=== PATIENT | female | born 1930 | race Caucasian/White ===

== ENCOUNTER → 2017-07-28 | Outpatient (CLI) | payer MEDICARE ==
[2017-07-28 12:43] LABS: Potassium 3.8 mmol/L (3.5-5.1)
[2017-07-28 12:46] LABS: CHCM 30.3; HCT 47.2 % (34.0-46.0); HDW 2.15; HGB 14.4 gm/dL (11.4-16.0); Hypochromasia Slight; MCH 30.4 pg (25.0-35.0); MCHC 30.5 g/dL (31.0-37.0); MCV 99.6 fL (80.0-100.0); Mean Platelet Volume 7.9; RBC 4.75 m/uL (3.80-5.40); RDW 13.7 % (11.5-15.5); WBC 7.5 k/uL (3.8-10.6)
== END | disposition home or self-care (01) ==
LOC: LABPAT 11:58
PROVIDERS: ATTEND Internal Medicine Interventional Cardiology
DX: Z01.812 Encounter for preprocedural laboratory examination (principal); I25.118 Atherosclerotic heart disease of native coronary artery with other forms of angina pectoris
CPT/HCPCS: 36415; 80051; 82565; 84520; 85027

== ENCOUNTER 2017-08-03 07:02 | Day surgery (SDC) | payer MEDICARE ==
[2017-08-02 14:36] VITALS: BMI 28.3
[~2017-08-03 07:02] MED LIST: ALPRAZolam 0.25 MG TAB PO PRN; ALPRAZolam 0.5 MG TAB PO PRN; ASPIRIN 325 MG TAB PO STA; ATORVASTATIN 80 MG TAB PO STA; NITROGLYCERIN SL TABS 0.4 MG TAB SUBLINGUAL PRN; SODIUM CHLORIDE 0.9% 1,000 ML IV SCH; SODIUM CHLORIDE 0.9% 1,000 ML in EMPTY BAG 1 BAG IV ONE
[2017-08-03 07:34] VITALS: RESP 16; TEMP 98.2
[2017-08-03 08:07] LABS: Anion Gap 8 mmol/L; Blood Urea Nitrogen 22 mg/dL (7-17); Calcium 9.1 mg/dL (8.4-10.2); Carbon Dioxide 27 mmol/L (22-30); Chloride 105 mmol/L (98-107); Glucose 93 mg/dL (74-99); Non-African American GFR(MDRD) 54 (>60 ml/min/1.73 sqM); Potassium 4.1 mmol/L (3.5-5.1); Sodium 140 mmol/L (137-145)
[2017-08-03] MEDS ORDERED: diphenhydrAMINE 50 MG/ML 1 ML VIAL ONE (09:30)
[2017-08-03] MEDS ORDERED: fentaNYL (PF) 50 MCG/ML 2 ML AMP ONE (09:30)
[2017-08-03] MEDS ORDERED: LIDOCAINE 2% INJ 20 MG/ML (20 ML MDV) ONE (09:30)
[2017-08-03] MEDS ORDERED: HEPARIN SODIUM 1,000 UN/ML (10ML VL) ONE (09:30)
[2017-08-03] MEDS ORDERED: VERAPAMIL 2.5 MG/ML 2 ML AMP ONE (09:30)
[2017-08-03] MEDS ORDERED: fentaNYL (PF) 50 MCG/ML 2 ML AMP IV ONE (09:47)
[2017-08-03] MEDS ORDERED: diphenhydrAMINE 50 MG/ML 1 ML VIAL IVP ONE (09:47)
[2017-08-03] MEDS ORDERED: LIDOCAINE 2% INJ 20 MG/ML SQ ONE (09:52)
[2017-08-03] MEDS ORDERED: VERAPAMIL SYRINGE (5 MG/10 ML) INTRAARTER ONE (09:55)
[2017-08-03] MEDS ORDERED: HEPARIN SODIUM 1,000 UN/ML (10ML VL) IV ONE (10:05)
[2017-08-03] MEDS ORDERED: IODIXANOL 320 MG/ML 100 ML INTRAARTER ONE (10:08)
[2017-08-03] MEDS ORDERED: RX INFO: IV CONTRAST WAS GIVEN 1 EACH MISC MISCELLANE PRN (10:20)
[2017-08-03] MEDS ORDERED: ALPRAZolam 0.25 MG TAB PO PRN (10:21)
[2017-08-03] MEDS ORDERED: BUTALB/APAP/CAFF 50-325-40MG TAB PO PRN (10:21)
[2017-08-03] MEDS ORDERED: NITROGLYCERIN SL TABS 0.4 MG TAB SUBLINGUAL PRN (10:21)
[2017-08-03] MEDS ORDERED: SODIUM CHLORIDE 0.9% 1,000 ML IV SCH (10:30)
--- NOTE | 2017-08-03 11:10 | CC ---
CARDIAC CATHETERIZATION REPORT Mrs. Garcia is an 86-year-old female with known history of hypertension, hyperlipidemia, history of coronary artery disease, who presented with symptoms of chest discomfort, exertion in pattern reminding her of the symptoms she had prior to percutaneous revascularization. In view of that, recommendation was made regarding cardiac catheterization. The procedure as well as the risks and complications were discussed with the patient who is in full understanding and agreement. 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 Using Xylocaine anesthesia in the Seldinger technique, a 6-Nigerien sheath was introduced in the right radial artery. Selective right and left coronary angiography performed using 5-Nigerien 3-1/2 bend right and left Glynn catheter. Multiple view of the coronary arteries including hemiaxial views were obtained. Following that, a 5-Nigerien tight pigtail catheter was introduced into the left ventricle and pressures were calculated. Following that, catheter and sheaths were removed. Hemostasis was obtained with deployment of a TR band. There was no immediate complication. Patient is returned to her room in stable condition. Of note, the patient received 4000 units of intravenous heparin as well as intra- arterial verapamil. FINDINGS: 1. LEFT MAIN: This is a large-sized vessel, calcified, bifurcating in the left circumflex and left anterior descending artery. Left main coronary artery is without any significant obstructive coronary disease. 2. LEFT ANTERIOR DESCENDING ARTERY: This is a large-sized vessel reaching to the apex with a wrap around the apex segment giving rise to small diagonal branch. The left anterior descending artery stented segment in the mid and proximal are patent with no evidence of significant restenosis. The vessel has mild intimal disease of 20% to 30% without any evidence of high-grade stenosis. 3. LEFT CIRCUMFLEX: This is a nondominant vessel giving rise to a large obtuse marginal branch. The obtuse marginal branch has a 40% to 50% plaque in the mid segment with no significant progression of disease compared with the images obtained in 2013. 4. RIGHT CORONARY ARTERY: This is a large dominant vessel bifurcating distally to PDA and posterolateral segment and branches. The right coronary artery mid segment has a 40% plaque without any evidence of high-grade stenosis. LEFT VENTRICULOGRAM: Left ventriculogram is not performed. HEMODYNAMICS: There was no gradient across the aortic valve. The left ventricular end-diastolic pressure was 8 mmHg. CONCLUSION: 1. Calcified coronary arteries. 2. Mild to moderate triple-vessel coronary artery disease with no progression of disease compared with the images obtained in 2013. RECOMMENDATION: I recommend to continue medical therapy with aggressive coronary risk modifications that has been initiated. Those findings and recommendation were discussed with the patient and her family and they are in full understanding and agreement. Duration of procedure is 18 minutes. MMODL / IJN: [id number] /
[2017-08-03 13:08] VITALS: PULSE 60
[2017-08-03 14:52] VITALS: BP 134/57
--- NOTE | 2017-08-03 15:46 | LTR ---
August 03, 2017 Re: Kaci Garcia Dear Dr. Meyers: I had the opportunity to perform cardiac catheterization on Mrs. Garcia at [facility] on the 03 of August and a full copy of the procedure note will be forwarded to you. In brief, she was found to have mild to moderate triple-vessel coronary artery disease with no progression of disease compared with the images obtained in 2012. Based on those findings, I recommend to continue medical therapy with aggressive coronary risk modifications to be initiated. Thank you again for allowing me the opportunity to participate in her care. Please feel free to call for any questions. Sincerely yours, MD OSCAR Miles / MELYSSAN: [phone] /
[2017-08-03] MEDS ORDERED: FLUoxetine HCL 10 MG CAP PO SCH (16:00)
[2017-08-03] MEDS ORDERED: MONTELUKAST 10 MG TAB PO SCH (21:00)
[2017-08-03] MEDS ORDERED: NON-FORMULARY DRUG (Simvastatin [Zocor] 40 MG) PO SCH (21:00)
[2017-08-04] MEDS ORDERED: LISINOPRIL 5 MG TAB PO SCH (09:00)
[2017-08-04] MEDS ORDERED: EZETIMIBE 10 MG TAB PO SCH (09:00)
[2017-08-04] MEDS ORDERED: ASPIRIN 325 MG TAB PO SCH (09:00)
[2017-08-04] MEDS ORDERED: ATENOLOL 25 MG TAB PO SCH (09:00)
[2017-08-04] MEDS ORDERED: ISOSORBIDE MONONITRATE ER 60 MG TAB.ER.24H PO SCH (09:00)
== END 2017-08-03 15:34 | disposition home or self-care (01) ==
LOC: CATHCVL 07:02
PROVIDERS: ATTEND Internal Medicine Interventional Cardiology
DX: I25.110 Atherosclerotic heart disease of native coronary artery with unstable angina pectoris (principal); I25.84 Coronary atherosclerosis due to calcified coronary lesion; I10 Essential (primary) hypertension; E78.2 Mixed hyperlipidemia; Z95.5 Presence of coronary angioplasty implant and graft; Z86.711 Personal history of pulmonary embolism; Z82.49 Family history of ischemic heart disease and other diseases of the circulatory system; J45.909 Unspecified asthma, uncomplicated; Z79.82 Long term (current) use of aspirin; Z79.899 Other long term (current) drug therapy; Z88.1 Allergy status to other antibiotic agents; Z88.2 Allergy status to sulfonamides
CPT/HCPCS: 99152; 93458; 85347; 80048; C1894; C1769; J2001; J1200; Q9967; J3010; J1644

== ENCOUNTER 2018-03-12 15:04 | Inpatient (IN) | payer MEDICARE ==
[2018-03-12] MEDS ORDERED: SODIUM CHLORIDE 0.9% 1,000 ML IV STA (15:10)
[2018-03-12] MEDS ORDERED: SODIUM CHLORIDE 0.9% 500 ML IV STA (15:10)
--- NOTE | 2018-03-12 15:14 | ED ---
Weakness HPI - General Chief complaint: Weakness Stated complaint: Weakness Time Seen by Provider: 03/12/18 15:04 Source: patient, RN notes reviewed Mode of arrival: EMS Limitations: no limitations - History of Present Illness Initial comments: This is a 87-year-old female who is brought in by EMS after being called for generalized weakness and lethargy all day. Patient was noted be hypotensive on arrival but after 250 mL bolus did improve somewhat. Doesn't complain some left -sided chest pain that has resolved she recently was treated for bronchitis 2 weeks ago she states she's had chills and hot flashes this morning she has had a cough. No other modifying factors at this time MD Complaint: generalized weakness - Related Data Home Medications Medication Instructions Recorded Confirmed ALPRAZolam [Xanax] 0.25 mg PO Q8HR PRN 08/02/17 03/12/18 Aspirin 325 mg PO DAILY 08/02/17 03/12/18 Atenolol 25 mg PO DAILY 08/02/17 03/12/18 Butalb/APAP/Caff 50-325-40Mg 1 tab PO Q6H PRN 08/02/17 03/12/18 [Fioricet 50-325-40] Ezetimibe [Zetia] 10 mg PO DAILY 08/02/17 03/12/18 FLUoxetine HCL [PROzac] 10 mg PO TID 08/02/17 03/12/18 Furosemide [Lasix] 20 mg PO DAILY 08/02/17 03/12/18 Isosorbide Mononitrate ER [Imdur] 60 mg PO DAILY 08/02/17 03/12/18 Lisinopril [Zestril] 5 mg PO DAILY 08/02/17 03/12/18 Montelukast [Singulair] 10 mg PO HS 08/02/17 03/12/18 Nitroglycerin Sl Tabs [Nitrostat] 0.4 mg SUBLINGUAL Q5M PRN 08/02/17 03/12/18 Potassium Chloride ER [K-Dur 10] 10 meq PO DAILY 08/02/17 03/12/18 Simvastatin [Zocor] 40 mg PO HS 08/02/17 03/12/18 Allergies Allergy/AdvReac Type Severity Reaction Status Date / Time Sulfa (Sulfonamide Allergy Rash/Hives Verified 03/12/18 15:11 Antibiotics) erythromycin base AdvReac Nausea & Verified 03/12/18 15:11 Vomiting Review of Systems ROS Statement: Those systems with pertinent positive or pertinent negative responses have been documented in the HPI. ROS Other: All systems not noted in ROS Statement are negative. Past Medical History Past Medical History: Asthma, Coronary Artery Disease (CAD), Chest Pain / Angina , Heart Failure, Hyperlipidemia, Pulmonary Embolus (PE) Additional Past Medical History / Comment(s): brain tumor for years, mild memory impairment,PE yrs ago,IBS History of Any Multi-Drug Resistant Organisms: None Reported Past Surgical History: Appendectomy, Heart Catheterization With Stent, Tonsillectomy Additional Past Surgical History / Comment(s): heart stents x2,rt knee surg Past Anesthesia/Blood Transfusion Reactions: No Reported Reaction Additional Past Anesthesia/Blood Transfusion Reaction / Comment(s): no hx blood transfusion Date of Last Stent Placement:: unk Past Psychological History: No Psychological Hx Reported Smoking Status: Never smoker - Past Family History Mother Family Medical History: Cancer, Diabetes Mellitus, Myocardial Infarction (MS) Additional Family Medical History / Comment(s): at 56 with MS Father Family Medical History: Coronary Artery Disease (CAD), Myocardial Infarction (MS ), Pulmonary Embolus Additional Family Medical History / Comment(s): at age 60 MS General Exam - General Exam Comments Initial Comments: This is a well-developed well-nourished awake alert oriented 3 female Limitations: no limitations General appearance: alert, in no apparent distress Head exam: Present: atraumatic, normocephalic, normal inspection Eye exam: Present: normal appearance, PERRL, EOMI. Absent: scleral icterus, conjunctival injection, periorbital swelling ENT exam: Present: mucous membranes dry Neck exam: Present: normal inspection. Absent: tenderness, meningismus, lymphadenopathy Respiratory exam: Present: rhonchi (Some basilar rhonchi), decreased breath sounds. Absent: respiratory distress, wheezes, rales, stridor Cardiovascular Exam: Present: regular rate, normal rhythm, normal heart sounds. Absent: systolic murmur, diastolic murmur, rubs, gallop, clicks GI/Abdominal exam: Present: soft, normal bowel sounds. Absent: distended, tenderness, guarding, rebound, rigid Extremities exam: Present: normal inspection, full ROM, normal capillary refill. Absent: tenderness, pedal edema, joint swelling, calf tenderness Back exam: Present: normal inspection Neurological exam: Present: alert, oriented X3, CN II-XII intact Psychiatric exam: Present: normal affect, normal mood Skin exam: Present: warm, dry, intact, normal color. Absent: rash Course Vital Signs 03/12/18 03/12/18 15:05 16:13 Temperature 97.6 F Pulse Rate 73 78 Respiratory 20 16 Rate Blood Pressure 118/65 126/77 O2 Sat by Pulse 95 94 L Oximetry - Reevaluation(s) Reevaluation #1: 03/12/18 16:20 I did review the patient's old EKGs or available compared to today's no definite acute change seen Reevaluation #2: 03/12/18 16:21 Patient has no pain at this time I did discuss the findings with the patient and her daughter who was present. Does have elevated troponin she will be admitted EKG Findings - EKG Results: EKG: interpreted by KEVIN, sinus rhythm (Sinus rhythm with artifact rate was 82. Interval 128 QRS duration 70 QT since QTC of 46/[address]-T wave configuration prolonged QT) Medical Decision Making - Lab Data Result diagrams: 03/12/18 15:07 03/12/18 15:07 Lab Results 03/12/18 03/12/18 03/12/18 Range/Units 15:07 15:07 15:07 WBC (3.8-10.6) k/uL RBC (3.80-5.40) m/uL Hgb (11.4-16.0) gm/dL Hct (34.0-46.0) % MCV (80.0-100.0) fL MCH (25.0-35.0) pg MCHC (31.0-37.0) g/dL RDW (11.5-15.5) % Plt Count (150-450) k/uL Neutrophils % % Lymphocytes % % Monocytes % % Eosinophils % % Basophils % % Neutrophils # (1.3-7.7) k/uL Lymphocytes # (1.0-4.8) k/uL Monocytes # (0-1.0) k/uL Eosinophils # (0-0.7) k/uL Basophils # (0-0.2) k/uL Manual Slide Review Sodium 139 (137-145) mmol/L Potassium 4.5 (3.5-5.1) mmol/L Chloride 106 (98-107) mmol/L Carbon Dioxide 22 (22-30) mmol/L Anion Gap 11 mmol/L BUN 50 H (7-17) mg/dL Creatinine 1.30 H (0.52-1.04) mg/dL Est GFR (CKD-EPI)AfAm 43 (>60 ml/min/1.73 sqM) Est GFR (CKD-EPI)NonAf 38 (>60 ml/min/1.73 sqM) Glucose 134 H (74-99) mg/dL Plasma Lactic Acid Rocco (0.7-2.0) mmol/L Calcium 8.8 (8.4-10.2) mg/dL Magnesium 2.0 (1.6-2.3) mg/dL Total Bilirubin 0.6 (0.2-1.3) mg/dL AST 27 (14-36) U/L ALT 33 (9-52) U/L Alkaline Phosphatase 86 (38-126) U/L Total Creatine Kinase 37 (30-135) U/L CK-MB (CK-2) 1.6 (0.0-2.4) ng/mL CK-MB (CK-2) Rel Index 4.3 Troponin I 0.211 H* (0.000-0.034) ng/mL NT-Pro-B Natriuret Pep 2330 pg/mL Total Protein 5.8 L (6.3-8.2) g/dL Albumin 3.3 L (3.5-5.0) g/dL Amylase 76 (30-110) U/L Lipase 200 (23-300) U/L 03/12/18 03/12/18 Range/Units 15:07 15:07 WBC 9.4 (3.8-10.6) k/uL RBC 4.81 (3.80-5.40) m/uL Hgb 14.6 (11.4-16.0) gm/dL Hct 44.6 (34.0-46.0) % MCV 92.7 (80.0-100.0) fL MCH 30.4 (25.0-35.0) pg MCHC 32.8 (31.0-37.0) g/dL RDW 13.0 (11.5-15.5) % Plt Count 73 L (150-450) k/uL Neutrophils % 79 % Lymphocytes % 13 % Monocytes % 5 % Eosinophils % 2 % Basophils % 0 % Neutrophils # 7.5 (1.3-7.7) k/uL Lymphocytes # 1.3 (1.0-4.8) k/uL Monocytes # 0.4 (0-1.0) k/uL Eosinophils # 0.2 (0-0.7) k/uL Basophils # 0.0 (0-0.2) k/uL Manual Slide Review Performed Sodium (137-145) mmol/L Potassium (3.5-5.1) mmol/L Chloride (98-107) mmol/L Carbon Dioxide (22-30) mmol/L Anion Gap mmol/L BUN (7-17) mg/dL Creatinine (0.52-1.04) mg/dL Est GFR (CKD-EPI)AfAm (>60 ml/min/1.73 sqM) Est GFR (CKD-EPI)NonAf (>60 ml/min/1.73 sqM) Glucose (74-99) mg/dL Plasma Lactic Acid Rocco 1.5 (0.7-2.0) mmol/L Calcium (8.4-10.2) mg/dL Magnesium (1.6-2.3) mg/dL Total Bilirubin (0.2-1.3) mg/dL AST (14-36) U/L ALT (9-52) U/L Alkaline Phosphatase (38-126) U/L Total Creatine Kinase (30-135) U/L CK-MB (CK-2) (0.0-2.4) ng/mL CK-MB (CK-2) Rel Index Troponin I (0.000-0.034) ng/mL NT-Pro-B Natriuret Pep pg/mL Total Protein (6.3-8.2) g/dL Albumin (3.5-5.0) g/dL Amylase (30-110) U/L Lipase (23-300) U/L Critical Care Time Critical Care Time: Yes Critical Care Time: 31 minutes of critical care time which includes monitoring the EMS run and discussed with paramedics discussed with the patient history physical labs x- rays review of old charting that was available review the patient's medications and reevaluation patient several occasions. Discussion with the admitting physician discussed with cardiology. Disposition Clinical Impression: Non-STEMI (non-ST elevated myocardial infarction), Renal insufficiency, Elevated brain natriuretic peptide (BNP) level Disposition: ADMITTED IP TO THIS HOSP Condition: Stable Referrals: Carlos A Meyers MD [Primary Care Provider] - 1-2 days
[2018-03-12 15:37] LABS: Basophils % (A) 0 %; Eosinophils # (A) 0.2 k/uL (0-0.7); Eosinophils % (A) 2 %; HCT 44.6 % (34.0-46.0); HGB 14.6 gm/dL (11.4-16.0); Lymphocytes # (A) 1.3 k/uL (1.0-4.8); Lymphocytes % (A) 13 %; MCH 30.4 pg (25.0-35.0); MCHC 32.8 g/dL (31.0-37.0); MCV 92.7 fL (80.0-100.0); Mean Platelet Volume 8.9; Monocytes # (A) 0.4 k/uL (0-1.0); Monocytes % (A) 5 %; Neutrophils # (A) 7.5 k/uL (1.3-7.7); Neutrophils % (A) 79 %; RBC 4.81 m/uL (3.80-5.40); WBC 9.4 k/uL (3.8-10.6)
[2018-03-12 15:44] LABS: Albumin 3.3 g/dL (3.5-5.0); Calcium 8.8 mg/dL (8.4-10.2); Potassium 4.5 mmol/L (3.5-5.1); Total Bilirubin 0.6 mg/dL (0.2-1.3); Total Protein 5.8 g/dL (6.3-8.2)
[2018-03-12 15:51] LABS: Platelet Count 73 k/uL (150-450)
[2018-03-12 15:59] LABS: Creatine Kinase MB 1.6 ng/mL (0.0-2.4)
[2018-03-12 16:03] LABS: Troponin I 0.211 ng/mL (0.000-0.034)
--- NOTE | 2018-03-12 16:13 | XR ---
EXAMINATION TYPE: XR chest 2V DATE OF EXAM: 03/12/2018 COMPARISON: 11/21/2015 HISTORY: Shortness of breath and chest discomfort TECHNIQUE: Frontal and lateral views of the chest are obtained. FINDINGS: There is no focal air space opacity, pleural effusion, or pneumothorax seen. Pulmonary pe r inflation and biapical lucency represent underlying pulmonary emphysema. The cardiac silhouette siz e is within normal limits. The osseous structures are intact. Mild multilevel degenerative changes of thoracic spine and right acromioclavicular joint are present. Slight pectus excavatum deformity is redemonstrated. There is mild generalized osseous demineralization. IMPRESSION: No acute cardiopulmonary process. Redemonstration of radiographic sequela of COPD.
[2018-03-12] MEDS ORDERED: HEPARIN SODIUM,PORCINE 5,000 UNIT/ML 1 ML VIAL IV ONE (16:23)
[2018-03-12] MEDS ORDERED: NITROGLYCERIN SL TABS 0.4 MG TAB SUBLINGUAL PRN (16:23)
[2018-03-12] MEDS ORDERED: ALPRAZolam 0.25 MG TAB PO PRN (16:25)
[2018-03-12] MEDS ORDERED: HEPARIN SODIUM,PORCINE/D5W PMX 25,000 UNIT in DEXTROSE/WATER 1 500ML.BAG IV SCH (16:30)
[2018-03-12] MEDS: NITROGLYCERIN OINT 1 INCH/GM PACKET TOPICAL SCH ×2 (18:52→23:17)
[2018-03-12] MEDS: ATORVASTATIN 20 MG TAB PO SCH (19:36)
[2018-03-12] MEDS: MONTELUKAST 10 MG TAB PO SCH (19:36)
[2018-03-12] MEDS: FLUoxetine HCL 10 MG CAP PO SCH (19:36)
[2018-03-12] MEDS ORDERED: ONDANSETRON 4 MG/2 ML VIAL IVP PRN (20:43)
[2018-03-12 21:09] LABS: Creatine Kinase MB 2.1 ng/mL (0.0-2.4)
[2018-03-12 21:15] LABS: Troponin I 0.344 ng/mL (0.000-0.034)
[2018-03-13 04:05] LABS: Creatine Kinase MB 2.4 ng/mL (0.0-2.4)
[2018-03-13 04:07] LABS: Troponin I 0.337 ng/mL (0.000-0.034)
[2018-03-13] MEDS: NITROGLYCERIN OINT 1 INCH/GM PACKET TOPICAL SCH ×2 (05:26→12:51)
[2018-03-13 07:05] LABS: Cholesterol 89 mg/dL (<200); HDL Cholesterol 46 mg/dL (40-60); LDL Cholesterol,Calculated 21 mg/dL (0-99); Triglycerides 111 mg/dL (<150)
[2018-03-13] MEDS: FLUoxetine HCL 10 MG CAP PO SCH ×3 (08:28→20:21)
[2018-03-13] MEDS: FUROSEMIDE 20 MG TAB PO SCH (08:28)
[2018-03-13] MEDS: ASPIRIN 325 MG TAB PO SCH (08:28)
[2018-03-13] MEDS: POTASSIUM CHLORIDE ER 10 MEQ TAB.ER.PRT PO SCH (08:28)
[2018-03-13] MEDS: ATENOLOL 25 MG TAB PO SCH (08:29)
[2018-03-13] MEDS: EZETIMIBE 10 MG TAB PO SCH (08:29)
[2018-03-13] MEDS: LISINOPRIL 5 MG TAB PO SCH (08:29)
[2018-03-13] MEDS ORDERED: ISOSORBIDE MONONITRATE ER 60 MG TAB.ER.24H PO SCH (09:00)
[2018-03-13 10:01] LABS: Calcium 8.6 mg/dL (8.4-10.2); Potassium 4.7 mmol/L (3.5-5.1)
[2018-03-13] MEDS ORDERED: RX INFO: IV CONTRAST WAS GIVEN 1 EACH MISC MISCELLANE PRN ×2 (12:00→14:25)
[2018-03-13] MEDS ORDERED: IPRATROPIUM-ALBUTEROL 3 ML NEB INHALATION PRN (12:05)
[2018-03-13 12:19] LABS: Basophils % (A) 1 %; Eosinophils # (A) 0.2 k/uL (0-0.7); Eosinophils % (A) 3 %; HCT 42.4 % (34.0-46.0); Hypochromasia Slight; Lymphocytes % (A) 21 %; MCHC 30.7 g/dL (31.0-37.0); MCV 94.5 fL (80.0-100.0); Mean Platelet Volume 10.7; Monocytes # (A) 0.6 k/uL (0-1.0); Monocytes % (A) 6 %; Neutrophils # (A) 6.4 k/uL (1.3-7.7); Neutrophils % (A) 69 %; RBC 4.49 m/uL (3.80-5.40); RDW 13.1 % (11.5-15.5); WBC 9.3 k/uL (3.8-10.6)
[2018-03-13 12:25] LABS: Platelet Count 72 k/uL (150-450)
--- NOTE | 2018-03-13 12:35 | ECHOF ---
Referral Reason:LVF MEASUREMENTS -------- HEIGHT: 160.0 cm WEIGHT: 76.7 kg BP: RVIDd: 4.0 cm (< 3.3) IVSd: 0.7 cm (0.6 - 1.1) LVIDd: 3.0 cm (3.9 - 5.3) LVPWd: 1.0 cm (0.6 - 1.1) IVSs: 1.0 cm LVIDs: 2.6 cm LVPWs: 1.6 cm Ao Diam: 3.2 cm (2.0 - 3.7) AV Cusp: 1.8 cm (1.5 - 2.6) LA Diam: 2.8 cm (2.7 - 3.8) MV EXCURSION: 15.271 mm (> 18.000) MV EF SLOPE: 10 mm/s (70 - 150) EPSS: 0.3 cm MV E Osmani: 0.60 m/s MV DecT: 149 ms MV A Osmani: 0.77 m/s MV E/A Ratio: 0.78 AR PHT: 637 ms RAP: 5.00 mmHg RVSP: 67.90 mmHg FINDINGS -------- Undetermined rhythm. This was a technically difficult study with suboptimal views. The left ventricular size is normal. Left ventricular wall thickness is normal. Overall left vent ricular systolic function is mildly impaired with, an EF between 45 - 50 %. There is paradoxical/dy synergic septal motion consistent with right ventricular volume overload and/or elevated right ventri cular end-diastolic pressure. The right ventricle is moderately enlarged. The right ventricular systolic function is moderately i mpaired. The left atrium is normal in size. RA appears enlarged. Lumason used There is mild aortic valve sclerosis. There is mild aortic regurgitation. Moderate mitral annular calcification present. Mild mitral regurgitation is present. Severe tricuspid regurgitation present. There is moderate to severe pulmonary hypertension. The r ight ventricular systolic pressure, as measured by Doppler, is 67.90mmHg. 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 Moderate pulmonic regurgitation. The aortic root size is normal. There is no pericardial effusion. CONCLUSIONS -------- 1. Undetermined rhythm. 2. This was a technically difficult study with suboptimal views. 3. The left ventricular size is normal. 4. Left ventricular wall thickness is normal. 5. Overall left ventricular systolic function is mildly impaired with, an EF between 45 - 50 %. 6. There is paradoxical/dysynergic septal motion consistent with right ventricular volume overload an d/or elevated right ventricular end-diastolic pressure. 7. The right ventricle is moderately enlarged. 8. The right ventricular systolic function is moderately impaired. 9. The left atrium is normal in size. 10. RA appears enlarged. 11. Lumason used 12. There is mild aortic valve sclerosis. 13. There is mild aortic regurgitation. 14. Moderate mitral annular calcification present. 15. Mild mitral regurgitation is present. 16. Severe tricuspid regurgitation present. 17. There is moderate to severe pulmonary hypertension. 18. 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 19. Moderate pulmonic regurgitation. 20. The aortic root size is normal. 21. There is no pericardial effusion. CRITICAL CARE TECHNICIAN: Kylah Rehman RDCS
[2018-03-13] MEDS: AZITHROMYCIN 500 MG in SODIUM CHLORIDE 0.9% 250 ML IVPB SCH (13:31)
[2018-03-13] MEDS: IOPAMIDOL-300 CONTRAST 30 ML VIAL (ORAL USE) PO PRN ×2 (13:33→14:22)
--- NOTE | 2018-03-13 13:35 | P.CRDCN ---
History of Present Illness Consult date: 03/13/18 History of present illness: This is a 87-year-old female with history of coronary artery disease, hypertension and dyslipidemia and also probable underlying COPD who was admitted through the emergency room with complaints of increasing shortness of breath, fatigue and the heart to mental status and confusion. Over the last several days patient has been weak and fatigued. Apparently the day of admission, patient was confused and appeared to be disoriented lasting for several hours. It is not clear if she had any falls or syncope. Patient is also complaining of shortness of breath and vague pain in the axillary area. Patient had a Cardec enzymes studies which are borderline elevated. EKGs did not reveal any acute changes. Cardiac catheterization done last year by Dr. Ayala showed diffuse coronary artery disease without any focal abnormalities. Lab values showed a mildly elevated creatinine. At the time of my examination patient doesn't appear to be in acute distress. However she feels frail and weak. Echo showed an ejection fraction of 45-50% with moderate mitral regurgitation and also pulmonary hypertension. She claims she gets short of breath Without nasal oxygen. Review of Systems REVIEW OF SYSTEMS: CONSTITUTIONAL:. Patient is doing well. No complaints of fever or chills EYES: Denies diplopia, blurring of vision EARS, NOSE, MOUTH, THROAT: Denies headaches, denies sore throat. CARDIOVASCULAR: As per HPI RESPIRATORY: As per HPI GASTROINTESTINAL: Denies change in appetite, denies abdominal pain, denies diarrhea GENITOURINARY: Denies hematuria, denies infections. MUSKULOSKELETAL: Denies pain, denies swelling. Denies any cramps or claudication INTEGUMENTARY: Denies rash, denies eczema. NEUROLOGICAL: Denies focal weakness, or visual disturbance. Denies any dizziness or syncope PSYCHIATRIC: Denies anxiety, denies depression. HEMATOLOGIC/LYMPHATIC: Denies any bleeding, denies enlarged lymph nodes. Past Medical History Past Medical History: Asthma, Coronary Artery Disease (CAD), Chest Pain / Angina , Heart Failure, Hyperlipidemia, Pulmonary Embolus ([place]) Additional Past Medical History / Comment(s): brain tumor for years, mild memory impairment,PE yrs ago,IBS History of Any Multi-Drug Resistant Organisms: None Reported Past Surgical History: Appendectomy, Heart Catheterization With Stent, Tonsillectomy Additional Past Surgical History / Comment(s): heart stents x2,rt knee surg Past Anesthesia/Blood Transfusion Reactions: No Reported Reaction Additional Past Anesthesia/Blood Transfusion Reaction / Comment(s): no hx blood transfusion Date of Last Stent Placement:: unk Past Psychological History: No Psychological Hx Reported Smoking Status: Never smoker Past Alcohol Use History: None Reported Past Drug Use History: None Reported - Past Family History Mother Family Medical History: Cancer, Diabetes Mellitus, Myocardial Infarction ([place]) Additional Family Medical History / Comment(s): at 56 with [place] Father Family Medical History: Coronary Artery Disease (CAD), Myocardial Infarction ([place] ), Pulmonary Embolus Additional Family Medical History / Comment(s): at age 60 [place] Medications and Allergies Home Medications Medication Instructions Recorded Confirmed Type ALPRAZolam [Xanax] 0.25 mg PO TID PRN 08/02/17 03/12/18 History Aspirin 325 mg PO DAILY 08/02/17 03/12/18 History Atenolol 25 mg PO DAILY 08/02/17 03/12/18 History Ezetimibe [Zetia] 10 mg PO DAILY 08/02/17 03/12/18 History FLUoxetine HCL [PROzac] 10 mg PO QAM 08/02/17 03/12/18 History Furosemide [Lasix] 20 mg PO DAILY 08/02/17 03/12/18 History Isosorbide Mononitrate ER [Imdur] 60 mg PO DAILY 08/02/17 03/12/18 History Lisinopril [Zestril] 5 mg PO DAILY 08/02/17 03/12/18 History Montelukast [Singulair] 10 mg PO HS 08/02/17 03/12/18 History Nitroglycerin Sl Tabs [Nitrostat] 0.4 mg SUBLINGUAL Q5M PRN 08/02/17 03/12/18 History Potassium Chloride ER [K-Dur 10] 10 meq PO DAILY 08/02/17 03/12/18 History Simvastatin [Zocor] 40 mg PO HS 08/02/17 03/12/18 History Benzonatate [Tessalon Perles] 100 - 200 mg PO TID PRN 03/12/18 03/12/18 History Butalb/APAP/Caff 50-325-40Mg 1 - 2 tab PO Q6H PRN 03/12/18 03/12/18 History [Fioricet 50-325-40] FLUoxetine HCL [PROzac] 20 mg PO HS 03/12/18 03/12/18 History diphenhydrAMINE HCL [Benadryl] 25 mg PO Q6H PRN 03/12/18 03/12/18 History traMADol HCL [Ultram] 50 mg PO Q8H PRN 03/12/18 03/12/18 History Allergies Allergy/AdvReac Type Severity Reaction Status Date / Time Sulfa (Sulfonamide Allergy Rash/Hives Verified 03/12/18 17:06 Antibiotics) erythromycin base AdvReac Nausea & Verified 03/12/18 17:06 Vomiting Physical Exam Vitals: Vital Signs Temp Pulse Pulse Resp BP BP Pulse Ox 03/13/18 08:00 97.6 F 73 18 126/77 93 L 03/13/18 04:00 97.3 F L 75 17 150/87 93 L 03/13/18 00:00 98.8 F 71 17 121/78 91 L 03/12/18 20:00 97.1 F L 74 17 142/79 93 L 03/12/18 16:48 97.7 F 79 18 108/65 94 L 03/12/18 16:44 97.6 F 78 16 168/68 95 03/12/18 16:13 78 16 126/77 94 L 03/12/18 15:05 97.6 F 73 20 118/65 95 Intake and Output 03/12/18 03/13/18 03/13/18 22:59 06:59 14:59 Intake Total 130.454 240 Output Total 325 400 Balance -194.546 -160 Intake: Intake, IV Titration 130.454 Amount Heparin Sodium,Porcine/ 130.454 D5w Pmx 25,000 unit In Dextrose/Water 1 500ml. bag @ 12 UNITS/KG/HR 17. 09 mls/hr IV .Q24H [facility] Rx #:[id number] Oral 0 240 Output: Urine 325 400 Other: Voiding Method Bedpan Bedside Commode # Voids 2 # Bowel Movements 0 Weight 77 kg 77 kg GENERAL EXAM: Patient is alert and oriented and doesn't appear to be in any acute distress HEENT: Normocephalic. Normal reaction of pupils, equal size, normal range of extraocular motion. No erythema or exudates in the throat. NECK: No masses, no nuchal rigidity. CHEST: No chest wall deformity. LUNGS: Decreased air entry HEART: S1 and S2 normal with no audible mumurs or gallops. Regular rhythm, femorals equal on both sides.. ABDOMEN: No hepatosplenomegaly, normal bowel sounds, no guarding or rigidity. SKIN: No rashes CENTRAL NERVOUS SYSTEM: No focal deficits. EXTREMITIES: No cyanosis, clubbing or edema. Results 03/13/18 06:10 03/13/18 06:10 Cardiac Enzymes 03/12/18 03/12/18 03/12/18 Range/Units 15:07 15:07 20:22 AST 27 (14-36) U/L CK-MB (CK-2) 1.6 2.1 (0.0-2.4) ng/mL Troponin I 0.211 H* 0.344 H* (0.000-0.034) ng/mL 03/13/18 Range/Units 03:23 AST (14-36) U/L CK-MB (CK-2) 2.4 (0.0-2.4) ng/mL Troponin I 0.337 H* (0.000-0.034) ng/mL Coagulation 03/12/18 03/13/18 Range/Units 23:31 06:10 APTT 168.5 H* 69.1 H (22.0-30.0) sec Lipids 03/13/18 Range/Units 06:10 Triglycerides 111 (<150) mg/dL Cholesterol 89 (<200) mg/dL HDL Cholesterol 46 (40-60) mg/dL CBC 03/12/18 03/13/18 Range/Units 15:07 06:10 WBC 9.4 9.3 (3.8-10.6) k/uL RBC 4.81 4.49 (3.80-5.40) m/uL Hgb 14.6 13.0 (11.4-16.0) gm/dL Hct 44.6 42.4 (34.0-46.0) % Plt Count 73 L 72 L (150-450) k/uL Comprehensive Metabolic Panel 03/12/18 03/13/18 Range/Units 15:07 06:10 Sodium 139 140 (137-145) mmol/L Potassium 4.5 4.7 (3.5-5.1) mmol/L Chloride 106 108 H (98-107) mmol/L Carbon Dioxide 22 21 L (22-30) mmol/L BUN 50 H 41 H (7-17) mg/dL Creatinine 1.30 H 1.05 H (0.52-1.04) mg/dL Glucose 134 H 103 H (74-99) mg/dL Calcium 8.8 8.6 (8.4-10.2) mg/dL AST 27 (14-36) U/L ALT 33 (9-52) U/L Alkaline Phosphatase 86 (38-126) U/L Total Protein 5.8 L (6.3-8.2) g/dL Albumin 3.3 L (3.5-5.0) g/dL Current Medications Generic Name Dose Route Start Last Admin Trade Name Freq PRN Reason Stop Dose Admin Acetaminophen/Butalbital/Caffeine 1 each 03/12/18 16:25 Fioricet 50-325-40 PO Q6H PRN Headache Albuterol/Ipratropium 3 ml 03/13/18 12:05 Duoneb 0.5 Mg-3 Mg/3 Ml Soln INHALATION RT-QID PRN Shortness Of Breath Alprazolam 0.25 mg 03/12/18 16:25 Xanax PO Q8HR PRN Anxiety Aspirin 325 mg 03/13/18 09:00 03/13/18 08:28 Aspirin PO 325 mg DAILY JASON Administration Atenolol 25 mg 03/13/18 09:00 03/13/18 08:29 Tenormin PO 25 mg DAILY JASON Administration Atorvastatin Calcium 20 mg 03/12/18 21:00 03/12/18 19:36 Lipitor PO 20 mg HS JASON Administration Ezetimibe 10 mg 03/13/18 09:00 03/13/18 08:29 Zetia PO 10 mg DAILY JASON Administration Fluoxetine HCl 10 mg 03/12/18 22:00 03/13/18 08:28 Prozac PO 10 mg TID JASON Administration Furosemide 20 mg 03/13/18 09:00 03/13/18 08:28 Lasix PO 20 mg DAILY JASON Administration Azithromycin 500 mg/ Sodium 250 mls @ 125 mls/hr 03/13/18 12:15 Chloride IVPB DAILY JASON Sodium Chloride 1,000 mls @ 50 mls/hr 03/13/18 12:15 Saline 0.9% IV .Q20H [facility] Iopamidol 30 ml 03/13/18 12:00 Isovue-300 30 Ml (For Oral Use) PO 03/14/18 12:[address] Scan Isosorbide Mononitrate 60 mg 03/14/18 09:00 Imdur PO DAILY JASON Lisinopril 5 mg 03/13/18 09:00 03/13/18 08:29 Zestril PO 5 mg DAILY JASON Administration Miscellaneous Information 1 each 03/13/18 12:00 Rx Info: Iv Contrast Was Given MISCELLANE 03/15/18 12:01 DAILY PRN Per Protocol Montelukast Sodium 10 mg 03/12/18 21:00 03/12/18 19:36 Singulair PO 10 mg HS JASON Administration Nitroglycerin 0.4 mg 03/12/18 16:23 Nitrostat SUBLINGUAL Q5M PRN Chest Pain Ondansetron HCl 4 mg 03/12/18 20:43 03/12/18 20:59 Zofran IVP 4 mg Q6HR PRN Administration Nausea And Vomiting Potassium Chloride 10 meq 03/13/18 09:00 03/13/18 08:28 K-Dur 10 PO 10 meq DAILY JASON Administration Prednisone 40 mg 03/13/18 12:15 PO DAILY JASON Intake and Output 03/12/18 03/13/18 03/13/18 22:59 06:59 14:59 Intake Total 130.454 240 Output Total 325 400 Balance -194.546 -160 Intake: Intake, IV Titration 130.454 Amount Heparin Sodium,Porcine/ 130.454 D5w Pmx 25,000 unit In Dextrose/Water 1 500ml. bag @ 12 UNITS/KG/HR 17. 09 mls/hr IV .Q24H [facility] Rx #:[id number] Oral 0 240 Output: Urine 325 400 Other: Voiding Method Bedpan Bedside Commode # Voids 2 # Bowel Movements 0 Weight 77 kg 77 kg 03/13/18 06:10 03/13/18 06:10 EKG Interpretations (text) Sinus rhythm Assessment and Plan (1) Troponin level elevated Current Visit: Yes Status: Acute Code(s): R74.8 - ABNORMAL LEVELS OF OTHER SERUM ENZYMES SNOMED Code(s): 181011491 (2) Elevated brain natriuretic peptide (BNP) level Current Visit: Yes Status: Acute Code(s): R79.89 - OTHER SPECIFIED ABNORMAL FINDINGS OF BLOOD CHEMISTRY SNOMED Code(s): 501320618 (3) Renal insufficiency Current Visit: Yes Status: Acute Code(s): N28.9 - DISORDER OF KIDNEY AND URETER, UNSPECIFIED SNOMED Code(s): 490195815 (4) Dyspnea Current Visit: Yes Status: Acute Code(s): R06.00 - DYSPNEA, UNSPECIFIED SNOMED Code(s): 817932224 (5) Confusion Current Visit: Yes Status: Acute Code(s): R41.0 - DISORIENTATION, UNSPECIFIED SNOMED Code(s): 952985657 (6) Atypical chest pain Current Visit: Yes Status: Acute Code(s): R07.89 - OTHER CHEST PAIN SNOMED Code(s): 894468178 Plan: This patient is admitted mainly with shortness of breath, chest pain and confusion. Her chest pains atypical and nonanginal. Borderline troponin elevation is not consistent with acute [place]. I'm going to get a d-dimer value. If that is high, computed tomography scan of the chest to be constricted to rule out pulmonary emboli. Patient has history of previous pulmonary emboli. Further recommendations depend upon clinical course and findings and about test. She had a cardiac catheterization recently which was not size to of any critical disease though patient has diffuse coronary artery disease.
[2018-03-13] MEDS: SODIUM CHLORIDE 0.9% 1,000 ML IV SCH (13:37)
--- NOTE | 2018-03-13 14:39 | P.HPIM ---
History of Present Illness H&P Date: 03/13/18 Chief Complaint: Generalized weakness This is an 87-year-old female patient of Dr. Meyers with past medical history of mild persistent asthma, coronary artery disease, chronic heart failure, hyperlipidemia, PE many years ago, brain tumor with mild memory impairment, IBS. Patient had heart catheterization with Dr. Ayala in July 2017 that showed calcified coronary arteries. Mild to moderate triple-vessel coronary artery disease with no progression of disease compared with images of 2013. Recommendations at that time were for aggressive coronary risk factor modifications. Patient states that she recently saw Dr. davis about 2 weeks ago and was diagnosed with bronchitis and placed on steroids, inhalers, antibiotics and Tessalon Perles. She continues to have a cough with phlegm production. Daughter states she went over to check on her in the morning as they live next door to each other and went back to her own home. Later her nephew was banging on the door and the patient stated that she thought she passed out. She did have episodes of nausea and vomiting on Tuesday or that lasted for one day. She has been drinking plenty of fluids. She has history of diarrhea with IBS. Patient states she's had some shortness of breath and the O2 helps. She does not have home O2. She is complaining of chest pain under her left arm that comes and goes and radiates into her left arm. The left arm pain stays. She does have tenderness to the left lateral chest wall. Patient presented to [facility] emergency center by ambulance with the above complaints. Patient was hypotensive on arrival and was given a bolus of IV fluids. Patient was afebrile. EKG showed no acute changes, sinus rhythm. BUN was 50 and creatinine 1.3. Platelet count 73, blood sugar 134. ProBNP was 2330. Initial troponin 0.211. Lactic acid was 1.5.. Patient was diagnosed with a non-ST elevated myocardial infarction and admitted to the selective care unit and cardiology consult requested. Patient was started on heparin drip. Chest x-ray shows no acute cardiopulmonary process. COPD changes present. Repeat troponins were 0.344 and 0.337. Triglycerides 111, cholesterol 89, LDL 21 and HDL 46. Patient has been seen by cardiology and acute coronary syndrome has been ruled out. Heparin drip discontinued. They have ordered a d-dimer. Patient is also complaining of left upper quadrant pain to her abdomen along with tenderness to the area and his CAT scan of the abdomen and pelvis with contrast have been ordered. Her repeat BUN is 41 with creatinine of 1.05. 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 Review of Systems All systems: negative Constitutional: Reports fatigue, Reports weakness, Denies chills, Denies fever Eyes: denies blurred vision, denies pain Ears, nose, mouth and throat: Denies headache, Denies sore throat Cardiovascular: Reports syncope, Denies chest pain, Denies leg edema, Denies shortness of breath Respiratory: Reports cough, Reports cough with sputum, Reports dyspnea, Reports wheezing, Denies excessive sputum, Denies hemoptysis, Denies home oxygen Gastrointestinal: Reports abdominal pain, Reports nausea, Reports vomiting, Denies diarrhea Genitourinary: Denies dysuria, Denies hematuria Musculoskeletal: Denies myalgias Integumentary: Denies pruritus, Denies rash Neurological: Denies numbness, Denies weakness Psychiatric: Denies anxiety, Denies depression Endocrine: Denies fatigue, Denies weight change Past Medical History Past Medical History: Asthma, Coronary Artery Disease (CAD), Chest Pain / Angina , Heart Failure, Hyperlipidemia, Pulmonary Embolus (PE) Additional Past Medical History / Comment(s): brain tumor for years, mild memory impairment,PE yrs ago,IBS History of Any Multi-Drug Resistant Organisms: None Reported Past Surgical History: Appendectomy, Heart Catheterization With Stent, Tonsillectomy Additional Past Surgical History / Comment(s): heart stents x2,rt knee surg Past Anesthesia/Blood Transfusion Reactions: No Reported Reaction Additional Past Anesthesia/Blood Transfusion Reaction / Comment(s): no hx blood transfusion Date of Last Stent Placement:: unk Past Psychological History: No Psychological Hx Reported Smoking Status: Never smoker Past Alcohol Use History: None Reported Past Drug Use History: None Reported - Past Family History Mother Family Medical History: Cancer, Diabetes Mellitus, Myocardial Infarction ([place]) Additional Family Medical History / Comment(s): at 56 with [place] Father Family Medical History: Coronary Artery Disease (CAD), Myocardial Infarction ([place] ), Pulmonary Embolus Additional Family Medical History / Comment(s): at age 60 [place] Medications and Allergies Home Medications Medication Instructions Recorded Confirmed Type ALPRAZolam [Xanax] 0.25 mg PO TID PRN 08/02/17 03/12/18 History Aspirin 325 mg PO DAILY 08/02/17 03/12/18 History Atenolol 25 mg PO DAILY 08/02/17 03/12/18 History Ezetimibe [Zetia] 10 mg PO DAILY 08/02/17 03/12/18 History FLUoxetine HCL [PROzac] 10 mg PO QAM 08/02/17 03/12/18 History Furosemide [Lasix] 20 mg PO DAILY 08/02/17 03/12/18 History Isosorbide Mononitrate ER [Imdur] 60 mg PO DAILY 08/02/17 03/12/18 History Lisinopril [Zestril] 5 mg PO DAILY 08/02/17 03/12/18 History Montelukast [Singulair] 10 mg PO HS 08/02/17 03/12/18 History Nitroglycerin Sl Tabs [Nitrostat] 0.4 mg SUBLINGUAL Q5M PRN 08/02/17 03/12/18 History Potassium Chloride ER [K-Dur 10] 10 meq PO DAILY 08/02/17 03/12/18 History Simvastatin [Zocor] 40 mg PO HS 08/02/17 03/12/18 History Benzonatate [Tessalon Perles] 100 - 200 mg PO TID PRN 03/12/18 03/12/18 History Butalb/APAP/Caff 50-325-40Mg 1 - 2 tab PO Q6H PRN 03/12/18 03/12/18 History [Fioricet 50-325-40] FLUoxetine HCL [PROzac] 20 mg PO HS 03/12/18 03/12/18 History diphenhydrAMINE HCL [Benadryl] 25 mg PO Q6H PRN 03/12/18 03/12/18 History traMADol HCL [Ultram] 50 mg PO Q8H PRN 03/12/18 03/12/18 History Allergies Allergy/AdvReac Type Severity Reaction Status Date / Time Sulfa (Sulfonamide Allergy Rash/Hives Verified 03/12/18 17:06 Antibiotics) erythromycin base AdvReac Nausea & Verified 03/12/18 17:06 Vomiting Physical Exam Vitals: Vital Signs Temp Pulse Pulse Resp BP BP Pulse Ox 03/13/18 04:00 97.3 F L 75 17 150/87 93 L 03/13/18 00:00 98.8 F 71 17 121/78 91 L 03/12/18 20:00 97.1 F L 74 17 142/79 93 L 03/12/18 16:48 97.7 F 79 18 108/65 94 L 03/12/18 16:44 97.6 F 78 16 168/68 95 03/12/18 16:13 78 16 126/77 94 L 03/12/18 15:05 97.6 F 73 20 118/65 95 Intake and Output 03/12/18 03/13/18 03/13/18 22:59 06:59 14:59 Intake Total 130.454 120 Output Total 325 Balance -194.546 120 Intake: Intake, IV Titration 130.454 Amount Heparin Sodium,Porcine/ 130.454 D5w Pmx 25,000 unit In Dextrose/Water 1 500ml. bag @ 12 UNITS/KG/HR 17. 09 mls/hr IV .Q24H [facility] Rx #:[id number] Oral 0 120 Output: Urine 325 Other: Voiding Method Bedpan Bedside Commode # Voids 1 # Bowel Movements 0 Weight 77 kg 77 kg - Constitutional General appearance: average body habitus - EENT Eyes: anicteric sclerae, PERRLA, normal appearance ENT: hard of hearing, normal oropharynx - Neck Neck: no lymphadenopathy, normal ROM, no rigidity, no stridor, no thyromegaly Thyroid: bilateral: normal size - Respiratory Respiratory: bilateral: rhonchi, negative: CTA, rales, wheezing - Cardiovascular Heart sounds: normal: S1, S2 Abnormal Heart Sounds: no systolic murmur, no diastolic murmur - Gastrointestinal General gastrointestinal: no absent bowel sounds, no decreased bowel sounds, no distended, no hepatomegaly, no hyperactive bowel sounds, normal bowel sounds, no organomegaly, no rigid, soft, no splenomegaly, tenderness, no umbilical hernia, no ventral hernia Localized gastrointestinal: tender: LUQ - Integumentary Integumentary: no rash, no ulcer - Neurologic Neurologic: CNII-XII intact - Psychiatric Psychiatric: A&O x's 3, appropriate affect, intact judgment & insight Results CBC & Chem 7: 03/14/18 05:56 03/14/18 05:56 Labs: Abnormal Lab Results - Last 24 Hours (Table) 03/12/18 03/12/18 03/12/18 Range/Units 15:07 15:07 15:07 Plt Count 73 L (150-450) k/uL APTT (22.0-30.0) sec BUN 50 H (7-17) mg/dL Creatinine 1.30 H (0.52-1.04) mg/dL Glucose 134 H (74-99) mg/dL Troponin I 0.211 H* (0.000-0.034) ng/mL Total Protein 5.8 L (6.3-8.2) g/dL Albumin 3.3 L (3.5-5.0) g/dL 03/12/18 03/12/18 03/13/18 Range/Units 20:22 23:31 03:23 Plt Count (150-450) k/uL APTT 168.5 H* (22.0-30.0) sec BUN (7-17) mg/dL Creatinine (0.52-1.04) mg/dL Glucose (74-99) mg/dL Troponin I 0.344 H* 0.337 H* (0.000-0.034) ng/mL Total Protein (6.3-8.2) g/dL Albumin (3.5-5.0) g/dL 03/13/18 Range/Units 06:10 Plt Count (150-450) k/uL APTT 69.1 H (22.0-30.0) sec BUN (7-17) mg/dL Creatinine (0.52-1.04) mg/dL Glucose (74-99) mg/dL Troponin I (0.000-0.034) ng/mL Total Protein (6.3-8.2) g/dL Albumin (3.5-5.0) g/dL Thrombosis Risk Factor Assmnt - DVT/VTE Prophylaxis DVT/VTE Prophylaxis: Pharmacologic Prophylaxis ordered - Choose All That Apply Any of the Below Risk Factors Present?: Yes Each Factor Represents 1 point: Abnormal pulmonary function (COPD) Other Risk Factors: Yes Each Risk Factor Represents 3 Points: Age 75 years or older Thrombosis Risk Factor Assessment Total Risk Factor Score: 4 Thrombosis Risk Factor Assessment Level: Moderate Risk Assessment and Plan Plan: 1. Non-ST elevated myocardial infarction has been ruled out. Chest pain possibly due to pleuritis due to bronchitis and cough. Discontinue heparin drip. Patient will be started on prednisone 40 mg daily, DuoNeb treatments 4 times daily as needed, azithromycin 250 mg daily. 2. Elevated d-dimer with shortness of breath, cough. CTA of the chest ordered to rule out pulmonary embolism. 3. Left upper quadrant abdominal pain with recent episodes of nausea and vomiting. CT of the abdomen and pelvis with contrast ordered. 4. Thrombocytopenia. Heparin drip discontinued. Monitor platelet count. 5. Acute kidney injury. Continue gentle IV fluid resuscitation. Monitor kidney function especially after having CAT scan. 6. History of coronary artery disease with previous stent 2. Patient follows with Dr. Ayala. Most recent heart catheterization was in July 2017. Continue simvastatin, Imdur 60 mg daily and atenolol, aspirin 325 mg daily. Discontinue nitro paste. 7. Hypertension. Continue atenolol 25 mg daily, lisinopril 5 mg daily. 8. Hyperlipidemia. Continue Lipitor 20 mg at bedtime and Zetia 10 mg daily. 9. Chronic lower extremity edema. Continue Lasix 20 mg daily. 10. Mild persistent asthma. Continue Singulair 10 mg at bedtime. 11. Recurrent depression. Continue Prozac 10 mg in the morning and 20 mg at bedtime. 12. DVT prophylaxis. THALIA balderas and SCDs. 13. GI prophylaxis. Pepcid. Patient will be admitted to the hospital for a minimum of 2 night stay. Discharge plan: To be determined Impression and plan of care have been directed as dictated by the signing physician. Patience Jones nurse practitioner acting as scribe for signing physician.
--- NOTE | 2018-03-13 16:04 | CT ---
EXAMINATION TYPE: CT angio chest DATE OF EXAM: 03/13/2018 COMPARISON: NONE HISTORY: Elevated D-Dimer, chest and abdominal abdominal pain CT DLP: 443.17 mGycm. Automated Exposure Control for Dose Reduction was Utilized. CONTRAST: CTA scan of the thorax is performed with IV Contrast, patient injected with 80 mL of Isovue 370, pulm onary embolism protocol. MIP Images are created on CT scanner and reviewed. FINDINGS: LUNGS: Some respiratory motion artifact degradation is seen particularly in the bases. The lungs are grossly clear, there is no concerning parenchymal mass or nodule identified. There is no pleural ef fusion or pneumothorax seen. The tracheobronchial tree is patent. MEDIASTINUM: There is satisfactory enhancement of the pulmonary artery and its branches, there is pro minent pulmonary embolism beginning and upper lobe branch on the right near axial image 62. There is pulmonary embolism in the right middle lobe branch beginning on axial image 79 with segmental extensi on. There is segmental right lower lobe embolism beginning on axial image 83 with subsegmental extens ion .There is linear thrombus in the distal left pulmonary artery as branches into upper and lower lo be branches axial image 61. There is segmental left upper lobe thrombus axial image 52. There is carrie tional left upper lobe segmental thrombus axial image 64. There is lingular thrombus axial image 70. There is left lower lobe thrombus with segmental and subsegmental extension beginning axial image 85. Cardiomegaly is present. There is moderate to severe right atrial dilatation. There is abnormal RV/L V ratio greater than 1, calculated 1.6 axial image 105. There is reflux of contrast into IVC and hepa tic veins. There is severe coronary artery calcification which is noted marker for coronary artery di sease. There are no greater than 1 cm hilar or mediastinal lymph nodes. No significant pericardial effusi on is seen. OTHER: Underlying scoliosis is present. There is severe multilevel anterior and lateral spurring. Ple ase refer to same day CT abdomen and pelvis report for complete details on the upper abdomen. IMPRESSION: 1. There is significant bilateral pulmonary emboli with CT evidence suggesting RV strain and right he art failure. Critical results communicated to patient's nurse via telephone at time of dictation.
--- NOTE | 2018-03-13 16:10 | CT ---
EXAMINATION TYPE: CT abdomen pelvis w con DATE OF EXAM: 03/13/2018 HISTORY: Elevated D-Dimer, abdominal pain CT DLP: 1183.07mGycm Automated Exposure Control for Dose Reduction was Utilized. CONTRAST: CT scan of the abdomen and pelvis is performed with IV Contrast, patient injected with 80 mL of Isovu e 370. COMPARISON: CT abdomen and pelvis March 08, 2011. FINDINGS: LUNG BASES: Please refer to same day CTA chest report for complete details. LIVER/GB: Prominent gallbladder folds incidentally noted. PANCREAS: No significant abnormality is seen. 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 ADRENALS: Slight thickening to both adrenal glands favors benign hyperplasia. KIDNEYS: There are few tiny simple appearing cysts scattered throughout both kidneys. There are simpl e parapelvic cyst centrally in the left kidney. Suspect tiny lipoma anteriorly left kidney axial imag e 18 not significantly changed from prior. BOWEL: There are diverticula in the sigmoid colon. There is no CT evidence for acute diverticulitis. There is no suspicious small or large bowel dilatation UTERUS/ADNEXA: Uterus is surgically absent or markedly atrophic in appearance. LYMPH NODES: No greater than 1cm abdominal or pelvic lymph nodes are appreciated. OSSEOUS STRUCTURES: There is moderate to severe multilevel spurring in the spine. There is multilevel moderate disc space narrowing and vacuum disc phenomenon. There is moderate joint space loss in both hips. There is prominent facet arthropathy throughout the lumbar spine. OTHER: There is mild calcified plaque throughout the abdominal aorta extending into branch vessels. IMPRESSION: No significant acute finding is seen to account for patient's clinical symptoms.
[2018-03-13] MEDS: predniSONE 20 MG TAB PO SCH (16:22)
[2018-03-13] MEDS ORDERED: HEPARIN SODIUM,PORCINE 5,000 UNIT/ML 1 ML VIAL IV PRN (16:26)
[2018-03-13] MEDS ORDERED: HEPARIN SODIUM,PORCINE 10,000 UNIT/ML 1 ML VIAL IV ONE (16:26)
[2018-03-13 16:56] LABS: Basophils % (A) 0 %; Eosinophils # (A) 0.2 k/uL (0-0.7); Eosinophils % (A) 2 %; HCT 46.3 % (34.0-46.0); HGB 14.7 gm/dL (11.4-16.0); Lymphocytes # (A) 1.8 k/uL (1.0-4.8); Lymphocytes % (A) 16 %; MCHC 31.8 g/dL (31.0-37.0); MCV 94.5 fL (80.0-100.0); Mean Platelet Volume 9.6; Monocytes # (A) 0.6 k/uL (0-1.0); Monocytes % (A) 6 %; Neutrophils # (A) 8.5 k/uL (1.3-7.7); Neutrophils % (A) 75 %; Platelet Count 74 k/uL (150-450); WBC 11.2 k/uL (3.8-10.6)
[2018-03-13] MEDS: HEPARIN SODIUM,PORCINE/D5W PMX 25,000 UNIT in DEXTROSE/WATER 1 500ML.BAG IV SCH (16:57)
[2018-03-13] MEDS ORDERED: HEPARIN SOD,PORK IN 0.45% NACL 25,000 UNIT in 0.45% NACL 1 500ML.BAG IV SCH (17:00)
[2018-03-13 17:04] LABS: INR 1.1 (<1.2); Partial Thromboplastin Time 24.7 sec (22.0-30.0); Prothrombin Time 10.9 sec (9.0-12.0)
[2018-03-13 17:06] LABS: Appearance,Urine Clear (Clear); Bilirubin,Urine Negative (Negative); Blood,Urine Negative (Negative); Color,Urine Colorless; Glucose,Urine (UA) Negative (Negative); Ketones,Urine Negative (Negative); Leukocyte Esterase,Urine Negative (Negative); Nitrite,Urine Negative (Negative); Protein,Urine Negative (Negative); Specific Gravity,Urine 1.015 (1.001-1.035); Urobilinogen,Urine <2.0 mg/dL (<2.0)
[2018-03-13] MEDS: ATORVASTATIN 20 MG TAB PO SCH (20:21)
[2018-03-13] MEDS: MONTELUKAST 10 MG TAB PO SCH (20:21)
[2018-03-14 06:26] LABS: Basophils % (A) 0 %; Eosinophils # (A) 0.1 k/uL (0-0.7); Eosinophils % (A) 1 %; HCT 44.8 % (34.0-46.0); HGB 13.7 gm/dL (11.4-16.0); Lymphocytes # (A) 1.1 k/uL (1.0-4.8); Lymphocytes % (A) 10 %; MCH 28.7 pg (25.0-35.0); MCHC 30.5 g/dL (31.0-37.0); MCV 94.1 fL (80.0-100.0); Mean Platelet Volume 9.5; Monocytes # (A) 0.6 k/uL (0-1.0); Monocytes % (A) 5 %; Neutrophils # (A) 8.7 k/uL (1.3-7.7); Neutrophils % (A) 83 %; Platelet Count 71 k/uL (150-450); RBC 4.76 m/uL (3.80-5.40); WBC 10.5 k/uL (3.8-10.6)
[2018-03-14 07:10] LABS: Calcium 8.9 mg/dL (8.4-10.2); Potassium 4.9 mmol/L (3.5-5.1)
[2018-03-14] MEDS: FLUoxetine HCL 10 MG CAP PO SCH ×3 (09:51→20:22)
[2018-03-14] MEDS: LISINOPRIL 5 MG TAB PO SCH (09:51)
[2018-03-14] MEDS: POTASSIUM CHLORIDE ER 10 MEQ TAB.ER.PRT PO SCH (09:51)
[2018-03-14] MEDS: ASPIRIN 325 MG TAB PO SCH (09:51)
[2018-03-14] MEDS: EZETIMIBE 10 MG TAB PO SCH (09:52)
[2018-03-14] MEDS: predniSONE 20 MG TAB PO SCH (09:52)
[2018-03-14] MEDS: ISOSORBIDE MONONITRATE ER 60 MG TAB.ER.24H PO SCH (09:52)
[2018-03-14] MEDS: FAMOTIDINE 20 MG TAB PO SCH (09:52)
[2018-03-14] MEDS: ATENOLOL 25 MG TAB PO SCH (09:52)
[2018-03-14] MEDS: FUROSEMIDE 20 MG TAB PO SCH (09:52)
[2018-03-14] MEDS: AZITHROMYCIN 500 MG in SODIUM CHLORIDE 0.9% 250 ML IVPB SCH (09:59)
[2018-03-14] MEDS: SODIUM CHLORIDE 0.9% 1,000 ML IV SCH (10:02)
--- NOTE | 2018-03-14 13:10 | P.CNPUL ---
History of Present Illness Consult date: 03/14/18 Requesting physician: Christianne Fowler Reason for consult: dyspnea, abnormal CXR/CT Chief complaint: Shortness of breath, weakness History of present illness: This is a very pleasant 87-year-old female patient who follows with Dr. Meyers as her primary care physician. She has a history of coronary artery disease with previous stent placements, congestive heart failure, hyperlipidemia, brain tumors, memory impairment, asthma. She does have a remote history of pulmonary embolism approximately 30 years ago. She had been treated in the outpatient setting for acute bronchitis with antibiotics and steroids without much improvement. She has been quite weak and spending most of her time in bed or reclining chair at home the past several days. No recent travels. No recent trauma. No recent surgery. No history of cancer. Yesterday her family found her to be quite weak and barely able to stand and brought her to the emergency room for the same. She was found to have an elevated d-dimer and subsequent CT angiogram revealed bilateral pulmonary emboli. She is seen today in consultation on the selective care unit. She is currently awake and alert in no acute distress. She is maintaining good O2 saturations in the mid 90s on 2 L /m per nasal cannula. She has been hemodynamically stable. No tachycardia. No tachypnea. No hemoptysis. She has been initiated on a heparin drip. The CT angiogram did reveal significant bilateral pulmonary emboli and suggestion of RV strain and right-sided heart failure. Echocardiogram revealed mildly impaired left ventricular systolic function with ejection fraction 45-50%. There was proximal. Oxycodone septal motion consistent with right ventricular volume overload and/or elevated right ventricular end-diastolic pressure. There is moderately enlarged right ventricle. Moderately impaired right ventricle. There is severe tricuspid rgurgitation and moderate to severe pulmonary hypertension with an RVSP of 67.90 mmHg. On today's evaluation she is resting fairly comfortably in bed. She states she is feeling better today as compared to yesterday. No worsening shortness of breath, cough or congestion. Review of Systems 14 point review of system was conducted. All negative other than as mentioned in HPI. Past Medical History Past Medical History: Asthma, Coronary Artery Disease (CAD), Chest Pain / Angina , Heart Failure, Hyperlipidemia, Pulmonary Embolus (PE) Additional Past Medical History / Comment(s): brain tumor for years, mild memory impairment,PE yrs ago,IBS History of Any Multi-Drug Resistant Organisms: None Reported Past Surgical History: Appendectomy, Heart Catheterization With Stent, Tonsillectomy Additional Past Surgical History / Comment(s): heart stents x2,rt knee surg Past Anesthesia/Blood Transfusion Reactions: No Reported Reaction Additional Past Anesthesia/Blood Transfusion Reaction / Comment(s): no hx blood transfusion Date of Last Stent Placement:: unk Past Psychological History: No Psychological Hx Reported Smoking Status: Never smoker Past Alcohol Use History: None Reported Past Drug Use History: None Reported - Past Family History Mother Family Medical History: Cancer, Diabetes Mellitus, Myocardial Infarction (AK) Additional Family Medical History / Comment(s): at 56 with [place] Father Family Medical History: Coronary Artery Disease (CAD), Myocardial Infarction ([place] ), Pulmonary Embolus Additional Family Medical History / Comment(s): at age 60 [place] Medications and Allergies Home Medications Medication Instructions Recorded Confirmed Type ALPRAZolam [Xanax] 0.25 mg PO TID PRN 08/02/17 03/12/18 History Aspirin 325 mg PO DAILY 08/02/17 03/12/18 History Atenolol 25 mg PO DAILY 08/02/17 03/12/18 History Ezetimibe [Zetia] 10 mg PO DAILY 08/02/17 03/12/18 History FLUoxetine HCL [PROzac] 10 mg PO QAM 08/02/17 03/12/18 History Furosemide [Lasix] 20 mg PO DAILY 08/02/17 03/12/18 History Isosorbide Mononitrate ER [Imdur] 60 mg PO DAILY 08/02/17 03/12/18 History Lisinopril [Zestril] 5 mg PO DAILY 08/02/17 03/12/18 History Montelukast [Singulair] 10 mg PO HS 08/02/17 03/12/18 History Nitroglycerin Sl Tabs [Nitrostat] 0.4 mg SUBLINGUAL Q5M PRN 08/02/17 03/12/18 History Potassium Chloride ER [K-Dur 10] 10 meq PO DAILY 08/02/17 03/12/18 History Simvastatin [Zocor] 40 mg PO HS 08/02/17 03/12/18 History Benzonatate [Tessalon Perles] 100 - 200 mg PO TID PRN 03/12/18 03/12/18 History Butalb/APAP/Caff 50-325-40Mg 1 - 2 tab PO Q6H PRN 03/12/18 03/12/18 History [Fioricet 50-325-40] FLUoxetine HCL [PROzac] 20 mg PO HS 03/12/18 03/12/18 History diphenhydrAMINE HCL [Benadryl] 25 mg PO Q6H PRN 03/12/18 03/12/18 History traMADol HCL [Ultram] 50 mg PO Q8H PRN 03/12/18 03/12/18 History Allergies Allergy/AdvReac Type Severity Reaction Status Date / Time Sulfa (Sulfonamide Allergy Rash/Hives Verified 03/12/18 17:06 Antibiotics) erythromycin base AdvReac Nausea & Verified 03/12/18 17:06 Vomiting Physical Exam Vitals: Vital Signs Temp Pulse Resp BP Pulse Ox 03/14/18 08:10 97.1 F L 77 18 133/77 94 L 03/14/18 04:00 97.8 F 63 18 151/79 96 03/14/18 00:00 97.0 F L 69 16 172/83 95 03/13/18 20:00 97.2 F L 73 17 142/75 93 L 03/13/18 16:00 96.7 F L 71 18 117/68 90 L Intake and Output 03/13/18 03/14/18 03/14/18 22:59 06:59 14:59 Intake Total 403.086 534.295 60 Output Total 500 Balance -96.914 534.295 60 Intake: IV 393 Heparin Sodium,Porcine/ 253 D5w Pmx 25,000 unit In Dextrose/Water 1 500ml. bag @ 18 UNITS/KG/HR 27. 72 mls/hr IV .Q18H3M [facility] Rx#:[id number] Sodium Chloride 0.9% 1, 140 000 ml @ 50 mls/hr IV . Q20H [facility] Rx#:[id number] Intake, IV Titration 163.086 141.295 0 Amount Heparin Sodium,Porcine/ 163.086 141.295 0 D5w Pmx 25,000 unit In Dextrose/Water 1 500ml. bag @ 18 UNITS/KG/HR 27. 72 mls/hr IV .Q18H3M [facility] Rx#:[id number] Oral 240 60 Output: Urine 500 Other: Voiding Method Bedside Commode Bedside Commode # Voids 3 1 1 # Bowel Movements 0 Weight 71.8 kg GENERAL EXAM: Alert, active, comfortable in no apparent distress. HEAD: Normocephalic. EYES: Normal reaction of pupils, equal size. NOSE: Clear with pink turbinates. THROAT: Erythema was slightly edematous uvula NECK: No masses, no JVD. CHEST: No chest wall deformity. LUNGS: Equal air entry with no crackles, wheeze, rhonchi or dullness. CVS: S1 and S2 normal with no audible murmur, regular rhythm. ABDOMEN: No hepatosplenomegaly, normal bowel sounds, no guarding or rigidity. SPINE: No scoliosis or deformity SKIN: No rashes CENTRAL NERVOUS SYSTEM: No focal deficits, tone is normal in all 4 extremities. EXTREMITIES: There is no peripheral edema. No clubbing, no cyanosis. Peripheral pulses are intact. Results - Laboratory Findings CBC and BMP: 03/14/18 05:56 03/14/18 05:56 PT/INR, D-dimer PT 10.9 sec (9.0-12.0) 03/13/18 16:46 INR 1.1 (<1.2) 03/13/18 16:46 D-Dimer 13.88 mg/L FEU (<0.60) H 03/13/18 13:45 Abnormal lab findings: Abnormal Labs 03/12/18 03/12/18 03/12/18 15:07 15:07 15:07 WBC Hct MCHC Plt Count 73 L Neutrophils # APTT D-Dimer Chloride Carbon Dioxide BUN 50 H Creatinine 1.30 H Glucose 134 H Troponin I 0.211 H* Total Protein 5.8 L Albumin 3.3 L 03/12/18 03/12/18 03/13/18 20:22 23:31 03:23 WBC Hct MCHC Plt Count Neutrophils # APTT 168.5 H* D-Dimer Chloride Carbon Dioxide BUN Creatinine Glucose Troponin I 0.344 H* 0.337 H* Total Protein Albumin 03/13/18 03/13/18 03/13/18 06:10 06:10 06:10 WBC Hct MCHC 30.7 L Plt Count 72 L Neutrophils # APTT 69.1 H D-Dimer Chloride 108 H Carbon Dioxide 21 L BUN 41 H Creatinine 1.05 H Glucose 103 H Troponin I Total Protein Albumin 03/13/18 03/13/18 03/13/18 13:45 16:46 22:01 WBC 11.2 H Hct 46.3 H MCHC Plt Count 74 L Neutrophils # 8.5 H APTT >200.0 H* D-Dimer 13.88 H Chloride Carbon Dioxide BUN Creatinine Glucose Troponin I Total Protein Albumin 03/14/18 03/14/18 03/14/18 05:56 05:56 05:56 WBC Hct MCHC 30.5 L Plt Count 71 L Neutrophils # 8.7 H APTT 194.5 H* D-Dimer Chloride Carbon Dioxide 21 L BUN 31 H Creatinine Glucose 128 H Troponin I Total Protein Albumin - Diagnostic Findings Chest x-ray: image reviewed CT scan - chest: image reviewed Assessment and Plan Assessment: Impression: #1 Acute hypoxic respiratory failure secondary to multiple bilateral pulmonary emboli with right ventricular strain. There is noted paradoxical septal motion consistent with right ventricular volume overload and/or elevated right ventricular end-diastolic pressure. Right ventricle is moderately enlarged. Right ventricular systolic function moderately impaired. #2 Moderate to severe pulmonary hypertension. RVSP 67.90 mmHg. #3 Mildly impaired left ventricular systolic function with ejection fraction 45- 50%. #4 History of coronary artery disease with previous stent placement to the LAD. Most recent cardiac catheterization in July 2017 revealed calcified coronary arteries with [id number] triple-vessel coronary disease with no progression compared to previous images in 2012. #5 Remote history of PE approximately 30 years ago. #6 Hyperlipidemia. Plan: The patient was seen and evaluated by Dr. Bruner. Chest x-ray, CT angiogram, echocardiogram were all reviewed. The patient is currently stable and maintaining good O2 saturations in the 90s on just 2 L/m per nasal cannula. No chest pain. Remains hemodynamically stable. No hemoptysis. Currently on a heparin drip. Cardiology is on the case as well. We'll continue to follow and make further recommendations based on her clinical status. I, the cosigning physician, performed a history & physical examination of the patient. Lungs sounds are clear. Maintaining good O2 saturations in the 90s on 2 L/m per nasal cannula. I discussed the assessment and plan of care with my nurse practitioner, Sherin Bonner. I attest to the above note as dictated by her. Time with Patient: Greater than 30
--- NOTE | 2018-03-14 14:04 | P.PN ---
Subjective Progress Note Date: 03/14/18 This is an 87-year-old female patient of Dr. Meyers with past medical history of mild persistent asthma, coronary artery disease, chronic heart failure, hyperlipidemia, PE many years ago, brain tumor with mild memory impairment, IBS. Patient had heart catheterization with Dr. Ayala in July 2017 that showed calcified coronary arteries. Mild to moderate triple-vessel coronary artery disease with no progression of disease compared with images of 2013. Recommendations at that time were for aggressive coronary risk factor modifications. Patient states that she recently saw Dr. davis about 2 weeks ago and was diagnosed with bronchitis and placed on steroids, inhalers, antibiotics and Tessalon Perles. She continues to have a cough with phlegm production. Daughter states she went over to check on her in the morning as they live next door to each other and went back to her own home. Later her nephew was banging on the door and the patient stated that she thought she passed out. She did have episodes of nausea and vomiting on Tuesday or that lasted for one day. She has been drinking plenty of fluids. She has history of diarrhea with IBS. Patient states she's had some shortness of breath and the O2 helps. She does not have home O2. She is complaining of chest pain under her left arm that comes and goes and radiates into her left arm. The left arm pain stays. She does have tenderness to the left lateral chest wall. Patient presented to [facility] emergency [facility] by ambulance with the above complaints. Patient was hypotensive on arrival and was given a bolus of IV fluids. Patient was afebrile. EKG showed no acute changes, sinus rhythm. BUN was 50 and creatinine 1.3. Platelet count 73, blood sugar 134. ProBNP was 2330. Initial troponin 0.211. Lactic acid was 1.5.. Patient was diagnosed with a non-ST elevated myocardial infarction and admitted to the selective care unit and cardiology consult requested. Patient was started on heparin drip. Chest x-ray shows no acute cardiopulmonary process. COPD changes present. Repeat troponins were 0.344 and 0.337. Triglycerides 111, cholesterol 89, LDL 21 and HDL 46. Patient has been seen by cardiology and acute coronary syndrome has been ruled out. Heparin drip discontinued. They have ordered a d-dimer. Patient is also complaining of left upper quadrant pain to her abdomen along with tenderness to the area and his CAT scan of the abdomen and pelvis with contrast have been ordered. Her repeat BUN is 41 with creatinine of 1.05. 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 03/14: CT of the abdomen and pelvis showed no significant acute finding to account for patient's symptoms. CTA of the chest shows significant bilateral pulmonary emboli with evidence suggesting RV strain and right heart failure. Patient was ultimately restarted on heparin drip and consult added for Dr. Bruner. Cardiology is also added in consult with Dr. Barnard. IV fluids currently at 50 mL per hour. Repeat platelet count is 71, BUN 31 creatinine 0.93. Patient is resting comfortably in bed. Consult with PT and OT will be added. Patient may require subacute rehab. Daughter states they prefer [facility]. Nursing was concerned about uvula swelling which patient noted when she was taking her medications this morning. At the time of the nurses evaluation. Uvula was quite swollen but has decreased by the time we have seen the patient with only mild redness. No difficulty swallowing at this point. Patient is eating her lunch. No stridor noted. Objective - Vital Signs Vital signs: Vital Signs Temp 97.1 F L 03/14/18 08:10 Pulse 77 03/14/18 08:10 Resp 18 03/14/18 08:10 BP 133/77 03/14/18 08:10 Pulse Ox 94 L 03/14/18 08:10 Intake & Output 03/13/18 03/14/18 03/14/18 18:59 06:59 18:59 Intake Total 480 697.381 60 Output Total 900 Balance -420 697.381 60 Weight 71.8 kg Intake: IV 393 Heparin Sodium,Porcine/ 253 D5w Pmx 25,000 unit In Dextrose/Water 1 500ml. bag @ 18 UNITS/KG/HR 27. 72 mls/hr IV .Q18H3M [facility] Rx#:[id number] Sodium Chloride 0.9% 1, 140 000 ml @ 50 mls/hr IV . Q20H [facility] Rx#:[id number] Intake, IV Titration 304.381 0 Amount Heparin Sodium,Porcine/ 304.381 0 D5w Pmx 25,000 unit In Dextrose/Water 1 500ml. bag @ 18 UNITS/KG/HR 27. 72 mls/hr IV .Q18H3M [facility] Rx#:[id number] Oral 480 60 Output: Urine 900 Other: Voiding Method Bedside Commode # Voids 3 1 # Bowel Movements 0 - Exam General appearance: average body habitus - EENT Eyes: anicteric sclerae, PERRLA, normal appearance ENT: hard of hearing, normal oropharynx - Neck Neck: no lymphadenopathy, normal ROM, no rigidity, no stridor, no thyromegaly Thyroid: bilateral: normal size - Respiratory Respiratory: bilateral: rhonchi, negative: CTA, rales, wheezing - Cardiovascular Heart sounds: normal: S1, S2 Abnormal Heart Sounds: no systolic murmur, no diastolic murmur - Gastrointestinal General gastrointestinal: no absent bowel sounds, no decreased bowel sounds, no distended, no hepatomegaly, no hyperactive bowel sounds, normal bowel sounds, no organomegaly, no rigid, soft, no splenomegaly, tenderness, no umbilical hernia, no ventral hernia Localized gastrointestinal: tender: LUQ - Integumentary Integumentary: no rash, no ulcer - Neurologic Neurologic: CNII-XII intact - Psychiatric Psychiatric: A&O x's 3, appropriate affect, intact judgment & insight - Labs CBC & Chem 7: 03/14/18 05:56 03/14/18 05:56 Labs: Abnormal Lab Results - Last 24 Hours (Table) 03/13/18 03/13/18 03/13/18 Range/Units 06:10 13:45 16:46 WBC 11.2 H (3.8-10.6) k/uL Hct 46.3 H (34.0-46.0) % MCHC 30.7 L (31.0-37.0) g/dL Plt Count 72 L 74 L (150-450) k/uL Neutrophils # 8.5 H (1.3-7.7) k/uL APTT (22.0-30.0) sec D-Dimer 13.88 H (<0.60) mg/L FEU Carbon Dioxide (22-30) mmol/L BUN (7-17) mg/dL Glucose (74-99) mg/dL 03/13/18 03/14/18 03/14/18 Range/Units 22:01 05:56 05:56 WBC (3.8-10.6) k/uL Hct (34.0-46.0) % MCHC 30.5 L (31.0-37.0) g/dL Plt Count 71 L (150-450) k/uL Neutrophils # 8.7 H (1.3-7.7) k/uL APTT >200.0 H* (22.0-30.0) sec D-Dimer (<0.60) mg/L FEU Carbon Dioxide 21 L (22-30) mmol/L BUN 31 H (7-17) mg/dL Glucose 128 H (74-99) mg/dL 03/14/18 Range/Units 05:56 WBC (3.8-10.6) k/uL Hct (34.0-46.0) % MCHC (31.0-37.0) g/dL Plt Count (150-450) k/uL Neutrophils # (1.3-7.7) k/uL APTT 194.5 H* (22.0-30.0) sec D-Dimer (<0.60) mg/L FEU Carbon Dioxide (22-30) mmol/L BUN (7-17) mg/dL Glucose (74-99) mg/dL Microbiology - Last 24 Hours (Table) 03/12/18 15:07 Blood Culture - Preliminary Blood No Growth after 24 hours Assessment and Plan Plan: 1. Non-ST elevated myocardial infarction has been ruled out. Chest pain and shortness of breath due to bilateral pulmonary embolism. Heparin drip was resumed. Consult added for Dr. Bruner. Cardiology is added and Dr. Barnard. 2. Elevated d-dimer with shortness of breath, cough. CTA of the chest positive for pulmonary embolism. 3. Left upper quadrant abdominal pain with recent episodes of nausea and vomiting. CT of the abdomen and pelvis without acute findings. 4. Thrombocytopenia. Monitor platelet count. 5. Acute kidney injury. Continue gentle IV fluid resuscitation. Monitor kidney function. 6. History of coronary artery disease with previous stent 2. Patient follows with Dr. Ayala. Most recent heart catheterization was in July 2017. Continue simvastatin, Imdur 60 mg daily and atenolol, aspirin 325 mg daily. Discontinue nitro paste. 7. Hypertension. Continue atenolol 25 mg daily, lisinopril 5 mg daily. 8. Hyperlipidemia. Continue Lipitor 20 mg at bedtime and Zetia 10 mg daily. 9. Chronic lower extremity edema. Continue Lasix 20 mg daily. 10. Mild persistent asthma. Continue Singulair 10 mg at bedtime. 11. Recurrent depression. Continue Prozac 10 mg in the morning and 20 mg at bedtime. 12. Acute bronchitis. Patient will be started on prednisone 40 mg daily, DuoNeb treatments 4 times daily as needed, azithromycin 250 mg daily. 13. DVT prophylaxis. THALIA balderas and SCDs. Patient on heparin drip. 13. GI prophylaxis. Pepcid. Discharge plan: Subacute rehab at [facility]. PT and OT added. Impression and plan of care have been directed as dictated by the signing physician. Patience Jones nurse practitioner acting as scribe for signing physician.
[2018-03-14] MEDS: HEPARIN SODIUM,PORCINE/D5W PMX 25,000 UNIT in DEXTROSE/WATER 1 500ML.BAG IV SCH (14:30)
--- NOTE | 2018-03-14 15:34 | P.PN ---
Subjective Progress Note Date: 03/14/18 This 7-year-old female with history of coronary artery disease, hypertension, hyperlipidemia, underlying COPD who presented to the hospital with progressively worsening shortness of breath, fatigue, mental status and confusion. A CT of the chest was performed which came back positive bilateral multiple pulmonary embolism with evidence of right ventricular strain pattern.. Patient currently on IV heparin. An echocardiogram with Doppler study was performed which revealed an ejection fraction of 45-50%. Blood pressure today 128/70, heart rate in the 60s, 95% on 2 L of oxygen. The blood cell count normal, hemoglobin 13.7, platelet count 71. Sodium 140, potassium 4.9, BUN 31, creatinine 0.9. Auscultation and has been requested with the vascular surgery for possible ECOS procedure. CT of the abdomen and pelvis was performed which did not reveal any significant acute finding. Objective - Vital Signs Vital signs: Vital Signs Temp 97.6 F 03/14/18 12:20 Pulse 67 03/14/18 12:20 Resp 18 03/14/18 12:20 BP 128/70 03/14/18 12:20 Pulse Ox 95 03/14/18 12:20 Intake & Output 03/13/18 03/14/18 03/14/18 18:59 06:59 18:59 Intake Total 480 697.381 176.1 Output Total 900 Balance -420 697.381 176.1 Weight 71.8 kg Intake: IV 393 Heparin Sodium,Porcine/ 253 D5w Pmx 25,000 unit In Dextrose/Water 1 500ml. bag @ 18 UNITS/KG/HR 27. 72 mls/hr IV .Q18H3M [facility] Rx#:[id number] Sodium Chloride 0.9% 1, 140 000 ml @ 50 mls/hr IV . Q20H [facility] Rx#:[id number] Intake, IV Titration 304.381 116.1 Amount Heparin Sodium,Porcine/ 304.381 116.1 D5w Pmx 25,000 unit In Dextrose/Water 1 500ml. bag @ 18 UNITS/KG/HR 27. 72 mls/hr IV .Q18H3M [facility] Rx#:[id number] Oral 480 60 Output: Urine 900 Other: Voiding Method Bedside Commode # Voids 3 1 1 # Bowel Movements 0 1 - Exam PHYSICAL EXAMINATION: HEENT: Head is atraumatic, normocephalic. Pupils equal, round. Neck is supple. There is no elevated jugular venous pressure. HEART EXAMINATION: Heart S1, S2 normal. No murmur or gallop heard. CHEST EXAMINATION: Lungs reveal diminished air entry to bilateral bases. ABDOMEN: Soft, nontender. Bowel sounds are heard. No organomegaly noted. EXTREMITIES: 2+ peripheral pulses with no evidence of peripheral edema and no calf tenderness noted. NEUROLOGIC patient is awake, alert and oriented -3. . - Labs CBC & Chem 7: 03/14/18 05:56 03/14/18 05:56 Labs: Abnormal Lab Results - Last 24 Hours (Table) 03/13/18 03/13/18 03/14/18 Range/Units 16:46 22:01 05:56 WBC 11.2 H (3.8-10.6) k/uL Hct 46.3 H (34.0-46.0) % MCHC (31.0-37.0) g/dL Plt Count 74 L (150-450) k/uL Neutrophils # 8.5 H (1.3-7.7) k/uL APTT >200.0 H* (22.0-30.0) sec Carbon Dioxide 21 L (22-30) mmol/L BUN 31 H (7-17) mg/dL Glucose 128 H (74-99) mg/dL 03/14/18 03/14/18 03/14/18 Range/Units 05:56 05:56 13:49 WBC (3.8-10.6) k/uL Hct (34.0-46.0) % MCHC 30.5 L (31.0-37.0) g/dL Plt Count 71 L (150-450) k/uL Neutrophils # 8.7 H (1.3-7.7) k/uL APTT 194.5 H* 92.9 H (22.0-30.0) sec Carbon Dioxide (22-30) mmol/L BUN (7-17) mg/dL Glucose (74-99) mg/dL Microbiology - Last 24 Hours (Table) 03/12/18 15:07 Blood Culture - Preliminary Blood No Growth after 24 hours Assessment and Plan Plan: Assessment and plan #1 symptoms of shortness of breath with mental status changes and weakness, evidence of bilateral pulmonary embolism with right ventricular strain pattern. #2 thrombocytopenia #3 known history of coronary artery disease with prior PCI #4 hypertension #5 hyperlipidemia #6 asthma Plan We will continue IV heparin at this time. Consultation with vascular surgery is also been requested. We will also obtain a bilateral venous duplex study of the lower extremities. DNP note has been reviewed, I agree with a documented findings and plan of care. Patient was seen and examined.
[2018-03-14] MEDS ORDERED: LOPERAMIDE 2 MG CAP PO PRN (16:25)
[2018-03-14] MEDS ORDERED: ALPRAZolam 0.25 MG TAB PO PRN (17:11)
--- NOTE | 2018-03-14 19:06 | P.GSCN ---
History of Present Illness Consult date: 03/14/18 Reason for Consult: Bilateral pulmonary embolism with right heart strain Requesting physician: Christianne Fowler History of present illness: This 87-year-old female who presented originally to the emergency department with complaints of shortness of breath. Upon workup was noted that she had bilateral pulmonary embolism noted on CTA of the chest. The CT demonstrated right heart strain as well as labs which showed elevated troponin. Patient states her shortness of breath and chest pain actually initiated proximally 2-3 weeks ago but she never went to the hospital at that time. She also has a history of bilateral pulmonary embolism in the past approximately 30 years ago as well as history of congestive heart failure. Currently she states she feels better as long as she doesn't overexert herself. She has been treated with heparin drip since her diagnosis of PE. She does have a lower extremity ultrasound pending to rule out any DVT. Currently she denies any fevers, chills , or chest pain. She does still have shortness of breath with deep breathing and exertion. Review of Systems 14 point review of systems was obtained and is negative unless mentioned in the HPI past medical history. Past Medical History Past Medical History: Asthma, Coronary Artery Disease (CAD), Chest Pain / Angina , Heart Failure, Hyperlipidemia, Pulmonary Embolus (PE) Additional Past Medical History / Comment(s): brain tumor for years, mild memory impairment,PE yrs ago,IBS History of Any Multi-Drug Resistant Organisms: None Reported Past Surgical History: Appendectomy, Heart Catheterization With Stent, Tonsillectomy Additional Past Surgical History / Comment(s): heart stents x2,rt knee surg Past Anesthesia/Blood Transfusion Reactions: No Reported Reaction Additional Past Anesthesia/Blood Transfusion Reaction / Comm: no hx blood transfusion Date of Last Stent Placement:: unk Past Psychological History: No Psychological Hx Reported Smoking Status: Never smoker Past Alcohol Use History: None Reported Past Drug Use History: None Reported - Past Family History Mother Family Medical History: Cancer, Diabetes Mellitus, Myocardial Infarction (NE) Additional Family Medical History / Comment(s): at 56 with NE Father Family Medical History: Coronary Artery Disease (CAD), Myocardial Infarction (NE ), Pulmonary Embolus Additional Family Medical History / Comment(s): at age 60 [place] Medications and Allergies Home Medications Medication Instructions Recorded Confirmed Type ALPRAZolam [Xanax] 0.25 mg PO TID PRN 10/03/17 05/13/18 History Aspirin 325 mg PO DAILY 08/02/17 03/12/18 History Atenolol 25 mg PO DAILY 08/02/17 03/12/18 History Ezetimibe [Zetia] 10 mg PO DAILY 08/02/17 03/12/18 History FLUoxetine HCL [PROzac] 10 mg PO QAM 08/02/17 03/12/18 History Furosemide [Lasix] 20 mg PO DAILY 08/02/17 03/12/18 History Isosorbide Mononitrate ER [Imdur] 60 mg PO DAILY 08/02/17 03/12/18 History Lisinopril [Zestril] 5 mg PO DAILY 08/02/17 03/12/18 History Montelukast [Singulair] 10 mg PO HS 08/02/17 03/12/18 History Nitroglycerin Sl Tabs [Nitrostat] 0.4 mg SUBLINGUAL Q5M PRN 08/02/17 03/12/18 History Potassium Chloride ER [K-Dur 10] 10 meq PO DAILY 08/02/17 03/12/18 History Simvastatin [Zocor] 40 mg PO HS 08/02/17 03/12/18 History Benzonatate [Tessalon Perles] 100 - 200 mg PO TID PRN 03/12/18 03/12/18 History Butalb/APAP/Caff 50-325-40Mg 1 - 2 tab PO Q6H PRN 03/12/18 03/12/18 History [Fioricet 50-325-40] FLUoxetine HCL [PROzac] 20 mg PO HS 03/12/18 03/12/18 History diphenhydrAMINE HCL [Benadryl] 25 mg PO Q6H PRN 03/12/18 03/12/18 History traMADol HCL [Ultram] 50 mg PO Q8H PRN 03/12/18 03/12/18 History Allergies Allergy/AdvReac Type Severity Reaction Status Date / Time Sulfa (Sulfonamide Allergy Rash/Hives Verified 03/12/18 17:06 Antibiotics) erythromycin base AdvReac Nausea & Verified 03/12/18 17:06 Vomiting Surgical - Exam Vital Signs Temp Pulse Resp BP Pulse Ox 97.6 F 73 20 118/65 95 03/12/18 15:05 03/12/18 15:05 03/12/18 15:05 03/12/18 15:05 03/12/18 15:05 - General well developed, no distress - Eyes PERRL, normal ocular movement - ENT normal pinna - Neck no masses - Respiratory clear to auscultation, other (Difficulty with deep inspiration, coughing.) - Cardiovascular Rhythm: regular - Abdomen Abdomen: soft, non tender, no distended - Neurologic normal coordination, normal sensation - Psychiatric oriented to time, oriented to person, oriented to place, speech is normal Results - Labs 03/14/18 05:56 03/14/18 05:56 Abnormal Lab Results - Last 24 Hours (Table) 03/13/18 03/14/18 03/14/18 Range/Units 22:01 05:56 05:56 MCHC 30.5 L (31.0-37.0) g/dL Plt Count 71 L (150-450) k/uL Neutrophils # 8.7 H (1.3-7.7) k/uL APTT >200.0 H* (22.0-30.0) sec Carbon Dioxide 21 L (22-30) mmol/L BUN 31 H (7-17) mg/dL Glucose 128 H (74-99) mg/dL 03/14/18 03/14/18 Range/Units 05:56 13:49 MCHC (31.0-37.0) g/dL Plt Count (150-450) k/uL Neutrophils # (1.3-7.7) k/uL APTT 194.5 H* 92.9 H (22.0-30.0) sec Carbon Dioxide (22-30) mmol/L BUN (7-17) mg/dL Glucose (74-99) mg/dL Microbiology - Last 24 Hours (Table) 03/12/18 15:07 Blood Culture - Preliminary Blood No Growth after 48 hours Diabetes panel 03/14/18 Range/Units 05:56 Sodium 140 (137-145) mmol/L Potassium 4.9 (3.5-5.1) mmol/L Chloride 107 (98-107) mmol/L Carbon Dioxide 21 L (22-30) mmol/L BUN 31 H (7-17) mg/dL Creatinine 0.93 (0.52-1.04) mg/dL Glucose 128 H (74-99) mg/dL Calcium 8.9 (8.4-10.2) mg/dL Calcium panel 03/14/18 Range/Units 05:56 Calcium 8.9 (8.4-10.2) mg/dL Pituitary panel 03/14/18 Range/Units 05:56 Sodium 140 (137-145) mmol/L Potassium 4.9 (3.5-5.1) mmol/L Chloride 107 (98-107) mmol/L Carbon Dioxide 21 L (22-30) mmol/L BUN 31 H (7-17) mg/dL Creatinine 0.93 (0.52-1.04) mg/dL Glucose 128 H (74-99) mg/dL Calcium 8.9 (8.4-10.2) mg/dL Adrenal panel 03/14/18 Range/Units 05:56 Sodium 140 (137-145) mmol/L Potassium 4.9 (3.5-5.1) mmol/L Chloride 107 (98-107) mmol/L Carbon Dioxide 21 L (22-30) mmol/L BUN 31 H (7-17) mg/dL Creatinine 0.93 (0.52-1.04) mg/dL Glucose 128 H (74-99) mg/dL Calcium 8.9 (8.4-10.2) mg/dL Assessment and Plan (1) Pulmonary embolism Current Visit: Yes Status: Acute Priority: High Code(s): I26.99 - OTHER PULMONARY EMBOLISM WITHOUT ACUTE COR PULMONALE SNOMED Code(s): 04930103 (2) Non-STEMI (non-ST elevated myocardial infarction) Current Visit: Yes Status: Acute Priority: High Code(s): I21.4 - NON-ST ELEVATION (NSTEMI) MYOCARDIAL INFARCTION SNOMED Code(s): 952765373 (3) Atypical chest pain Current Visit: Yes Status: Acute Code(s): R07.89 - OTHER CHEST PAIN SNOMED Code(s): 643820910 Plan: Discussed case with internal medicine, pulmonology and her primary care physician which all agree with medical management at this time. I discussed with the patient and her daughter in full detail potential for intervention which I do not believe at this time would benefit her symptoms due to the fact that she has had a history of congestive heart failure and her comorbidities. I agree with converting her to oral anticoagulation. We will continue to monitor her breathing status and control her pain medically. If there are any questions or concerns please feel free to call at any time. Thank you for allowing me to participate in your patient's care. Time with Patient: Greater than 30
[2018-03-14] MEDS: MONTELUKAST 10 MG TAB PO SCH (20:22)
[2018-03-14] MEDS: ATORVASTATIN 20 MG TAB PO SCH (20:22)
[2018-03-15] MEDS: SODIUM CHLORIDE 0.9% 1,000 ML IV SCH ×2 (04:39→23:26)
[2018-03-15 06:35] LABS: Basophils % (A) 0 %; Eosinophils % (A) 0 %; HCT 44.9 % (34.0-46.0); HGB 14.2 gm/dL (11.4-16.0); Lymphocytes # (A) 1.8 k/uL (1.0-4.8); Lymphocytes % (A) 14 %; MCH 29.5 pg (25.0-35.0); MCHC 31.6 g/dL (31.0-37.0); MCV 93.5 fL (80.0-100.0); Mean Platelet Volume 8.9; Monocytes # (A) 0.6 k/uL (0-1.0); Monocytes % (A) 5 %; Neutrophils # (A) 9.7 k/uL (1.3-7.7); Neutrophils % (A) 79 %; Platelet Count 104 k/uL (150-450); RDW 13.1 % (11.5-15.5); WBC 12.3 k/uL (3.8-10.6)
[2018-03-15 06:53] LABS: Calcium 9.2 mg/dL (8.4-10.2); Potassium 4.7 mmol/L (3.5-5.1)
[2018-03-15] MEDS: ASPIRIN 325 MG TAB PO SCH (08:20)
[2018-03-15] MEDS: AZITHROMYCIN 500 MG TAB PO SCH (08:21)
[2018-03-15] MEDS: EZETIMIBE 10 MG TAB PO SCH (08:21)
[2018-03-15] MEDS: ATENOLOL 25 MG TAB PO SCH (08:21)
[2018-03-15] MEDS: LISINOPRIL 5 MG TAB PO SCH (08:22)
[2018-03-15] MEDS: FLUoxetine HCL 10 MG CAP PO SCH ×3 (08:22→21:09)
[2018-03-15] MEDS: FAMOTIDINE 20 MG TAB PO SCH (08:22)
[2018-03-15] MEDS: predniSONE 20 MG TAB PO SCH (08:23)
[2018-03-15] MEDS: FUROSEMIDE 20 MG TAB PO SCH (08:23)
[2018-03-15] MEDS: ISOSORBIDE MONONITRATE ER 60 MG TAB.ER.24H PO SCH (08:23)
[2018-03-15] MEDS: POTASSIUM CHLORIDE ER 10 MEQ TAB.ER.PRT PO SCH (08:23)
[2018-03-15] MEDS: HEPARIN SODIUM,PORCINE/D5W PMX 25,000 UNIT in DEXTROSE/WATER 1 500ML.BAG IV SCH ×2 (08:24→23:25)
--- NOTE | 2018-03-15 10:15 | P.PN ---
Subjective Progress Note Date: 03/15/18 Principal diagnosis: Multiple bilateral pulmonary emboli This is a very pleasant 87-year-old female patient who follows with Dr. Meyers as her primary care physician. She has a history of coronary artery disease with previous stent placements, congestive heart failure, hyperlipidemia, brain tumors, memory impairment, asthma. She does have a remote history of pulmonary embolism approximately 30 years ago. She had been treated in the outpatient setting for acute bronchitis with antibiotics and steroids without much improvement. She has been quite weak and spending most of her time in bed or reclining chair at home the past several days. No recent travels. No recent trauma. No recent surgery. No history of cancer. Yesterday her family found her to be quite weak and barely able to stand and brought her to the emergency room for the same. She was found to have an elevated d-dimer and subsequent CT angiogram revealed bilateral pulmonary emboli. She is seen today in consultation on the selective care unit. She is currently awake and alert in no acute distress. She is maintaining good O2 saturations in the mid 90s on 2 L /m per nasal cannula. She has been hemodynamically stable. No tachycardia. No tachypnea. No hemoptysis. She has been initiated on a heparin drip. The CT angiogram did reveal significant bilateral pulmonary emboli and suggestion of RV strain and right-sided heart failure. Echocardiogram revealed mildly impaired left ventricular systolic function with ejection fraction 45-50%. There was proximal. Oxycodone septal motion consistent with right ventricular volume overload and/or elevated right ventricular end-diastolic pressure. There is moderately enlarged right ventricle. Moderately impaired right ventricle. There is severe tricuspid rgurgitation and moderate to severe pulmonary hypertension with an RVSP of 67.90 mmHg. On today's evaluation she is resting fairly comfortably in bed. She states she is feeling better today as compared to yesterday. No worsening shortness of breath, cough or congestion. The patient is seen again today 03/15/2015 in follow-up on the selective care unit. She is currently resting quite comfortably in bed. She denies any worsening shortness of breath, cough or congestion. No chest pain, palpitations lightheadedness or dizziness. She does have dyspnea on minimal exertion. She is maintaining good O2 saturations in the mid 90s on 2 L/m per nasal cannula. She's been afebrile. Hemodynamically stable. She remains on a heparin drip. Vascular surgery is not planning any intervention in regards to the PE. Objective - Vital Signs Vital signs: Vital Signs Temp 97.6 F 03/15/18 08:00 Pulse 71 03/15/18 08:00 Resp 16 03/15/18 08:00 BP 134/60 03/15/18 08:00 Pulse Ox 96 03/15/18 08:00 Intake & Output 03/14/18 03/15/18 03/15/18 18:59 06:59 18:59 Intake Total 681.613 99.938 250.059 Balance 681.613 99.938 250.059 Weight 72.4 kg Intake: Intake, IV Titration 141.613 99.938 130.059 Amount Heparin Sodium,Porcine/ 141.613 99.938 130.059 D5w Pmx 25,000 unit In Dextrose/Water 1 500ml. bag @ 18 UNITS/KG/HR 27. 72 mls/hr IV .Q18H3M [facility] Rx#:[id number] Oral 540 120 Other: Voiding Method Bedside Commode Bedside Commode # Voids 1 1 # Bowel Movements 0 - Exam GENERAL EXAM: Alert, active, comfortable in no apparent distress. HEAD: Normocephalic. EYES: Normal reaction of pupils, equal size. NOSE: Clear with pink turbinates. THROAT: Erythema was slightly edematous uvula NECK: No masses, no JVD. CHEST: No chest wall deformity. LUNGS: Equal air entry with no crackles, wheeze, rhonchi or dullness. CVS: S1 and S2 normal with no audible murmur, regular rhythm. ABDOMEN: No hepatosplenomegaly, normal bowel sounds, no guarding or rigidity. SPINE: No scoliosis or deformity SKIN: No rashes CENTRAL NERVOUS SYSTEM: No focal deficits, tone is normal in all 4 extremities. EXTREMITIES: There is no peripheral edema. No clubbing, no cyanosis. Peripheral pulses are intact. - Labs CBC & Chem 7: 03/15/18 06:11 03/15/18 06:11 Labs: Abnormal Lab Results - Last 24 Hours (Table) 03/14/18 03/14/18 03/15/18 Range/Units 13:49 22:36 06:11 WBC 12.3 H (3.8-10.6) k/uL Plt Count 104 L (150-450) k/uL Neutrophils # 9.7 H (1.3-7.7) k/uL APTT 92.9 H 61.1 H (22.0-30.0) sec BUN (7-17) mg/dL Glucose (74-99) mg/dL 03/15/18 03/15/18 Range/Units 06:11 08:22 WBC (3.8-10.6) k/uL Plt Count (150-450) k/uL Neutrophils # (1.3-7.7) k/uL APTT 51.7 H (22.0-30.0) sec BUN 29 H (7-17) mg/dL Glucose 110 H (74-99) mg/dL Microbiology - Last 24 Hours (Table) 03/12/18 15:07 Blood Culture - Preliminary Blood No Growth after 48 hours Assessment and Plan Assessment: Impression: #1 Acute hypoxic respiratory failure secondary to multiple bilateral pulmonary emboli with right ventricular strain. There is noted paradoxical septal motion consistent with right ventricular volume overload and/or elevated right ventricular end-diastolic pressure. Right ventricle is moderately enlarged. Right ventricular systolic function moderately impaired. She remains on a heparin drip. She'll be transitioned to oral anticoagulants. No surgical interventions planned. #2 Moderate to severe pulmonary hypertension. RVSP 67.90 mmHg. #3 Mildly impaired left ventricular systolic function with ejection fraction 45- 50%. #4 History of coronary artery disease with previous stent placement to the LAD. Most recent cardiac catheterization in July 2017 revealed calcified coronary arteries with [id number] triple-vessel coronary disease with no progression compared to previous images in 2012. #5 Remote history of PE approximately 30 years ago. #6 Hyperlipidemia. Plan: The patient was seen and evaluated by Dr. Bruner. The patient is currently stable and maintaining good O2 saturations in the 90s on just 2 L/m per nasal cannula. No chest pain. Remains hemodynamically stable. No hemoptysis. Currently on a heparin drip. No plans for surgical intervention regarding the PEs. We'll continue to follow and make further recommendations based on her clinical status. I, the cosigning physician, performed a history & physical examination of the patient. Lungs sounds are clear. Maintaining good O2 saturations in the 90s on 2 L/m per nasal cannula. I discussed the assessment and plan of care with my nurse practitioner, Sherin Bonner. I attest to the above note as dictated by her.
[2018-03-15] MEDS ORDERED: RIVAROXABAN 15 MG TAB PO SCH (12:15)
[2018-03-15] MEDS: BUTALB/APAP/CAFF 50-325-40MG TAB PO PRN (12:43)
[2018-03-15] MEDS ORDERED: MORPHINE SULFATE 4 MG/ML SYRINGE IVP STA (13:02)
[2018-03-15] MEDS ORDERED: MORPHINE SULFATE 4 MG/ML SYRINGE IVP PRN (13:20)
--- NOTE | 2018-03-15 14:02 | P.PN ---
Progress Note - Text Progress Note Date: 03/15/18 I was called to see this patient around 1:30 PM, patient was complaining of substernal chest pain, with radiation to the back, and she was complaining of shortness of breath. Patient maintained her O2 saturation, her blood pressure was 170 systolic, hence I recommended morphine sulfate 2 mg IV push. When I came back to see the patient, she was pain-free, and she was having less and less shortness of breath. Discussed with the family and with the patient the option of thrombolytic therapy, made aware of the risks and benefits of thrombolytic treatment considering her overall clinical scenario, and once the family was made aware of the potential tiny risk of bleeding and intracranial hemorrhage, daughter felt that she would rather continue present treatment with heparin, and not to pursue the issue of thrombolytics. Hence we'll continue with heparin, continue with morphine as needed, and oxygen via nasal cannula. We will continue to follow closely. Not quite ready to switch the patient to Xarelto at this point yet.
--- NOTE | 2018-03-15 15:09 | P.PN ---
Subjective Progress Note Date: 03/15/18 This 87-year-old female with history of coronary artery disease, hypertension, hyperlipidemia, underlying COPD who presented to the hospital with progressively worsening shortness of breath, fatigue, mental status and confusion. A CT of the chest was performed which came back positive bilateral multiple pulmonary embolism with evidence of right ventricular strain pattern.. Patient currently on IV heparin. An echocardiogram with Doppler study was performed which revealed an ejection fraction of 45-50%. Blood pressure today 128/70, heart rate in the 60s, 95% on 2 L of oxygen. The blood cell count normal, hemoglobin 13.7, platelet count 71. Sodium 140, potassium 4.9, BUN 31, creatinine 0.9. Auscultation and has been requested with the vascular surgery for possible ECOS procedure. CT of the abdomen and pelvis was performed which did not reveal any significant acute finding. 03/15/2002 Patient was seen and examined this morning, she had received some morphine and was mildly confused which is not new for her. Breathing seems to have improved. Patient was seen in consultation by Dr. Barnard and the decision was made to continue with IV of blood thinners and ultimately xarelto. Blood pressure 134/60 with a heart rate in the 70s, 96% on 2 L of oxygen. Objective - Vital Signs Vital signs: Vital Signs Temp 97.6 F 03/15/18 08:00 Pulse 71 03/15/18 08:00 Resp 16 03/15/18 08:00 BP 134/60 03/15/18 08:00 Pulse Ox 96 03/15/18 08:00 Intake & Output 03/14/18 03/15/18 03/15/18 18:59 06:59 18:59 Intake Total 681.613 99.938 250.059 Output Total 200 Balance 681.613 99.938 50.059 Weight 72.4 kg Intake: Intake, IV Titration 141.613 99.938 130.059 Amount Heparin Sodium,Porcine/ 141.613 99.938 130.059 D5w Pmx 25,000 unit In Dextrose/Water 1 500ml. bag @ 18 UNITS/KG/HR 27. 72 mls/hr IV .Q18H3M [facility] Rx#:[id number] Oral 540 120 Output: Urine 200 Other: Voiding Method Bedside Commode Bedside Commode # Voids 1 1 1 # Bowel Movements 0 0 - Exam PHYSICAL EXAMINATION: HEENT: Head is atraumatic, normocephalic. Pupils equal, round. Neck is supple. There is no elevated jugular venous pressure. HEART EXAMINATION: Heart S1, S2 normal. No murmur or gallop heard. CHEST EXAMINATION: Lungs reveal diminished air entry to bilateral bases. ABDOMEN: Soft, nontender. Bowel sounds are heard. No organomegaly noted. EXTREMITIES: 2+ peripheral pulses with no evidence of peripheral edema and no calf tenderness noted. NEUROLOGIC patient is awake, alert and oriented -3. . - Labs CBC & Chem 7: 03/15/18 06:11 03/15/18 06:11 Labs: Abnormal Lab Results - Last 24 Hours (Table) 03/14/18 03/15/18 03/15/18 Range/Units 22:36 06:11 06:11 WBC 12.3 H (3.8-10.6) k/uL Plt Count 104 L (150-450) k/uL Neutrophils # 9.7 H (1.3-7.7) k/uL APTT 61.1 H (22.0-30.0) sec BUN 29 H (7-17) mg/dL Glucose 110 H (74-99) mg/dL 03/15/18 Range/Units 08:22 WBC (3.8-10.6) k/uL Plt Count (150-450) k/uL Neutrophils # (1.3-7.7) k/uL APTT 51.7 H (22.0-30.0) sec BUN (7-17) mg/dL Glucose (74-99) mg/dL Microbiology - Last 24 Hours (Table) 03/12/18 15:07 Blood Culture - Preliminary Blood No Growth after 48 hours Assessment and Plan Plan: Assessment and plan #1 symptoms of shortness of breath with mental status changes and weakness, evidence of bilateral pulmonary embolism with right ventricular strain pattern. #2 thrombocytopenia #3 known history of coronary artery disease with prior PCI #4 hypertension #5 hyperlipidemia #6 asthma Plan We'll continue with IV heparin, patient ultimately will be placed on xarelto. No intervention at this time. DNP note has been reviewed, I agree with a documented findings and plan of care. Patient was seen and examined.
[2018-03-15] MEDS: ATORVASTATIN 20 MG TAB PO SCH (21:09)
[2018-03-15] MEDS: MONTELUKAST 10 MG TAB PO SCH (21:09)
[2018-03-16] MEDS: RIVAROXABAN 15 MG TAB PO SCH ×2 (06:15→16:41)
[2018-03-16 06:26] LABS: Basophils % (A) 0 %; Eosinophils % (A) 0 %; HCT 38.7 % (34.0-46.0); HGB 12.2 gm/dL (11.4-16.0); Lymphocytes # (A) 1.2 k/uL (1.0-4.8); Lymphocytes % (A) 16 %; MCH 29.9 pg (25.0-35.0); MCHC 31.5 g/dL (31.0-37.0); MCV 94.8 fL (80.0-100.0); Mean Platelet Volume 8.3; Monocytes # (A) 0.5 k/uL (0-1.0); Monocytes % (A) 6 %; Neutrophils % (A) 76 %; Platelet Count 107 k/uL (150-450); RBC 4.08 m/uL (3.80-5.40); RDW 13.7 % (11.5-15.5); WBC 7.8 k/uL (3.8-10.6)
[2018-03-16] MEDS: ATENOLOL 25 MG TAB PO SCH (07:53)
[2018-03-16] MEDS: FAMOTIDINE 20 MG TAB PO SCH (07:53)
[2018-03-16] MEDS: FLUoxetine HCL 10 MG CAP PO SCH ×3 (07:53→21:51)
[2018-03-16] MEDS: ASPIRIN 81 MG PO SCH (07:53)
[2018-03-16] MEDS: FUROSEMIDE 20 MG TAB PO SCH (07:53)
[2018-03-16] MEDS: LISINOPRIL 5 MG TAB PO SCH (07:53)
[2018-03-16] MEDS: EZETIMIBE 10 MG TAB PO SCH (07:53)
[2018-03-16] MEDS: ISOSORBIDE MONONITRATE ER 60 MG TAB.ER.24H PO SCH (07:53)
[2018-03-16] MEDS: AZITHROMYCIN 500 MG TAB PO SCH (07:53)
[2018-03-16] MEDS: predniSONE 20 MG TAB PO SCH (07:54)
--- NOTE | 2018-03-16 08:11 | P.PN ---
Subjective Progress Note Date: 03/15/18 This is an 87-year-old female patient of Dr. Meyers with past medical history of mild persistent asthma, coronary artery disease, chronic heart failure, hyperlipidemia, PE many years ago, brain tumor with mild memory impairment, IBS. Patient had heart catheterization with Dr. Ayala in July 2017 that showed calcified coronary arteries. Mild to moderate triple-vessel coronary artery disease with no progression of disease compared with images of 2013. Recommendations at that time were for aggressive coronary risk factor modifications. Patient states that she recently saw Dr. davis about 2 weeks ago and was diagnosed with bronchitis and placed on steroids, inhalers, antibiotics and Tessalon Perles. She continues to have a cough with phlegm production. Daughter states she went over to check on her in the morning as they live next door to each other and went back to her own home. Later her nephew was banging on the door and the patient stated that she thought she passed out. She did have episodes of nausea and vomiting on Tuesday or that lasted for one day. She has been drinking plenty of fluids. She has history of diarrhea with IBS. Patient states she's had some shortness of breath and the O2 helps. She does not have home O2. She is complaining of chest pain under her left arm that comes and goes and radiates into her left arm. The left arm pain stays. She does have tenderness to the left lateral chest wall. Patient presented to [facility] emergency center by ambulance with the above complaints. Patient was hypotensive on arrival and was given a bolus of IV fluids. Patient was afebrile. EKG showed no acute changes, sinus rhythm. BUN was 50 and creatinine 1.3. Platelet count 73, blood sugar 134. ProBNP was 2330. Initial troponin 0.211. Lactic acid was 1.5.. Patient was diagnosed with a non-ST elevated myocardial infarction and admitted to the selective care unit and cardiology consult requested. Patient was started on heparin drip. Chest x-ray shows no acute cardiopulmonary process. COPD changes present. Repeat troponins were 0.344 and 0.337. Triglycerides 111, cholesterol 89, LDL 21 and HDL 46. Patient has been seen by cardiology and acute coronary syndrome has been ruled out. Heparin drip discontinued. They have ordered a d-dimer. Patient is also complaining of left upper quadrant pain to her abdomen along with tenderness to the area and his CAT scan of the abdomen and pelvis with contrast have been ordered. Her repeat BUN is 41 with creatinine of 1.05. 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 03/14: CT of the abdomen and pelvis showed no significant acute finding to account for patient's symptoms. CTA of the chest shows significant bilateral pulmonary emboli with evidence suggesting RV strain and right heart failure. Patient was ultimately restarted on heparin drip and consult added for Dr. Bruner. Cardiology is also added in consult with Dr. Barnard. IV fluids currently at 50 mL per hour. Repeat platelet count is 71, BUN 31 creatinine 0.93. Patient is resting comfortably in bed. Consult with PT and OT will be added. Patient may require subacute rehab. Daughter states they prefer [facility]. Nursing was concerned about uvula swelling which patient noted when she was taking her medications this morning. At the time of the nurses evaluation. Uvula was quite swollen but has decreased by the time we have seen the patient with only mild redness. No difficulty swallowing at this point. Patient is eating her lunch. No stridor noted. 03/15: Patient has been seen by Dr. Barnard with plan for medical management. Patient will be transitioned to Xarelto today and heparin drip discontinued. Plan for discharge to [facility] tomorrow. Daughter is quite upset because she feels she should've brought the patient into the hospital sooner versus being treated as an outpatient for bronchitis. Patient denies any new complaints. Pulse ox is 96% on room air. Objective - Vital Signs Vital signs: Vital Signs Temp 97.6 F 03/15/18 08:00 Pulse 71 03/15/18 08:00 Resp 16 03/15/18 08:00 BP 134/60 03/15/18 08:00 Pulse Ox 96 03/15/18 08:00 Intake & Output 03/14/18 03/15/18 03/15/18 18:59 06:59 18:59 Intake Total 681.613 99.938 250.059 Balance 681.613 99.938 250.059 Weight 72.4 kg Intake: Intake, IV Titration 141.613 99.938 130.059 Amount Heparin Sodium,Porcine/ 141.613 99.938 130.059 D5w Pmx 25,000 unit In Dextrose/Water 1 500ml. bag @ 18 UNITS/KG/HR 27. 72 mls/hr IV .Q18H3M [facility] Rx#:[id number] Oral 540 120 Other: Voiding Method Bedside Commode Bedside Commode # Voids 1 1 # Bowel Movements 0 - Exam General appearance: average body habitus - EENT Eyes: anicteric sclerae, PERRLA, normal appearance ENT: hard of hearing, normal oropharynx - Neck Neck: no lymphadenopathy, normal ROM, no rigidity, no stridor, no thyromegaly Thyroid: bilateral: normal size - Respiratory Respiratory: bilateral: rhonchi, negative: CTA, rales, wheezing - Cardiovascular Heart sounds: normal: S1, S2 Abnormal Heart Sounds: no systolic murmur, no diastolic murmur - Gastrointestinal General gastrointestinal: no absent bowel sounds, no decreased bowel sounds, no distended, no hepatomegaly, no hyperactive bowel sounds, normal bowel sounds, no organomegaly, no rigid, soft, no splenomegaly, tenderness, no umbilical hernia, no ventral hernia Localized gastrointestinal: tender: LUQ - Integumentary Integumentary: no rash, no ulcer - Neurologic Neurologic: CNII-XII intact - Psychiatric Psychiatric: A&O x's 3, appropriate affect, intact judgment & insight - Labs CBC & Chem 7: 03/16/18 05:36 03/15/18 06:11 Labs: Abnormal Lab Results - Last 24 Hours (Table) 03/14/18 03/14/18 03/15/18 Range/Units 13:49 22:36 06:11 WBC 12.3 H (3.8-10.6) k/uL Plt Count 104 L (150-450) k/uL Neutrophils # 9.7 H (1.3-7.7) k/uL APTT 92.9 H 61.1 H (22.0-30.0) sec BUN (7-17) mg/dL Glucose (74-99) mg/dL 03/15/18 03/15/18 Range/Units 06:11 08:22 WBC (3.8-10.6) k/uL Plt Count (150-450) k/uL Neutrophils # (1.3-7.7) k/uL APTT 51.7 H (22.0-30.0) sec BUN 29 H (7-17) mg/dL Glucose 110 H (74-99) mg/dL Microbiology - Last 24 Hours (Table) 03/12/18 15:07 Blood Culture - Preliminary Blood No Growth after 48 hours Assessment and Plan Plan: 1. Non-ST elevated myocardial infarction has been ruled out. Chest pain and shortness of breath due to bilateral pulmonary embolism with acute cor pulmonale. Heparin drip and transitioned to Xarelto. Consult added for Dr. Bruner. Cardiology is added and Dr. Barnard. 2. Elevated d-dimer with shortness of breath, cough. CTA of the chest positive for pulmonary embolism. 3. Left upper quadrant abdominal pain with recent episodes of nausea and vomiting. CT of the abdomen and pelvis without acute findings. 4. Thrombocytopenia. Monitor platelet count. 5. Acute kidney injury. Continue gentle IV fluid resuscitation. Monitor kidney function. 6. History of coronary artery disease with previous stent 2. Patient follows with Dr. Ayala. Most recent heart catheterization was in July 2017. Continue simvastatin, Imdur 60 mg daily and atenolol, aspirin 325 mg daily. Discontinue nitro paste. 7. Hypertension. Continue atenolol 25 mg daily, lisinopril 5 mg daily. 8. Hyperlipidemia. Continue Lipitor 20 mg at bedtime and Zetia 10 mg daily. 9. Chronic lower extremity edema. Continue Lasix 20 mg daily. 10. Mild persistent asthma. Continue Singulair 10 mg at bedtime. 11. Recurrent depression. Continue Prozac 10 mg in the morning and 20 mg at bedtime. 12. Acute bronchitis. Patient will be started on prednisone 40 mg daily, DuoNeb treatments 4 times daily as needed, azithromycin 250 mg daily. 13. DVT prophylaxis. THALIA beltrane and SCDs. Patient on heparin drip. 13. GI prophylaxis. Pepcid. Discharge plan: Subacute rehab at [facility]. PT and OT added. Impression and plan of care have been directed as dictated by the signing physician. Patience Jones nurse practitioner acting as scribe for signing physician.
--- NOTE | 2018-03-16 08:40 | P.DS ---
Providers Date of admission: 03/12/18 16:23 Expected date of discharge: 03/16/18 Attending physician: Christianne Fowler MD Consults: 03/12/18 16:23 Consult Physician Urgent Consulting Provider: Dewey Kevin Consult Reason/Comments: Non-STEMI, renal insufficiency, elevated BNP Do you want consulting provider notified?: Already Contacted 03/13/18 16:25 Consult Physician Routine Consulting Provider: Melida Skelton Consult Reason/Comments: PE Do you want consulting provider notified?: Yes 03/14/18 10:19 Consult Physician Urgent Consulting Provider: Aren Barnard Consult Reason/Comments: bilateral PE's with right ventricular strain Do you want consulting provider notified?: Yes Primary care physician: [facility] Course: This is an 87-year-old female patient of Dr. Meyers with past medical history of mild persistent asthma, coronary artery disease, chronic heart failure, hyperlipidemia, PE many years ago, brain tumor with mild memory impairment, IBS. Patient had heart catheterization with Dr. Ayala in July 2017 that showed calcified coronary arteries. Mild to moderate triple-vessel coronary artery disease with no progression of disease compared with images of 2013. Recommendations at that time were for aggressive coronary risk factor modifications. Patient states that she recently saw Dr. davis about 2 weeks ago and was diagnosed with bronchitis and placed on steroids, inhalers, antibiotics and Tessalon Perles. She continues to have a cough with phlegm production. Daughter states she went over to check on her in the morning as they live next door to each other and went back to her own home. Later her nephew was banging on the door and the patient stated that she thought she passed out. She did have episodes of nausea and vomiting on Tuesday or that lasted for one day. She has been drinking plenty of fluids. She has history of diarrhea with IBS. Patient states she's had some shortness of breath and the O2 helps. She does not have home O2. She is complaining of chest pain under her left arm that comes and goes and radiates into her left arm. The left arm pain stays. She does have tenderness to the left lateral chest wall. Patient presented to [facility] emergency center by ambulance with the above complaints. Patient was hypotensive on arrival and was given a bolus of IV fluids. Patient was afebrile. EKG showed no acute changes, sinus rhythm. BUN was 50 and creatinine 1.3. Platelet count 73, blood sugar 134. ProBNP was 2330. Initial troponin 0.211. Lactic acid was 1.5.. Patient was diagnosed with a non-ST elevated myocardial infarction and admitted to the selective care unit and cardiology consult requested. Patient was started on heparin drip. Chest x-ray shows no acute cardiopulmonary process. COPD changes present. Repeat troponins were 0.344 and 0.337. Triglycerides 111, cholesterol 89, LDL 21 and HDL 46. Patient has been seen by cardiology and acute coronary syndrome has been ruled out. Heparin drip discontinued. They have ordered a d-dimer. Patient is also complaining of left upper quadrant pain to her abdomen along with tenderness to the area and his CAT scan of the abdomen and pelvis with contrast have been ordered. Her repeat BUN is 41 with creatinine of 1.05. 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 03/14: CT of the abdomen and pelvis showed no significant acute finding to account for patient's symptoms. CTA of the chest shows significant bilateral pulmonary emboli with evidence suggesting RV strain and right heart failure. Patient was ultimately restarted on heparin drip and consult added for Dr. Bruner. Cardiology is also added in consult with Dr. Barnard. IV fluids currently at 50 mL per hour. Repeat platelet count is 71, BUN 31 creatinine 0.93. Patient is resting comfortably in bed. Consult with PT and OT will be added. Patient may require subacute rehab. Daughter states they [facility]. Nursing was concerned about uvula swelling which patient noted when she was taking her medications this morning. At the time of the nurses evaluation. Uvula was quite swollen but has decreased by the time we have seen the patient with only mild redness. No difficulty swallowing at this point. Patient is eating her lunch. No stridor noted. 03/15: Patient has been seen by Dr. Barnard with plan for medical management. Patient will be transitioned to Xarelto today and heparin drip discontinued. Plan for discharge to [facility] tomorrow. Daughter is quite upset because she feels she should've brought the patient into the hospital sooner versus being treated as an outpatient for bronchitis. Patient denies any new complaints. Pulse ox is 96% on room air. 03/16: Patient is running 96-99% on O2 at 2 L. She has been afebrile. Respirations are unlabored. Labs reviewed. Patient will be discharged to [facility] today in stable condition. Discharge diagnoses: 1. Non-ST elevated myocardial infarction has been ruled out. Chest pain and shortness of breath due to bilateral pulmonary embolism with acute cor pulmonale. 2. Elevated d-dimer with shortness of breath, cough due to pulmonary embolism. 3. Left upper quadrant abdominal pain with recent episodes of nausea and vomiting. CT of the abdomen and pelvis without acute findings. 4. Thrombocytopenia. 5. Acute kidney injury with chronic kidney disease stage III. 6. History of coronary artery disease with previous stent 2. 7. Hypertension. 8. Hyperlipidemia. 9. Chronic lower extremity edema. 10. Mild persistent asthma. 11. Recurrent depression. 12. Acute bronchitis. Discharge plan: [facility] under the care of Dr. Meyers. Impression and plan of care have been directed as dictated by the signing physician. Patience Jones nurse practitioner acting as scribe for signing physician. Patient Condition at Discharge: Good Plan - Discharge Summary Discharge Rx Participant: Yes New Discharge Prescriptions: New Rivaroxaban [Xarelto Starter Pack] 1 each PO DIRECTED #45 tab Famotidine [Pepcid] 20 mg PO DAILY tab Ipratropium-Albuterol Nebulize [Duoneb 0.5 mg-3 mg/3 ml Soln] 3 ml INHALATION RT-QID PRN ampul.neb PRN Reason: Shortness Of Breath Lidocaine 5% Patch [Lidoderm 5% Patch] 1 patch TOPICAL DAILY #30 patch Loperamide [Imodium] 2 mg PO QID PRN cap PRN Reason: Diarrhea Continue Potassium Chloride ER [K-Dur 10] 10 meq PO DAILY Nitroglycerin Sl Tabs [Nitrostat] 0.4 mg SUBLINGUAL Q5M PRN PRN Reason: Chest Pain Lisinopril [Zestril] 5 mg PO DAILY Furosemide [Lasix] 20 mg PO DAILY Ezetimibe [Zetia] 10 mg PO DAILY Atenolol 25 mg PO DAILY Aspirin 325 mg PO DAILY Simvastatin [Zocor] 40 mg PO HS Montelukast [Singulair] 10 mg PO HS Isosorbide Mononitrate ER [Imdur] 60 mg PO DAILY FLUoxetine HCL [PROzac] 10 mg PO QAM FLUoxetine HCL [PROzac] 20 mg PO HS Butalb/APAP/Caff 50-325-40Mg [Fioricet 50-325-40] 1 - 2 tab PO Q6H PRN PRN Reason: Migraine Headache Benzonatate [Tessalon Perles] 100 - 200 mg PO TID PRN PRN Reason: Cough ALPRAZolam [Xanax] 0.25 mg PO TID PRN #90 tablet PRN Reason: Anxiety traMADol HCL [Ultram] 50 mg PO Q8H PRN #90 tablet PRN Reason: Pain Discontinued diphenhydrAMINE HCL [Benadryl] 25 mg PO Q6H PRN PRN Reason: Allergy Symptoms Discharge Medication List Aspirin 325 mg PO DAILY 08/02/17 [History] Atenolol 25 mg PO DAILY 08/02/17 [History] Ezetimibe [Zetia] 10 mg PO DAILY 08/02/17 [History] FLUoxetine HCL [PROzac] 10 mg PO QAM 08/02/17 [History] Furosemide [Lasix] 20 mg PO DAILY 08/02/17 [History] Isosorbide Mononitrate ER [Imdur] 60 mg PO DAILY 08/02/17 [History] Lisinopril [Zestril] 5 mg PO DAILY 08/02/17 [History] Montelukast [Singulair] 10 mg PO HS 08/02/17 [History] Nitroglycerin Sl Tabs [Nitrostat] 0.4 mg SUBLINGUAL Q5M PRN 08/02/17 [History] Potassium Chloride ER [K-Dur 10] 10 meq PO DAILY 08/02/17 [History] Simvastatin [Zocor] 40 mg PO HS 08/02/17 [History] Benzonatate [Tessalon Perles] 100 - 200 mg PO TID PRN 03/12/18 [History] Butalb/APAP/Caff 50-325-40Mg [Fioricet 50-325-40] 1 - 2 tab PO Q6H PRN 03/12/18 [History] FLUoxetine HCL [PROzac] 20 mg PO HS 03/12/18 [History] Rivaroxaban [Xarelto Starter Pack] 1 each PO DIRECTED #45 tab 03/15/18 [Rx] ALPRAZolam [Xanax] 0.25 mg PO TID PRN #90 tablet 03/16/18 [Rx] Famotidine [Pepcid] 20 mg PO DAILY tab 03/16/18 [Rx] Ipratropium-Albuterol Nebulize [Duoneb 0.5 mg-3 mg/3 ml Soln] 3 ml INHALATION RT -QID PRN ampul.neb 03/16/18 [Rx] Lidocaine 5% Patch [Lidoderm 5% Patch] 1 patch TOPICAL DAILY #30 patch 03/16/18 [Rx] Loperamide [Imodium] 2 mg PO QID PRN cap 03/16/18 [Rx] traMADol HCL [Ultram] 50 mg PO Q8H PRN #90 tablet 03/16/18 [Rx] Follow up Appointment(s)/Referral(s): Carlos A Meyers MD [Primary Care Provider] - 1-2 days
[2018-03-16] MEDS: POTASSIUM CHLORIDE ER 10 MEQ TAB.ER.PRT PO SCH (10:13)
[2018-03-16] MEDS: LIDOCAINE 5% PATCH TOPICAL SCH (10:20)
--- NOTE | 2018-03-16 11:26 | P.PN ---
Subjective Progress Note Date: 03/16/18 Principal diagnosis: Acute pulmonary embolism This is a very pleasant 87-year-old female patient who follows with Dr. Meyers as her primary care physician. She has a history of coronary artery disease with previous stent placements, congestive heart failure, hyperlipidemia, brain tumors, memory impairment, asthma. She does have a remote history of pulmonary embolism approximately 30 years ago. She had been treated in the outpatient setting for acute bronchitis with antibiotics and steroids without much improvement. She has been quite weak and spending most of her time in bed or reclining chair at home the past several days. No recent travels. No recent trauma. No recent surgery. No history of cancer. Yesterday her family found her to be quite weak and barely able to stand and brought her to the emergency room for the same. She was found to have an elevated d-dimer and subsequent CT angiogram revealed bilateral pulmonary emboli. She is seen today in consultation on the selective care unit. She is currently awake and alert in no acute distress. She is maintaining good O2 saturations in the mid 90s on 2 L /m per nasal cannula. She has been hemodynamically stable. No tachycardia. No tachypnea. No hemoptysis. She has been initiated on a heparin drip. The CT angiogram did reveal significant bilateral pulmonary emboli and suggestion of RV strain and right-sided heart failure. Echocardiogram revealed mildly impaired left ventricular systolic function with ejection fraction 45-50%. There was proximal. Oxycodone septal motion consistent with right ventricular volume overload and/or elevated right ventricular end-diastolic pressure. There is moderately enlarged right ventricle. Moderately impaired right ventricle. There is severe tricuspid rgurgitation and moderate to severe pulmonary hypertension with an RVSP of 67.90 mmHg. On today's evaluation she is resting fairly comfortably in bed. She states she is feeling better today as compared to yesterday. No worsening shortness of breath, cough or congestion. The patient is seen again today 03/15/2018 in follow-up on the selective care unit. She is currently resting quite comfortably in bed. She denies any worsening shortness of breath, cough or congestion. No chest pain, palpitations lightheadedness or dizziness. She does have dyspnea on minimal exertion. She is maintaining good O2 saturations in the mid 90s on 2 L/m per nasal cannula. She's been afebrile. Hemodynamically stable. She remains on a heparin drip. Vascular surgery is not planning any intervention in regards to the PE. Reevaluated today on 03/16/2018, patient seems to be doing better breathing a lot easier today, and much more comfortable. Remains on 2 L nasal cannula, and her O2 saturation is in the high 90s. No chest pain no cough no wheezing no fever no chills no hemoptysis. PTT this morning is 54.9, therapeutic. Platelets are 107 hemoglobin is 12.2. Objective - Vital Signs Vital signs: Vital Signs Temp 96.1 F L 03/16/18 08:00 Pulse 53 L 03/16/18 08:00 Resp 16 03/16/18 08:00 BP 162/72 03/16/18 08:00 Pulse Ox 97 03/16/18 10:28 Intake & Output 03/15/18 03/16/18 03/16/18 18:59 06:59 18:59 Intake Total 250.059 432.144 Output Total 200 600 Balance 50.059 -167.856 Weight 72.7 kg Intake: IV 221.76 Heparin Sodium,Porcine/ 221.76 D5w Pmx 25,000 unit In Dextrose/Water 1 500ml. bag @ 18 UNITS/KG/HR 27. 72 mls/hr IV .Q18H3M [facility] Rx#:[id number] Intake, IV Titration 130.059 210.384 Amount Heparin Sodium,Porcine/ 130.059 210.384 D5w Pmx 25,000 unit In Dextrose/Water 1 500ml. bag @ 18 UNITS/KG/HR 27. 72 mls/hr IV .Q18H3M [facility] Rx#:[id number] Oral 120 Output: Urine 200 600 Other: Voiding Method Bedside Commode Bedside Commode Bedside Commode # Voids 1 2 # Bowel Movements 0 - Exam GENERAL EXAM: Alert, active, comfortable in no apparent distress. HEAD: Normocephalic. EYES: Normal reaction of pupils, equal size. NOSE: Clear with pink turbinates. THROAT: Erythema was slightly edematous uvula NECK: No masses, no JVD. CHEST: No chest wall deformity. LUNGS: Equal air entry with no crackles, wheeze, rhonchi or dullness. CVS: S1 and S2 normal with no audible murmur, regular rhythm. ABDOMEN: No hepatosplenomegaly, normal bowel sounds, no guarding or rigidity. SPINE: No scoliosis or deformity SKIN: No rashes CENTRAL NERVOUS SYSTEM: No focal deficits, tone is normal in all 4 extremities. EXTREMITIES: There is no peripheral edema. No clubbing, no cyanosis. Peripheral pulses are intact. - Labs CBC & Chem 7: 03/16/18 05:36 18 06:11 Labs: Abnormal Lab Results - Last 24 Hours (Table) 03/16/18 03/16/18 Range/Units 05:36 05:36 Plt Count 107 L (150-450) k/uL APTT 54.9 H (22.0-30.0) sec Microbiology - Last 24 Hours (Table) 03/12/18 15:07 Blood Culture - Preliminary Blood No Growth after 72 hours Assessment and Plan Assessment: #1 Acute hypoxic respiratory failure secondary to multiple bilateral pulmonary emboli with right ventricular strain. There is noted paradoxical septal motion consistent with right ventricular volume overload and/or elevated right ventricular end-diastolic pressure. Right ventricle is moderately enlarged. Right ventricular systolic function moderately impaired. She remains on a heparin drip. She'll be transitioned to oral anticoagulants. No surgical interventions planned. #2 Moderate to severe pulmonary hypertension. RVSP 67.90 mmHg. #3 Mildly impaired left ventricular systolic function with ejection fraction 45- 50%. #4 History of coronary artery disease with previous stent placement to the LAD. Most recent cardiac catheterization in July 2017 revealed calcified coronary arteries with [id number] triple-vessel coronary disease with no progression compared to previous images in 2012. #5 Remote history of PE approximately 30 years ago. #6 Hyperlipidemia. Recommendation: Agree with discharge planning, patient will be discharged to a halfway on Xarelto and I would recommend that she stays on it lifetime. Must have follow-up with me in the next couple of weeks in the office. Time with Patient: Less than 30
--- NOTE | 2018-03-16 15:04 | P.PN ---
Subjective Progress Note Date: 03/16/18 This 87-year-old female with history of coronary artery disease, hypertension, hyperlipidemia, underlying COPD who presented to the hospital with progressively worsening shortness of breath, fatigue, mental status and confusion. A CT of the chest was performed which came back positive bilateral multiple pulmonary embolism with evidence of right ventricular strain pattern.. Patient currently on IV heparin. An echocardiogram with Doppler study was performed which revealed an ejection fraction of 45-50%. Blood pressure today 128/70, heart rate in the 60s, 95% on 2 L of oxygen. The blood cell count normal, hemoglobin 13.7, platelet count 71. Sodium 140, potassium 4.9, BUN 31, creatinine 0.9. Auscultation and has been requested with the vascular surgery for possible ECOS procedure. CT of the abdomen and pelvis was performed which did not reveal any significant acute finding. 03/15/2018 Patient was seen and examined this morning, she had received some morphine and was mildly confused which is not new for her. Breathing seems to have improved. Patient was seen in consultation by Dr. Barnard and the decision was made to continue with IV of blood thinners and ultimately xarelto. Blood pressure 134/60 with a heart rate in the 70s, 96% on 2 L of oxygen. 03/16/2018 Patient seen and examined this morning, so quite short of breath with very minimal exertion. Having some difficulty in swallowing earlier. Family is at bedside. Blood pressure 100/50 heart rate in the 50s, 97% on 2 L Objective - Vital Signs Vital signs: Vital Signs Temp 97.3 F L 03/16/18 11:00 Pulse 57 L 03/16/18 11:00 Resp 16 03/16/18 11:00 BP 99/55 03/16/18 11:00 Pulse Ox 98 03/16/18 11:00 Intake & Output 03/15/18 03/16/18 03/16/18 18:59 06:59 18:59 Intake Total 250.059 432.144 660 Output Total 200 600 Balance 50.059 -167.856 660 Weight 72.7 kg Intake: IV 221.76 350 Heparin Sodium,Porcine/ 221.76 D5w Pmx 25,000 unit In Dextrose/Water 1 500ml. bag @ 18 UNITS/KG/HR 27. 72 mls/hr IV .[facility]18H3M [facility] Rx#:[id number] Sodium Chloride 0.9% 1, 350 000 ml @ 50 mls/hr IV . Q20H [facility] Rx#:[id number] Intake, IV Titration 130.059 210.384 Amount Heparin Sodium,Porcine/ 130.059 210.384 D5w Pmx 25,000 unit In Dextrose/Water 1 500ml. bag @ 18 UNITS/KG/HR 27. 72 mls/hr IV .Q18H3M [facility] Rx#:[id number] Oral 120 310 Output: Urine 200 600 Other: Voiding Method Bedside Commode Bedside Commode Bedside Commode # Voids 1 2 # Bowel Movements 0 - Exam PHYSICAL EXAMINATION: HEENT: Head is atraumatic, normocephalic. Pupils equal, round. Neck is supple. There is no elevated jugular venous pressure. HEART EXAMINATION: Heart S1, S2 normal. No murmur or gallop heard. CHEST EXAMINATION: Lungs reveal diminished air entry to bilateral bases. ABDOMEN: Soft, nontender. Bowel sounds are heard. No organomegaly noted. EXTREMITIES: 2+ peripheral pulses with no evidence of peripheral edema and no calf tenderness noted. NEUROLOGIC patient is awake, alert and oriented -3. . - Labs CBC & Chem 7: 03/16/18 05:36 18 06:11 Labs: Abnormal Lab Results - Last 24 Hours (Table) 03/16/1818 Range/Units 05:36 05:36 Plt Count 107 L (150-450) k/uL APTT 54.9 H (22.0-30.0) sec Microbiology - Last 24 Hours (Table) 03/12/18 15:07 Blood Culture - Preliminary Blood No Growth after 72 hours Assessment and Plan Plan: Assessment and plan #1 symptoms of shortness of breath with mental status changes and weakness, evidence of bilateral pulmonary embolism with right ventricular strain pattern. #2 thrombocytopenia #3 known history of coronary artery disease with prior PCI #4 hypertension #5 hyperlipidemia #6 asthma Plan From cardiology's perspective, anticoagulation ministration as per pulmonary. We will follow this patient with you now on an as-needed basis only, please don' t hesitate to call with any questions. DNP note has been reviewed, I agree with a documented findings and plan of care. Patient was seen and examined.
[2018-03-16] MEDS ORDERED: MORPHINE ORAL SOLN 10 MG/5 ML CUP PO PRN (15:18)
[2018-03-16] MEDS: SODIUM CHLORIDE 0.9% 1,000 ML IV SCH (21:46)
[2018-03-16] MEDS: ATORVASTATIN 20 MG TAB PO SCH (21:49)
[2018-03-16] MEDS: MONTELUKAST 10 MG TAB PO SCH (21:49)
[2018-03-17 06:57] LABS: Basophils % (A) 0 %; Eosinophils % (A) 0 %; HCT 40.9 % (34.0-46.0); HGB 12.5 gm/dL (11.4-16.0); Lymphocytes # (A) 1.4 k/uL (1.0-4.8); Lymphocytes % (A) 19 %; MCHC 30.6 g/dL (31.0-37.0); MCV 94.8 fL (80.0-100.0); Mean Platelet Volume 8.3; Monocytes # (A) 0.4 k/uL (0-1.0); Monocytes % (A) 5 %; Neutrophils # (A) 5.7 k/uL (1.3-7.7); Neutrophils % (A) 75 %; Platelet Count 116 k/uL (150-450); RBC 4.31 m/uL (3.80-5.40); RDW 13.5 % (11.5-15.5); WBC 7.6 k/uL (3.8-10.6)
[2018-03-17] MEDS: RIVAROXABAN 15 MG TAB PO SCH (07:00)
[2018-03-17 08:54] VITALS: BP 145/71; PULSE 54; RESP 16; TEMP 97.2
[2018-03-17] MEDS: POTASSIUM CHLORIDE ER 10 MEQ TAB.ER.PRT PO SCH (09:08)
[2018-03-17] MEDS: FUROSEMIDE 20 MG TAB PO SCH (09:08)
[2018-03-17] MEDS: ASPIRIN 81 MG PO SCH (09:08)
[2018-03-17] MEDS: BUTALB/APAP/CAFF 50-325-40MG TAB PO PRN (09:09)
[2018-03-17] MEDS: predniSONE 20 MG TAB PO SCH (09:09)
[2018-03-17] MEDS: ISOSORBIDE MONONITRATE ER 60 MG TAB.ER.24H PO SCH (09:09)
[2018-03-17] MEDS: EZETIMIBE 10 MG TAB PO SCH (09:10)
[2018-03-17] MEDS: FAMOTIDINE 20 MG TAB PO SCH (09:10)
[2018-03-17] MEDS: FLUoxetine HCL 10 MG CAP PO SCH (09:10)
[2018-03-17] MEDS: LISINOPRIL 5 MG TAB PO SCH (09:10)
[2018-03-17] MEDS: ATENOLOL 25 MG TAB PO SCH (09:10)
[2018-03-17] MEDS: AZITHROMYCIN 500 MG TAB PO SCH (09:11)
[2018-03-17] MEDS: LIDOCAINE 5% PATCH TOPICAL SCH (09:11)
--- NOTE | 2018-03-17 11:55 | P.PN ---
Subjective Progress Note Date: 03/17/18 Principal diagnosis: Multiple bilateral pulmonary emboli This is a very pleasant 87-year-old female patient who follows with Dr. Meyers as her primary care physician. She has a history of coronary artery disease with previous stent placements, congestive heart failure, hyperlipidemia, brain tumors, memory impairment, asthma. She does have a remote history of pulmonary embolism approximately 30 years ago. She had been treated in the outpatient setting for acute bronchitis with antibiotics and steroids without much improvement. She has been quite weak and spending most of her time in bed or reclining chair at home the past several days. No recent travels. No recent trauma. No recent surgery. No history of cancer. Yesterday her family found her to be quite weak and barely able to stand and brought her to the emergency room for the same. She was found to have an elevated d-dimer and subsequent CT angiogram revealed bilateral pulmonary emboli. She is seen today in consultation on the selective care unit. She is currently awake and alert in no acute distress. She is maintaining good O2 saturations in the mid 90s on 2 L /m per nasal cannula. She has been hemodynamically stable. No tachycardia. No tachypnea. No hemoptysis. She has been initiated on a heparin drip. The CT angiogram did reveal significant bilateral pulmonary emboli and suggestion of RV strain and right-sided heart failure. Echocardiogram revealed mildly impaired left ventricular systolic function with ejection fraction 45-50%. There was proximal. Oxycodone septal motion consistent with right ventricular volume overload and/or elevated right ventricular end-diastolic pressure. There is moderately enlarged right ventricle. Moderately impaired right ventricle. There is severe tricuspid rgurgitation and moderate to severe pulmonary hypertension with an RVSP of 67.90 mmHg. On today's evaluation she is resting fairly comfortably in bed. She states she is feeling better today as compared to yesterday. No worsening shortness of breath, cough or congestion. The patient is seen again today 03/15/2015 in follow-up on the selective care unit. She is currently resting quite comfortably in bed. She denies any worsening shortness of breath, cough or congestion. No chest pain, palpitations lightheadedness or dizziness. She does have dyspnea on minimal exertion. She is maintaining good O2 saturations in the mid 90s on 2 L/m per nasal cannula. She's been afebrile. Hemodynamically stable. She remains on a heparin drip. Vascular surgery is not planning any intervention in regards to the PE. Reevaluated today on 03/16/2018, patient seems to be doing better breathing a lot easier today, and much more comfortable. Remains on 2 L nasal cannula, and her O2 saturation is in the high 90s. No chest pain no cough no wheezing no fever no chills no hemoptysis. PTT this morning is 54.9, therapeutic. Platelets are 107 hemoglobin is 12.2. The patient is seen again today 03/17/2018 in follow-up on the selective care unit. She is currently resting quite comfortably in bed. She is awake and alert in no acute distress. She denies any worsening shortness of breath, cough or congestion. No hemoptysis. She is maintaining good O2 saturations in the high 90s on 2 L/m per nasal cannula. She's been afebrile. Hemodynamically stable. She's been initiated on Eliquis. White count 7.6. Hemoglobin 12.5. Objective - Vital Signs Vital signs: Vital Signs Temp 97.2 F L 03/17/18 08:00 Pulse 54 L 03/17/18 08:00 Resp 16 03/17/18 08:00 BP 145/71 03/17/18 08:00 Pulse Ox 99 03/17/18 08:00 Intake & Output 03/16/18 03/17/18 03/17/18 18:59 06:59 18:59 Intake Total 820 240 180 Balance 820 240 180 Weight 72.4 kg Intake: IV 350 Sodium Chloride 0.9% 1, 350 000 ml @ 50 mls/hr IV . Q20H [facility] Rx#:[id number] Oral 470 240 180 Other: Voiding Method Bedside Commode Bedside Commode Bedside Commode # Voids 3 - Exam GENERAL EXAM: Alert, active, comfortable in no apparent distress. HEAD: Normocephalic. EYES: Normal reaction of pupils, equal size. NOSE: Clear with pink turbinates. THROAT: Erythema was slightly edematous uvula NECK: No masses, no JVD. CHEST: No chest wall deformity. LUNGS: Equal air entry with no crackles, wheeze, rhonchi or dullness. CVS: S1 and S2 normal with no audible murmur, regular rhythm. ABDOMEN: No hepatosplenomegaly, normal bowel sounds, no guarding or rigidity. SPINE: No scoliosis or deformity SKIN: No rashes CENTRAL NERVOUS SYSTEM: No focal deficits, tone is normal in all 4 extremities. EXTREMITIES: There is no peripheral edema. No clubbing, no cyanosis. Peripheral pulses are intact. - Labs CBC & Chem 7: 03/17/18 06:38 03/15/18 06:11 Labs: Abnormal Lab Results - Last 24 Hours (Table) 03/17/18 Range/Units 06:38 MCHC 30.6 L (31.0-37.0) g/dL Plt Count 116 L (150-450) k/uL Microbiology - Last 24 Hours (Table) 03/12/18 15:07 Blood Culture - Preliminary Blood No Growth after 96 hours Assessment and Plan Assessment: Impression: #1 Acute hypoxic respiratory failure secondary to multiple bilateral pulmonary emboli with right ventricular strain. There is noted paradoxical septal motion consistent with right ventricular volume overload and/or elevated right ventricular end-diastolic pressure. Right ventricle is moderately enlarged. Right ventricular systolic function moderately impaired. She has been transitioned to [facility]. #2 Moderate to severe pulmonary hypertension. RVSP 67.90 mmHg. #3 Mildly impaired left ventricular systolic function with ejection fraction 45- 50%. #4 History of coronary artery disease with previous stent placement to the LAD. Most recent cardiac catheterization in July 2017 revealed calcified coronary arteries with [id number] triple-vessel coronary disease with no progression compared to previous images in 2012. #5 Remote history of PE approximately 30 years ago. #6 Hyperlipidemia. Plan: The patient was seen and evaluated by Dr. Bruner. The patient has no pulmonary complaints. She's been transitioned to [facility]. She is cleared for discharge from the pulmonary standpoint. The plan is for probable transfer to [facility] today. I, the cosigning physician, performed a history & physical examination of the patient. Lungs sounds are clear. Maintaining good O2 saturations in the 90s on 2 L/m per nasal cannula. I discussed the assessment and plan of care with my nurse practitioner, Sherin Bonner. I attest to the above note as dictated by her.
[2018-03-17] MEDS ORDERED: APIXABAN 5 MG TAB PO SCH (21:00)
== END 2018-03-17 11:34 | DRG 175 ==
LOC: EC 15:04 → 6SEL 16:23
PROVIDERS: ADMIT Internal Medicine; ATTEND Internal Medicine
DX: I26.09 Other pulmonary embolism with acute cor pulmonale (principal); J96.01 Acute respiratory failure with hypoxia; F33.9 Major depressive disorder, recurrent, unspecified; I13.0 Hypertensive heart and chronic kidney disease with heart failure and stage 1 through stage 4 chronic kidney disease, or unspecified chronic kidney disease; J44.0 Chronic obstructive pulmonary disease with (acute) lower respiratory infection; N17.9 Acute kidney failure, unspecified; D69.6 Thrombocytopenia, unspecified; E78.5 Hyperlipidemia, unspecified; I08.8 Other rheumatic multiple valve diseases; I25.10 Atherosclerotic heart disease of native coronary artery without angina pectoris; I27.20 Pulmonary hypertension, unspecified; I50.9 Heart failure, unspecified; J20.9 Acute bronchitis, unspecified; J45.30 Mild persistent asthma, uncomplicated; K58.9 Irritable bowel syndrome, unspecified; N18.3 Chronic kidney disease, stage 3 (moderate); R13.10 Dysphagia, unspecified; I95.9 Hypotension, unspecified; H91.90 Unspecified hearing loss, unspecified ear; D49.6 Neoplasm of unspecified behavior of brain; Z79.82 Long term (current) use of aspirin; Z79.899 Other long term (current) drug therapy; Z88.1 Allergy status to other antibiotic agents; Z88.2 Allergy status to sulfonamides; Z86.711 Personal history of pulmonary embolism; Z95.5 Presence of coronary angioplasty implant and graft; Z82.49 Family history of ischemic heart disease and other diseases of the circulatory system; Z83.3 Family history of diabetes mellitus; Z80.9 Family history of malignant neoplasm, unspecified
CPT/HCPCS: 36415; 71046; 71275; 74177; 80048; 80053; 80061; 81003; 82150; 82550; 82553; 83605; 83690; 83735; 83880; 84484; 85025; 85379; 85610; 85730; 87040; 93005; 93306; 96361; 96365; 96376; 99291

== ENCOUNTER 2019-01-08 20:15 | Observation (INO) | payer MEDICARE ==
--- NOTE | 2019-01-08 20:29 | ED ---
Chest Pain HPI - General Chief Complaint: Chest Pain Stated Complaint: Chest Pain Time Seen by Provider: 01/08/19 20:16 Source: patient, EMS, RN notes reviewed, old records reviewed Mode of arrival: EMS Limitations: no limitations - History of Present Illness Initial Comments: This is an 88-year-old female the ER for evaluation of chest pain chest pain left-sided in nature. The back and left arm. No travel history no known sick contacts. She has no history of positive p.m. blood thinners. No fevers no cough or congestion. Patient does have history of heart disease and CAD with positive stenting. MD Complaint: chest pain -: days(s) (2) Onset: during rest Pain Location: substernal, left chest Pain Radiation: LUE, back Severity: moderate Severity scale (1-10): 6 Quality: aching, sharp Consistency: constant Improves With: nothing Worsens With: nothing Context: recent illness Anginal Symptoms: dyspnea Treatments Prior to Arrival: none - Related Data Home Medications Medication Instructions Recorded Confirmed Atenolol 25 mg PO DAILY 08/02/17 01/08/19 Ezetimibe [Zetia] 10 mg PO HS 08/02/17 01/08/19 Furosemide [Lasix] 20 mg PO DAILY 08/02/17 01/08/19 Isosorbide Mononitrate ER [Imdur] 60 mg PO DAILY 08/02/17 01/08/19 Montelukast [Singulair] 10 mg PO DAILY 08/02/17 01/08/19 Potassium Chloride ER [K-Dur 10] 10 meq PO DAILY 08/02/17 01/08/19 Simvastatin [Zocor] 40 mg PO HS 08/02/17 01/08/19 Butalb/APAP/Caff 50-325-40Mg 1 - 2 tab PO Q6H PRN 03/12/18 01/08/19 [Fioricet 50-325-40] ALPRAZolam [Xanax] 0.25 mg PO HS 01/08/19 01/08/19 Apixaban [Eliquis] 5 mg PO BID 01/08/19 01/08/19 FLUoxetine HCL 30 mg PO DAILY 01/08/19 01/08/19 traMADol HCL [Ultram] 25 mg PO Q6H PRN 01/08/19 01/08/19 Previous Rx's Medication Instructions Recorded Famotidine [Pepcid] 20 mg PO DAILY tab 03/16/18 Allergies Allergy/AdvReac Type Severity Reaction Status Date / Time Sulfa (Sulfonamide Allergy Rash/Hives Verified 03/12/18 17:06 Antibiotics) erythromycin base AdvReac Nausea & Verified 03/12/18 17:06 Vomiting Review of Systems ROS Statement: Those systems with pertinent positive or pertinent negative responses have been documented in the HPI. ROS Other: All systems not noted in ROS Statement are negative. EKG Findings - EKG Comments: EKG Findings:: EKG shows sinus bradycardia rate of 59, OK 166, QRS 72, QTc 443 Past Medical History Past Medical History: Asthma, Coronary Artery Disease (CAD), Chest Pain / Angina, Heart Failure, Hyperlipidemia, Pulmonary Embolus (PE) Additional Past Medical History / Comment(s): brain tumor for years, mild memory impairment,PE yrs ago,IBS History of Any Multi-Drug Resistant Organisms: None Reported Past Surgical History: Appendectomy, Heart Catheterization With Stent, Tonsillectomy Additional Past Surgical History / Comment(s): heart stents x2,rt knee surg Past Anesthesia/Blood Transfusion Reactions: No Reported Reaction Additional Past Anesthesia/Blood Transfusion Reaction / Comment(s): no hx blood transfusion Date of Last Stent Placement:: unk Past Psychological History: No Psychological Hx Reported Smoking Status: Never smoker Past Alcohol Use History: None Reported Past Drug Use History: None Reported - Past Family History Mother Family Medical History: Cancer, Diabetes Mellitus, Myocardial Infarction (NE) Additional Family Medical History / Comment(s): at 56 with NE Father Family Medical History: Coronary Artery Disease (CAD), Myocardial Infarction (NE), Pulmonary Embolus Additional Family Medical History / Comment(s): at age 60 NE General Exam Limitations: no limitations General appearance: alert, in no apparent distress Head exam: Present: atraumatic, normocephalic, normal inspection Eye exam: Present: normal appearance, PERRL, EOMI. Absent: scleral icterus, conjunctival injection, periorbital swelling ENT exam: Present: normal exam, mucous membranes moist Neck exam: Present: normal inspection. Absent: tenderness, meningismus, lymphadenopathy Respiratory exam: Present: normal lung sounds bilaterally. Absent: respiratory distress, wheezes, rales, rhonchi, stridor Cardiovascular Exam: Present: regular rate, normal rhythm, normal heart sounds. Absent: systolic murmur, diastolic murmur, rubs, gallop, clicks GI/Abdominal exam: Present: soft, normal bowel sounds. Absent: distended, tenderness, guarding, rebound, rigid Extremities exam: Present: normal inspection, full ROM, normal capillary refill. Absent: tenderness, pedal edema, joint swelling, calf tenderness Back exam: Present: normal inspection Neurological exam: Present: alert, oriented X3, CN II-XII intact Psychiatric exam: Present: normal affect, normal mood Skin exam: Present: warm, dry, intact, normal color. Absent: rash Course Vital Signs 01/08/19 01/08/19 20:24 22:19 Temperature 98.0 F Pulse Rate 54 L 58 L Respiratory 16 16 Rate Blood Pressure 140/83 127/61 O2 Sat by Pulse 98 99 Oximetry Chest Pain MDM - MDM 88 female the ER with left-sided chest pain. Patient does have recent inpatient hospitalization, recent diagnosis of PE. She is on blood thinners which she has been taking. Left-sided chest pain rating to her back and down her arm. Critical Care Time Critical Care Time: Yes Total Critical Care Time: 31 Disposition Clinical Impression: Chest pain Disposition: ADMITTED IP TO THIS HOSP Condition: Serious Is patient prescribed a controlled substance at d/c from ED?: No Referrals: Carlos A Meyers MD [Primary Care Provider] - 1-2 days
[2019-01-08 20:49] LABS: Basophils % (A) 0 %; Eosinophils # (A) 0.2 k/uL (0-0.7); Eosinophils % (A) 4 %; HCT 41.5 % (34.0-46.0); HGB 13.2 gm/dL (11.4-16.0); Hypochromasia Slight; Lymphocytes # (A) 1.5 k/uL (1.0-4.8); Lymphocytes % (A) 30 %; MCH 30.3 pg (25.0-35.0); MCHC 31.8 g/dL (31.0-37.0); MCV 95.5 fL (80.0-100.0); Mean Platelet Volume 9.3; Monocytes # (A) 0.4 k/uL (0-1.0); Monocytes % (A) 9 %; Neutrophils # (A) 2.7 k/uL (1.3-7.7); Neutrophils % (A) 54 %; Platelet Count 154 k/uL (150-450); RBC 4.35 m/uL (3.80-5.40); RDW 13.1 % (11.5-15.5); WBC 4.9 k/uL (3.8-10.6)
[2019-01-08] MEDS ORDERED: MORPHINE SULFATE 4 MG/ML SYRINGE IVP STA (21:04)
[2019-01-08 21:07] LABS: Albumin 3.6 g/dL (3.5-5.0); Calcium 8.2 mg/dL (8.4-10.2); Magnesium 2.1 mg/dL (1.6-2.3); Total Bilirubin 1.2 mg/dL (0.2-1.3); Total Protein 6.5 g/dL (6.3-8.2)
[2019-01-08 21:11] LABS: Potassium 5.8 mmol/L (3.5-5.1)
[2019-01-08 21:18] LABS: Partial Thromboplastin Time 27.1 sec (22.0-30.0); Prothrombin Time 10.6 sec (9.0-12.0)
--- NOTE | 2019-01-08 21:58 | XR ---
EXAMINATION TYPE: XR chest 2V DATE OF EXAM: 01/08/2019 COMPARISON: CTA chest March 13, 2018. HISTORY: Chest pain for one day. TECHNIQUE: Frontal and lateral views of the chest are obtained. FINDINGS: There is chronic parenchymal change without suspicious focal air space opacity, pleural ef fusion, or pneumothorax seen. The cardiac silhouette size remains enlarged with atherosclerotic and ectatic aorta. The osseous structures remain demineralized. IMPRESSION: Chronic changes and cardiomegaly without acute pulmonary process.
--- NOTE | 2019-01-08 22:57 | CT ---
EXAM: CT Angiography Chest Without And With Intravenous Contrast CLINICAL HISTORY: ITS.REASON CT Reason: Pain TECHNIQUE: Axial computed tomographic angiography images of the chest without and with intravenous contrast using pulmonary embolism protocol. CTDI is 68 mGy and DLP is 1370 mGy-cm. This CT exam was performed using one or more of the following dose reduction techniques: automated exposure control, adjustment of the mA and/or kV according to patient size, and/or use of iterative reconstruction technique. 3D and MIP reconstructed images were created and reviewed. Coronal and sagittal reformatted images were created and reviewed. COMPARISON: CT chest 03/13/18 FINDINGS: Aorta: The aorta demonstrates ectasia of the ascending segment measuring up to 3.7 cm. Mild, diffuse atherosclerotic calcifications are present. No evidence for dissection or intramural hematoma. Lungs: No airspace consolidation. Bilateral multifocal atelectasis. Multiple nodular opacities in the right upper lobe posteriorly are again identified with relative stability, the largest measuring 5 mm. Pleural space: Unremarkable. No significant effusion. No pneumothorax. Heart: Mild cardiomegaly and multivessel coronary artery calcifications. No significant pericardial effusion. Mediastinum: Moderate hiatal hernia. Bones/joints: Multilevel intervertebral ossifications consistent with DISH. No visualized fracture. S-shaped scoliosis. No dislocation. Soft tissues: Unremarkable. Lymph nodes: Unremarkable. No enlarged lymph nodes. IMPRESSION: 1. No acute aortic findings. 2. Small nodules within the posterior right upper lobe have a similar appearance to the previous exam, likely benign. Follow-up in 12 months could be considered to confirm near two-year stability if there is indication. 3. Mild cardiomegaly and coronary artery calcifications. 4. Moderate hiatal hernia. EXAM: CT Angiography Abdomen and Pelvis Without And With Intravenous Contrast CLINICAL HISTORY: ITS.REASON CT Reason: Pain TECHNIQUE: Axial computed tomographic angiography images of the abdomen and pelvis without and with intravenous contrast. CTDI is 68 mGy and DLP is 1370 mGy-cm. This CT exam was performed using one or more of the following dose reduction techniques: automated exposure control, adjustment of the mA and/or kV according to patient size, and/or use of iterative reconstruction technique. 3D and MIP reconstructed images were created and reviewed. Coronal and sagittal reformatted images were created and reviewed. COMPARISON: CT abdomen 03/13/18 FINDINGS: VASCULATURE: Aorta: No evidence for aortic aneurysm or dissection within the abdomen. Diffuse atherosclerotic changes are present involving the aorta and its branches, without high-grade stenosis or occlusion currently. Celiac trunk and mesenteric arteries: Mild proximal atherosclerosis. No occlusion or significant stenosis. Renal arteries: Mild calcified plaque at the renal artery origins. No occlusion or high-grade stenosis. Iliac arteries: Mild calcified plaque. No occlusion or significant stenosis. ABDOMEN: Liver: No acute findings. Gallbladder and bile ducts: Unremarkable. No calcified stones. No ductal dilation. Pancreas: Unremarkable. No ductal dilation. No mass. Spleen: Unremarkable. No splenomegaly. Adrenals: Stable left adrenal thickening. Kidneys and ureters: Bilateral multifocal renal cortical thinning/scarring and mild perinephric stranding. Small cortical cysts measuring up to 11 mm on the left. Possible left parapelvic cyst. No definitive hydronephrosis. Stomach and bowel: Colonic diverticulosis. No current evidence for acute diverticulitis. The small bowel has a normal course and caliber, without evidence for focal obstruction. PELVIS: Appendix: No findings to suggest acute appendicitis. Bladder: Unremarkable. No stones. No mass. Reproductive: Hysterectomy. ABDOMEN and PELVIS: Intraperitoneal space: Unremarkable. No significant fluid collection. No free air. Bones/joints: Degenerative disc space height loss and osteophytosis at multiple levels. Likely chronic minimal anterolisthesis of L4 on L5. Multilevel facet arthropathy, severe within the lower lumbar levels. Mild levoscoliosis of the L4-5 level. Bilateral mild hip joint space loss with early osteophytosis. No visualized fracture. Soft tissues: No acute findings or significant interval change. Lymph nodes: Unremarkable. No enlarged lymph nodes. IMPRESSION: 1. No evidence for abdominal aortic aneurysm or dissection. Mild atherosclerotic changes diffusely. 2. Nonacute/incidental findings as noted above.
[2019-01-08] MEDS ORDERED: NITROGLYCERIN SL TABS 0.4 MG TAB SUBLINGUAL PRN (23:09)
[2019-01-08] MEDS ORDERED: MORPHINE SULFATE 4 MG/ML SYRINGE IV PRN (23:09)
[2019-01-08] MEDS: SODIUM CHLORIDE 0.9% 1,000 ML IV SCH (23:31)
[2019-01-09 03:56] LABS: Cholesterol 134 mg/dL (<200); HDL Cholesterol 50 mg/dL (40-60); LDL Cholesterol,Calculated 68 mg/dL (0-99); Triglycerides 82 mg/dL (<150)
[2019-01-09] MEDS: SODIUM CHLORIDE 0.9% 1,000 ML IV SCH ×2 (08:33→20:08)
[2019-01-09] MEDS ORDERED: ASPIRIN 325 MG TAB PO SCH (09:00)
--- NOTE | 2019-01-09 10:11 | P.CRDCN ---
History of Present Illness Consult date: 01/09/19 Requesting physician: Rose Mustafa Consult reason: chest pain Chief complaint: Chest pain and back pain History of present illness: This is an 88 stroke female with known history of coronary artery disease with prior stent placements, most recent cardiac catheterization was performed in JULY 2017 which revealed calcified coronary arteries, mild to moderate triple-vessel coronary artery disease with no progression of disease as compared with cath performed in 2012, medical therapy was advised at that time. hypertension, hyperlipidemia, underlying COPD, prior pulmonary embolism for which the patient continues to be on Eliquis. According to the daughter she was diagnosed with a pulmonary embolism last year in March. The patient follows with Dr. Ayala in the office, according to the records though she has not been there since 2016. She presents to the hospital on this occasion with symptoms of discomfort which started in her upper back region and radiated through to her chest, she also noted some discomfort in her left axilla area. She describes the symptoms as sharp in nature. Blood pressure this morning 106/70 with a heart rate in the 50s, 100% on room air. Chest x-ray showed chronic changes and cardiomegaly without any acute pulmonary process. A CT of the abdomen was performed which did not reveal evidence of abdominal aortic aneurysm or dissection. EKG showed a sinus bradycardia with no acute changes. Past Medical History Past Medical History: Asthma, Coronary Artery Disease (CAD), Chest Pain / Angina, Heart Failure, Hyperlipidemia, Pulmonary Embolus (PE) Additional Past Medical History / Comment(s): brain tumor for years, mild memory impairment,PE yrs ago,IBS History of Any Multi-Drug Resistant Organisms: None Reported Past Surgical History: Appendectomy, Heart Catheterization With Stent, Tonsillectomy Additional Past Surgical History / Comment(s): heart stents x2,rt knee surg Past Anesthesia/Blood Transfusion Reactions: No Reported Reaction Additional Past Anesthesia/Blood Transfusion Reaction / Comment(s): no hx blood transfusion Date of Last Stent Placement:: unk Smoking Status: Never smoker - Past Family History Mother Family Medical History: Cancer, Diabetes Mellitus, Myocardial Infarction ([place]) Additional Family Medical History / Comment(s): at 56 with [place] Father Family Medical History: Coronary Artery Disease (CAD), Myocardial Infarction ([place]), Pulmonary Embolus Additional Family Medical History / Comment(s): at age 60 [place] Medications and Allergies Home Medications Medication Instructions Recorded Confirmed Type Atenolol 25 mg PO DAILY 08/02/17 01/08/19 History Ezetimibe [Zetia] 10 mg PO HS 08/02/17 01/08/19 History Furosemide [Lasix] 20 mg PO DAILY 08/02/17 01/08/19 History Isosorbide Mononitrate ER [Imdur] 60 mg PO DAILY 08/02/17 01/08/19 History Montelukast [Singulair] 10 mg PO DAILY 08/02/17 01/08/19 History Potassium Chloride ER [K-Dur 10] 10 meq PO DAILY 08/02/17 01/08/19 History Simvastatin [Zocor] 40 mg PO HS 08/02/17 01/08/19 History Butalb/APAP/Caff 50-325-40Mg 1 - 2 tab PO Q6H PRN 03/12/18 01/08/19 History [Fioricet 50-325-40] Famotidine [Pepcid] 20 mg PO DAILY tab 03/16/18 01/08/19 Rx ALPRAZolam [Xanax] 0.25 mg PO HS 01/08/19 01/08/19 History Apixaban [Eliquis] 5 mg PO BID 01/08/19 01/08/19 History FLUoxetine HCL 30 mg PO DAILY 01/08/19 01/08/19 History traMADol HCL [Ultram] 25 mg PO Q6H PRN 01/08/19 01/08/19 History Allergies Allergy/AdvReac Type Severity Reaction Status Date / Time Sulfa (Sulfonamide Allergy Rash/Hives Verified 03/12/18 17:06 Antibiotics) erythromycin base AdvReac Nausea & Verified 03/12/18 17:06 Vomiting Physical Exam Vitals: Vital Signs Temp Pulse Pulse Resp BP BP Pulse Ox 01/09/19 04:00 55 L 18 106/71 100 01/09/19 00:16 98.1 F 59 L 18 147/95 97 01/09/19 00:00 59 L 18 01/08/19 23:45 98.0 F 55 L 16 98/69 98 01/08/19 22:19 58 L 16 127/61 99 01/08/19 20:24 98.0 F 54 L 16 140/83 98 Intake and Output 03/09/1801/09/19 01/09/19 22:59 06:59 14:59 Other: Voiding Method Toilet # Voids 1 1 Weight 68.039 kg 69.3 kg PHYSICAL EXAMINATION: HEENT: Head is atraumatic, normocephalic. Pupils equal, round. Neck is supple. There is no elevated jugular venous pressure. HEART EXAMINATION: Heart S1, S2 normal. No murmur or gallop heard. CHEST EXAMINATION: Lungs reveal diminished air entry to bilateral bases. ABDOMEN: Soft, nontender. Bowel sounds are heard. No organomegaly noted. EXTREMITIES: 2+ peripheral pulses with trace evidence of peripheral edema and no calf tenderness noted. NEUROLOGIC patient is awake, alert and oriented -3. Results 01/08/19 20:25 01/08/19 20:25 Cardiac Enzymes 01/08/19 01/08/19 01/09/19 Range/Units 20:25 20:25 03:20 AST 38 H (14-36) U/L Troponin I <0.012 <0.012 (0.000-0.034) ng/mL Coagulation 01/08/19 Range/Units 20:25 PT 10.6 (9.0-12.0) sec APTT 27.1 (22.0-30.0) sec Lipids 01/09/19 Range/Units 03:20 Triglycerides 82 (<150) mg/dL Cholesterol 134 (<200) mg/dL HDL Cholesterol 50 (40-60) mg/dL CBC 01/08/19 Range/Units 20:25 WBC 4.9 (3.8-10.6) k/uL RBC 4.35 (3.80-5.40) m/uL Hgb 13.2 (11.4-16.0) gm/dL Hct 41.5 (34.0-46.0) % Plt Count 154 (150-450) k/uL Comprehensive Metabolic Panel 01/08/19 Range/Units 20:25 Sodium 139 (137-145) mmol/L Potassium 5.8 H (3.5-5.1) mmol/L Chloride 103 (98-107) mmol/L Carbon Dioxide 30 (22-30) mmol/L BUN 34 H (7-17) mg/dL Creatinine 1.15 H (0.52-1.04) mg/dL Glucose 99 (74-99) mg/dL Calcium 8.2 L (8.4-10.2) mg/dL AST 38 H (14-36) U/L ALT 19 (9-52) U/L Alkaline Phosphatase 75 (38-126) U/L Total Protein 6.5 (6.3-8.2) g/dL Albumin 3.6 (3.5-5.0) g/dL Current Medications Generic Name Dose Route Start Last Admin Trade Name Crq PRN Reason Stop Dose Admin Aspirin 325 mg 01/09/19 09:00 01/09/19 08:35 Aspirin PO 325 mg DAILY JASON Administration Sodium Chloride 1,000 mls @ 100 mls/hr 01/08/19 23:15 01/09/19 08:33 Saline 0.9% IV 100 mls/hr .Q10H JASON Administration Morphine Sulfate 4 mg 01/08/19 23:09 Morphine Sulfate (Inj) IV Q4HR PRN Chest Pain Nitroglycerin 0.4 mg 01/08/19 23:09 Nitrostat SUBLINGUAL Q5M PRN Chest Pain Intake and Output 01/08/19 01/09/19 01/09/19 22:59 06:59 14:59 Other: Voiding Method Toilet # Voids 1 1 Weight 68.039 kg 69.3 kg 01/08/19 20:25 01/08/19 20:25 EKG Interpretations (text) EKG shows sinus bradycardia with no acute changes. Assessment and Plan Plan: Assessment and plan #1 symptoms of upper back discomfort with radiation to the chest and left axilla area, atypical for acute coronary syndrome. Troponins are negative 2. CTA of the abdomen negative for aortic aneurysm or dissection #2 known history of coronary artery disease with prior stent placement, most recent cath was performed in July 2017 which revealed mild triple-vessel coronary artery disease and medical therapy was advised at that time #3 hypertension #4 hyperlipidemia #5 history of pulmonary embolism, on Eliquis for anticoagulation Plan We will obtain an echocardiogram with Doppler study. 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 We will resume the patient's Eliquis, decrease her aspirin to 81 mg daily, resume atenolol, Zetia, Lasix, hold potassium, resume statin. In general we will maximize the patient's medication. Dr. Ibarra did speak with the patient this morning regarding proceeding with cardiac catheterization or stress testing. She wishes at this time to only have a medical therapy. DNP note has been reviewed, I agree with a documented findings and plan of care. Patient was seen and examined.
[2019-01-09] MEDS: APIXABAN 5 MG TAB PO SCH ×2 (10:47→20:07)
[2019-01-09] MEDS: ATENOLOL 25 MG TAB PO SCH (10:47)
[2019-01-09] MEDS ORDERED: traMADol 50 MG TAB PO PRN (10:48)
[2019-01-09] MEDS ORDERED: BUTALB/APAP/CAFF 50-325-40MG TAB PO PRN (10:48)
[2019-01-09] MEDS: ISOSORBIDE MONONITRATE ER 60 MG TAB.ER.24H PO SCH (11:58)
[2019-01-09] MEDS ORDERED: MORPHINE ORAL SOLN 10 MG/5 ML CUP PO PRN (12:50)
--- NOTE | 2019-01-09 12:50 | ECHOF ---
Referral Reason:chest pain MEASUREMENTS -------- HEIGHT: 160.0 cm WEIGHT: 68.9 kg BP: IVSd: 0.8 cm (0.6 - 1.1) LVIDd: 4.1 cm (3.9 - 5.3) LVPWd: 1.0 cm (0.6 - 1.1) IVSs: 1.2 cm LVIDs: 2.7 cm LVPWs: 1.5 cm Ao Diam: 2.4 cm (2.0 - 3.7) AV Cusp: 1.7 cm (1.5 - 2.6) LA Diam: 2.9 cm (2.7 - 3.8) MV EXCURSION: 12.842 mm (> 18.000) MV EF SLOPE: 19 mm/s (70 - 150) EPSS: 0.4 cm MV E Osmani: 0.72 m/s MV DecT: 322 ms MV A Osmani: 0.59 m/s MV E/A Ratio: 1.22 AR PHT: 665 ms RAP: 5.00 mmHg RVSP: 32.12 mmHg FINDINGS -------- Sinus rhythm. This was a technically adequate study. The left ventricular size is normal. Left ventricular wall thickness is normal. Overall left vent ricular systolic function is mildly impaired with, an EF between 45 - 50 %. The right ventricle is normal in size. The left atrial size is normal. The right atrial size is normal. There is mild aortic valve sclerosis. There is mild aortic regurgitation. The mitral valve leaflets are mildly thickened. Mild mitral regurgitation is present. Moderate tricuspid regurgitation present. Right ventricular systolic pressure is normal at < 35 mmH g. The right ventricular systolic pressure, as measured by Doppler, is 32.12mmHg. There is no pulmonic regurgitation present. The aortic root size is normal. IVC Not well visulized. There is no pericardial effusion. CONCLUSIONS -------- 1. Sinus rhythm. 2. This was a technically adequate study. 3. The left ventricular size is normal. 4. Left ventricular wall thickness is normal. 5. Overall left ventricular systolic function is mildly impaired with, an EF between 45 - 50 %. 6. The left atrial size is normal. 7. There is mild aortic valve sclerosis. 8. There is mild aortic regurgitation. 9. The mitral valve leaflets are mildly thickened. 10. Mild mitral regurgitation is present. 11. Moderate tricuspid regurgitation present. 12. Right ventricular systolic pressure is normal at < 35 mmHg. 13. There is no pulmonic regurgitation present. 14. The aortic root size is normal. 15. IVC Not well visulized. 16. There is no pericardial effusion. HIDE CURER: Kylah Rehman RDCS
--- NOTE | 2019-01-09 13:51 | P.HPIM ---
History of Present Illness H&P Date: 01/09/19 Chief Complaint: Chest pain This is an 88-year-old female patient of Dr. Meyers and Dr. 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 The patient states that she has had left-sided chest pain that goes to the back and into her left arm. Pain is not increased with deep breathing. Tuesday evening at suppertime the pain became worse. She took 2 nitroglycerin and then had a third with EMS. She also received morphine in the emergency center. She states her chest pain is mostly gone but there is some"light" pain still present but not severe. She denies any recent falls. No tenderness to chest wall and no rash noted. She does have some scratch lemon on the left upper scapula. She states she has shortness of breath when going up stairs. She denies any shortness of breath at rest. She does state she chokes on water. She does not recall having a stress test done. Her last heart catheterization was in July 2017 that revealed calcified coronary arteries, mild to moderate triple-vessel coronary artery disease with no progression of disease and medical management was advised. Patient came into [facility] emergency center for evaluation. EKG was a sinus bradycardia. Patient was afebrile, heart rate in the 50s, blood pressure 140/83, pulse ox 98%. CBC was normal, potassium 5.8, BUN 34 and creatinine 1.15. Troponins negative on 3 draws. Triglycerides 82, cholesterol 134, LDL 68, HDL 50. Lipase 190. ProBNP 1570. CT angios of the chest revealed no acute aortic findings. Small nodules within the posterior right upper lobe similar to previous appearance with recommendations for 12 month follow-up. Myocardial megaly and coronary artery fills patient. Moderate hiatal hernia. CT angios of the abdomen and pelvis revealed no abdominal aortic aneurysm or dissection. Mild atherosclerotic changes. Chest x-ray shows chronic changes and cardiomegaly without acute pulmonary process. Echocardiogram reveals EF of 45-50% with mild aortic regurgitation, mild mitral regurgitation, moderate tricuspid regurgitation.. Patient has been seen by cardiology with plan for heart catheterization. Review of Systems All systems: negative Constitutional: Denies chills, Denies fatigue, Denies fever, Denies poor appetite, Denies weight loss Eyes: denies blurred vision, denies pain Ears, nose, mouth and throat: Denies dysphagia, Denies headache, Denies mouth pain, Denies sore throat, Denies vertigo Cardiovascular: Reports decreased exercise tolerance, Reports dyspnea on exertion, Denies chest pain, Denies leg edema, Denies shortness of breath Respiratory: Reports dyspnea, Denies cough, Denies cough with sputum, Denies ex cessive sputum, Denies hemoptysis, Denies home oxygen, Denies wheezing Gastrointestinal: Denies abdominal pain, Denies diarrhea, Denies loss of appetite, Denies nausea, Denies vomiting Genitourinary: Denies dysuria, Denies hematuria, Denies urgency, Denies urinary frequency Musculoskeletal: Denies frequent falls, Denies gait dysfunction, Denies myalgias Integumentary: Denies pruritus, Denies rash, Denies wounds Neurological: Denies aphasia, Denies change in mentation, Denies change in speech, Denies gait dysfunction, Denies headaches, Denies numbness, Denies seizures, Denies weakness Psychiatric: Denies anxiety, Denies depression Endocrine: Denies fatigue, Denies weight change Past Medical History Past Medical History: Asthma, Coronary Artery Disease (CAD), Chest Pain / Susan na, Heart Failure, Hyperlipidemia, Pulmonary Embolus (PE) Additional Past Medical History / Comment(s): brain tumor for years, mild memory impairment,PE yrs ago,IBS History of Any Multi-Drug Resistant Organisms: None Reported Past Surgical History: Appendectomy, Heart Catheterization With Stent, Tonsillectomy Additional Past Surgical History / Comment(s): heart stents x2,rt knee surg Past Anesthesia/Blood Transfusion Reactions: No Reported Reaction Additional Past Anesthesia/Blood Transfusion Reaction / Comment(s): no hx blood transfusion Date of Last Stent Placement:: unk Smoking Status: Never smoker Additional Past Alcohol Use History / Comment(s): Patient does not smoke, no illicit drug use, no alcohol use. - Past Family History Mother Family Medical History: Cancer, Diabetes Mellitus, Myocardial Infarction ([place]) Additional Family Medical History / Comment(s): at 56 with [place] Father Family Medical History: Coronary Artery Disease (CAD), Myocardial Infarction ([place]), Pulmonary Embolus Additional Family Medical History / Comment(s): at age 60 [place] Sister(s) Additional Family Medical History / Comment(s): Patient has one sister that following CVAs and then myocardial infarction. Son(s) Additional Family Medical History / Comment(s): Patient has 2 sons and 1 daughter with no major medical problems. Medications and Allergies Home Medications Medication Instructions Recorded Confirmed Type Atenolol 25 mg PO DAILY 08/02/17 01/08/19 History Ezetimibe [Zetia] 10 mg PO HS 08/02/17 01/08/19 History Furosemide [Lasix] 20 mg PO DAILY 08/02/17 01/08/19 History Isosorbide Mononitrate ER [Imdur] 60 mg PO DAILY 08/02/17 01/08/19 History Montelukast [Singulair] 10 mg PO DAILY 08/02/17 01/08/19 History Potassium Chloride ER [K-Dur 10] 10 meq PO DAILY 08/02/17 01/08/19 History Simvastatin [Zocor] 40 mg PO HS 08/02/17 01/08/19 History Butalb/APAP/Caff 50-325-40Mg 1 - 2 tab PO Q6H PRN 03/12/18 01/08/19 History [Fioricet 50-325-40] Famotidine [Pepcid] 20 mg PO DAILY tab 03/16/18 01/08/19 Rx ALPRAZolam [Xanax] 0.25 mg PO HS 01/08/19 01/08/19 History Apixaban [Eliquis] 5 mg PO BID 01/08/19 01/08/19 History FLUoxetine HCL 30 mg PO DAILY 01/08/19 01/08/19 History traMADol HCL [Ultram] 25 mg PO Q6H PRN 01/08/19 01/08/19 History Allergies Allergy/AdvReac Type Severity Reaction Status Date / Time Sulfa (Sulfonamide Allergy Rash/Hives Verified 03/12/18 17:06 Antibiotics) erythromycin base AdvReac Nausea & Verified 03/12/18 17:06 Vomiting Physical Exam Vitals: Vital Signs Temp Pulse Pulse Resp BP BP Pulse Ox 01/09/19 12:00 97.2 F L 61 18 113/61 100 01/09/19 07:30 97.2 F L 53 L 18 127/77 100 01/09/19 04:00 55 L 18 106/71 100 01/09/19 00:16 98.1 F 59 L 18 147/95 97 01/09/19 00:00 59 L 18 01/08/19 23:45 98.0 F 55 L 16 98/69 98 01/08/19 22:19 58 L 16 127/61 99 01/08/19 20:24 98.0 F 54 L 16 140/83 98 Intake and Output 01/08/19 01/09/19 01/09/19 22:59 06:59 14:59 Intake Total 120 Balance 120 Intake: Oral 120 Other: Voiding Method Toilet # Voids 1 1 Weight 68.039 kg 69.3 kg Gen: This is an 88-year-old female. She is resting in bed appears to be comfortable and in no acute distress. HEENT: Head is atraumatic, normocephalic. Pupils equal, round. Sclerae is anicteric. NECK: Supple. No JVD. No lymphadenopathy. No thyromegaly. LUNGS: Clear to auscultation. No wheezes or rhonchi. No intercostal r etractions. HEART: Regular rate and rhythm. No murmur. No chest wall tenderness. ABDOMEN: Soft. Bowel sounds are present. No masses. No tenderness. EXTREMITIES: No pedal edema. No calf tenderness. Dorsalis pedis +2 bilaterally. NEUROLOGICAL: Patient is awake, alert and oriented x3. Cranial nerves 2 through 12 are grossly intact. Results CBC & Chem 7: 01/08/19 20:25 01/08/19 20:25 Labs: Abnormal Lab Results - Last 24 Hours (Table) 01/08/19 Range/Units 20:25 Potassium 5.8 H (3.5-5.1) mmol/L BUN 34 H (7-17) mg/dL Creatinine 1.15 H (0.52-1.04) mg/dL Calcium 8.2 L (8.4-10.2) mg/dL AST 38 H (14-36) U/L Thrombosis Risk Factor Assmnt - DVT/VTE Prophylaxis DVT/VTE Prophylaxis: Pharmacologic Prophylaxis ordered - Choose All That Apply Each Risk Factor Represents 3 Points: Age 75 years or older Thrombosis Risk Factor Assessment Total Risk Factor Score: 3 Thrombosis Risk Factor Assessment Level: Moderate Risk Assessment and Plan Plan: 1. Chest back and left arm pain with negative troponins. Cardiology consult appreciated. Echocardiogram. Plan to maximize medications. 2. History of coronary artery disease with previous stent placement. Continue atenolol 25 mg daily, Lipitor 20 mg at bedtime, Zetia 10 mg at bedtime, Lasix 20 mg daily, Imdur 60 mg daily. 3. Hypertension. Continue atenolol, Imdur and Lasix. 4. Hyperlipidemia. Continue atorvastatin 20 mg at bedtime. 5. History of pulmonary embolism. Continue eliquis 5 mg twice daily. 6. Irritable bowel syndrome. Stable. 7. DVT prophylaxis. Eliquis. 8. DVT prophylaxis. Pepcid. Patient will be admitted to the hospital for a minimum of 2 night stay. Discharge plan: Return home Impression and plan of care have been directed as dictated by the signing physician. Patience Jones nurse practitioner acting as scribe for signing physician.
[2019-01-09] MEDS ORDERED: EZETIMIBE 10 MG TAB PO SCH (21:00)
[2019-01-09] MEDS ORDERED: ATORVASTATIN 20 MG TAB PO SCH (21:00)
[2019-01-09] MEDS ORDERED: ALPRAZolam 0.25 MG TAB PO SCH (21:00)
[2019-01-10] MEDS: SODIUM CHLORIDE 0.9% 1,000 ML IV SCH (05:50)
[2019-01-10] MEDS: APIXABAN 5 MG TAB PO SCH (08:10)
[2019-01-10] MEDS: ISOSORBIDE MONONITRATE ER 60 MG TAB.ER.24H PO SCH (08:10)
[2019-01-10] MEDS: ATENOLOL 25 MG TAB PO SCH (08:10)
[2019-01-10 08:29] VITALS: RESP 20
[2019-01-10] MEDS ORDERED: FAMOTIDINE 20 MG TAB PO SCH (09:00)
[2019-01-10] MEDS ORDERED: MONTELUKAST 10 MG TAB PO SCH (09:00)
[2019-01-10] MEDS ORDERED: FLUoxetine HCL 10 MG CAP PO SCH (09:00)
[2019-01-10] MEDS ORDERED: FUROSEMIDE 20 MG TAB PO SCH (09:00)
[2019-01-10 12:33] VITALS: BP 142/74; PULSE 66; TEMP 97.7
--- NOTE | 2019-01-10 14:06 | P.PN ---
Subjective Progress Note Date: 01/10/19 This is an 88 stroke female with known history of coronary artery disease with prior stent placements, most recent cardiac catheterization was performed in JULY 2017 which revealed calcified coronary arteries, mild to moderate triple-vessel coronary artery disease with no progression of disease as compared with cath performed in 2012, medical therapy was advised at that time. hypertension, hyperlipidemia, underlying COPD, prior pulmonary embolism for which the patient continues to be on Eliquis. According to the daughter she was diagnosed with a pulmonary embolism last year in March. The patient follows with Dr. Ayala in the office, according to the records though she has not been there since 2016. She presents to the hospital on this occasion with symptoms of discomfort which started in her upper back region and radiated through to her chest, she also noted some discomfort in her left axilla area. She describes the symptoms as sharp in nature. Blood pressure this morning 106/70 with a heart rate in the 50s, 100% on room air. Chest x-ray showed chronic changes and cardiomegaly without any acute pulmonary process. A CT of the abdomen was performed which did not reveal evidence of abdominal aortic aneurysm or dissection. EKG showed a sinus bradycardia with no acute changes. 01/10/2019 Echocardiogram with Doppler study was performed which revealed an ejection fr action of 45-50%, similar to prior EKG. Patient was complaining of some upper back discomfort relieved with pain medication and heat. Symptoms not cardiac related. Blood pressure 142/70 with a heart rate in the 60s 96% on room air. Objective - Vital Signs Vital signs: Vital Signs Temp 97.7 F 01/10/19 12:00 Pulse 66 01/10/19 12:00 Resp 20 01/10/19 12:00 BP 142/74 01/10/19 12:00 Pulse Ox 96 01/10/19 12:00 Intake & Output 01/09/19 01/10/19 01/10/19 18:59 06:59 18:59 Intake Total 1040 210 Balance 1040 210 Weight 72.8 kg Intake: Intake, IV Titration 800 Amount Sodium Chloride 0.9% 1, 800 000 ml @ 100 mls/hr IV . Q10H JASNO Rx#:[id number] Oral 240 210 Other: Voiding Method Toilet Toilet # Voids 1 1 2 - Exam PHYSICAL EXAMINATION: HEENT: Head is atraumatic, normocephalic. Pupils equal, round. Neck is supple. There is no elevated jugular venous pressure. HEART EXAMINATION: Heart S1, S2 normal. No murmur or gallop heard. CHEST EXAMINATION: Lungs reveal diminished air entry to bilateral bases. ABDOMEN: Soft, nontender. Bowel sounds are heard. No organomegaly noted. EXTREMITIES: 2+ peripheral pulses with trace evidence of peripheral edema and no calf tenderness noted. NEUROLOGIC patient is awake, alert and oriented -3. - Labs CBC & Chem 7: 01/08/19 20:25 01/08/19 20:25 Assessment and Plan Plan: Assessment and plan #1 symptoms of upper back discomfort with radiation to the chest and left axilla area, atypical for acute coronary syndrome. Troponins are negative 2. CTA of the abdomen negative for aortic aneurysm or dissection #2 known history of coronary artery disease with prior stent placement, most recent cath was performed in July 2017 which revealed mild triple-vessel c oronary artery disease and medical therapy was advised at that time #3 hypertension #4 hyperlipidemia #5 history of pulmonary embolism, on Eliquis for anticoagulation Plan Cardiogram with Doppler study revealed an ejection fraction of 45-50%, similar to prior echo. From our perspective patient may be able to be discharged once cleared by primary. Her pain does not seem to be a cardiac related. We will make her a follow-up appointment in the office post discharge. DNP note has been reviewed, I agree with a documented findings and plan of care. Patient was seen and examined.
--- NOTE | 2019-01-10 15:31 | P.DS ---
Providers Date of admission: 01/08/19 23:09 Expected date of discharge: 01/10/19 Attending physician: Rose Mustafa Consults: 01/08/19 23:09 Consult Physician Urgent Consulting Provider: Gina Ayala Consult Reason/Comments: cp Do you want consulting provider notified?: Yes [facility] Course: This is an 88-year-old female patient of Dr. Meyers and Dr. 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 The patient states that she has had left-sided chest pain that goes to the back and into her left arm. Pain is not increased with deep breathing. Tuesday evening at suppertime the pain became worse. She took 2 nitroglycerin and then had a third with EMS. She also received morphine in the emergency center. She states her chest pain is mostly gone but there is some"light" pain still present but not severe. She denies any recent falls. No tenderness to chest wall and no rash noted. She does have some scratch lemon on the left upper scapula. She states she has shortness of breath when going up stairs. She denies any shortness of breath at rest. She does state she chokes on water. She does not recall having a stress test done. Her last heart catheterization was in July 2017 that revealed calcified coronary arteries, mild to moderate triple-vessel coronary artery disease with no progression of disease and medical management was advised. Patient came into [facility] emergency center for evaluation. EKG was a sinus bradycardia. Patient was afebrile, heart rate in the 50s, blood pressure 140/83, pulse ox 98%. CBC was normal, potassium 5.8, BUN 34 and creatinine 1.15. Troponins negative on 3 draws. Triglycerides 82, cholesterol 134, LDL 68, HDL 50. Lipase 190. ProBNP 1570. CT angios of the chest revealed no acute aortic findings. Small nodules within the posterior right upper lobe similar to previous appearance with recommendations for 12 month follow-up. Myocardial megaly and coronary artery fills patient. Moderate hiatal hernia. CT angios of the abdomen and pelvis revealed no abdominal aortic aneurysm or dissection. Mild atherosclerotic changes. Chest x-ray shows chronic changes and cardiomegaly without acute pulmonary process. Echocardiogram reveals EF of 45-50% with mild aortic regurgitation, mild mitral regurgitation, moderate tricuspid regurgitation. Patient has been seen by cardiology with plan for heart catheterization. 01/10: Patient has been afebrile, heart rate running in the 60s and 70s, blood pressure 142/74, pulse ox 96% on room air. Patient has been evaluated today by cardiology and cleared for discharge. We will start the patient on prednisone and Voltaren gel for radiculitis, as underlying cause for her pain. Patient will be discharged home today in stable condition. Discharge diagnoses: 1. Chest back and left arm pain with negative troponins. Acute coronary syndrome ruled out. Pain most likely related to radiculitis from approximately T5. 2. History of coronary artery disease with previous stent placement. 3. Hypertension. 4. Hyperlipidemia. 5. History of pulmonary embolism. 6. Irritable bowel syndrome. Stable. Discharge plan: Return home Impression and plan of care have been directed as dictated by the signing physician. Patience Jones nurse practitioner acting as scribe for signing physician. Patient Condition at Discharge: Good Plan - Discharge Summary Discharge Rx Participant: Yes New Discharge Prescriptions: New predniSONE 0 mg PO DIRECTED #30 tab Diclofenac Sodium Gel [Voltaren Gel] 2 gm TOPICAL QID #1 tube Continue Potassium Chloride ER [K-Dur 10] 10 meq PO DAILY Furosemide [Lasix] 20 mg PO DAILY Ezetimibe [Zetia] 10 mg PO HS Atenolol 25 mg PO DAILY Simvastatin [Zocor] 40 mg PO HS Montelukast [Singulair] 10 mg PO DAILY Isosorbide Mononitrate ER [Imdur] 60 mg PO DAILY Butalb/APAP/Caff 50-325-40Mg [Fioricet 50-325-40] 1 - 2 tab PO Q6H PRN PRN Reason: Migraine Headache Famotidine [Pepcid] 20 mg PO DAILY tab Apixaban [Eliquis] 5 mg PO BID FLUoxetine HCL 30 mg PO DAILY ALPRAZolam [Xanax] 0.25 mg PO HS traMADol HCL [Ultram] 25 mg PO Q6H PRN PRN Reason: Pain Discharge Medication List Atenolol 25 mg PO DAILY 08/02/17 [History] Ezetimibe [Zetia] 10 mg PO HS 08/02/17 [History] Furosemide [Lasix] 20 mg PO DAILY 10/03/17 [History] Isosorbide Mononitrate ER [Imdur] 60 mg PO DAILY 08/02/17 [History] Montelukast [Singulair] 10 mg PO DAILY 08/02/17 [History] Potassium Chloride ER [K-Dur 10] 10 meq PO DAILY 08/02/17 [History] Simvastatin [Zocor] 40 mg PO HS 08/02/17 [History] Butalb/APAP/Caff 50-325-40Mg [Fioricet 50-325-40] 1 - 2 tab PO Q6H PRN 03/12/18 [History] Famotidine [Pepcid] 20 mg PO DAILY tab 03/16/18 [Rx] ALPRAZolam [Xanax] 0.25 mg PO HS 01/08/19 [History] Apixaban [Eliquis] 5 mg PO BID 01/08/19 [History] FLUoxetine HCL 30 mg PO DAILY 01/08/19 [History] traMADol HCL [Ultram] 25 mg PO Q6H PRN 01/08/19 [History] Diclofenac Sodium Gel [Voltaren Gel] 2 gm TOPICAL QID #1 tube 01/10/19 [Rx] predniSONE 0 mg PO DIRECTED #30 tab 01/10/19 [Rx] Follow up Appointment(s)/Referral(s): Gina Ayala MD [STAFF PHYSICIAN] - 01/22/19 9:30 am (Tuesday) Carlos A Meyers MD [Primary Care Provider] - 01/15/19 10:30 am (With Shannen SANDHU) Patient Instructions/Handouts: Chest Pain (DC), Chronic Kidney Disease (DC) Discharge Disposition: HOME SELF-CARE
== END 2019-01-10 15:52 | disposition home or self-care (01) ==
LOC: EC 20:15 → 3SCARD 23:09
PROVIDERS: ADMIT Family Medicine; ATTEND Family Medicine
DX: R07.89 Other chest pain (principal); M79.602 Pain in left arm; I08.3 Combined rheumatic disorders of mitral, aortic and tricuspid valves; I25.10 Atherosclerotic heart disease of native coronary artery without angina pectoris; E78.5 Hyperlipidemia, unspecified; M54.6 Pain in thoracic spine; I11.0 Hypertensive heart disease with heart failure; D49.6 Neoplasm of unspecified behavior of brain; I50.9 Heart failure, unspecified; J44.9 Chronic obstructive pulmonary disease, unspecified; K44.9 Diaphragmatic hernia without obstruction or gangrene; K58.9 Irritable bowel syndrome, unspecified; Z79.01 Long term (current) use of anticoagulants; Z79.899 Other long term (current) drug therapy; Z86.711 Personal history of pulmonary embolism; Z86.73 Personal history of transient ischemic attack (TIA), and cerebral infarction without residual deficits; Z95.5 Presence of coronary angioplasty implant and graft; Z82.49 Family history of ischemic heart disease and other diseases of the circulatory system; Z82.3 Family history of stroke; Z83.3 Family history of diabetes mellitus; Z88.1 Allergy status to other antibiotic agents; Z88.2 Allergy status to sulfonamides
CPT/HCPCS: 96361 ×2; 96374; 99291; 36415; 93005; 93306; 83880; 80061; 80053; 83690; 83735; 84484 ×2; 85025; 85610; 85730; 71046; 71275; 74174; G0378 ×3; J2270; Q9967

== ENCOUNTER 2020-04-28 23:40 | Emergency (ER) | payer MEDICARE ==
[2020-04-29 00:07] VITALS: BP 124/78; PULSE 63; RESP 16; TEMP 98.5
--- NOTE | 2020-04-29 00:55 | ED ---
Recheck HPI - General Chief Complaint: Extremity Injury, Upper Stated Complaint: R wrist injury,Swelling Time Seen by Provider: 04/29/20 00:10 Source: patient, family, RN notes reviewed, old records reviewed Mode of arrival: wheelchair Limitations: no limitations - History of Present Illness Initial Comments: This is a 9-year-old female DF for evaluation of increasing finger pain. Patient cast placed secondary to collies fracture place and orthopedics, patient states the symptoms of been getting progressively worse pain in her hand and wrist. Fingers. No other new injuries or trauma MD Complaint: other (Patient here for cast recheck) -: hour(s) Returns Today for: persistent/worsening pain related to initial visit Symptoms Since Prior Visit: worsening pain Context: planned re-check Associated Symptoms: none - Related Data Home Medications Medication Instructions Recorded Confirmed Atenolol 25 mg PO DAILY 08/02/17 01/08/19 Ezetimibe [Zetia] 10 mg PO HS 08/02/17 01/08/19 Furosemide [Lasix] 20 mg PO DAILY 08/02/17 01/08/19 Isosorbide Mononitrate ER [Imdur] 60 mg PO DAILY 08/02/17 01/08/19 Montelukast [Singulair] 10 mg PO DAILY 08/02/17 01/08/19 Potassium Chloride ER [K-Dur 10] 10 meq PO DAILY 08/02/17 01/08/19 Simvastatin [Zocor] 40 mg PO HS 08/02/17 01/08/19 Butalb/APAP/Caff 50-325-40Mg 1 - 2 tab PO Q6H PRN 03/12/18 01/08/19 [Fioricet 50-325-40] ALPRAZolam [Xanax] 0.25 mg PO HS 01/08/19 01/08/19 Apixaban [Eliquis] 5 mg PO BID 01/08/19 01/08/19 FLUoxetine HCL 30 mg PO DAILY 01/08/19 01/08/19 traMADol HCL [Ultram] 25 mg PO Q6H PRN 01/08/19 01/08/19 Previous Rx's Medication Instructions Recorded Famotidine [Pepcid] 20 mg PO DAILY tab 03/16/18 Diclofenac Sodium Gel [Voltaren 2 gm TOPICAL QID #1 tube 01/10/19 Gel] predniSONE 0 mg PO DIRECTED #30 tab 01/10/19 Allergies Allergy/AdvReac Type Severity Reaction Status Date / Time codeine Allergy Nausea & Verified 04/29/20 00:07 Vomiting Sulfa (Sulfonamide Allergy Rash/Hives Verified 03/12/18 17:06 Antibiotics) erythromycin base AdvReac Nausea & Verified 03/12/18 17:06 Vomiting Review of Systems ROS Statement: Those systems with pertinent positive or pertinent negative responses have been documented in the HPI. ROS Other: All systems not noted in ROS Statement are negative. Past Medical History Past Medical History: Asthma, Coronary Artery Disease (CAD), Chest Pain / Angina, Heart Failure, Hyperlipidemia, Pulmonary Embolus (PE) Additional Past Medical History / Comment(s): brain tumor for years, mild memory impairment,PE yrs ago,IBS History of Any Multi-Drug Resistant Organisms: None Reported Past Surgical History: Appendectomy, Heart Catheterization With Stent, Ton sillectomy Additional Past Surgical History / Comment(s): heart stents x2,rt knee surg Past Anesthesia/Blood Transfusion Reactions: No Reported Reaction Additional Past Anesthesia/Blood Transfusion Reaction / Comment(s): no hx blood transfusion Date of Last Stent Placement:: unk Past Psychological History: No Psychological Hx Reported Smoking Status: Never smoker Past Alcohol Use History: None Reported Past Drug Use History: None Reported - Past Family History Mother Family Medical History: Cancer, Diabetes Mellitus, Myocardial Infarction ([place]) Additional Family Medical History / Comment(s): at 56 with IA Father Family Medical History: Coronary Artery Disease (CAD), Myocardial Infarction ([place]), Pulmonary Embolus Additional Family Medical History / Comment(s): at age 60 [place] Sister(s) Additional Family Medical History / Comment(s): Patient has one sister that following CVAs and then myocardial infarction. Son(s) Additional Family Medical History / Comment(s): Patient has 2 sons and 1 daughter with no major medical problems. General Exam - General Exam Comments Initial Comments: Patient does have cast to her wrist Limitations: no limitations General appearance: alert, in no apparent distress Head exam: Present: atraumatic, normocephalic, normal inspection Eye exam: Present: normal appearance, PERRL, EOMI. Absent: scleral icterus, conjunctival injection, periorbital swelling ENT exam: Present: normal exam, mucous membranes moist Neck exam: Present: normal inspection. Absent: tenderness, meningismus, lymphadenopathy Respiratory exam: Present: normal lung sounds bilaterally. Absent: respiratory distress, wheezes, rales, rhonchi, stridor Cardiovascular Exam: Present: regular rate, normal rhythm, normal heart sounds. Absent: systolic murmur, diastolic murmur, rubs, gallop, clicks GI/Abdominal exam: Present: soft, normal bowel sounds. Absent: distended, tenderness, guarding, rebound, rigid Extremities exam: Present: normal inspection, full ROM, normal capillary refill. Absent: tenderness, pedal edema, joint swelling, calf tenderness Back exam: Present: normal inspection Neurological exam: Present: alert, oriented X3, CN II-XII intact Psychiatric exam: Present: normal affect, normal mood Skin exam: Present: warm, dry, intact, normal color. Absent: rash Course Vital Signs 04/29/20 00:00 Temperature 98.5 F Pulse Rate 63 Respiratory 16 Rate Blood Pressure 124/78 O2 Sat by Pulse 94 L Oximetry - Reevaluation(s) Reevaluation #1: Medical records reviewed Symptoms resolved after 5 bivalve cast Medical Decision Making - Medical Decision Making 89 female status post fall does have collies fracture wrist. Patient can be discharged home patient did have cath placed with increasing pain. Patient Can't with bivalve and patient will follow up with orthopedics Disposition Clinical Impression: Fracture, Colles, right, closed, Cast discomfort Disposition: HOME SELF-CARE Condition: Good Instructions (If sedation given, give patient instructions): Cast Care (ED) Is patient prescribed a controlled substance at d/c from ED?: No Referrals: Carlos A Meyers MD [Primary Care Provider] - 1-2 days
== END 2020-04-29 01:31 | disposition home or self-care (01) ==
LOC: EC 23:40
DX: S52.531D Colles' fracture of right radius, subsequent encounter for closed fracture with routine healing (principal); J45.909 Unspecified asthma, uncomplicated; E78.5 Hyperlipidemia, unspecified; I50.9 Heart failure, unspecified; I25.119 Atherosclerotic heart disease of native coronary artery with unspecified angina pectoris; Z86.711 Personal history of pulmonary embolism; Z79.899 Other long term (current) drug therapy; Z95.5 Presence of coronary angioplasty implant and graft; Z88.1 Allergy status to other antibiotic agents; Z88.2 Allergy status to sulfonamides; Z88.5 Allergy status to narcotic agent
CPT/HCPCS: 99283

== ENCOUNTER 2021-08-25 19:17 | Observation (INO) | payer MEDICARE ==
[2021-08-25 20:02] LABS: Basophils # (A) 0.1 k/uL (0-0.2); Basophils % (A) 1 %; Eosinophils # (A) 0.2 k/uL (0-0.7); Eosinophils % (A) 3 %; HCT 48.9 % (34.0-46.0); HGB 15.3 gm/dL (11.4-16.0); Lymphocytes # (A) 1.5 k/uL (1.0-4.8); Lymphocytes % (A) 28 %; MCH 31.3 pg (25.0-35.0); MCHC 31.4 g/dL (31.0-37.0); MCV 99.6 fL (80.0-100.0); Mean Platelet Volume 8.9; Monocytes # (A) 0.3 k/uL (0-1.0); Monocytes % (A) 6 %; Neutrophils # (A) 3.1 k/uL (1.3-7.7); Neutrophils % (A) 59 %; Platelet Count 138 k/uL (150-450); RBC 4.91 m/uL (3.80-5.40); RDW 12.8 % (11.5-15.5); WBC 5.3 k/uL (3.8-10.6)
[2021-08-25 20:11] LABS: Prothrombin Time 10.5 sec (9.0-12.0)
[2021-08-25 20:12] LABS: Albumin 3.7 g/dL (3.5-5.0); Calcium 8.7 mg/dL (8.4-10.2); Magnesium 2.1 mg/dL (1.6-2.3); Potassium 4.4 mmol/L (3.5-5.1); Total Bilirubin 0.4 mg/dL (0.2-1.3); Total Protein 6.3 g/dL (6.3-8.2)
--- NOTE | 2021-08-25 20:42 | ED ---
Chest Pain HPI - General Chief Complaint: Chest Pain Stated Complaint: chest pain Time Seen by Provider: 08/25/21 19:35 Source: patient Mode of arrival: wheelchair Limitations: no limitations - History of Present Illness Initial Comments: Patient complains of chest pain. Pain is in the middle of the chest. It doesn't radiate to anywhere else. The pain is worse with exertion. She tried taking nitro for this. She has some nausea and diaphoresis as well. She has no vomiting. She has no belly or back pain. She has no focal weakness. She has no paresthesias. She had no loss of consciousness. She has no headache. She has no neck pain or stiffness. She wasn't doing anything when the pain began. She has had no recent long plane or cards. She has no palpitations. She has no swelling in the arms or legs. - Related Data Home Medications Medication Instructions Recorded Confirmed Ezetimibe [Zetia] 10 mg PO HS 08/02/17 01/08/19 Furosemide [Lasix] 20 mg PO DAILY 08/02/17 01/08/19 Isosorbide Mononitrate ER [Imdur] 60 mg PO DAILY 08/02/17 01/08/19 Montelukast [Singulair] 10 mg PO DAILY 08/02/17 01/08/19 Potassium Chloride ER [K-Dur 10] 10 meq PO DAILY 08/02/17 01/08/19 Simvastatin [Zocor] 40 mg PO HS 08/02/17 01/08/19 atenoloL 25 mg PO DAILY 08/02/17 01/08/19 Butalb/APAP/Caff 50-325-40Mg 1 - 2 tab PO Q6H PRN 03/12/18 01/08/19 [Fioricet 50-325-40] ALPRAZolam [Xanax] 0.25 mg PO HS 01/08/19 01/08/19 Apixaban [Eliquis] 5 mg PO BID 01/08/19 01/08/19 FLUoxetine HCL [Sarafem] 30 mg PO DAILY 01/08/19 01/08/19 traMADol HCL [Ultram] 25 mg PO Q6H PRN 01/08/19 01/08/19 Previous Rx's Medication Instructions Recorded Famotidine [Pepcid] 20 mg PO DAILY tab 03/16/18 Diclofenac Sodium Gel [Voltaren 2 gm TOPICAL QID #1 tube 01/10/19 Gel] predniSONE 0 mg PO DIRECTED #30 tab 01/10/19 Allergies Allergy/AdvReac Type Severity Reaction Status Date / Time codeine Allergy Nausea & Verified 04/29/20 00:07 Vomiting Sulfa (Sulfonamide Allergy Rash/Hives Verified 03/12/18 17:06 Antibiotics) erythromycin base AdvReac Nausea & Verified 03/12/18 17:06 Vomiting Review of Systems ROS Statement: Those systems with pertinent positive or pertinent negative responses have been documented in the HPI. ROS Other: All systems not noted in ROS Statement are negative. EKG Findings - EKG Comments: EKG Findings:: Twelve-lead EKG shows ventricular rate 64 bpm, normal LA interval and QRS complexes, no ST elevation or depression, interpreted by me as normal sinus rhythm. Past Medical History Past Medical History: Asthma, Coronary Artery Disease (CAD), Chest Pain / Angina, Heart Failure, Hyperlipidemia, Pulmonary Embolus (PE) Additional Past Medical History / Comment(s): brain tumor for years, mild memory impairment,PE yrs ago,IBS History of Any Multi-Drug Resistant Organisms: None Reported Past Surgical History: Appendectomy, Heart Catheterization With Stent, Tonsillectomy Additional Past Surgical History / Comment(s): heart stents x2,rt knee surg Past Anesthesia/Blood Transfusion Reactions: No Reported Reaction Additional Past Anesthesia/Blood Transfusion Reaction / Comment(s): no hx blood transfusion Date of Last Stent Placement:: unk Past Psychological History: No Psychological Hx Reported Past Alcohol Use History: None Reported Past Drug Use History: None Reported - Past Family History Mother Family Medical History: Cancer, Diabetes Mellitus, Myocardial Infarction ([place]) Additional Family Medical History / Comment(s): at 56 with [place] Father Family Medical History: Coronary Artery Disease (CAD), Myocardial Infarction ([place]), Pulmonary Embolus Additional Family Medical History / Comment(s): at age 60 [place] Sister(s) Additional Family Medical History / Comment(s): Patient has one sister that following CVAs and then myocardial infarction. Son(s) Additional Family Medical History / Comment(s): Patient has 2 sons and 1 daughter with no major medical problems. General Exam Limitations: no limitations General appearance: alert, in no apparent distress Head exam: Present: atraumatic, normocephalic, normal inspection Eye exam: Present: normal appearance, PERRL, EOMI. Absent: scleral icterus, conjunctival injection, periorbital swelling ENT exam: Present: normal exam, mucous membranes moist Neck exam: Present: normal inspection. Absent: tenderness, meningismus, lymphadenopathy Respiratory exam: Present: normal lung sounds bilaterally. Absent: respiratory distress, wheezes, rales, rhonchi, stridor Cardiovascular Exam: Present: regular rate, normal rhythm, normal heart sounds. Absent: systolic murmur, diastolic murmur, rubs, gallop, clicks GI/Abdominal exam: Present: soft, normal bowel sounds. Absent: distended, tenderness, guarding, rebound, rigid Extremities exam: Present: normal inspection, full ROM, normal capillary refill. Absent: tenderness, pedal edema, joint swelling, calf tenderness Back exam: Present: normal inspection Neurological exam: Present: alert, oriented X3, CN II-XII intact Psychiatric exam: Present: normal affect, normal mood Skin exam: Present: warm, dry, intact, normal color. Absent: rash Course Vital Signs 08/25/21 08/25/21 08/25/21 19:19 19:42 19:44 Temperature 97.0 F L Pulse Rate 68 Pulse Rate [ 68 [employer] ] Respiratory 16 Rate Blood Pressure 176/92 182/88 O2 Sat by Pulse 97 Oximetry Chest Pain MDM - Core Measures AMI Core Measures Followed: Yes - MDM Patient presents with exertional chest pain. Initial troponin is negative. I consult to cardiology. Patient will be admitted to the hospital. Disposition Clinical Impression: Chest pain Disposition: ADMITTED IP TO THIS HOSP Condition: Fair Instructions (If sedation given, give patient instructions): Chest Pain (ED) Referrals: Carlos A Meyers MD [Primary Care Provider] - 1-2 days
[2021-08-25] MEDS ORDERED: HEPARIN SODIUM 1,000 UN/ML (10ML VL) IV ONE (20:44)
--- NOTE | 2021-08-25 20:44 | XR ---
EXAMINATION TYPE: XR chest 1V portable DATE OF EXAM: 08/25/2021 COMPARISON: 01/08/2019 HISTORY: Chest pain TECHNIQUE: Single view FINDINGS: Heart is enlarged. There is no heart failure. There are no hilar masses. Lungs are clear of consolidation. Thoracic aorta is atheromatous. There are chest leads. There is sma ll linear density in the lingula left upper lobe. IMPRESSION: There is some lingula scarring without change. Mild cardiomegaly. No acute lung disease.
[2021-08-25] MEDS ORDERED: HEPARIN SOD,PORK IN 0.45% NACL 25,000 UNIT in 0.45% NACL 1 250ML.BAG IV SCH (20:45)
[2021-08-25] MEDS ORDERED: TEMAZEPAM 15 MG CAP PO PRN (20:48)
[2021-08-25] MEDS ORDERED: NALOXONE 0.4 MG/ML 1 ML VIAL IV PRN (20:48)
[2021-08-25] MEDS ORDERED: oxyCODONE-APAP 5-325MG 1 EACH TAB PO PRN (20:48)
[2021-08-25] MEDS ORDERED: ALPRAZolam 0.25 MG TAB PO PRN (20:48)
[2021-08-25] MEDS ORDERED: DOCUSATE 100 MG CAP PO PRN (20:48)
[2021-08-25] MEDS ORDERED: ONDANSETRON 4 MG/2 ML VIAL IVP PRN (20:48)
[2021-08-25] MEDS ORDERED: traMADol 50 MG TAB PO PRN (20:50)
[2021-08-25] MEDS: MORPHINE SULFATE 4 MG/ML SYRINGE IV PRN (21:09)
[2021-08-25] MEDS: ATORVASTATIN 20 MG TAB PO SCH (21:18)
[2021-08-25] MEDS: EZETIMIBE 10 MG TAB PO SCH ×2 (21:18→21:19)
--- NOTE | 2021-08-25 22:31 | CT ---
EXAMINATION TYPE: CT angio thor/abd pel aorta DATE OF EXAM: 08/25/2021 COMPARISON: 01/08/2019 HISTORY: chest pain CT DLP: 1085.3 mGycm Automated exposure control for dose reduction was used. CONTRAST: Performed with IV Contrast, patient injected with 100cc mL of Isovue 370. There are 3-D post processed images. Images obtained from the thoracic inlet to the floor the pelvis. Heart is enlarged. There is large hiatal hernia. There is some coarsening of interstitial markings. T here is no pulmonary consolidation. There is some mild atelectasis left lung base. There is no pleura l effusion. Liver spleen pancreas appear intact. Bile ducts are not dilated. Gallbladder appears intact. There is no adrenal mass. Kidneys have normal size. There is no hydronephrosis. There are sigmoid div erticula. There is no diverticulitis. Bladder distends smoothly. There is no ascites or free air. The re is no bowel obstruction. Facet aorta measures 3.8 cm in diameter. There is no dissection. I see no filling defects in the pulm onary arteries. There is arterial flow in the celiac artery and superior mesenteric artery. There is arterial flow in the renal and iliac and femoral arteries. I see no evidence of arterial aneurysm or dissection. Ther e is no evidence of hemodynamic stenosis. There is no retroperitoneal adenopathy. Thoracic and lumbar vertebra appear intact. There is no signi ficant compression deformity. Sternum is intact. IMPRESSION: Cardiomegaly. No evidence of pulmonary embolism. Mild subsegmental atelectasis and scarring at the xavier ng bases. No evidence of arterial aneurysm or dissection. No evidence of hemodynamic stenosis. No adverse lofton e compared to old exam.
[2021-08-26] MEDS ORDERED: REGADENOSON 0.4 MG/5 ML SYRINGE IV PRN (07:59)
[2021-08-26] MEDS ORDERED: CAFFEINE CITRATE 60 MG/3 ML VIAL IV PRN (07:59)
[2021-08-26] MEDS ORDERED: AMINOPHYLLINE 500 MG/20 ML VIAL IV PRN (07:59)
[2021-08-26] MEDS: FLUoxetine HCL 10 MG CAP PO SCH (08:40)
[2021-08-26] MEDS: MONTELUKAST 10 MG TAB PO SCH (08:41)
[2021-08-26] MEDS: FAMOTIDINE 20 MG TAB PO SCH (08:44)
--- NOTE | 2021-08-26 09:37 | P.CRDCN ---
History of Present Illness Consult date: 08/26/21 History of present illness: HISTORY OF PRESENT ILLNESS: This is a 89-year-old female with a past medical history significant for coronary artery disease with previous PCI to LAD, hypertension, hyperlipidemia, and PE on Eliquis. Patient follows in the office with Dr. Ayala. We have been asked to see the patient in consultation for chest pain. Patient examined at the bedside. Patient states yesterday after eating dinner she began to have chest discomfort. She states initially the pain started in her shoulder blades and then wrapped around towards the front of her chest. She describes the pain as a heavy pressure. She reports feeling slightly short of breath at that time. She denied any nausea or vomiting. Denied dizziness or lightheadedness. Patient states she took aspirin and nitro at home which did not help the pain. Her daughter then gave her Tylenol and some antacids which also did not help relieve the pain so the patient came to the emergency room for further evaluation. The patient currently denies chest pain or pressure at the time of my examination. EKG reveals sinus mechanism with no signs of acute ischemia. Chest xray there is some lingula scarring without change. Mild cramping male. No acute lung disease. CT thoracic/aorta: No evidence of arterial aneurysm or dissection. No evidence of PE. Laboratory data: WBC 5.3. Hemoglobin 15.3. Platelet count 138. Sodium 137. Potassium 4.4. BUN 29. Creatinine 0.86. Magnesium 2.1. Troponin negative 3. Current home cardiac medications include atenolol 25 mg daily, Zocor 40 mg daily, Imdur 30 mg daily, Zetia 10 mg daily, Eliquis 5 mg twice a day Most recent echocardiogram obtained in December 2018 revealing ejection fraction 45-50%, mild mitral regurgitation, mild tricuspid regurgitation, and mild aortic regurgitation Cardiac catheterization history: July 2017 revealing calcified coronary arteries. [id number] triple-vessel coronary artery disease with no progression of disease compared with images obtained in 2013. REVIEW OF SYSTEMS: At the time of my exam: CONSTITUTIONAL: Denies fever or chills. HEENT: Denies blurred vision, vision changes, or eye pain. Denies hemoptysis CARDIOVASCULAR: Denies chest pain. Denies orthopnea. Denies PND. Denies palpitations RESPIRATORY: Denies shortness of breath. GASTROINTESTINAL: Denies abdominal pain. Denies nausea or vomiting. HEMATOLOGIC: Denies bleeding disorders. GENITOURINARY: Denies any blood in urine. SKIN: Denies pruitis. Denies rash. PHYSICAL EXAM: VITAL SIGNS: Reviewed. GENERAL: Well-developed in no acute distress. HEENT: Head is normocephalic. Pupils are equal, round. Sclerae anicteric. Mucous membranes of the mouth are moist. Neck supple. No JVD or thyromegaly LUNGS: Respirations even and unlabored. Lungs essentially clear to auscultation bilaterally. HEART: Regular rate and rhythm. S1 and S2 heard. Systolic murmur noted. ABDOMEN: Soft. Nondistended. Nontender. EXTREMITIES: Normal range of motion. No clubbing or cyanosis. Peripheral pulses intact. No lower extremity edema NEUROLOGIC: Awake and alert. Oriented x 3. ASSESSMENT: Chest pain Coronary artery disease with previous PCI to LAD Hypertension Hyperlipidemia History of PE, on anticoagulation with Eliquis PLAN: An acute coronary event has been ruled out Obtain 2D echo to assess cardiac structure and function Discontinue IV heparin. Resume Eliquis Patient to undergo Lexiscan stress test today Further recommendations pending patient's course Nurse practitioner note has been reviewed by physician. Signing provider agrees with the documented findings, assessment, and plan of care. Past Medical History Past Medical History: Asthma, Coronary Artery Disease (CAD), Chest Pain / Angina, Heart Failure, Hyperlipidemia, Pulmonary Embolus (PE) Additional Past Medical History / Comment(s): brain tumor for years, mild memory impairment,PE yrs ago,IBS History of Any Multi-Drug Resistant Organisms: None Reported Past Surgical History: Appendectomy, Heart Catheterization With Stent, Tonsillectomy Additional Past Surgical History / Comment(s): heart stents x2,rt knee surg Past Anesthesia/Blood Transfusion Reactions: No Reported Reaction Additional Past Anesthesia/Blood Transfusion Reaction / Comment(s): no hx blood transfusion Date of Last Stent Placement:: unk Past Psychological History: No Psychological Hx Reported Smoking Status: Never smoker Past Alcohol Use History: None Reported Additional Past Alcohol Use History / Comment(s): Patient does not smoke, no illicit drug use, no alcohol use. Past Drug Use History: None Reported - Past Family History Mother Family Medical History: Cancer, Diabetes Mellitus, Myocardial Infarction ([place]) Additional Family Medical History / Comment(s): at 56 with [place] Father Family Medical History: Coronary Artery Disease (CAD), Myocardial Infarction ([place]), Pulmonary Embolus Additional Family Medical History / Comment(s): at age 60 [place] Sister(s) Additional Family Medical History / Comment(s): Patient has one sister that following CVAs and then myocardial infarction. Son(s) Additional Family Medical History / Comment(s): Patient has 2 sons and 1 daughter with no major medical problems. Medications and Allergies Home Medications Medication Instructions Recorded Confirmed Type Ezetimibe [Zetia] 10 mg PO HS 08/02/17 08/25/21 History Montelukast [Singulair] 10 mg PO DAILY 08/02/17 08/25/21 History Simvastatin [Zocor] 40 mg PO HS 08/02/17 08/25/21 History atenoloL 25 mg PO DAILY 08/02/17 08/25/21 History Famotidine [Pepcid] 20 mg PO DAILY tab 03/16/18 08/25/21 Rx ALPRAZolam [Xanax] 0.25 mg PO HS 01/08/19 08/25/21 History Apixaban [Eliquis] 5 mg PO BID 01/08/19 08/25/21 History traMADol HCL [Ultram] 50 mg PO Q8H PRN 01/08/19 08/25/21 History ALPRAZolam [Xanax] 0.25 mg PO DAILY PRN 08/25/21 08/25/21 History Albuterol Sulfate [Proventil Hfa] 2 puff INHALATION RT-Q4H PRN 08/25/21 08/25/21 History Butalb/APAP/Caff 50-325-40Mg 1 - 2 tab PO Q6H PRN 08/25/21 08/25/21 History [Fioricet 50-325-40] FLUoxetine HCL [PROzac] 10 mg PO DAILY 08/25/21 08/25/21 History FLUoxetine HCL [PROzac] 20 mg PO DAILY 08/25/21 08/25/21 History Isosorbide Mononitrate ER [Imdur] 30 mg PO DAILY 08/25/21 08/25/21 History Nitroglycerin Sl Tabs [Nitrostat] 0.4 mg SL Q5M PRN 08/25/21 08/25/21 History Allergies Allergy/AdvReac Type Severity Reaction Status Date / Time red dye Allergy Intermediate Rash/Hives Verified 08/25/21 22:37 codeine Allergy Nausea & Verified 08/25/21 21:24 Vomiting Sulfa (Sulfonamide Allergy Rash/Hives Verified 08/25/21 21:24 Antibiotics) erythromycin base AdvReac Nausea & Verified 08/25/21 21:24 Vomiting Physical Exam Vitals: Vital Signs Temp Pulse Pulse Pulse Resp BP BP 08/26/21 08:07 97.6 F 55 L 16 142/85 08/26/21 02:02 97.4 F L 56 L 16 145/85 08/25/21 22:05 98.2 F 77 18 187/98 08/25/21 19:44 68 08/25/21 19:42 182/88 08/25/21 19:19 97.0 F L 68 16 176/92 Pulse Ox 08/26/21 08:07 97 08/26/21 02:02 94 L 08/25/21 22:05 93 L 08/25/21 19:44 08/25/21 19:42 08/25/21 19:19 97 Intake and Output 08/25/21 08/26/21 08/26/21 22:59 06:59 14:59 Intake Total 76.562 Balance 76.562 Intake: Intake, IV Titration 76.562 Amount Heparin Sod,Pork in 0.45% 76.562 NaCl 25,000 unit In 0.45 % NaCl 1 250ml.bag @ 12 UNITS/KG/HR 7.893 mls/hr IV .Q24H [facility] Rx#: [id number] Oral 0 Other: Weight 65.771 kg Results 08/25/21 19:54 08/25/21 19:54 Cardiac Enzymes 08/25/21 08/25/21 08/26/21 Range/Units 19:54 19:54 00:38 AST 26 (14-36) U/L Troponin I <0.012 <0.012 (0.000-0.034) ng/mL 08/26/21 Range/Units 03:41 AST (14-36) U/L Troponin I <0.012 (0.000-0.034) ng/mL Coagulation 08/25/21 08/26/21 Range/Units 19:54 03:41 PT 10.5 (9.0-12.0) sec APTT 27.0 >200.0 H* (22.0-30.0) sec CBC 08/25/21 Range/Units 19:54 WBC 5.3 (3.8-10.6) k/uL RBC 4.91 (3.80-5.40) m/uL Hgb 15.3 (11.4-16.0) gm/dL Hct 48.9 H (34.0-46.0) % Plt Count 138 L (150-450) k/uL Comprehensive Metabolic Panel 08/25/21 Range/Units 19:54 Sodium 137 (137-145) mmol/L Potassium 4.4 (3.5-5.1) mmol/L Chloride 104 (98-107) mmol/L Carbon Dioxide 28 (22-30) mmol/L BUN 29 H (7-17) mg/dL Creatinine 0.86 (0.52-1.04) mg/dL Glucose 119 H (74-99) mg/dL Calcium 8.7 (8.4-10.2) mg/dL AST 26 (14-36) U/L ALT 19 (4-34) U/L Alkaline Phosphatase 99 (38-126) U/L Total Protein 6.3 (6.3-8.2) g/dL Albumin 3.7 (3.5-5.0) g/dL Current Medications Generic Name Dose Route Start Last Admin Trade Name Freq PRN Reason Stop Dose Admin Alprazolam 0.25 mg 08/25/21 20:48 Alprazolam 0.25 Mg Tab PO Q6HR PRN Anxiety Aminophylline 100 mg 08/26/21 07:59 Aminophylline 500 Mg/20 Ml Vial IV 08/26/21 11:59 ONCE PRN Patient Response Atenolol 25 mg 08/26/21 09:00 Atenolol 25 Mg Tab PO DAILY JASON Atorvastatin Calcium 20 mg 08/25/21 21:00 08/25/21 21:18 Atorvastatin 20 Mg Tab PO Not Given HS JASON Caffeine Citrate 60 mg 08/26/21 07:59 Caffeine Citrate 60 Mg/3 Ml Vial IV 08/26/21 11:59 ONCE PRN Patient Response Docusate Sodium 100 mg 08/25/21 20:48 Docusate 100 Mg Cap PO BID PRN Constipation Ezetimibe 10 mg 08/25/21 21:00 08/25/21 21:19 Ezetimibe 10 Mg Tab PO Not Given HS JASON Famotidine 20 mg 08/26/21 09:00 08/26/21 08:44 Famotidine 20 Mg Tab PO 20 mg DAILY JASON Administration Fluoxetine HCl 30 mg 08/26/21 09:00 08/26/21 08:40 Fluoxetine Hcl 10 Mg Cap PO 30 mg DAILY JASON Administration Furosemide 20 mg 08/26/21 09:00 Furosemide 20 Mg Tab PO DAILY JASON Isosorbide Mononitrate 60 mg 08/26/21 09:00 Isosorbide Mononitrate Er 60 Mg Tab.Er.24h PO DAILY JASON Montelukast Sodium 10 mg 08/26/21 09:00 08/26/21 08:41 Montelukast 10 Mg Tab PO 10 mg DAILY JASON Administration Morphine Sulfate 4 mg 08/25/21 20:48 08/25/21 21:09 Morphine Sulfate 4 Mg/Ml Syringe IV 4 mg Q4HR PRN Administration Severe Pain Naloxone HCl 0.2 mg 08/25/21 20:48 Naloxone 0.4 Mg/Ml 1 Ml Vial IV Q2M PRN Opioid Reversal Ondansetron HCl 4 mg 08/25/21 20:48 Ondansetron 4 Mg/2 Ml Vial IVP Q8HR PRN Nausea And Vomiting Oxycodone/Acetaminophen 1 each 08/25/21 20:48 Oxycodone-Apap 5-325mg 1 Each Tab PO Q4HR PRN Severe Pain Regadenoson 0.4 mg 08/26/21 07:59 Regadenoson 0.4 Mg/5 Ml Syringe IV 08/26/21 11:59 ONCE PRN Per Protocol Temazepam 15 mg 08/25/21 20:48 Temazepam 15 Mg Cap PO HS PRN Insomnia Tramadol HCl 25 mg 08/25/21 20:50 Tramadol 50 Mg Tab PO Q6H PRN Pain Intake and Output 08/25/21 08/26/21 08/26/21 22:59 06:59 14:59 Intake Total 76.562 Balance 76.562 Intake: Intake, IV Titration 76.562 Amount Heparin Sod,Pork in 0.45% 76.562 NaCl 25,000 unit In 0.45 % NaCl 1 250ml.bag @ 12 UNITS/KG/HR 7.893 mls/hr IV .Q24H [facility] Rx#: [id number] Oral 0 Other: Weight 65.771 kg 08/25/21 19:54 08/25/21 19:54
[2021-08-26] MEDS: ISOSORBIDE MONONITRATE ER 60 MG TAB.ER.24H PO SCH (12:44)
[2021-08-26] MEDS: atenoloL 25 MG TAB PO SCH (12:44)
[2021-08-26] MEDS: APIXABAN 5 MG TAB PO SCH (12:44)
[2021-08-26] MEDS: FUROSEMIDE 20 MG TAB PO SCH (12:44)
--- NOTE | 2021-08-26 13:37 | NM ---
EXAMINATION TYPE: NM stress lexiscan cardiolite DATE OF EXAM: 08/26/2021 COMPARISON: NONE HISTORY: Chest pain TECHNIQUE: After the intravenous administration of 9.8 mCi Tc 99m Sestamibi - Cardiolite resting SPE CT images acquired 55 minutes post injection. The patient received 0.4mg Lexiscan, 24 mCi Tc 99m Sestamibi - Stress images obtained 45 minutes post injection FINDINGS: Review of stress and rest SPECT images demonstrates small area of decreased perfusion involving the a nterior apical wall stress-induced ischemia is not excluded. Remaining cardiac myometrium appears tiny ogeneous. Gated analysis shows normal wall motion with an estimated left ventricular ejection fractio n of 42 %. IMPRESSION: 1. Correlate for right anteroapical stress-induced ischemia. 2. Diminished ejection fraction
[2021-08-26] MEDS ORDERED: ALPRAZolam 0.25 MG TAB PO PRN (13:56)
[2021-08-26] MEDS ORDERED: ALPRAZolam 0.5 MG TAB PO PRN (13:56)
[2021-08-26] MEDS ORDERED: NITROGLYCERIN SL TABS 0.4 MG TAB SUBLINGUAL PRN (13:56)
--- NOTE | 2021-08-26 14:59 | P.HPIM ---
History of Present Illness H&P Date: 08/26/21 History of present illness This is 89 years old female patient of Dr. Meyers with past medical history of coronary artery disease with previous PCI to LAD, hypertension, hyperlipidemia, history of pulmonary embolism on Eliquis comes in with episodes of nausea and vomiting that started yesterday. According to the daughter bedside symptoms have been going on for 6 weeks. Patient denies chest pain when she eats dinner and has vomiting after her dinner. She got 2 doses of nitro which did not improve the pain. She had Tylenol and antacid with no improvement and they decided to come to the emergency room for evaluation. The chest pain is central radiating to the neck and the shoulder and then wraps around the front of her chest. Patient also endorses shortness of breath. She denies nausea or vomiting.Cardiology was consulted and Lexiscan stress test was recommended. Lexiscan was positive for right anteroapical stress-induced ischemia with diminished ejection fraction. Vitals in the ER suggestive afebrile pulse 55 respiratory rate 16 blood pressure 142/85. Oxygen saturation 97% on room air./I reviewed patient WBC of 5.3 hemoglobin 15.2 platelet 138 sodium 137 potassium 4.4 BUN 29 creatinine 0.8 respectively using 2.1 troponin 3 negative EKG on 25 August was normal sinus rhythm with nonspecific ST or T-wave abnormality.. Thoracic and abdominal CTA was done which shows no evidence of pulmonary embolism while subsegmental atelectasis and scarring at the lung bases Chest x-ray some lingular scarring without change in no acute lung disease. ROS Constitutional: Denies chills, Denies fever, Denies lethargy, Denies malaise, Denies poor appetite, Denies weakness, Denies weight loss Eyes: denies decreased vision, denies diplopia, denies discharge, denies pain Ears: deny: decreased hearing Ears, nose, mouth and throat: Denies dental pain, Denies headache, Denies nasal discharge, Denies nose pain Cardiovascular: Endorses chest pain, Denies decreased exercise tolerance, Denies edema, Denies high blood pressure, Denies irregular heart beat, Denies palpitations, Denies paroxysmal nocturnal dyspnea, Denies rapid heart beat, Denies shortness of breath Respiratory: Denies congestion, Denies cough, Denies cough with sputum, Denies d yspnea, Denies home oxygen, Denies wheezing Gastrointestinal: Denies abdominal pain, Denies change in bowel habits, Denies coffee ground emesis, Denies early satiety, Denies excessive gas, Denies hear tburn, Denies hematemesis, Denies hematochezia, Denies loss of appetite, e ndorses nausea, endorses vomiting Genitourinary: Denies dysuria, Denies flank pain, Denies kidney stones, Denies menorrhagia, Denies urgency, Denies urinary frequency Musculoskeletal: Denies gait dysfunction, Denies limitation of motion, Denies morning stiffness, Denies muscle cramps Integumentary: Denies rash, Denies wounds, Denies brittle nails, Denies change in hair/nails, Denies darkening of skin Neurological: Denies balance difficulties, Denies change in speech, Denies double vision, Denies gait dysfunction, Denies loss of vision, Denies motor disturbance, Denies numbness, Denies paralysis, Denies paresthesias, Denies seizures Psychiatric: Denies anxiety, Denies depression Endocrine: Denies excessive sweating, Denies excessive thirst, Denies high blood sugars, Denies palpitations Hematologic/Lymphatic: Denies easy bruising, Denies lymphadenopathy Social history Non-smoker Nonalcoholic Independent and lives by herself Family history Mother had coronary artery disease disease at age of 56 Father had coronary artery disease in the early 60s Patient has 1 sister with no medical problems patient has 3 children, 1 daughter with no medical problems, one son with coronary artery disease at age of 53, urinalysis and has no medical problems Physical exam - Constitutional General appearance: cooperative, no acute distress, appears stated age - EENT Eyes: anicteric sclerae, PERRLA, normal appearance ENT: hearing grossly normal - Neck Neck: no lymphadenopathy, normal ROM, no other, no rigidity, no stridor, no thyromegaly - Respiratory Respiratory: bilateral: CTA, negative: diminished, dullness, rales, rhonchi - Cardiovascular Rhythm: regular Heart sounds: normal: S1, S2 Abnormal Heart Sounds: no systolic murmur, no diastolic murmur, no rub, no S3 Gallop, no S4 Gallop, no click, no other - Gastrointestinal General gastrointestinal: normal bowel sounds, soft - Integumentary Integumentary: no rash - Neurologic Neurologic: CNII-XII intact - Musculoskeletal Musculoskeletal: gait normal, strength equal bilaterally - Psychiatric Psychiatric: A&O x's 3, appropriate affect Assessment and plan #1 acute chest pain rule out ACS. Previous cardiac cath 2017 showed calcified coronary arteries with [id number] triple-vessel coronary artery disease. Cardiac stress test suggestive of anteroapical stress-induced ischemia. EF stable at 42%. Continue aspirin 325 mg by mouth daily. Atorvastatin 80 mg by mouth daily, Zetia 10 mg daily at bedtime Imdur 60 mg by mouth daily continue atenolol 25 mg daily #2 history of coronary artery disease status post PTCI to LAD. Continue aspirin, Lipitor, Imdur continue atenolol 25 mg daily #3 history of asthma continue montelukast continue DuoNeb as needed for shortness of breath #4 history of congestive heart failure EF stable at 42%. Daily I&O's daily weight. Lasix continue her 20 mg by mouth daily. #5 hyperlipidemia Lipitor increased to 80 mg by mouth daily #6 pulmonary embolism continue Eliquis at 5 mg by mouth twice a day #7 IBS with diarrhea stabilized #8 depression continue Prozac and 30 mg daily #8 history of brain tumor, with mild memory impairment stable #9 CODE STATUS DO NOT RESUSCITATE #10 DVT prophylaxis continue Eliquis #11 GI prophylaxis continue Pepcid 20 mg daily Past Medical History Past Medical History: Asthma, Coronary Artery Disease (CAD), Chest Pain / Angina, Heart Failure, Hyperlipidemia, Pulmonary Embolus (PE) Additional Past Medical History / Comment(s): brain tumor for years, mild memory impairment,PE yrs ago,IBS History of Any Multi-Drug Resistant Organisms: None Reported Past Surgical History: Appendectomy, Heart Catheterization With Stent, Tonsillectomy Additional Past Surgical History / Comment(s): heart stents x2,rt knee surg Past Anesthesia/Blood Transfusion Reactions: No Reported Reaction Additional Past Anesthesia/Blood Transfusion Reaction / Comment(s): no hx blood transfusion Date of Last Stent Placement:: unk Past Psychological History: No Psychological Hx Reported Smoking Status: Never smoker Past Alcohol Use History: None Reported Additional Past Alcohol Use History / Comment(s): Patient does not smoke, no illicit drug use, no alcohol use. Past Drug Use History: None Reported - Past Family History Mother Family Medical History: Cancer, Diabetes Mellitus, Myocardial Infarction ([place]) Additional Family Medical History / Comment(s): at 56 with [place] Father Family Medical History: Coronary Artery Disease (CAD), Myocardial Infarction ([place]), Pulmonary Embolus Additional Family Medical History / Comment(s): at age 60 [place] Sister(s) Additional Family Medical History / Comment(s): Patient has one sister that following CVAs and then myocardial infarction. Son(s) Additional Family Medical History / Comment(s): Patient has 2 sons and 1 daughter with no major medical problems. Medications and Allergies Home Medications Medication Instructions Recorded Confirmed Type Ezetimibe [Zetia] 10 mg PO HS 08/02/17 08/25/21 History Montelukast [Singulair] 10 mg PO DAILY 08/02/17 08/25/21 History Simvastatin [Zocor] 40 mg PO HS 08/02/17 08/25/21 History atenoloL 25 mg PO DAILY 08/02/17 08/25/21 History Famotidine [Pepcid] 20 mg PO DAILY tab 03/16/18 08/25/21 Rx ALPRAZolam [Xanax] 0.25 mg PO HS 01/08/19 08/25/21 History Apixaban [Eliquis] 5 mg PO BID 01/08/19 08/25/21 History traMADol HCL [Ultram] 50 mg PO Q8H PRN 01/08/19 08/25/21 History ALPRAZolam [Xanax] 0.25 mg PO DAILY PRN 08/25/21 08/25/21 History Albuterol Sulfate [Proventil Hfa] 2 puff INHALATION RT-Q4H PRN 08/25/21 08/25/21 History Butalb/APAP/Caff 50-325-40Mg 1 - 2 tab PO Q6H PRN 08/25/21 08/25/21 History [Fioricet 50-325-40] FLUoxetine HCL [PROzac] 10 mg PO DAILY 08/25/21 08/25/21 History FLUoxetine HCL [PROzac] 20 mg PO DAILY 08/25/21 08/25/21 History Isosorbide Mononitrate ER [Imdur] 30 mg PO DAILY 08/25/21 08/25/21 History Nitroglycerin Sl Tabs [Nitrostat] 0.4 mg SL Q5M PRN 08/25/21 08/25/21 History Allergies Allergy/AdvReac Type Severity Reaction Status Date / Time red dye Allergy Intermediate Rash/Hives Verified 08/25/21 22:37 codeine Allergy Nausea & Verified 08/25/21 21:24 Vomiting Sulfa (Sulfonamide Allergy Rash/Hives Verified 08/25/21 21:24 Antibiotics) erythromycin base AdvReac Nausea & Verified 08/25/21 21:24 Vomiting Physical Exam Vitals: Vital Signs Temp Pulse Pulse Pulse Resp BP BP 08/26/21 08:07 97.6 F 55 L 16 142/85 08/26/21 08:00 16 08/26/21 02:02 97.4 F L 56 L 16 145/85 08/25/21 22:05 98.2 F 77 18 187/98 08/25/21 19:44 68 08/25/21 19:42 182/88 08/25/21 19:19 97.0 F L 68 16 176/92 Pulse Ox 08/26/21 08:07 97 08/26/21 08:00 08/26/21 02:02 94 L 08/25/21 22:05 93 L 08/25/21 19:44 08/25/21 19:42 08/25/21 19:19 97 Intake and Output 08/25/21 08/26/21 08/26/21 22:59 06:59 14:59 Intake Total 76.562 Balance 76.562 Intake: Intake, IV Titration 76.562 Amount Heparin Sod,Pork in 0.45% 76.562 NaCl 25,000 unit In 0.45 % NaCl 1 250ml.bag @ 12 UNITS/KG/HR 7.893 mls/hr IV .Q24H [facility] Rx#: [id number] Oral 0 Other: Voiding Method Toilet Weight 65.771 kg 65.77 kg Results CBC & Chem 7: 08/25/21 19:54 08/25/21 19:54 Labs: Abnormal Lab Results - Last 24 Hours (Table) 08/25/21 08/25/21 08/26/21 Range/Units 19:54 19:54 03:41 Hct 48.9 H (34.0-46.0) % Plt Count 138 L (150-450) k/uL APTT >200.0 H* (22.0-30.0) sec BUN 29 H (7-17) mg/dL Glucose 119 H (74-99) mg/dL 08/26/21 Range/Units 09:07 Hct (34.0-46.0) % Plt Count (150-450) k/uL APTT 41.1 H (22.0-30.0) sec BUN (7-17) mg/dL Glucose (74-99) mg/dL Thrombosis Risk Factor Assmnt - Choose All That Apply Each Factor Represents 1 point: Obesity (BMI >25), Swollen legs (current) Each Risk Factor Represents 3 Points: Age 75 years or older Thrombosis Risk Factor Assessment Total Risk Factor Score: 5 Thrombosis Risk Factor Assessment Level: High Risk
--- NOTE | 2021-08-26 16:17 | EST ---
EXERCISE STRESS AGE: 89 SEX: F HT: 144 lbs. WT: 144 lbs. PROTOCOL: Lexiscan STAGE: NA DURATION OF EXERCISE: NA HEART RATE REST: 61 BLOOD PRESSURE REST: 189/98 MAXIMUM HEART RATE ACHIEVED: 80 MAXIMUM BLOOD PRESSURE: 202/102 85% MPHR: 112 100% MPHR: 132 METS: NA INDICATIONS: Chest pain. CLINICAL INFORMATION: Baseline EKG shows sinus rhythm with poor R-wave progression. Patient was given intravenous Lexiscan as per protocol, did not have chest pain or diagnostic ST-segment depression. CONCLUSIONS: 1. Negative stress test by EKG criteria. 2. Cardiolite portion of the stress test will be reported separately. MMODL / IJN: [id number] /
[2021-08-26] MEDS: ATORVASTATIN 20 MG TAB PO SCH (20:46)
[2021-08-26] MEDS: EZETIMIBE 10 MG TAB PO SCH (20:46)
[2021-08-26] MEDS: SODIUM CHLORIDE 0.9% 1,000 ML in EMPTY BAG 1 BAG IV SCH ×2 (20:58→20:59)
[2021-08-26] MEDS: MORPHINE SULFATE 4 MG/ML SYRINGE IV PRN (23:18)
[2021-08-27 06:28] LABS: African American GFR (CKD) 70 (>60 ml/min/1.73 sqM); Anion Gap 3 mmol/L; Blood Urea Nitrogen 26 mg/dL (7-17); Calcium 8.4 mg/dL (8.4-10.2); Carbon Dioxide 29 mmol/L (22-30); Chloride 103 mmol/L (98-107); Glucose 87 mg/dL (74-99); Non-African American GFR(CKD) 61 (>60 ml/min/1.73 sqM); Potassium 3.9 mmol/L (3.5-5.1); Sodium 135 mmol/L (137-145)
[2021-08-27] MEDS ORDERED: ASPIRIN 325 MG TAB PO ONE (07:00)
[2021-08-27] MEDS ORDERED: ATORVASTATIN 80 MG TAB PO ONE (07:00)
[2021-08-27] MEDS ORDERED: HEPARIN SODIUM,PORCINE 10,000 UNIT in SODIUM CHLORIDE 0.9% 1,000 ML IRRIGATION PRN (07:00)
[2021-08-27] MEDS ORDERED: HEPARIN SODIUM,PORCINE 2,500 UNIT in SODIUM CHLORIDE 0.9% 250 ML IRRIGATION PRN (07:00)
[2021-08-27 07:04] LABS: Chol/HDL Ratio 2.28 Ratio; HDL Cholesterol 62.3 mg/dL (40.00-60.00); LDL Cholesterol,Calculated 67.2 mg/dL (0.0-131.0); Triglycerides 62.6 mg/dL (0.00-149.00); VLDL Calculation 12.52 mg/dL (5.00-40.00)
[2021-08-27] MEDS: FAMOTIDINE 20 MG TAB PO SCH (07:15)
[2021-08-27] MEDS: FUROSEMIDE 20 MG TAB PO SCH (07:15)
[2021-08-27] MEDS: ISOSORBIDE MONONITRATE ER 60 MG TAB.ER.24H PO SCH (07:16)
[2021-08-27] MEDS: MONTELUKAST 10 MG TAB PO SCH (07:16)
[2021-08-27] MEDS: atenoloL 25 MG TAB PO SCH (07:16)
[2021-08-27] MEDS: FLUoxetine HCL 10 MG CAP PO SCH (07:16)
[2021-08-27] MEDS ORDERED: VERAPAMIL 2.5 MG/ML 2 ML AMP ONE (10:00)
[2021-08-27] MEDS ORDERED: LIDOCAINE 1% INJ 10MG/ML (20 ML MDV) ONE (10:00)
[2021-08-27] MEDS ORDERED: fentaNYL (PF) 50 MCG/ML 2 ML AMP ONE (10:08)
[2021-08-27] MEDS ORDERED: HEPARIN SODIUM 1,000 UN/ML (10ML VL) ONE (10:08)
--- NOTE | 2021-08-27 10:08 | ECHOF ---
Referral Reason:chest pain MEASUREMENTS -------- HEIGHT: 160.0 cm WEIGHT: 65.8 kg BP: 145/85 RVIDd: 3.8 cm (< 3.3) IVSd: 0.9 cm (0.6 - 1.1) LVIDd: 3.5 cm (3.9 - 5.3) LVPWd: 1.2 cm (0.6 - 1.1) IVSs: 1.1 cm LVIDs: 2.7 cm LVPWs: 1.4 cm LAESV Index (A-L): 21.46 ml/m Ao Diam: 1.9 cm (2.0 - 3.7) AV Cusp: 1.6 cm (1.5 - 2.6) MV EXCURSION: 11.622 mm (> 18.000) MV EF SLOPE: 25 mm/s (70 - 150) EPSS: 0.2 cm MV E Osmani: 0.59 m/s MV DecT: 276 ms MV A Osmani: 0.50 m/s MV E/A Ratio: 1.18 AR PHT: 500 ms RAP: 5.00 mmHg RVSP: 42.94 mmHg FINDINGS -------- Sinus rhythm. This was a technically adequate study. The left ventricular size is normal. Left ventricular wall thickness is normal. Overall left vent ricular systolic function is low-normal with, an EF between 50 - 55 %. The right ventricle is mild to moderately enlarged. Normal LA size by volume 22+/-6 ml/m2. The right atrial size is normal. Interatrial and interventricular septum intact. There is mild aortic regurgitation. There is no evidence of aortic stenosis. Mild mitral regurgitation is present. Utqr-ug-mfxupjmc tricuspid regurgitation present. There is mild to moderate pulmonary hypertension. The right ventricular systolic pressure, as measured by Doppler, is 42.94mmHg. There is no pulmonic regurgitation present. The aortic root size is normal. IVC Not well visulized. There is no pericardial effusion. CONCLUSIONS -------- 1. The left ventricular size is normal. 2. Left ventricular wall thickness is normal. 3. Overall left ventricular systolic function is low-normal with, an EF between 50 - 55 %. 4. The right ventricle is mild to moderately enlarged. 5. There is mild aortic regurgitation. 6. Mild mitral regurgitation is present. 7. Umqy-jg-lkdhcbyu tricuspid regurgitation present. 8. There is mild to moderate pulmonary hypertension. 9. The right ventricular systolic pressure, as measured by Doppler, is 42.94mmHg. CABIN E[employer]IPMENT SUPERVISOR: Essence James RDCS
[2021-08-27] MEDS ORDERED: IV FLUID CONTINUATION 1,000 ML IV ONE (10:10)
[2021-08-27] MEDS ORDERED: fentaNYL (PF) 50 MCG/ML 2 ML AMP IV ONE (10:29)
[2021-08-27] MEDS ORDERED: LIDOCAINE 1% INJ 10MG/ML (20 ML MDV) SQ ONE (10:30)
[2021-08-27] MEDS: VERAPAMIL SYRINGE (5 MG/10 ML) INTRAARTER ONE ×2 (10:35→10:57)
[2021-08-27] MEDS ORDERED: HEPARIN SODIUM 1,000 UN/ML (10ML VL) IV ONE (10:38)
[2021-08-27] MEDS ORDERED: ONDANSETRON 4 MG/2 ML VIAL ONE ×2 (10:44→11:30)
[2021-08-27] MEDS ORDERED: ONDANSETRON 4 MG/2 ML VIAL IVP ONE ×2 (10:46→11:33)
[2021-08-27] MEDS ORDERED: CLOPIDOGREL 75 MG TAB ONE (10:50)
[2021-08-27] MEDS ORDERED: CLOPIDOGREL 75 MG TAB PO ONE (10:56)
[2021-08-27] MEDS ORDERED: IOPAMIDOL-370 125ML BTL INJ ONE (11:07)
[2021-08-27] MEDS ORDERED: NITROGLYCERIN 1000MCG/10ML SYRINGE INTRAARTER ONE (11:08)
[2021-08-27] MEDS ORDERED: IOPAMIDOL-370 100ML BTL INJ ONE (11:19)
[2021-08-27] MEDS ORDERED: SODIUM CHLORIDE 0.9% 1,000 ML IV ONE (11:20)
[2021-08-27] MEDS ORDERED: MAG HYDROX/AL HYDROX/SIMETH 30 ML CUP PO PRN (11:35)
[2021-08-27] MEDS ORDERED: ZOLPIDEM 5 MG TAB PO PRN (11:35)
[2021-08-27] MEDS ORDERED: ATROPINE SULFATE 0.1 MG/ML 10ML SYRINGE IV PRN (11:35)
[2021-08-27] MEDS ORDERED: NITROGLYCERIN SL TABS 0.4 MG TAB SUBLINGUAL PRN (11:35)
[2021-08-27] MEDS ORDERED: RX INFO: IV CONTRAST WAS GIVEN 1 EACH MISC MISCELLANE PRN (11:35)
[2021-08-27] MEDS ORDERED: SODIUM CHLORIDE 0.9% 1,000 ML IV SCH (11:45)
--- NOTE | 2021-08-27 13:15 | P.PN ---
Subjective Progress Note Date: 08/27/21 History of present illness This is 89 years old female patient of Dr. Meyers with past medical hi story of coronary artery disease with previous PCI to LAD, hypertension, hyperlipidemia, history of pulmonary embolism on Eliquis comes in with episodes of nausea and vomiting that started yesterday. According to the daughter bedside symptoms have been going on for 6 weeks. Patient denies chest pain when she eats dinner and has vomiting after her dinner. She got 2 doses of nitro which did not improve the pain. She had Tylenol and antacid with no improvement and they decided to come to the emergency room for evaluation. The chest pain is central radiating to the neck and the shoulder and then wraps around the front of her chest. Patient also endorses shortness of breath. She denies margie sea or vomiting.Cardiology was consulted and Lexiscan stress test was recommended. Lexiscan was positive for right anteroapical stress-induced ischemia with diminished ejection fraction. Vitals in the ER suggestive afebrile pulse 55 respiratory rate 16 blood pressure 142/85. Oxygen saturation 97% on room air./I reviewed patient WBC of 5.3 hemoglobin 15.2 platelet 138 sodium 137 potassium 4.4 BUN 29 creatinine 0.8 respectively using 2.1 troponin 3 negative EKG on 25 August was normal sinus rhythm with nonspecific ST or T-wave abnormality.. Thoracic and abdominal CTA was done which shows no evidence of pulmonary embolism while subsegmental atelectasis and scarring at the lung bases Chest x-ray some lingular scarring without change in no acute lung disease. 08/27: Echocardiogram reveals EF of 50-55% with mild aortic regurgitation, mild mitral regurgitation, [id number]-lk-ctpmmgft tricuspid regurgitation, mild to moderate pulmonary hypertension. Patient was seen by cardiology and underwent stress test yesterday that came back positive and she is now going for heart catheterization. ROS Constitutional: Denies chills, Denies fever, Denies lethargy, Denies malaise, Denies poor appetite, Denies weakness, Denies weight loss Eyes: denies decreased vision, denies diplopia, denies discharge, denies pain Ears: deny: decreased hearing Ears, nose, mouth and throat: Denies dental pain, Denies headache, Denies nasal discharge, Denies nose pain Cardiovascular: Endorses chest pain, Denies decreased exercise tolerance, Denies edema, Denies high blood pressure, Denies irregular heart beat, Denies palpitations, Denies paroxysmal nocturnal dyspnea, Denies rapid heart beat, Denies shortness of breath Respiratory: Denies congestion, Denies cough, Denies cough with sputum, Denies dyspnea, Denies home oxygen, Denies wheezing Gastrointestinal: Denies abdominal pain, Denies change in bowel habits, Denies coffee ground emesis, Denies early satiety, Denies excessive gas, Denies heartburn, Denies hematemesis, Denies hematochezia, Denies loss of appetite, e ndorses nausea, endorses vomiting Genitourinary: Denies dysuria, Denies flank pain, Denies kidney stones, Denies menorrhagia, Denies urgency, Denies urinary frequency Musculoskeletal: Denies gait dysfunction, Denies limitation of motion, Denies morning stiffness, Denies muscle cramps Integumentary: Denies rash, Denies wounds, Denies brittle nails, Denies change in hair/nails, Denies darkening of skin Neurological: Denies balance difficulties, Denies change in speech, Denies double vision, Denies gait dysfunction, Denies loss of vision, Denies motor disturbance, Denies numbness, Denies paralysis, Denies paresthesias, Denies seizures Psychiatric: Denies anxiety, Denies depression Endocrine: Denies excessive sweating, Denies excessive thirst, Denies high blood sugars, Denies palpitations Hematologic/Lymphatic: Denies easy bruising, Denies lymphadenopathy Physical exam - Constitutional General appearance: cooperative, no acute distress, appears stated age - EENT Eyes: anicteric sclerae, PERRLA, normal appearance ENT: hearing grossly normal - Neck Neck: no lymphadenopathy, normal ROM, no other, no rigidity, no stridor, no thyromegaly - Respiratory Respiratory: bilateral: CTA, negative: diminished, dullness, rales, rhonchi - Cardiovascular Rhythm: regular Heart sounds: normal: S1, S2 Abnormal Heart Sounds: no systolic murmur, no diastolic murmur, no rub, no S3 Gallop, no S4 Gallop, no click, no other - Gastrointestinal General gastrointestinal: normal bowel sounds, soft - Integumentary Integumentary: no rash - Neurologic Neurologic: CNII-XII intact - Musculoskeletal Musculoskeletal: gait normal, strength equal bilaterally - Psychiatric Psychiatric: A&O x's 3, appropriate affect Assessment and plan #1 acute chest pain rule out ACS. Previous cardiac cath 2017 showed calcified coronary arteries with [id number]-qr-[id number] triple-vessel coronary artery disease. Cardiac stress test suggestive of anteroapical stress-induced ischemia. EF stable at 42%. Continue aspirin 325 mg by mouth daily. Atorvastatin 80 mg by mouth daily, Zetia 10 mg daily at bedtime Imdur 60 mg by mouth daily continue atenolol 25 mg daily. Cardiac catheterization scheduled for today. #2 history of coronary artery disease status post PTCI to LAD. Continue aspirin, Lipitor, Imdur continue atenolol 25 mg daily #3 history of asthma continue montelukast continue DuoNeb as needed for shortness of breath #4 history of congestive heart failure EF stable at 42%. Daily I&O's daily weight. Lasix continue her 20 mg by mouth daily. #5 hyperlipidemia Lipitor increased to 80 mg by mouth daily #6 pulmonary embolism continue Eliquis at 5 mg by mouth twice a day #7 IBS with diarrhea stabilized #8 depression continue Prozac and 30 mg daily #8 history of brain tumor, with mild memory impairment stable #9 CODE STATUS DO NOT RESUSCITATE #10 DVT prophylaxis continue Eliquis #11 GI prophylaxis continue Pepcid 20 mg daily DISCHARGE PLAN Home Impression and plan of care have been directed as dictated by the signing physician. Patience Jones nurse practitioner acting as scribe for signing physician. Objective - Vital Signs Vital signs: Vital Signs Temp 97.3 F L 08/27/21 07:25 Pulse 65 08/27/21 07:25 Resp 18 08/27/21 07:25 BP 169/89 08/27/21 07:25 Pulse Ox 93 L 08/27/21 02:00 Intake & Output 08/26/21 08/27/21 08/27/21 18:59 06:59 18:59 Intake Total 0 Balance 0 Weight 65.77 kg Intake: Intake, IV Titration 0 Amount Sodium Chloride 0.9% 1, 0 000 ml In Empty Bag 1 bag @ 1 ML/KG/HR 65.77 mls/ hr IV .[id number] JASON Rx#: [id number] Other: Voiding Method Toilet # Voids 1 1 1 # Bowel Movements 1 - Labs CBC & Chem 7: 08/25/21 19:54 08/27/21 05:35 Labs: Abnormal Lab Results - Last 24 Hours (Table) 08/26/21 08/27/21 Range/Units 03:41 05:35 Sodium 135 L (137-145) mmol/L BUN 26 H (7-17) mg/dL HDL Cholesterol 62.30 H (40.00-60.00) mg/dL
[2021-08-27 13:34] VITALS: BMI 25.7
--- NOTE | 2021-08-27 15:32 | CC ---
CARDIAC CATHETERIZATION REPORT Mrs. Garcia is an 89-year-old female with known history of coronary artery disease, status post percutaneous revascularization of the LAD in 2013, history of hypertension, hyperlipidemia, who presented with symptoms of chest discomfort and no enzymatic changes. She underwent myocardial perfusion imaging that revealed anterolateral wall ischemia. In view of that, recommendation was made regarding cardiac catheterization. The procedure as well as its risks and complications were discussed with the patient, who was in full understanding and agreement. PROCEDURE DESCRIPTION: Patient was brought to [facility] in a fasting, semi-sedated state after receiving fentanyl and Benadryl and achieving a moderate conscious sedated state. Using xylocaine anesthesia and Seldinger technique, a 6-Afghan sheath was introduced in the right radial artery. Selective right and left coronary angiography was performed using 5-Afghan 3-1/2 bend, right and left Glynn catheters. Multiple views were taken of the arteries, including hemiaxial views. Following that, a 5-Afghan tight pigtail catheter was introduced in the left ventricle and left ventricular end-diastolic pressure was calculated. Following that, catheters were removed. Images were obtained. Of note, the patient received 3500 units of intravenous heparin. FINDINGS: FLUOROSCOPY: Calcification of all the coronary arteries was noted. LEFT MAIN: This is a large-sized vessel bifurcating into left circumflex and left anterior descending artery. Left main coronary artery has no evidence of high-grade stenosis. LEFT ANTERIOR DESCENDING CORONARY ARTERY: This is a large-sized vessel reaching toward the apex with a wrap around the apex segment giving rise to a small diagonal branch. The left anterior descending artery proximally has 20% to 30% plaque. The stented segment in the mid LAD is patent with no significant in-stent restenosis. LEFT CIRCUMFLEX: This is a nondominant large-sized vessel giving rise to a large proximal obtuse marginal branch. The proximal segment of the left circumflex has 20% to 30% plaque. The obtuse marginal branch has an area of stenosis up to 70%. The rest of the vessel has no high-grade stenosis. RIGHT CORONARY ARTERY: This is a large dominant vessel bifurcating distally into PDA and posterolateral segment and branches. The right coronary artery has moderate disease in the mid segment of 40%. The rest of the vessel has no evidence of high-grade stenosis. LEFT VENTRICULOGRAM: Left ventriculogram was not performed. HEMODYNAMICS: There was no gradient across the aortic valve. The left ventricular end- diastolic pressure was 14 to 16 mmHg. CONCLUSION: 1. Calcified coronary arteries. 2. Significant disease in the obtuse marginal branch 1. 3. Mild to moderate disease in the LAD and the right coronary artery with no significant in-stent restenosis. RECOMMENDATIONS: In view of findings and anatomy, I have recommended proceeding with angioplasty and stenting. The procedure as well as its risks and complications were discussed with the patient, who is in full understanding and agreement. MMODL / IJN: [id number] /
--- NOTE | 2021-08-27 21:04 | PTCA ---
PERCUTANEOUSTRANS CORORONARY ANGIOGRAPHY DATE OF SERVICE: 08/27/2021 Mrs. Garcia is an 89-year-old female with known history of coronary artery disease who presented with symptoms of chest discomfort, had no evidence of myocardial infarction, but her myocardial perfusion imaging revealed anterolateral wall ischemia. She underwent cardiac catheterization and was found to have critical stenosis involving the first obtuse marginal branch. Recommendation was made regarding angioplasty and stenting. The procedure as well as its risks and complications were discussed with the patient, who was in full understanding and agreement. PROCEDURE DESCRIPTION: A 6-Albanian FL3.5 guiding catheter was introduced into the system. After cannulating the left main, a 0.014 balanced medium weight J-wire was advanced across the lesion, positioned distally. Then a 2.5 x 12 mm NC Trek balloon was advanced and one inflation at 8 atmospheres was done. Following that, the balloon was removed and a 3.0 x 28 mm Xience Skypoint stent was advanced, deployed and post-dilated at 16 atmospheres. After the last inflation, after appropriate wait, the balloon and the guidewire were withdrawn back into the guiding catheter. Images were obtained and repeated. Those images revealed stable successful stenting. At that point, the guiding catheter, the balloon and the guidewire were removed. The sheath was removed. Hemostasis was obtained with deployment of a TR band. There was no immediate complication. Patient was returned to her room in stable condition. Of note, the patient had chest discomfort that resolved at the end of the procedure. She had no significant EKG changes. She received an oral loading dose of clopidogrel and a total of 5000 units of intravenous heparin. Her ACT was monitored. RESULT: Successful stenting of the first obtuse marginal branch with reduction of stenosis from 70% to 0%. RECOMMENDATIONS: Patient will be continued on aspirin, Plavix and statin. The importance of dual antiplatelet treatment was discussed with the patient and her family, and they are in full understanding and agreement. Duration of sedation was 50 minutes. MMODL / MELYSSAN: [id number] /
--- NOTE | 2021-08-27 21:04 | LTR ---
August 27, 2021 To: Dr. Meyers Regarding: Kaci Garcia (34) Dear Dr. Meyers, I had the pleasure of performing cardiac catheterization on Mrs. Garcia at [facility] on August 27, and a full copy of the procedure note will be forwarded to you. In brief, she was found to have significant obstructive disease involving the first obtuse marginal branch and underwent successful stenting of that vessel. I am hopeful that this procedure will stabilize her status. I would recommend continuing on clopidogrel for at least 6 months. Her Eliquis can be re-initiated, and subsequently her aspirin will be stopped. I will keep you updated on her progress. Thank you again for allowing me to participate in this patient's care. Please feel free to call with any questions. Sincerely, Gina Ayala M.D. OSCAR / KIMBERLY: [id number] /
[2021-08-27] MEDS: APIXABAN 5 MG TAB PO SCH (21:32)
[2021-08-27] MEDS: EZETIMIBE 10 MG TAB PO SCH (21:32)
[2021-08-27] MEDS: ATORVASTATIN 20 MG TAB PO SCH (21:32)
[2021-08-28 03:16] VITALS: PULSE 68
[2021-08-28] MEDS: SODIUM CHLORIDE 0.9% 1,000 ML in EMPTY BAG 1 BAG IV SCH (05:22)
[2021-08-28 05:57] LABS: African American GFR (CKD) 58 (>60 ml/min/1.73 sqM); Anion Gap 6 mmol/L; Blood Urea Nitrogen 24 mg/dL (7-17); Calcium 8.9 mg/dL (8.4-10.2); Carbon Dioxide 29 mmol/L (22-30); Chloride 102 mmol/L (98-107); Glucose 90 mg/dL (74-99); Non-African American GFR(CKD) 50 (>60 ml/min/1.73 sqM); Potassium 3.9 mmol/L (3.5-5.1); Sodium 137 mmol/L (137-145)
[2021-08-28 07:46] VITALS: BP 143/80; RESP 18; TEMP 98.1
--- NOTE | 2021-08-28 08:49 | P.PN ---
Subjective Progress Note Date: 08/28/21 HISTORY OF PRESENT ILLNESS: This is a 89-year-old female with a past medical history significant for coronary artery disease with previous PCI to LAD, hypertension, hyperlipidemia, and PE on Eliquis. Patient follows in the office with Dr. Ayala. We have been asked to see the patient in consultation for chest pain. Patient examined at the bedside. Patient states yesterday after eating dinner she began to have chest discomfort. She states initially the pain started in her shoulder blades and then wrapped around towards the front of her chest. She describes the pain as a heavy pressure. She reports feeling slightly short of breath at that time. She denied any nausea or vomiting. Denied dizziness or lightheadedness. Patient states she took aspirin and nitro at home which did not help the pain. Her daughter then gave her Tylenol and some antacids which also did not help relieve the pain so the patient came to the emergency room for further evaluation. The patient currently denies chest pain or pressure at the time of my examination. EKG reveals sinus mechanism with no signs of acute ischemia. Chest xray there is some lingula scarring without change. Mild cramping male. No acute lung disease. CT thoracic/aorta: No evidence of arterial aneurysm or dissection. No evidence of PE. Laboratory data: WBC 5.3. Hemoglobin 15.3. Platelet count 138. Sodium 137. Potassium 4.4. BUN 29. Creatinine 0.86. Magnesium 2.1. Troponin negative 3. Current home cardiac medications include atenolol 25 mg daily, Zocor 40 mg daily, Imdur 30 mg daily, Zetia 10 mg daily, Eliquis 5 mg twice a day Most recent echocardiogram obtained in December 2018 revealing ejection fraction 45-50%, mild mitral regurgitation, mild tricuspid regurgitation, and mild aortic regurgitation Cardiac catheterization history: July 2017 revealing calcified coronary arteries. Xior-kh-nnactipl triple-vessel coronary artery disease with no progression of disease compared with images obtained in 2013. 08/28/2021 Patient examined this morning at bedside. Patient underwent cardiac catheterization yesterday with PCI of the OM1. She denies chest pain or pressure. She denies shortness of breath. Vital signs are stable. PHYSICAL EXAM: VITAL SIGNS: Reviewed. GENERAL: Well-developed in no acute distress. HEENT: Head is normocephalic. Pupils are equal, round. Sclerae anicteric. Mucous membranes of the mouth are moist. Neck supple. No JVD or thyromegaly LUNGS: Respirations even and unlabored. Lungs essentially clear to auscultation bilaterally. HEART: Regular rate and rhythm. S1 and S2 heard. Systolic murmur noted. ABDOMEN: Soft. Nondistended. Nontender. EXTREMITIES: Normal range of motion. No clubbing or cyanosis. Peripheral puls es intact. No lower extremity edema. Right radial cath site with pulse present NEUROLOGIC: Awake and alert. Oriented x 3. ASSESSMENT: Chest pain Coronary artery disease with previous PCI to LAD Hypertension Hyperlipidemia History of PE, on anticoagulation with Eliquis PLAN: Continue current cardiac medications Patient is stable for discharge home today She is to follow up outpatient with Dr. Ayala Nurse practitioner note has been reviewed by physician. Signing provider agrees with the documented findings, assessment, and plan of care. Objective - Vital Signs Vital signs: Vital Signs Temp 98.1 F 08/28/21 07:00 Pulse 68 08/28/21 07:00 Resp 18 08/28/21 07:00 BP 143/80 08/28/21 07:00 Pulse Ox 93 L 08/28/21 07:00 Intake & Output 08/27/21 08/28/21 08/28/21 18:59 06:59 18:59 Intake Total 295 300 Balance 295 300 Weight 65.77 kg Intake: IV 115 Intake, IV Titration 300 Amount Sodium Chloride 0.9% 1, 300 000 ml @ 75 mls/hr IV . [id number] JASON Rx#:[id number] Oral 180 Other: # Voids 4 2 - Labs CBC & Chem 7: 08/25/21 19:54 08/28/21 05:19 Labs: Abnormal Lab Results - Last 24 Hours (Table) 08/28/21 Range/Units 05:19 BUN 24 H (7-17) mg/dL
[2021-08-28] MEDS: APIXABAN 5 MG TAB PO SCH (08:57)
[2021-08-28] MEDS: ISOSORBIDE MONONITRATE ER 60 MG TAB.ER.24H PO SCH (08:57)
[2021-08-28] MEDS: MONTELUKAST 10 MG TAB PO SCH (08:57)
[2021-08-28] MEDS: FLUoxetine HCL 10 MG CAP PO SCH (08:57)
[2021-08-28] MEDS: atenoloL 25 MG TAB PO SCH (08:57)
[2021-08-28] MEDS: FAMOTIDINE 20 MG TAB PO SCH (08:58)
[2021-08-28] MEDS: FUROSEMIDE 20 MG TAB PO SCH (08:58)
[2021-08-28] MEDS ORDERED: CLOPIDOGREL 75 MG TAB PO SCH (09:00)
[2021-08-28] MEDS ORDERED: ASPIRIN 81 MG PO SCH (09:00)
--- NOTE | 2021-08-28 09:05 | P.DS ---
Providers Date of admission: 08/25/21 20:48 Expected date of discharge: 08/28/21 Attending physician: Christianne Folwer MD Consults: 08/25/21 20:48 Consult Physician Routine Consulting Provider: Gina Ayala Consult Reason/Comments: chest pain Do you want consulting provider notified?: Yes 08/27/21 11:36 Consult Physician Routine Consulting Provider: [facility] Consult Reason/Comments: Post Interventional patient Do you want consulting provider notified?: Already Contacted Primary care physician: Carlos A Meyers [facility] Course: History of present illness This is 89 years old female patient of Dr. Meyers with past medical history of coronary artery disease with previous PCI to LAD, hypertension, hyperlipidemia, history of pulmonary embolism on Eliquis comes in with episodes of nausea and vomiting that started yesterday. According to the daughter bedside symptoms have been going on for 6 weeks. Patient denies chest pain when she eats dinner and has vomiting after her dinner. She got 2 doses of nitro which did not improve the pain. She had Tylenol and antacid with no improvement and they decided to come to the emergency room for evaluation. The chest pain is central radiating to the neck and the shoulder and then wraps around the front of her chest. Patient also endorses shortness of breath. She denies nausea or vomiting.Cardiology was consulted and Lexiscan stress test was recommended. Lexiscan was positive for right anteroapical stress-induced ischemia with diminished ejection fraction. Vitals in the ER suggestive afebrile pulse 55 respiratory rate 16 blood pressure 142/85. Oxygen saturation 97% on room air./I reviewed patient WBC of 5.3 hemoglobin 15.2 platelet 138 sodium 137 potassium 4.4 BUN 29 creatinine 0.8 respectively using 2.1 troponin 3 negative EKG on 25 August was normal sinus rhythm with nonspecific ST or T-wave abnormality.. Thoracic and abdominal CTA was done which shows no evidence of pulmonary emb olism while subsegmental atelectasis and scarring at the lung bases Chest x-ray some lingular scarring without change in no acute lung disease. 08/27: Echocardiogram reveals EF of 50-55% with mild aortic regurgitation, mild mitral regurgitation, [id number] tricuspid regurgitation, mild to moderate pulmonary hypertension. Patient was seen by cardiology and underwent stress test yesterday that came back positive and she is now going for heart catheterization. 08/28: Patient underwent heart catheterization and stenting of the first obtuse marginal branch with Dr. Ayala yesterday. She has had no complaints overnight. She denies any chest pain, shortness of breath, lightheadedness or dizziness. Patient will be discharged home today in stable condition. Assessment and plan #1 acute chest pain secondary to coronary artery disease status post stent of the first obtuse marginal branch. #2 history of coronary artery disease status post PTCI to LAD. #3 history of asthma, moderate intermittent #4 history of congestive heart failure EF stable at 42%. #5 hyperlipidemia #6 pulmonary embolism #7 IBS with diarrhea stabilized #8 depression, recurrent #8 history of brain tumor, with mild memory impairment stable DISCHARGE PLAN Home Impression and plan of care have been directed as dictated by the signing physician. Patience Jones nurse practitioner acting as scribe for signing physician. Patient Condition at Discharge: Fair Plan - Discharge Summary New Discharge Prescriptions: New Aspirin 81 mg PO DAILY tab Atorvastatin [Lipitor] 40 mg PO DAILY #30 tablet Isosorbide Mononitrate ER [Imdur] 60 mg PO DAILY #30 tablet Clopidogrel [Plavix] 75 mg PO DAILY #30 tab Continue Ezetimibe [Zetia] 10 mg PO HS atenoloL 25 mg PO DAILY Montelukast [Singulair] 10 mg PO DAILY Famotidine [Pepcid] 20 mg PO DAILY tab Apixaban [Eliquis] 5 mg PO BID ALPRAZolam [Xanax] 0.25 mg PO HS traMADol HCL [Ultram] 50 mg PO Q8H PRN PRN Reason: Pain Albuterol Sulfate [Proventil Hfa] 2 puff INHALATION RT-Q4H PRN PRN Reason: Shortness Of Breath FLUoxetine HCL [PROzac] 20 mg PO DAILY ALPRAZolam [Xanax] 0.25 mg PO DAILY PRN PRN Reason: Anxiety Butalb/APAP/Caff 50-325-40Mg [Fioricet 50-325-40] 1 - 2 tab PO Q6H PRN PRN Reason: Migraine Headache FLUoxetine HCL [PROzac] 10 mg PO DAILY Nitroglycerin Sl Tabs [Nitrostat] 0.4 mg SL Q5M PRN PRN Reason: Chest Pain Discontinued Simvastatin [Zocor] 40 mg PO HS Isosorbide Mononitrate ER [Imdur] 30 mg PO DAILY Discharge Medication List Ezetimibe [Zetia] 10 mg PO HS 08/02/17 [History] Montelukast [Singulair] 10 mg PO DAILY 08/02/17 [History] atenoloL 25 mg PO DAILY 08/02/17 [History] Famotidine [Pepcid] 20 mg PO DAILY tab 03/16/18 [Rx] ALPRAZolam [Xanax] 0.25 mg PO HS 01/08/19 [History] Apixaban [Eliquis] 5 mg PO BID 01/08/19 [History] traMADol HCL [Ultram] 50 mg PO Q8H PRN 01/08/19 [History] ALPRAZolam [Xanax] 0.25 mg PO DAILY PRN 08/25/21 [History] Albuterol Sulfate [Proventil Hfa] 2 puff INHALATION RT-Q4H PRN 08/25/21 [History] Butalb/APAP/Caff 50-325-40Mg [Fioricet 50-325-40] 1 - 2 tab PO Q6H PRN 08/25/21 [History] FLUoxetine HCL [PROzac] 10 mg PO DAILY 08/25/21 [History] FLUoxetine HCL [PROzac] 20 mg PO DAILY 08/25/21 [History] Nitroglycerin Sl Tabs [Nitrostat] 0.4 mg SL Q5M PRN 08/25/21 [History] Aspirin 81 mg PO DAILY tab 08/28/21 [Rx] Atorvastatin [Lipitor] 40 mg PO DAILY #30 tablet 08/28/21 [Rx] Clopidogrel [Plavix] 75 mg PO DAILY #30 tab 08/28/21 [Rx] Isosorbide Mononitrate ER [Imdur] 60 mg PO DAILY #30 tablet 08/28/21 [Rx] Follow up Appointment(s)/Referral(s): Gina Ayala MD [STAFF PHYSICIAN] - 09/02/21 1:45 pm Carlos A Meyers MD [Primary Care Provider] - 1 Week Patient Instructions/Handouts: *Surgery [facility] - After Heart Catheterization - Am bulatory Care Instructions, Chest Pain (ED) Activity/Diet/Wound Care/Special Instructions: HOLD ELIQUIS UNTIL YOU SEE DR. AYALA Discharge Disposition: HOME SELF-CARE
== END 2021-08-28 10:38 | disposition home or self-care (01) ==
LOC: EC 19:17 → 6NMEDSUR 20:48
PROVIDERS: ADMIT Internal Medicine; ATTEND Internal Medicine
DX: I25.10 Atherosclerotic heart disease of native coronary artery without angina pectoris (principal); I11.0 Hypertensive heart disease with heart failure; I50.9 Heart failure, unspecified; I08.3 Combined rheumatic disorders of mitral, aortic and tricuspid valves; J98.11 Atelectasis; J45.909 Unspecified asthma, uncomplicated; I70.0 Atherosclerosis of aorta; J98.4 Other disorders of lung; I27.20 Pulmonary hypertension, unspecified; E78.5 Hyperlipidemia, unspecified; D49.6 Neoplasm of unspecified behavior of brain; K58.0 Irritable bowel syndrome with diarrhea; F33.9 Major depressive disorder, recurrent, unspecified; R41.3 Other amnesia; K44.9 Diaphragmatic hernia without obstruction or gangrene; E66.9 Obesity, unspecified; Z68.25 Body mass index [BMI] 25.0-25.9, adult; Z66 Do not resuscitate; Z20.822 Contact with and (suspected) exposure to COVID-19; Z79.01 Long term (current) use of anticoagulants; Z79.899 Other long term (current) drug therapy; Z79.52 Long term (current) use of systemic steroids; Z88.1 Allergy status to other antibiotic agents; Z88.2 Allergy status to sulfonamides; Z88.5 Allergy status to narcotic agent; Z91.048 Other nonmedicinal substance allergy status; Z86.711 Personal history of pulmonary embolism; Z95.5 Presence of coronary angioplasty implant and graft; Z90.49 Acquired absence of other specified parts of digestive tract; Z98.890 Other specified postprocedural states; Z83.3 Family history of diabetes mellitus; Z82.49 Family history of ischemic heart disease and other diseases of the circulatory system; Z80.9 Family history of malignant neoplasm, unspecified; Z82.3 Family history of stroke
CPT/HCPCS: 96376 ×2; 96366 ×3; 96365; 96375; 99285; 36415; 93005; 93017; 93306; 93458; 83880; 80061; 80053; 80048 ×2; 83735; 84484 ×2; 85025; 85610; 85730 ×2; 87635; 71045; 71275; 74174; 78452; G0378 ×4; C9600; C1769 ×2; C1887; C1894; C1725; C1874; A9500; J2270 ×2; J2405; J2001; J3010; J1644 ×3; J2785; Q9967 ×3

== ENCOUNTER 2021-09-05 09:40 | Emergency (ER) | payer MEDICARE ==
[2021-09-05 09:50] VITALS: RESP 18; TEMP 98.2
--- NOTE | 2021-09-05 10:49 | XR ---
KUB. Abdominal pain. COMPARISON: None. TECHNIQUE: Supine AP view the abdomen was obtained. FINDINGS: The lung bases are clear. The bowel loops are normal in caliber is no evidence of obstruction. There is mild to moderate stool within the colon. The osseous structures are intact other significant degenerative changes in lumbar spine. IMPRESSION: 1. No evidence of bowel obstruction. 2. Mild to moderate stool within the colon and rectum.
--- NOTE | 2021-09-05 11:58 | ED ---
General Adult HPI - General Chief complaint: Abdominal Pain Stated complaint: Constipation Time Seen by Provider: 09/05/21 10:03 Source: patient, EMS Mode of arrival: EMS Limitations: no limitations - History of Present Illness Initial comments: 89-year-old female with a past medical history of asthma, CAD, heart failure, hyperlipidemia, PE presents to the emergency room for constipation. Patient was admitted a week ago and given morphine in that time. Patient now has not had a bowel movement for 8 days. Daughter states that patient was complaining of abdominal pain earlier today and could not produce a bowel movement. No fevers. No nausea vomiting. Patient has no other complaints at this time including shortness of breath, chest pain, nausea or vomiting, headache, or visual changes. - Related Data Home Medications Medication Instructions Recorded Confirmed Ezetimibe [Zetia] 10 mg PO HS 08/02/17 08/25/21 Montelukast [Singulair] 10 mg PO DAILY 08/02/17 08/25/21 atenoloL 25 mg PO DAILY 08/02/17 08/25/21 ALPRAZolam [Xanax] 0.25 mg PO HS 01/08/19 08/25/21 Apixaban [Eliquis] 5 mg PO BID 01/08/19 08/25/21 traMADol HCL [Ultram] 50 mg PO Q8H PRN 01/08/19 08/25/21 ALPRAZolam [Xanax] 0.25 mg PO DAILY PRN 08/25/21 08/25/21 Albuterol Sulfate [Proventil Hfa] 2 puff INHALATION RT-Q4H PRN 08/25/21 08/25/21 Butalb/APAP/Caff 50-325-40Mg 1 - 2 tab PO Q6H PRN 08/25/21 08/25/21 [Fioricet 50-325-40] FLUoxetine HCL [PROzac] 10 mg PO DAILY 08/25/21 08/25/21 FLUoxetine HCL [PROzac] 20 mg PO DAILY 08/25/21 08/25/21 Nitroglycerin Sl Tabs [Nitrostat] 0.4 mg SL Q5M PRN 08/25/21 08/25/21 Previous Rx's Medication Instructions Recorded Famotidine [Pepcid] 20 mg PO DAILY tab 03/16/18 Aspirin 81 mg PO DAILY tab 08/28/21 Atorvastatin [Lipitor] 40 mg PO DAILY #30 tablet 08/28/21 Clopidogrel [Plavix] 75 mg PO DAILY #30 tab 08/28/21 Isosorbide Mononitrate ER [Imdur] 60 mg PO DAILY #30 tablet 08/28/21 Allergies Allergy/AdvReac Type Severity Reaction Status Date / Time red dye Allergy Intermediate Rash/Hives Verified 08/25/21 22:37 codeine Allergy Nausea & Verified 08/25/21 21:24 Vomiting Sulfa (Sulfonamide Allergy Rash/Hives Verified 08/25/21 21:24 Antibiotics) erythromycin base AdvReac Nausea & Verified 08/25/21 21:24 Vomiting Review of Systems ROS Statement: Those systems with pertinent positive or pertinent negative responses have been documented in the HPI. ROS Other: All systems not noted in ROS Statement are negative. Past Medical History Past Medical History: Asthma, Coronary Artery Disease (CAD), Chest Pain / Angina, Heart Failure, Hyperlipidemia, Pulmonary Embolus (PE) Additional Past Medical History / Comment(s): brain tumor for years, mild memory impairment,PE yrs ago,IBS History of Any Multi-Drug Resistant Organisms: None Reported Past Surgical History: Appendectomy, Heart Catheterization With Stent, Tonsillectomy Additional Past Surgical History / Comment(s): heart stents x2,rt knee surg Past Anesthesia/Blood Transfusion Reactions: No Reported Reaction Additional Past Anesthesia/Blood Transfusion Reaction / Comment(s): no hx blood transfusion Date of Last Stent Placement:: unk Past Psychological History: No Psychological Hx Reported Smoking Status: Never smoker Past Alcohol Use History: None Reported Past Drug Use History: None Reported - Past Family History Mother Family Medical History: Cancer, Diabetes Mellitus, Myocardial Infarction ([place]) Additional Family Medical History / Comment(s): at 56 with [place] Father Family Medical History: Coronary Artery Disease (CAD), Myocardial Infarction ([place]), Pulmonary Embolus Additional Family Medical History / Comment(s): at age 60 [place] Sister(s) Additional Family Medical History / Comment(s): Patient has one sister that following CVAs and then myocardial infarction. Son(s) Additional Family Medical History / Comment(s): Patient has 2 sons and 1 daughter with no major medical problems. General Exam Limitations: no limitations General appearance: alert, in no apparent distress Head exam: Present: atraumatic Eye exam: Present: normal appearance, PERRL, EOMI. Absent: scleral icterus, co njunctival injection ENT exam: Present: normal exam, mucous membranes moist Neck exam: Present: normal inspection, full ROM. Absent: tenderness Respiratory exam: Present: normal lung sounds bilaterally. Absent: respiratory distress, wheezes Cardiovascular Exam: Present: regular rate, normal rhythm, normal heart sounds GI/Abdominal exam: Present: soft, tenderness (minimal lower abdominal tenderness), normal bowel sounds. Absent: distended Rectal exam: Present: fecal impaction Course Vital Signs 09/05/21 09:43 Temperature 98.2 F Pulse Rate 64 Respiratory 18 Rate Blood Pressure 114/54 O2 Sat by Pulse 96 Oximetry Medical Decision Making - Medical Decision Making vitals are stable. Patient well-appearing. Minimal abdominal tenderness. X- ray did show moderate stool within the colon and rectum. The exam did reveal fecal impaction. I did attempt to disimpact patient. Enema was given which was not able to advance much. Second disimpaction was attempted and significant amount of stool was removed. Another enema was performed patient had a large bowel movement. Feels much better. Repeat abdominal exam benign, nontender. At this time pt is stable for outpatient follow-up. Directed to try miralax at home for the next several days. Will return here for any worsening symptoms. Disposition Clinical Impression: Constipation Disposition: HOME SELF-CARE Condition: Good Instructions (If sedation given, give patient instructions): Constipation (ED) Additional Instructions: Please drink plenty of fluids. Take MiraLAX for the next several days. Follow- up with your doctor. Return to the emergency room for any worsening symptoms. Is patient prescribed a controlled substance at d/c from ED?: No Referrals: Carlos A Meyers MD [Primary Care Provider] - 1-2 days Time of Disposition: 14:13
[2021-09-05] MEDS ORDERED: KETOROLAC 15 MG/ML 1 ML VIAL IM STA (13:23)
[2021-09-05 15:11] VITALS: BP 129/68; PULSE 69
== END 2021-09-05 15:39 | disposition home or self-care (01) ==
LOC: EC 09:40
DX: K59.00 Constipation, unspecified (principal); R10.9 Unspecified abdominal pain; I25.10 Atherosclerotic heart disease of native coronary artery without angina pectoris; I50.9 Heart failure, unspecified; J45.909 Unspecified asthma, uncomplicated; Z79.01 Long term (current) use of anticoagulants; Z79.02 Long term (current) use of antithrombotics/antiplatelets; Z79.82 Long term (current) use of aspirin; Z88.1 Allergy status to other antibiotic agents; Z88.2 Allergy status to sulfonamides; Z90.49 Acquired absence of other specified parts of digestive tract; Z95.5 Presence of coronary angioplasty implant and graft; Z91.041 Radiographic dye allergy status; Z88.5 Allergy status to narcotic agent; Z79.899 Other long term (current) drug therapy
CPT/HCPCS: 74018; 99283; 96372; J1885

== ENCOUNTER 2021-11-07 22:17 | Inpatient (IN) | payer MEDICARE ==
[2021-11-07] MEDS ORDERED: SODIUM CHLORIDE 0.9% 500 ML 500 ML IV STA (23:40)
[2021-11-07] MEDS ORDERED: PANTOPRAZOLE 40 MG/10 ML VIAL IVP STA (23:40)
[2021-11-07] MEDS ORDERED: ONDANSETRON 4 MG/2 ML VIAL IVP STA (23:40)
--- NOTE | 2021-11-07 23:41 | ED ---
GI Bleed HPI - General Chief complaint: GI Bleed Stated complaint: nosebleed, vomiting blood Time Seen by Provider: 11/07/21 23:38 Source: patient, family, RN notes reviewed, old records reviewed Mode of arrival: wheelchair Limitations: no limitations - History of Present Illness Initial comments: This is an 89-year-old female DF for evaluation. Patient's been vomiting up blood. Patient is on multiple blood thinners. No prior history of same. No n osebleed no cough. No other complaints. Patient is otherwise been feeling well symptoms started tonight. No symptoms of syncope or near syncope. Not lightheaded or dizzy. MD complaint: blood streaked emesis, gross hematemesis -: hour(s) Radiation: none Quality: painless Consistency: constant, now resolved Improves with: none Worsens with: none Context: history of GI bleed, medication/supplement use, blood thinners Associated Symptoms: nausea, vomiting, easy bruising Treatments Prior to Arrival: none - Related Data Home Medications Medication Instructions Recorded Confirmed Ezetimibe [Zetia] 10 mg PO HS 08/02/17 08/25/21 Montelukast [Singulair] 10 mg PO DAILY 08/02/17 08/25/21 atenoloL 25 mg PO DAILY 08/02/17 08/25/21 ALPRAZolam [Xanax] 0.25 mg PO HS 01/08/19 08/25/21 Apixaban [Eliquis] 5 mg PO BID 01/08/19 08/25/21 traMADol HCL [Ultram] 50 mg PO Q8H PRN 01/08/19 08/25/21 ALPRAZolam [Xanax] 0.25 mg PO DAILY PRN 08/25/21 08/25/21 Albuterol Sulfate [Proventil Hfa] 2 puff INHALATION RT-Q4H PRN 08/25/21 08/25/21 Butalb/APAP/Caff 50-325-40Mg 1 - 2 tab PO Q6H PRN 08/25/21 08/25/21 [Fioricet 50-325-40] FLUoxetine HCL [PROzac] 10 mg PO DAILY 08/25/21 08/25/21 FLUoxetine HCL [PROzac] 20 mg PO DAILY 08/25/21 08/25/21 Nitroglycerin Sl Tabs [Nitrostat] 0.4 mg SL Q5M PRN 08/25/21 08/25/21 Previous Rx's Medication Instructions Recorded Famotidine [Pepcid] 20 mg PO DAILY tab 03/16/18 Aspirin 81 mg PO DAILY tab 08/28/21 Atorvastatin [Lipitor] 40 mg PO DAILY #30 tablet 08/28/21 Clopidogrel [Plavix] 75 mg PO DAILY #30 tab 08/28/21 Isosorbide Mononitrate ER [Imdur] 60 mg PO DAILY #30 tablet 08/28/21 Allergies Allergy/AdvReac Type Severity Reaction Status Date / Time red dye Allergy Intermediate Rash/Hives Verified 11/07/21 22:28 codeine Allergy Nausea & Verified 11/07/21 22:28 Vomiting Sulfa (Sulfonamide Allergy Rash/Hives Verified 11/07/21 22:28 Antibiotics) erythromycin base AdvReac Nausea & Verified 11/07/21 22:28 Vomiting Review of Systems ROS Statement: Those systems with pertinent positive or pertinent negative responses have been documented in the HPI. ROS Other: All systems not noted in ROS Statement are negative. Past Medical History Past Medical History: Asthma, Coronary Artery Disease (CAD), Chest Pain / Angina, Heart Failure, Hyperlipidemia, Pulmonary Embolus (PE) Additional Past Medical History / Comment(s): brain tumor for years, mild memory impairment,PE yrs ago,IBS History of Any Multi-Drug Resistant Organisms: None Reported Past Surgical History: Appendectomy, Heart Catheterization With Stent, Tonsillectomy Additional Past Surgical History / Comment(s): heart stents x2,rt knee surg Past Anesthesia/Blood Transfusion Reactions: No Reported Reaction Additional Past Anesthesia/Blood Transfusion Reaction / Comment(s): no hx blood transfusion Date of Last Stent Placement:: unk Past Psychological History: No Psychological Hx Reported Smoking Status: Never smoker Past Alcohol Use History: None Reported Past Drug Use History: None Reported - Past Family History Mother Family Medical History: Cancer, Diabetes Mellitus, Myocardial Infarction ([place]) Additional Family Medical History / Comment(s): at 56 with [place] Father Family Medical History: Coronary Artery Disease (CAD), Myocardial Infarction ([place]), Pulmonary Embolus Additional Family Medical History / Comment(s): at age 60 [place] Sister(s) Additional Family Medical History / Comment(s): Patient has one sister that following CVAs and then myocardial infarction. Son(s) Additional Family Medical History / Comment(s): Patient has 2 sons and 1 daughter with no major medical problems. General Exam Limitations: no limitations General appearance: alert, in no apparent distress Head exam: Present: atraumatic, normocephalic, normal inspection Eye exam: Present: normal appearance, PERRL, EOMI. Absent: scleral icterus, conjunctival injection, periorbital swelling ENT exam: Present: normal exam, mucous membranes moist Neck exam: Present: normal inspection. Absent: tenderness, meningismus, lymphadenopathy Respiratory exam: Present: normal lung sounds bilaterally. Absent: respiratory distress, wheezes, rales, rhonchi, stridor Cardiovascular Exam: Present: regular rate, normal rhythm, normal heart sounds. Absent: systolic murmur, diastolic murmur, rubs, gallop, clicks GI/Abdominal exam: Present: soft, normal bowel sounds. Absent: distended, tenderness, guarding, rebound, rigid Extremities exam: Present: normal inspection, full ROM, normal capillary refill. Absent: tenderness, pedal edema, joint swelling, calf tenderness Back exam: Present: normal inspection Neurological exam: Present: alert, oriented X3, CN II-XII intact Psychiatric exam: Present: normal affect, normal mood Skin exam: Present: warm, dry, intact, normal color. Absent: rash Course Vital Signs 11/07/21 11/08/21 22:24 01:14 Temperature 97.8 F Pulse Rate 75 75 Respiratory 18 18 Rate Blood Pressure 154/88 165/86 O2 Sat by Pulse 97 96 Oximetry - Reevaluation(s) Reevaluation #1: 11/08/21 01:33 Record is reviewed Reevaluation #2: 11/08/21 01:34 Blood thinners will be held Reevaluation #3: 11/08/21 01:34 No symptoms of syncope or near syncope here in the ER Reevaluation #4: 11/08/21 01:34 A she has no recurrent vomiting of blood here in the ER Reevaluation #5: 11/08/21 01:34 Patient family informed of results and questions answered - Consultations Consultation #1: Spoke with Dr. Meyers regarding admission he does agree Medical Decision Making - Medical Decision Making 89 female to the emergency department today. Patient's presents today for evaluation of vomiting up blood. Vomiting of blood and clots. Patient does h ave upper GI bleed on multiple anticoagulation medications. Patient will be admitted for monitoring - Lab Data Result diagrams: 11/08/21 00:03 11/08/21 00:03 Lab Results 11/08/21 11/08/21 11/08/21 Range/Units 00:03 00:03 00:03 WBC 7.5 (3.8-10.6) k/uL RBC 4.62 (3.80-5.40) m/uL Hgb 14.4 (11.4-16.0) gm/dL Hct 46.5 H (34.0-46.0) % MCV 100.7 H (80.0-100.0) fL MCH 31.3 (25.0-35.0) pg MCHC 31.1 (31.0-37.0) g/dL RDW 12.8 (11.5-15.5) % Plt Count 143 L (150-450) k/uL MPV 8.6 Neutrophils % 75 % Lymphocytes % 13 % Monocytes % 7 % Eosinophils % 3 % Basophils % 1 % Neutrophils # 5.6 (1.3-7.7) k/uL Lymphocytes # 0.9 L (1.0-4.8) k/uL Monocytes # 0.6 (0-1.0) k/uL Eosinophils # 0.2 (0-0.7) k/uL Basophils # 0.0 (0-0.2) k/uL APTT 27.9 (22.0-30.0) sec Sodium 137 (137-145) mmol/L Potassium 4.5 (3.5-5.1) mmol/L Chloride 109 H (98-107) mmol/L Carbon Dioxide 21 L (22-30) mmol/L Anion Gap 7 mmol/L BUN 27 H (7-17) mg/dL Creatinine 0.84 (0.52-1.04) mg/dL Est GFR (CKD-EPI)AfAm 71 (>60 ml/min/1.73 sqM) Est GFR (CKD-EPI)NonAf 62 (>60 ml/min/1.73 sqM) Glucose 103 H (74-99) mg/dL Plasma Lactic Acid Rocco (0.7-2.0) mmol/L Calcium 8.5 (8.4-10.2) mg/dL Magnesium 2.0 (1.6-2.3) mg/dL Total Bilirubin 0.5 (0.2-1.3) mg/dL AST 32 (14-36) U/L ALT 18 (4-34) U/L Alkaline Phosphatase 94 (38-126) U/L Troponin I (0.000-0.034) ng/mL Total Protein 6.4 (6.3-8.2) g/dL Albumin 3.6 (3.5-5.0) g/dL Blood Type Blood Type Recheck Bld Type Recheck Status Antibody Screen Spec Expiration Date 11/08/21 11/08/21 11/08/21 Range/Units 00:03 00:03 00:03 WBC (3.8-10.6) k/uL RBC (3.80-5.40) m/uL Hgb (11.4-16.0) gm/dL Hct (34.0-46.0) % MCV (80.0-100.0) fL MCH (25.0-35.0) pg MCHC (31.0-37.0) g/dL RDW (11.5-15.5) % Plt Count (150-450) k/uL MPV Neutrophils % % Lymphocytes % % Monocytes % % Eosinophils % % Basophils % % Neutrophils # (1.3-7.7) k/uL Lymphocytes # (1.0-4.8) k/uL Monocytes # (0-1.0) k/uL Eosinophils # (0-0.7) k/uL Basophils # (0-0.2) k/uL APTT (22.0-30.0) sec Sodium (137-145) mmol/L Potassium (3.5-5.1) mmol/L Chloride (98-107) mmol/L Carbon Dioxide (22-30) mmol/L Anion Gap mmol/L BUN (7-17) mg/dL Creatinine (0.52-1.04) mg/dL Est GFR (CKD-EPI)AfAm (>60 ml/min/1.73 sqM) Est GFR (CKD-EPI)NonAf (>60 ml/min/1.73 sqM) Glucose (74-99) mg/dL Plasma Lactic Acid Rocco 1.0 (0.7-2.0) mmol/L Calcium (8.4-10.2) mg/dL Magnesium (1.6-2.3) mg/dL Total Bilirubin (0.2-1.3) mg/dL AST (14-36) U/L ALT (4-34) U/L Alkaline Phosphatase (38-126) U/L Troponin I <0.012 (0.000-0.034) ng/mL Total Protein (6.3-8.2) g/dL Albumin (3.5-5.0) g/dL Blood Type A Negative Blood Type Recheck A Neg Bld Type Recheck Status No Antibody Screen POSITIVE Spec Expiration Date 11/11/20212302 - EKG Data -: EKG Interpreted by Me (EKG shows sinus rhythm 71 MI 150 QRS 86 QTc 469) Disposition Clinical Impression: Gastritis, Coagulopathy, UGIB (upper gastrointestinal bleed), Nausea & vomiting Disposition: ADMITTED IP TO THIS [facility] Condition: Good Is patient prescribed a controlled substance at d/c from ED?: No Referrals: Carlos A Meyers MD [Primary Care Provider] - 1-2 days
[2021-11-08 00:27] LABS: Basophils % (A) 1 %; Eosinophils # (A) 0.2 k/uL (0-0.7); Eosinophils % (A) 3 %; HCT 46.5 % (34.0-46.0); HGB 14.4 gm/dL (11.4-16.0); Lymphocytes # (A) 0.9 k/uL (1.0-4.8); Lymphocytes % (A) 13 %; MCH 31.3 pg (25.0-35.0); MCHC 31.1 g/dL (31.0-37.0); MCV 100.7 fL (80.0-100.0); Mean Platelet Volume 8.6; Monocytes # (A) 0.6 k/uL (0-1.0); Monocytes % (A) 7 %; Neutrophils # (A) 5.6 k/uL (1.3-7.7); Neutrophils % (A) 75 %; Platelet Count 143 k/uL (150-450); RBC 4.62 m/uL (3.80-5.40); RDW 12.8 % (11.5-15.5); WBC 7.5 k/uL (3.8-10.6)
[2021-11-08 00:42] LABS: Albumin 3.6 g/dL (3.5-5.0); Calcium 8.5 mg/dL (8.4-10.2); Potassium 4.5 mmol/L (3.5-5.1); Total Bilirubin 0.5 mg/dL (0.2-1.3); Total Protein 6.4 g/dL (6.3-8.2)
[2021-11-08] MEDS ORDERED: LORazepam 2 MG/ML INJ IV PRN (04:12)
[2021-11-08] MEDS ORDERED: NALOXONE 0.4 MG/ML 1 ML VIAL IV PRN (04:12)
[2021-11-08] MEDS ORDERED: ONDANSETRON 4 MG/2 ML VIAL IVP PRN (04:12)
[2021-11-08] MEDS: SODIUM CHLORIDE 0.9% 1,000 ML IV SCH ×3 (04:26→21:05)
[2021-11-08] MEDS ORDERED: traMADol 50 MG TAB PO PRN (08:41)
[2021-11-08] MEDS ORDERED: BUTALB/APAP/CAFF 50-325-40MG TAB PO PRN (08:41)
[2021-11-08] MEDS ORDERED: ALPRAZolam 0.25 MG TAB PO PRN (08:41)
[2021-11-08] MEDS ORDERED: FAMOTIDINE 20 MG TAB PO SCH (09:00)
--- NOTE | 2021-11-08 09:37 | XR ---
EXAMINATION TYPE: XR chest 1V portable DATE OF EXAM: 11/08/2021 CLINICAL HISTORY: Difficulty breathing and congestion. TECHNIQUE: Single AP portable upright view of the chest is obtained. COMPARISON: Chest x-ray from August 25, 2021 FINDINGS: There is mild chronic parenchymal change and left basilar linear scarring without suspicio us new focal airspace opacity, pleural effusion, or pneumothorax seen. Stable cardiomegaly. Osseous s tructures are demineralized. IMPRESSION: Cardiomegaly and chronic changes without acute pulmonary process.
[2021-11-08] MEDS: FLUoxetine HCL 10 MG CAP PO SCH (10:24)
[2021-11-08] MEDS: atenoloL 25 MG TAB PO SCH (10:24)
[2021-11-08] MEDS: FLUoxetine HCL 20 MG CAP PO SCH (10:24)
[2021-11-08] MEDS: ISOSORBIDE MONONITRATE ER 60 MG TAB.ER.24H PO SCH (10:24)
[2021-11-08] MEDS: ATORVASTATIN 40 MG TAB PO SCH (10:24)
[2021-11-08] MEDS: MONTELUKAST 10 MG TAB PO SCH (10:24)
[2021-11-08] MEDS: PANTOPRAZOLE 40 MG/10 ML VIAL IV SCH (10:25)
[2021-11-08] MEDS: FUROSEMIDE 10 MG/ML 4 ML VIAL IV SCH (10:25)
[2021-11-08] MEDS: PIPERACILLIN-TAZOBACTAM 3.375 GM in SODIUM CHLORIDE 0.9% 100 ML IVPB SCH ×2 (10:35→16:08)
--- NOTE | 2021-11-08 10:42 | P.GSCN ---
History of Present Illness Consult date: 11/08/21 Reason for Consult: Upper GI bleed History of present illness: 89-year-old female came to the hospital after a single episode of hematemesis. Patient estimates she vomited approximately 1/3 cup of blood. She has never had anything like this before. She says 50 years ago she was told she had ulcers. She did have a nosebleed after the vomiting. She does not believe that she had a nosebleed first however. No abdominal pain. Normal brown stool yesterday. No bowel movement since. Patient also with some congestion and shortness of nataly ath. Daughter living with her apparently has Covid. Patient tested positive for Covid today. We were consulted for upper GI bleed. Patient does take eloquis at home. Review of Systems The patient denies any acute changes in vision, no dysphagia or odynophagia, no chest pain, no dysuria or hematuria, no headache, no runny nose, no rectal bleeding or melena, no unexplained weight loss Past Medical History Past Medical History: Asthma, Coronary Artery Disease (CAD), Chest Pain / Angina, Heart Failure, Hyperlipidemia, Pulmonary Embolus (PE) Additional Past Medical History / Comment(s): brain tumor for years, mild memory impairment,PE yrs ago,IBS History of Any Multi-Drug Resistant Organisms: None Reported Past Surgical History: Appendectomy, Heart Catheterization With Stent, Tonsillectomy Additional Past Surgical History / Comment(s): heart stents x2,rt knee surg Past Anesthesia/Blood Transfusion Reactions: No Reported Reaction Additional Past Anesthesia/Blood Transfusion Reaction / Comm: no hx blood transfusion Date of Last Stent Placement:: unk Past Psychological History: No Psychological Hx Reported Smoking Status: Never smoker Past Alcohol Use History: None Reported Additional Past Alcohol Use History / Comment(s): Patient does not smoke, no illicit drug use, no alcohol use. Past Drug Use History: None Reported - Past Family History Mother Family Medical History: Cancer, Diabetes Mellitus, Myocardial Infarction ([place]) Additional Family Medical History / Comment(s): at 56 with [place] Father Family Medical History: Coronary Artery Disease (CAD), Myocardial Infarction ([place]), Pulmonary Embolus Additional Family Medical History / Comment(s): at age 60 [place] Sister(s) Additional Family Medical History / Comment(s): Patient has one sister that following CVAs and then myocardial infarction. Son(s) Additional Family Medical History / Comment(s): Patient has 2 sons and 1 daughter with no major medical problems. Medications and Allergies Home Medications Medication Instructions Recorded Confirmed Type Ezetimibe [Zetia] 10 mg PO HS 08/02/17 11/08/21 History Montelukast [Singulair] 10 mg PO DAILY 08/02/17 11/08/21 History atenoloL 25 mg PO DAILY 08/02/17 11/08/21 History Famotidine [Pepcid] 20 mg PO DAILY tab 03/16/18 11/08/21 Rx ALPRAZolam [Xanax] 0.25 mg PO BID PRN 01/08/19 11/08/21 History Apixaban [Eliquis] 5 mg PO BID 01/08/19 11/08/21 History traMADol HCL [Ultram] 50 mg PO BID PRN 01/08/19 11/08/21 History Butalb/APAP/Caff 50-325-40Mg 1 - 2 tab PO Q6H PRN 08/25/21 11/08/21 History [Fioricet 50-325-40] FLUoxetine HCL [PROzac] 10 mg PO DAILY 08/25/21 11/08/21 History FLUoxetine HCL [PROzac] 20 mg PO DAILY 08/25/21 11/08/21 History Nitroglycerin Sl Tabs [Nitrostat] 0.4 mg SL Q5M PRN 08/25/21 11/08/21 History Atorvastatin [Lipitor] 40 mg PO DAILY #30 tablet 08/28/21 11/08/21 Rx Isosorbide Mononitrate ER [Imdur] 60 mg PO DAILY #30 tablet 08/28/21 11/08/21 Rx Prasugrel [Effient] 10 mg PO DAILY 11/08/21 11/08/21 History Allergies Allergy/AdvReac Type Severity Reaction Status Date / Time red dye Allergy Intermediate Rash/Hives Verified 11/08/21 09:18 codeine Allergy Nausea & Verified 11/08/21 09:18 Vomiting Sulfa (Sulfonamide Allergy Rash/Hives Verified 11/08/21 09:18 Antibiotics) erythromycin base AdvReac Nausea & Verified 11/08/21 09:18 Vomiting Surgical - Exam Vital Signs Temp Pulse Resp BP Pulse Ox 97.8 F 75 18 154/88 97 11/07/21 22:24 11/07/21 22:24 11/07/21 22:24 11/07/21 22:24 11/07/21 22:24 Physical exam: General: Well-developed, slightly malnourished-appearing elderly female, hard of hearing HEENT: Normocephalic, sclerae nonicteric Abdomen: Nontender, nondistended Extremities: No edema Neuro: Alert and oriented Results - Labs 11/08/21 00:03 11/08/21 00:03 Abnormal Lab Results - Last 24 Hours (Table) 11/08/21 11/08/21 11/08/21 Range/Units 00:03 00:03 04:29 Hct 46.5 H (34.0-46.0) % MCV 100.7 H (80.0-100.0) fL Plt Count 143 L (150-450) k/uL Lymphocytes # 0.9 L (1.0-4.8) k/uL Chloride 109 H (98-107) mmol/L Carbon Dioxide 21 L (22-30) mmol/L BUN 27 H (7-17) mg/dL Glucose 103 H (74-99) mg/dL Coronavirus (PCR) Detected A (Not Detectd) Diabetes panel 11/08/21 Range/Units 00:03 Sodium 137 (137-145) mmol/L Potassium 4.5 (3.5-5.1) mmol/L Chloride 109 H (98-107) mmol/L Carbon Dioxide 21 L (22-30) mmol/L BUN 27 H (7-17) mg/dL Creatinine 0.84 (0.52-1.04) mg/dL Glucose 103 H (74-99) mg/dL Calcium 8.5 (8.4-10.2) mg/dL AST 32 (14-36) U/L ALT 18 (4-34) U/L Alkaline Phosphatase 94 (38-126) U/L Total Protein 6.4 (6.3-8.2) g/dL Albumin 3.6 (3.5-5.0) g/dL Calcium panel 11/08/21 Range/Units 00:03 Calcium 8.5 (8.4-10.2) mg/dL Albumin 3.6 (3.5-5.0) g/dL Pituitary panel 11/08/21 Range/Units 00:03 Sodium 137 (137-145) mmol/L Potassium 4.5 (3.5-5.1) mmol/L Chloride 109 H (98-107) mmol/L Carbon Dioxide 21 L (22-30) mmol/L BUN 27 H (7-17) mg/dL Creatinine 0.84 (0.52-1.04) mg/dL Glucose 103 H (74-99) mg/dL Calcium 8.5 (8.4-10.2) mg/dL Adrenal panel 11/08/21 Range/Units 00:03 Sodium 137 (137-145) mmol/L Potassium 4.5 (3.5-5.1) mmol/L Chloride 109 H (98-107) mmol/L Carbon Dioxide 21 L (22-30) mmol/L BUN 27 H (7-17) mg/dL Creatinine 0.84 (0.52-1.04) mg/dL Glucose 103 H (74-99) mg/dL Calcium 8.5 (8.4-10.2) mg/dL Total Bilirubin 0.5 (0.2-1.3) mg/dL AST 32 (14-36) U/L ALT 18 (4-34) U/L Alkaline Phosphatase 94 (38-126) U/L Total Protein 6.4 (6.3-8.2) g/dL Albumin 3.6 (3.5-5.0) g/dL Assessment and Plan (1) UGIB (upper gastrointestinal bleed) Narrative/Plan: Patient with single episode of hematemesis at home. On eloquis. Patient also Covid positive. Continue to hold anticoagulation. Continue antiacid therapy. We will proceed with upper endoscopy during this hospital stay. Current Visit: Yes Status: Acute Code(s): K92.2 - GASTROINTESTINAL HEMORRHAGE, UNSPECIFIED SNOMED Code(s): 88357158
[2021-11-08] MEDS ORDERED: ASPIRIN 81 MG PO STA (11:15)
--- NOTE | 2021-11-08 11:21 | P.HPIM ---
History of Present Illness H&P Date: 11/08/21 Chief Complaint: Acute GI bleed, acute shortness of breath with hypoxia History of present illness: This is a 89-year-old pleasant female patient of Dr. Meyers with a past medical history significant for coronary artery disease with stenting to the first OM and July 2021, asthma, heart failure, hyperlipidemia, pulmonary embolism, brain tumor with mild memory impairment, depression, and IBS. Patient presented to the emergency room complaining of vomiting blood. Patient stated that she had approximately half a cup of bright red blood. Later on she began to have a nosebleed. Patient denies any cough. Patient denies nausea and did not have any repeat vomiting episodes. She denies any dizziness or lightheadedness. Denies any change to her bowel movement. No dark tarry stools. She is currently on blood thinners. At this time patient was assessed on and found to be short of breath with conversation and activity. She is in moderate distress. Patient states that the shortness of breath has been happening quite frequently. States that any activity causes shortness of breath. Patient denies any chest pain, fevers, or cough. Patient has 2+ pedal edema to bilateral lower extremities with multiple abrasions from scratching noted. Patient is alert and answering questions appropriately. Patient has no other complaints or concerns at this time. W BC 7.5, hemoglobin 14.4, potassium 4.5, BUN 27, creatinine 0.84, COVID- 19 PCR positive. Patient is afebrile, respirations are 32 with labored breathing, blood pressure 174/93, heart rate 85, pulse ox 95% on 2 L. Chest x- ray was ordered. We will repeat hemoglobin at 2 PM. Review Of Systems: Constitutional: No fever, no chills, no night sweats. No weight change. No weakness, fatigue or lethargy. No daytime sleepiness. EENT: No headache. No blurred vision or double vision, no loss of vision. No loss of Hearing, no ringing in the ears, no dizziness. No nasal drainage or congestion. No epistaxis. No sore throat. Lungs: Reports shortness of breath, no cough, no sputum production. No wheezing. Cardiovascular: No chest pain, reports lower extremity edema. No palpitations. No paroxysmal nocturnal dyspnea. No orthopnea. No lightheadedness or dizziness. No syncopal episodes. Abdominal: Reports hematemesis, no abdominal discomfort. No nausea, vomiting. no diarrhea. No constipation. No bloody or tarry stools. no loss of appetite. Genitourinary: No dysuria, increased frequency, urgency. No urinary retention. Musculoskeletal: No myalgias. No muscle weakness, no gait dysfunction, no frequent falls. No back pain. No neck pain. Integumentary: No wounds, reports lesions lateral lower extremities. No rash or pruritus. No unusual bruising. No change in hair or nails. Neurologic: No aphasia. No facial droop. No change in mentation. No head injury. No headache. No paralysis. No paresthesia. Psychiatric: Reports depression. Reports anxiety. No mood swings. Endocrine: No abnormal blood sugars. No weight change. No excessive sweating or thirst. Social history: Patient lives with her daughter at this time, she is a lifelong nonsmoker, denies EtOH or illicit drug use. Family history: Mother had coronary artery disease at age 56, father had kevon nary artery disease in his early 60s, patient has one sister with no medical problems. Patient has 3 children one daughter with no medical problems one son with coronary artery disease at age of 53 and the other son healthy. Physical examination General Appearance: Alert, cooperative, moderate distress with activity and conversation, this is a 89-year-old pleasant female appears stated age. Neck HEENT: Supple, no lymphadenopathy, no thyroid enlargement, no carotid bruits. Lungs: Clear to auscultation without crackles or wheezes no rhonchi, no deformity. Chest Wall: Chest wall normal expansion with deep inspiration no tenderness and no deformity was found on exam, no costochondral pain or discomfort. Heart: Regular rate and rhythm, S1, S2 normal, no murmur, rub or gallop. Back: Symmetric, no curvature, ROM normal, no CVA tenderness. Abdomen: Soft, non-tender, no rebound or rigidity, no hepatosplenomegaly. Extremities: 2+ pedal edema Extremities normal, atraumatic, no cyanosis. Pulses: 2+ and symmetric. Skin: Skin color, texture, tugor normal, no rashes multiple lesions to bilateral lower extremities. Neurologic: Alert oriented x3 cranial nerves II through XII intact, no motor deficit, no abnormal balance or gait Assessment and plan 1. Acute GI bleed. Consult surgery for possible EGD, repeat hemoglobin at 2 PM, labs in the a.m., Protonix 40 mg daily, Zofran 4 mg every 8 hours as needed 2. Acute shortness of breath with COVID-19 with hypoxia. Chest x-ray ordered, consult cardiology, Zosyn IV piggyback, Lasix 40 mg IV daily, consult pulmonology, vitamin C, vitamin D3 and zinc added we will hold off on Lovenox due to GI bleed. Decadron 6 mg IV push daily 3. Arthrosclerosis heart disease status post PCI to LAD and most recently first OM on 08/25/2021. Patient is on effient and aspirin which we will hold at this time. 4. Hypertension. Continue atenolol 25 mg, that he 10 mg by mouth at bedtime I mdur 60 mg by mouth daily 5. Congestive heart failure. Lasix 40 mg 6. Hyperlipidemia. Atorvastatin 40 mg by mouth daily 7. GERD. Protonix 40 mg 8. Asthma. singular 10 mg by mouth daily, 9. Cardiomyopathy, ejection fraction 50-55%. 10. Depression. Prozac, Xanax as needed 11. Pulmonary embolism. We will hold eliquis 12. IBS with diarrhea, stable. 13. History of brain tumor with mild memory impairment, stable. 14. DVT prophylaxis. Sequential compression stockings 15. GI prophylaxis. Protonix CODE STATUS: Full code Patient will be admitted for a minimum 2 nights Impression and plan of care have been directed as dictated by the signing physician. Nataly Mendez nurse practitioner acting as scribe for signing physician. Past Medical History Past Medical History: Asthma, Coronary Artery Disease (CAD), Chest Pain / A ngina, Heart Failure, Hyperlipidemia, Pulmonary Embolus (PE) Additional Past Medical History / Comment(s): brain tumor for years, mild memory impairment,PE yrs ago,IBS History of Any Multi-Drug Resistant Organisms: None Reported Past Surgical History: Appendectomy, Heart Catheterization With Stent, Tonsillectomy Additional Past Surgical History / Comment(s): heart stents x2,rt knee surg Past Anesthesia/Blood Transfusion Reactions: No Reported Reaction Additional Past Anesthesia/Blood Transfusion Reaction / Comment(s): no hx blood transfusion Date of Last Stent Placement:: unk Past Psychological History: No Psychological Hx Reported Smoking Status: Never smoker Past Alcohol Use History: None Reported Additional Past Alcohol Use History / Comment(s): Patient does not smoke, no illicit drug use, no alcohol use. Past Drug Use History: None Reported - Past Family History Mother Family Medical History: Cancer, Diabetes Mellitus, Myocardial Infarction ([place]) Additional Family Medical History / Comment(s): at 56 with [place] Father Family Medical History: Coronary Artery Disease (CAD), Myocardial Infarction ([place]), Pulmonary Embolus Additional Family Medical History / Comment(s): at age 60 [place] Sister(s) Additional Family Medical History / Comment(s): Patient has one sister that following CVAs and then myocardial infarction. Son(s) Additional Family Medical History / Comment(s): Patient has 2 sons and 1 daughter with no major medical problems. Medications and Allergies Home Medications Medication Instructions Recorded Confirmed Type Ezetimibe [Zetia] 10 mg PO HS 08/02/17 11/08/21 History Montelukast [Singulair] 10 mg PO DAILY 08/02/17 11/08/21 History atenoloL 25 mg PO DAILY 08/02/17 11/08/21 History Famotidine [Pepcid] 20 mg PO DAILY tab 03/16/18 11/08/21 Rx ALPRAZolam [Xanax] 0.25 mg PO BID PRN 01/08/19 11/08/21 History Apixaban [Eliquis] 5 mg PO BID 01/08/19 11/08/21 History traMADol HCL [Ultram] 50 mg PO BID PRN 01/08/19 11/08/21 History Butalb/APAP/Caff 50-325-40Mg 1 - 2 tab PO Q6H PRN 08/25/21 11/08/21 History [Fioricet 50-325-40] FLUoxetine HCL [PROzac] 10 mg PO DAILY 08/25/21 11/08/21 History FLUoxetine HCL [PROzac] 20 mg PO DAILY 08/25/21 11/08/21 History Nitroglycerin Sl Tabs [Nitrostat] 0.4 mg SL Q5M PRN 08/25/21 11/08/21 History Atorvastatin [Lipitor] 40 mg PO DAILY #30 tablet 08/28/21 11/08/21 Rx Isosorbide Mononitrate ER [Imdur] 60 mg PO DAILY #30 tablet 08/28/21 11/08/21 Rx Prasugrel [Effient] 10 mg PO DAILY 11/08/21 11/08/21 History Allergies Allergy/AdvReac Type Severity Reaction Status Date / Time red dye Allergy Intermediate Rash/Hives Verified 11/08/21 09:18 codeine Allergy Nausea & Verified 11/08/21 09:18 Vomiting Sulfa (Sulfonamide Allergy Rash/Hives Verified 11/08/21 09:18 Antibiotics) erythromycin base AdvReac Nausea & Verified 11/08/21 09:18 Vomiting Physical Exam Vitals: Vital Signs Temp Pulse Pulse Resp BP BP Pulse Ox 11/08/21 09:37 32 H 11/08/21 08:00 98.2 F 85 16 174/93 95 11/08/21 07:47 81 18 155/74 95 11/08/21 05:40 74 18 158/81 96 11/08/21 04:26 77 18 144/81 95 11/08/21 04:23 32 H 11/08/21 01:14 75 18 165/86 96 11/07/21 22:24 97.8 F 75 18 154/88 97 Intake and Output 11/07/21 11/08/21 11/08/21 22:59 06:59 14:59 Intake Total 30 118 Balance 30 118 Intake: Oral 30 118 Other: Weight 68.039 kg 68.039 kg Results CBC & Chem 7: 11/08/21 00:03 11/08/21 00:03 Labs: Abnormal Lab Results - Last 24 Hours (Table) 11/08/21 11/08/21 11/08/21 Range/Units 00:03 00:03 04:29 Hct 46.5 H (34.0-46.0) % MCV 100.7 H (80.0-100.0) fL Plt Count 143 L (150-450) k/uL Lymphocytes # 0.9 L (1.0-4.8) k/uL Chloride 109 H (98-107) mmol/L Carbon Dioxide 21 L (22-30) mmol/L BUN 27 H (7-17) mg/dL Glucose 103 H (74-99) mg/dL Coronavirus (PCR) Detected A (Not Detectd) Thrombosis Risk Factor Assmnt - Choose All That Apply Any of the Below Risk Factors Present?: Yes Each Factor Represents 1 point: Obesity (BMI >25) Each Risk Factor Represents 3 Points: Age 75 years or older Thrombosis Risk Factor Assessment Total Risk Factor Score: 4 Thrombosis Risk Factor Assessment Level: Moderate Risk
[2021-11-08] MEDS: ASPIRIN 81 MG PO SCH (11:57)
[2021-11-08] MEDS: DEXAMETHASONE SOD PHOSPHATE 10 MG/ML 1 ML VIAL IVP SCH (12:10)
[2021-11-08] MEDS ORDERED: ALBUTEROL HFA INHALER INHALATION PRN (12:54)
[2021-11-08 13:37] LABS: Basophils % (A) 1 %; Eosinophils # (A) 0.1 k/uL (0-0.7); Eosinophils % (A) 2 %; HGB 13.7 gm/dL (11.4-16.0); Hypochromasia Moderate; Lymphocytes # (A) 0.5 k/uL (1.0-4.8); Lymphocytes % (A) 9 %; MCH 30.6 pg (25.0-35.0); MCHC 29.8 g/dL (31.0-37.0); MCV 102.7 fL (80.0-100.0); Macrocytosis Slight; Mean Platelet Volume 7.7; Monocytes # (A) 0.3 k/uL (0-1.0); Monocytes % (A) 5 %; Neutrophils # (A) 4.2 k/uL (1.3-7.7); Neutrophils % (A) 81 %; Platelet Count 140 k/uL (150-450); RBC 4.48 m/uL (3.80-5.40); RDW 13.1 % (11.5-15.5); WBC 5.2 k/uL (3.8-10.6)
[2021-11-08 13:50] LABS: C Reactive Protein 1.1 mg/dL (<1.0)
[2021-11-08] MEDS ORDERED: REMDESIVIR 200 MG in SODIUM CHLORIDE 0.9% 250 ML IVPB ONE (14:00)
--- NOTE | 2021-11-08 14:13 | P.CRDCN ---
History of Present Illness Consult date: 11/08/21 Reason for Consult (text): shortness of breath History of present illness: HISTORY OF PRESENT ILLNESS: This is a 89-year-old female with a past medical history significant for coronary artery disease with previous PCI to LAD, hypertension, hyperlipidemia, and PE on Eliquis. Patient follows in the office with Dr. Ayala. She had a recent hospitalization in July 2021 at which time she was treated for acute chest pain secondary to coronary artery disease status post stent of the first obtuse marginal branch, echocardiogram revealed EF of 50-55% with mild aortic regurgitation, mild mitral regurgitation, [id number] tricuspid regurgitation, mild to moderate pulmonary hypertension. We have been asked to see the patient in consultation for his of breath. Patient complains of cough for 2-3 days as well as having vomiting which was bloody and blood in her nose. She said the vomiting came on unexpectedly. She denies having any abdominal pain, no black stools. Nausea and vomiting have resolved now. She states she is coughing a lot. She's been taking all of her cardiac medications as directed. She states in general she has been very short of breath for the past 6 months. EKG reveals sinus mechanism with no signs of acute ischemia. Chest xray cardiomegaly and chronic changes without acute pulmonary process. Laboratory data: Coronavirus PCR detected. WBC 7.5. Hemoglobin 14.4. Platelet count 143. Sodium 137. Potassium 4.5. BUN 27. Creatinine 0.846. Magnesium 2. Troponin negative 1. Current home cardiac medications include atenolol 25 mg daily, atorvastatin 40 mg daily, eliquis 5 mg twice daily, Zetia 10 mg at bedtime, Imdur 60 mg daily, Effient 10 mg daily Cardiac catheterization history: July 2021 revealed calcified coronary arteries. Significant disease in the obtuse marginal branch one, mild to moderate disease in the LAD and right coronary artery with no significant in- stent restenosis. Subsequently underwent stenting of the first obtuse marginal branch. REVIEW OF SYSTEMS: At the time of my exam: CONSTITUTIONAL: Denies fever or chills. HEENT: Denies blurred vision, vision changes, or eye pain. Denies hemoptysis CARDIOVASCULAR: Denies chest pain. Denies orthopnea. Denies PND. Denies palpitations RESPIRATORY: Reports shortness of breath. Reports cough GASTROINTESTINAL: Denies abdominal pain. Denies nausea or vomiting. HEMATOLOGIC: Denies bleeding disorders. GENITOURINARY: Denies any blood in urine. SKIN: Denies pruitis. Denies rash. PHYSICAL EXAM: VITAL SIGNS: Reviewed. GENERAL: Well-developed in no acute distress. HEENT: Head is normocephalic. Pupils are equal, round. Sclerae anicteric. Mucous membranes of the mouth are moist. Neck supple. No JVD or thyromegaly LUNGS: Respirations even and unlabored. Lungs essentially clear to auscultation bilaterally. HEART: Regular rate and rhythm. S1 and S2 heard. Systolic murmur noted. ABDOMEN: Soft. Nondistended. Nontender. EXTREMITIES: Normal range of motion. No clubbing or cyanosis. Peripheral pulses intact. No lower extremity edema NEUROLOGIC: Awake and alert. Oriented x 3. ASSESSMENT: Acute GI bleed Acute shortness of breath secondary to code 19 Coronary artery disease with previous PCI to LAD and first obtuse marginal branch Hypertension Hyperlipidemia History of PE, on anticoagulation with Eliquis PLAN: Hold eliquis and Effient due to GI bleed Patient started on aspirin 325 mg 1 now and continue aspirin 81 mg daily Resume and as soon as cleared by GI/general surgery No need to repeat echocardiogram Continue other home cardiac medications. Further recommendations pending patient's course Nurse practitioner note has been reviewed by physician. Signing provider agrees with the documented findings, assessment, and plan of care. Past Medical History Past Medical History: Asthma, Coronary Artery Disease (CAD), Chest Pain / Angina, Heart Failure, Hyperlipidemia, Pulmonary Embolus (PE) Additional Past Medical History / Comment(s): brain tumor for years, mild memory impairment,PE yrs ago,IBS History of Any Multi-Drug Resistant Organisms: None Reported Past Surgical History: Appendectomy, Heart Catheterization With Stent, Tonsillectomy Additional Past Surgical History / Comment(s): heart stents x2,rt knee surg Past Anesthesia/Blood Transfusion Reactions: No Reported Reaction Additional Past Anesthesia/Blood Transfusion Reaction / Comment(s): no hx blood transfusion Date of Last Stent Placement:: unk Past Psychological History: No Psychological Hx Reported Smoking Status: Never smoker Past Alcohol Use History: None Reported Additional Past Alcohol Use History / Comment(s): Patient does not smoke, no illicit drug use, no alcohol use. Past Drug Use History: None Reported - Past Family History Mother Family Medical History: Cancer, Diabetes Mellitus, Myocardial Infarction ([place]) Additional Family Medical History / Comment(s): at 56 with [place] Father Family Medical History: Coronary Artery Disease (CAD), Myocardial Infarction ([place]), Pulmonary Embolus Additional Family Medical History / Comment(s): at age 60 [place] Sister(s) Additional Family Medical History / Comment(s): Patient has one sister that following CVAs and then myocardial infarction. Son(s) Additional Family Medical History / Comment(s): Patient has 2 sons and 1 daughter with no major medical problems. Medications and Allergies Home Medications Medication Instructions Recorded Confirmed Type Ezetimibe [Zetia] 10 mg PO HS 08/02/17 11/08/21 History Montelukast [Singulair] 10 mg PO DAILY 08/02/17 11/08/21 History atenoloL 25 mg PO DAILY 08/02/17 11/08/21 History Famotidine [Pepcid] 20 mg PO DAILY tab 03/16/18 11/08/21 Rx ALPRAZolam [Xanax] 0.25 mg PO BID PRN 01/08/19 11/08/21 History Apixaban [Eliquis] 5 mg PO BID 01/08/19 11/08/21 History traMADol HCL [Ultram] 50 mg PO BID PRN 01/08/19 11/08/21 History Butalb/APAP/Caff 50-325-40Mg 1 - 2 tab PO Q6H PRN 08/25/21 11/08/21 History [Fioricet 50-325-40] FLUoxetine HCL [PROzac] 10 mg PO DAILY 08/25/21 11/08/21 History FLUoxetine HCL [PROzac] 20 mg PO DAILY 08/25/21 11/08/21 History Nitroglycerin Sl Tabs [Nitrostat] 0.4 mg SL Q5M PRN 08/25/21 11/08/21 History Atorvastatin [Lipitor] 40 mg PO DAILY #30 tablet 08/28/21 11/08/21 Rx Isosorbide Mononitrate ER [Imdur] 60 mg PO DAILY #30 tablet 08/28/21 11/08/21 Rx Prasugrel [Effient] 10 mg PO DAILY 11/08/21 11/08/21 History Allergies Allergy/AdvReac Type Severity Reaction Status Date / Time red dye Allergy Intermediate Rash/Hives Verified 11/08/21 09:18 codeine Allergy Nausea & Verified 11/08/21 09:18 Vomiting Sulfa (Sulfonamide Allergy Rash/Hives Verified 11/08/21 09:18 Antibiotics) erythromycin base AdvReac Nausea & Verified 11/08/21 09:18 Vomiting Physical Exam Vitals: Vital Signs Temp Pulse Pulse Resp BP BP Pulse Ox 11/08/21 09:37 32 H 11/08/21 08:00 98.2 F 85 16 174/93 95 11/08/21 07:47 81 18 155/74 95 11/08/21 05:40 74 18 158/81 96 11/08/21 04:26 77 18 144/81 95 11/08/21 04:23 32 H 11/08/21 01:14 75 18 165/86 96 11/07/21 22:24 97.8 F 75 18 154/88 97 Intake and Output 11/07/21 11/08/21 11/08/21 22:59 06:59 14:59 Intake Total 30 118 Balance 30 118 Intake: Oral 30 118 Other: Weight 68.039 kg 68.039 kg Results 11/08/21 13:23 11/08/21 00:03 Cardiac Enzymes 11/08/21 11/08/21 Range/Units 00:03 00:03 AST 32 (14-36) U/L Troponin I <0.012 (0.000-0.034) ng/mL Coagulation 11/08/21 Range/Units 00:03 APTT 27.9 (22.0-30.0) sec CBC 11/08/21 Range/Units 00:03 WBC 7.5 (3.8-10.6) k/uL RBC 4.62 (3.80-5.40) m/uL Hgb 14.4 (11.4-16.0) gm/dL Hct 46.5 H (34.0-46.0) % Plt Count 143 L (150-450) k/uL Comprehensive Metabolic Panel 11/08/21 Range/Units 00:03 Sodium 137 (137-145) mmol/L Potassium 4.5 (3.5-5.1) mmol/L Chloride 109 H (98-107) mmol/L Carbon Dioxide 21 L (22-30) mmol/L BUN 27 H (7-17) mg/dL Creatinine 0.84 (0.52-1.04) mg/dL Glucose 103 H (74-99) mg/dL Calcium 8.5 (8.4-10.2) mg/dL AST 32 (14-36) U/L ALT 18 (4-34) U/L Alkaline Phosphatase 94 (38-126) U/L Total Protein 6.4 (6.3-8.2) g/dL Albumin 3.6 (3.5-5.0) g/dL Current Medications Generic Name Dose Route Start Last Admin Trade Name Freq PRN Reason Stop Dose Admin Acetaminophen/Butalbital/Caffeine 1 each 11/08/21 08:41 Butalb/Apap/Caff 50-325-40mg Tab PO Q6H PRN Migraine Headache Alprazolam 0.25 mg 11/08/21 08:41 Alprazolam 0.25 Mg Tab PO BID PRN Anxiety Atenolol 25 mg 11/08/21 09:00 11/08/21 10:24 Atenolol 25 Mg Tab PO 25 mg DAILY JASON Administration Atorvastatin Calcium 40 mg 11/08/21 09:00 11/08/21 10:24 Atorvastatin 40 Mg Tab PO 40 mg DAILY JASON Administration Ezetimibe 10 mg 11/08/21 21:00 Ezetimibe 10 Mg Tab PO HS JASON Fluoxetine HCl 10 mg 11/08/21 09:00 11/08/21 10:24 Fluoxetine Hcl 10 Mg Cap PO 10 mg DAILY JASON Administration Fluoxetine HCl 20 mg 11/08/21 09:00 11/08/21 10:24 Fluoxetine Hcl 20 Mg Cap PO 20 mg DAILY JASON Administration Furosemide 40 mg 11/08/21 09:00 11/08/21 10:25 Furosemide 10 Mg/Ml 4 Ml Vial IV 40 mg DAILY JASON Administration Sodium Chloride 1,000 mls @ 130 mls/hr 11/08/21 04:15 11/08/21 10:25 Saline 0.9% IV 130 mls/hr .Q7H42M JASON Administration Piperacillin Sod/Tazobactam 100 mls @ 25 mls/hr 11/08/21 09:00 11/08/21 10:35 Sod 3.375 gm/ Sodium Chloride IVPB 25 mls/hr Q8HR JASON Administration Isosorbide Mononitrate 60 mg 11/08/21 09:00 11/08/21 10:24 Isosorbide Mononitrate Er 60 Mg Tab.Er.24h PO 60 mg DAILY JASON Administration Lorazepam 0.5 mg 11/08/21 04:12 Lorazepam 2 Mg/Ml Inj IV Q6HR PRN Anxiety Montelukast Sodium 10 mg 11/08/21 09:00 11/08/21 10:24 Montelukast 10 Mg Tab PO 10 mg DAILY JASON Administration Naloxone HCl 0.2 mg 11/08/21 04:12 Naloxone 0.4 Mg/Ml 1 Ml Vial IV Q2M PRN Opioid Reversal Nitroglycerin 0.4 mg 11/08/21 08:41 Nitroglycerin Sl Tabs 0.4 Mg Tab SUBLINGUAL Q5M PRN Chest Pain Ondansetron HCl 4 mg 11/08/21 04:12 Ondansetron 4 Mg/2 Ml Vial IVP Q8HR PRN Nausea And Vomiting Pantoprazole Sodium 40 mg 11/08/21 09:00 11/08/21 10:25 Pantoprazole 40 Mg/10 Ml Vial IV 40 mg DAILY JASON Administration Tramadol HCl 50 mg 11/08/21 08:41 Tramadol 50 Mg Tab PO BID PRN Pain Intake and Output 11/07/21 11/08/21 11/08/21 22:59 06:59 14:59 Intake Total 30 118 Balance 30 118 Intake: Oral 30 118 Other: Weight 68.039 kg 68.039 kg 11/08/21 00:03 11/08/21 00:03
--- NOTE | 2021-11-08 16:31 | P.CNPUL ---
History of Present Illness Consult date: 11/08/21 Requesting physician: Carlos A Meyers Reason for consult: other Chief complaint: COVID 19, GI bleed History of present illness: This is a 89-year-old white female patient with past medical history of chronic bronchial asthma, unspecified, coronary artery disease with previous stenting, chronic CHF, 2 previous episodes of pulmonary embolism, hyperlipidemia, IBS, nonsmoker who presented to the emergency department on 11/07/2021 for evaluation of vomiting up blood, patient is on Eliquis and Plavix, she denies any prior history of GI bleeding, she also reports a nosebleed. No cough, no fever, but she did feel fatigued. No syncopal episodes, no chest pain, no lightheadedness or dizziness, no abdominal pain. No globin in the emergency department was 14.4, hematocrit was 46.5, white blood cell, 7.5, patient has not required blood transfusion, hemodynamically she is stable. APTT was 27.9, B1 is 27 creatinine 0.84. Patient is part of the screening practice was swabbed for COVID-19 and was found to be positive, however she denies any significant pulmonary symptoms, she is vaccinated she is unsure what vaccine she has received, but she states she got 2 shots back in the spring, has not received a booster because she developed pleuritic chest discomfort after her second COVID-19 vaccination injection, she does have mild congestive cough, but no shortness of breath. Chest x-ray showed cardiomegaly and chronic changes without acute pulmonary process. Currently on 2 L of oxygen her pulse ox is 98%, she has been afebrile.. Review of Systems All systems: negative Constitutional: Denies chills, Denies fever Eyes: denies blurred vision, denies pain Ears, nose, mouth and throat: Denies headache, Denies sore throat Cardiovascular: Denies chest pain, Denies shortness of breath Respiratory: Reports congestion, Reports cough Gastrointestinal: Reports hematemesis, Reports indigestion, Denies abdominal pain, Denies diarrhea, Denies nausea, Denies vomiting Genitourinary: Denies dysuria, Denies hematuria Musculoskeletal: Denies myalgias Integumentary: Denies pruritus, Denies rash Neurological: Denies numbness, Denies weakness Psychiatric: Denies anxiety, Denies depression Endocrine: Denies fatigue, Denies weight change Past Medical History Past Medical History: Asthma, Coronary Artery Disease (CAD), Chest Pain / Angina, Heart Failure, Hyperlipidemia, Pulmonary Embolus (PE) Additional Past Medical History / Comment(s): brain tumor for years, mild memory impairment,PE yrs ago,IBS History of Any Multi-Drug Resistant Organisms: None Reported Past Surgical History: Appendectomy, Heart Catheterization With Stent, T onsillectomy Additional Past Surgical History / Comment(s): heart stents x2,rt knee surg Past Anesthesia/Blood Transfusion Reactions: No Reported Reaction Additional Past Anesthesia/Blood Transfusion Reaction / Comment(s): no hx blood transfusion Date of Last Stent Placement:: unk Past Psychological History: No Psychological Hx Reported Smoking Status: Never smoker Past Alcohol Use History: None Reported Additional Past Alcohol Use History / Comment(s): Patient does not smoke, no illicit drug use, no alcohol use. Past Drug Use History: None Reported - Past Family History Mother Family Medical History: Cancer, Diabetes Mellitus, Myocardial Infarction ([place]) Additional Family Medical History / Comment(s): at 56 with [place] Father Family Medical History: Coronary Artery Disease (CAD), Myocardial Infarction ([place]), Pulmonary Embolus Additional Family Medical History / Comment(s): at age 60 [place] Sister(s) Additional Family Medical History / Comment(s): Patient has one sister that following CVAs and then myocardial infarction. Son(s) Additional Family Medical History / Comment(s): Patient has 2 sons and 1 daughter with no major medical problems. Medications and Allergies Home Medications Medication Instructions Recorded Confirmed Type Ezetimibe [Zetia] 10 mg PO HS 08/02/17 11/08/21 History Montelukast [Singulair] 10 mg PO DAILY 08/02/17 11/08/21 History atenoloL 25 mg PO DAILY 08/02/17 11/08/21 History Famotidine [Pepcid] 20 mg PO DAILY tab 03/16/18 11/08/21 Rx ALPRAZolam [Xanax] 0.25 mg PO BID PRN 01/08/19 11/08/21 History Apixaban [Eliquis] 5 mg PO BID 01/08/19 11/08/21 History traMADol HCL [Ultram] 50 mg PO BID PRN 01/08/19 11/08/21 History Butalb/APAP/Caff 50-325-40Mg 1 - 2 tab PO Q6H PRN 08/25/21 11/08/21 History [Fioricet 50-325-40] FLUoxetine HCL [PROzac] 10 mg PO DAILY 08/25/21 11/08/21 History FLUoxetine HCL [PROzac] 20 mg PO DAILY 08/25/21 11/08/21 History Nitroglycerin Sl Tabs [Nitrostat] 0.4 mg SL Q5M PRN 08/25/21 11/08/21 History Atorvastatin [Lipitor] 40 mg PO DAILY #30 tablet 08/28/21 11/08/21 Rx Isosorbide Mononitrate ER [Imdur] 60 mg PO DAILY #30 tablet 08/28/21 11/08/21 Rx Prasugrel [Effient] 10 mg PO DAILY 11/08/21 11/08/21 History Allergies Allergy/AdvReac Type Severity Reaction Status Date / Time red dye Allergy Intermediate Rash/Hives Verified 11/08/21 09:18 codeine Allergy Nausea & Verified 11/08/21 09:18 Vomiting Sulfa (Sulfonamide Allergy Rash/Hives Verified 11/08/21 09:18 Antibiotics) erythromycin base AdvReac Nausea & Verified 11/08/21 09:18 Vomiting Physical Exam Vitals: Vital Signs Temp Pulse Pulse Resp BP BP Pulse Ox 11/08/21 16:15 20 11/08/21 14:00 28 H 11/08/21 13:15 98.6 F 61 20 113/70 98 11/08/21 12:00 28 H 11/08/21 09:37 32 H 11/08/21 08:00 98.2 F 85 16 174/93 95 11/08/21 07:47 81 18 155/74 95 11/08/21 05:40 74 18 158/81 96 11/08/21 04:26 77 18 144/81 95 11/08/21 01:14 75 18 165/86 96 11/07/21 22:24 97.8 F 75 18 154/88 97 Intake and Output 11/08/21 11/08/21 11/08/21 06:59 14:59 22:59 Intake Total 30 236 Balance 30 236 Intake: Oral 30 236 Other: Weight 68.039 kg GENERAL EXAM: Alert, very pleasant, 89-year-old white female, on 2 L of oxygen a pulse ox of 98% comfortable in no apparent distress. HEAD: Normocephalic/atraumatic. EYES: Normal reaction of pupils, equal size. Conjunctiva pink, sclera white. NOSE: Clear with pink turbinates. THROAT: No erythema or exudates. NECK: No masses, no JVD, no thyroid enlargement, no adenopathy. CHEST: No chest wall deformity. Symmetrical expansion. LUNGS: Equal air entry with no crackles, wheeze, rhonchi or dullness. CVS: Regular rate and rhythm, normal S1 and S2, no gallops, no murmurs, no rubs ABDOMEN: Soft, nontender. No hepatosplenomegaly, normal bowel sounds, no gu arding or rigidity. EXTREMITIES: No clubbing, no edema, no cyanosis, 2+ pulses and upper and lower e xtremities. MUSCULOSKELETAL: Muscle strength and tone normal. SPINE: No scoliosis or deformity SKIN: No rashes CENTRAL NERVOUS SYSTEM: Alert and oriented -3. No focal deficits, tone is normal in all 4 extremities. PSYCHIATRIC: Alert and oriented -3. Appropriate affect. Intact judgment and insight. Results - Laboratory Findings CBC and BMP: 11/08/21 13:23 11/08/21 00:03 PT/INR, D-dimer D-Dimer 0.28 mg/L FEU (<0.60) 11/08/21 13:23 Abnormal lab findings: Abnormal Labs 11/08/21 11/08/21 11/08/21 00:03 00:03 04:29 Hct 46.5 H MCV 100.7 H MCHC Plt Count 143 L Lymphocytes # 0.9 L Chloride 109 H Carbon Dioxide 21 L BUN 27 H Glucose 103 H C-Reactive Protein Coronavirus (PCR) Detected A 11/08/21 11/08/21 13:23 13:23 Hct MCV 102.7 H MCHC 29.8 L Plt Count 140 L Lymphocytes # 0.5 L Chloride Carbon Dioxide BUN Glucose C-Reactive Protein 1.1 H Coronavirus (PCR) - Diagnostic Findings Chest x-ray: report reviewed, image reviewed Assessment and Plan Plan: Assessment: #1. Acute COVID-19 infection, without acute pneumonia on the chest x-ray, patient is currently on 2 L of oxygen, however this was an incidental finding 1 the patient was swabbed for COVID-19 as part of the routine screening practices. Patient does report 2 or 3 days worth of increased fatigue, cough but no fever. She is actually a candidate for Remdesivir, will be started on it today on 11/08/2021 #2. Hematemesis, acute GI bleeding, on Eliquis and Plavix, and both have been placed on hold #3. Prior history of pulmonary embolism 2 in the past #4. Hypertension #5. Hyperlipidemia #6. Coronary artery disease with previous PCI and stenting #7. Mild to moderate pulmonary hypertension, mild MR, mild aortic regurgitation and mild to moderate tricuspid regurgitation Plan: Patient does qualify for Remdesivir Patient has been placed on Decadron She has been placed on antibiotics We'll obtain pro-calcitonin level We'll obtain inflammatory markers Eliquis has been placed on hold However patient had 2 prior occurrences of pulmonary embolism We'll consult vascular surgery for possibility of IVC filter We'll continue to follow her clinical course I performed a history & physical examination of the patient and discussed their management with my nurse practitioner, Kanwal Larson. I reviewed the nurse practitioner's note and agree with the documented findings and plan of care. Lung sounds are positive for dim breath sounds throughout the lung ford. The findings and the impression was discussed with the patient. I attest to the documentation by the nurse practitioner. Time with Patient: Greater than 30
[2021-11-08] MEDS: ALBUTEROL HFA INHALER INHALATION SCH ×2 (17:10→19:38)
[2021-11-08] MEDS: EZETIMIBE 10 MG TAB PO SCH (21:06)
[2021-11-08 22:30] LABS: Ferritin 64.7 ng/mL (10.0-291.0)
[2021-11-09] MEDS: PIPERACILLIN-TAZOBACTAM 3.375 GM in SODIUM CHLORIDE 0.9% 100 ML IVPB SCH ×3 (00:08→16:09)
[2021-11-09] MEDS: SODIUM CHLORIDE 0.9% 1,000 ML IV SCH ×3 (04:48→21:05)
--- NOTE | 2021-11-09 08:08 | XR ---
EXAMINATION TYPE: XR chest 1V portable DATE OF EXAM: 11/09/2021 CLINICAL HISTORY: Difficulty breathing and covid progress study. TECHNIQUE: Single AP portable frontal view of the chest is obtained. COMPARISON: Chest x-ray from one day earlier and older studies FINDINGS: There is chronic parenchymal change and left basilar linear scarring with 2 patchy opaciti es in the peripheral right lung. Stable cardiomegaly. Osseous structures are demineralized. Underlyin g scoliotic curvature is present. IMPRESSION: Cardiomegaly and chronic changes with 2 patchy opacities in the periphery of the right xavier ng consistent with covid-19 infection now present.
[2021-11-09] MEDS: ALBUTEROL HFA INHALER INHALATION SCH ×4 (08:10→20:30)
[2021-11-09] MEDS: FUROSEMIDE 10 MG/ML 4 ML VIAL IV SCH (08:31)
[2021-11-09] MEDS: PANTOPRAZOLE 40 MG/10 ML VIAL IV SCH (08:31)
[2021-11-09] MEDS: DEXAMETHASONE SOD PHOSPHATE 10 MG/ML 1 ML VIAL IVP SCH (08:32)
[2021-11-09] MEDS: FLUoxetine HCL 10 MG CAP PO SCH (08:32)
[2021-11-09] MEDS: ATORVASTATIN 40 MG TAB PO SCH (08:32)
[2021-11-09] MEDS: CHOLECALCIFEROL 125 MCG (5000 IU) TABLET PO SCH (08:32)
[2021-11-09] MEDS: MONTELUKAST 10 MG TAB PO SCH (08:32)
[2021-11-09] MEDS: ASCORBIC ACID 500 MG TAB PO SCH (08:32)
[2021-11-09] MEDS: ASPIRIN 81 MG PO SCH (08:32)
[2021-11-09] MEDS: atenoloL 25 MG TAB PO SCH (08:32)
[2021-11-09] MEDS: ISOSORBIDE MONONITRATE ER 60 MG TAB.ER.24H PO SCH (08:33)
[2021-11-09] MEDS: FLUoxetine HCL 20 MG CAP PO SCH (08:33)
[2021-11-09 09:34] LABS: Basophils # (A) 0.01 X 10*3/uL (0.00-0.10); Basophils % (A) 0.3 %; Eosinophils # (A) 0 X 10*3/uL (0.04-0.35); Eosinophils % (A) 0 %; HCT 40.4 % (37.2-46.3); HGB 12.7 g/dL (12.0-15.0); Lymphocytes # (A) 0.62 X 10*3/uL (0.90-5.00); Lymphocytes % (A) 19.6 %; MCHC 31.4 g/dL (32.0-37.0); MCV 98.5 fL (80.0-97.0); Mean Platelet Volume 11.1 fL (9.5-12.2); Monocytes # (A) 0.39 X 10*3/uL (0.20-1.00); Monocytes % (A) 12.3 %; Neutrophils # (A) 2.12 X 10*3/uL (1.80-7.70); Neutrophils % (A) 67.2 %; Platelet Count 143 X 10*3/uL (140-440); RDW 12.8 % (11.5-14.5); WBC 3.16 X 10*3/uL (4.50-10.00)
[2021-11-09 09:58] LABS: African American GFR (CKD) 65.7 (60.0-200.0); Albumin 3.6 g/dL (3.8-4.9); Albumin/Globulin Ratio 1.8 (1.60-3.17); Anion Gap 12.3 mmol/L (10.00-18.00); C Reactive Protein 1.9 mg/dL (0.00-0.80); Calcium 8.4 mg/dL (8.7-10.3); Carbon Dioxide 23.7 mmol/L (20.0-27.5); Non-African American GFR(CKD) 56.7 (60.0-200.0); Potassium 4.3 mmol/L (3.5-5.5); Total Bilirubin 0.3 mg/dL (0.30-1.20); Total Protein 5.6 g/dL (6.2-8.2)
--- NOTE | 2021-11-09 11:11 | P.GSCN ---
History of Present Illness Consult date: 11/09/21 Reason for Consult: Possible IVC filter placement Requesting physician: Kanwal Larson History of present illness: This is an 89-year-old female who presented to the emergency department 2 days ago vomiting blood and nosebleed. She has a past medical history of pulmonary embolism, heart failure, hyperlipidemia, and coronary artery disease status post recent stenting in July 2021 who normally takes Eliquis and Effient. He shouldn't states that she had one episode of nausea followed by vomiting which she states was approximately half cupful of bright red blood followed by a bloody nose. On admission she had a hemoglobin of 14.4 platelet count 143,000. Patient denies any other previous GI bleeds. Denied any abdominal pain, black or maroon stool, and no further nausea or vomiting. 1 she was admitted to the hospital her Eliquis and Effient had been put on hold. Patient was seen by general surgery for upper GI bleed. No states possible endoscopy during this admission. Patient was also in with complaints of cough and was found to have a PCR positive for sullivan virus. Pulmonology is following patient and due to patient's history of PE and holding anticoagulation for possible GI bleed a consulted vascular surgery for possible IVC placement. Patient is unsure of cause of pulmonary embolism but states she's had 2 which were multiple years ago. She is unsure she had a DVT prior. Patient currently denies any chest pain, abdominal pain, nausea or vomiting. She does state she has some weakness and shortness of breath along with a cough. Review of Systems A 14 point review of systems was completed all pertinent positives and negatives as stated in the HPI. Past Medical History Past Medical History: Asthma, Coronary Artery Disease (CAD), Chest Pain / Angina, Heart Failure, Hyperlipidemia, Pulmonary Embolus (PE) Additional Past Medical History / Comment(s): brain tumor for years, mild memory impairment,PE yrs ago,IBS History of Any Multi-Drug Resistant Organisms: None Reported Past Surgical History: Appendectomy, Heart Catheterization With Stent, Tonsillectomy Additional Past Surgical History / Comment(s): heart stents x2,rt knee surg Past Anesthesia/Blood Transfusion Reactions: No Reported Reaction Additional Past Anesthesia/Blood Transfusion Reaction / Comm: no hx blood transfusion Date of Last Stent Placement:: unk Past Psychological History: No Psychological Hx Reported Smoking Status: Never smoker Past Alcohol Use History: None Reported Additional Past Alcohol Use History / Comment(s): Patient does not smoke, no illicit drug use, no alcohol use. Past Drug Use History: None Reported - Past Family History Mother Family Medical History: Cancer, Diabetes Mellitus, Myocardial Infarction ([place]) Additional Family Medical History / Comment(s): at 56 with [place] Father Family Medical History: Coronary Artery Disease (CAD), Myocardial Infarction ([place]), Pulmonary Embolus Additional Family Medical History / Comment(s): at age 60 [place] Sister(s) Additional Family Medical History / Comment(s): Patient has one sister that following CVAs and then myocardial infarction. Son(s) Additional Family Medical History / Comment(s): Patient has 2 sons and 1 daughter with no major medical problems. Medications and Allergies Home Medications Medication Instructions Recorded Confirmed Type Ezetimibe [Zetia] 10 mg PO HS 08/02/17 11/08/21 History Montelukast [Singulair] 10 mg PO DAILY 08/02/17 11/08/21 History atenoloL 25 mg PO DAILY 08/02/17 11/08/21 History Famotidine [Pepcid] 20 mg PO DAILY tab 03/16/18 11/08/21 Rx ALPRAZolam [Xanax] 0.25 mg PO BID PRN 01/08/19 11/08/21 History Apixaban [Eliquis] 5 mg PO BID 01/08/19 11/08/21 History traMADol HCL [Ultram] 50 mg PO BID PRN 01/08/19 11/08/21 History Butalb/APAP/Caff 50-325-40Mg 1 - 2 tab PO Q6H PRN 08/25/21 11/08/21 History [Fioricet 50-325-40] FLUoxetine HCL [PROzac] 10 mg PO DAILY 08/25/21 11/08/21 History FLUoxetine HCL [PROzac] 20 mg PO DAILY 08/25/21 11/08/21 History Nitroglycerin Sl Tabs [Nitrostat] 0.4 mg SL Q5M PRN 08/25/21 11/08/21 History Atorvastatin [Lipitor] 40 mg PO DAILY #30 tablet 08/28/21 11/08/21 Rx Isosorbide Mononitrate ER [Imdur] 60 mg PO DAILY #30 tablet 08/28/21 11/08/21 Rx Prasugrel [Effient] 10 mg PO DAILY 11/08/21 11/08/21 History Allergies Allergy/AdvReac Type Severity Reaction Status Date / Time red dye Allergy Intermediate Rash/Hives Verified 11/08/21 09:18 codeine Allergy Nausea & Verified 11/08/21 09:18 Vomiting Sulfa (Sulfonamide Allergy Rash/Hives Verified 11/08/21 09:18 Antibiotics) erythromycin base AdvReac Nausea & Verified 11/08/21 09:18 Vomiting Surgical - Exam Vital Signs Temp Pulse Resp BP Pulse Ox 97.8 F 75 18 154/88 97 11/07/21 22:24 11/07/21 22:24 11/07/21 22:24 11/07/21 22:24 11/07/21 22:24 General appearance: The patient is alert, oriented, appears in no acute distress. HET: Head is normocephalic and atraumatic. Neck: Supple without lymphadenopathy. Trachea midline. Heart: S1 S2. Regular rate and rhythm. Lungs: Clear to auscultation. No crackles or wheezes are heard. Abdomen: Soft, nontender, nondistended. Extremities: Normal skin color and turgor. No cyanosis, rash, ulceration, clubbing, or edema. Radial and pedal pulses are 2/4 bilaterally. Neurological: No focal deficits. Results - Labs 11/09/21 06:06 11/09/21 06:06 Abnormal Lab Results - Last 24 Hours (Table) 11/08/21 11/08/21 Range/Units 13:23 13:23 MCV 102.7 H (80.0-100.0) fL MCHC 29.8 L (31.0-37.0) g/dL Plt Count 140 L (150-450) k/uL Lymphocytes # 0.5 L (1.0-4.8) k/uL C-Reactive Protein 1.1 H (<1.0) mg/dL - Imaging Chest x-ray: report reviewed (Cardiomegaly and chronic changes with 2 patchy opacities in the periphery of the right lung consistent with COVID-19 infection now present) Assessment and Plan Assessment: 1. History of pulmonary embolism on Eliquis, currently on hold 2. Upper GI bleed 3. Epistaxis 4. Coronary artery disease on Effient, currently on hold 5. COVID-19 pnemonia Plan: 1. Continue symptomatic and supportive care 2. Continue to hold anticoagulation until decision made by general surgery if they are going to perform endoscopy 3. No plans at this time to place IVC filter 4. May resume anticoagulation if not undergoing endoscopic evaluation, if patient has recurrent bleeding then will consider IVC filter placement Thank you for this consultation allowing us take part in the plan of care of your patient during her hospital stay. The impression and plan of care has been dictated as directed. Dr. Barnard I performed a history and examination of this patient, discussed the same with the dictator. I agree with the dictator's note ,documented as a scribe. Any additional findings or plans will be noted.
--- NOTE | 2021-11-09 11:50 | P.PN ---
Subjective Progress Note Date: 11/09/21 HISTORY OF PRESENT ILLNESS: This is a 89-year-old female with a past medical history significant for coronary artery disease with previous PCI to LAD, hypertension, hyperlipidemia, and PE on Eliquis. Patient follows in the office with Dr. Ayala. She had a recent hospitalization in July 2021 at which time she was treated for acute chest pain secondary to coronary artery disease status post stent of the first obtuse marginal branch, echocardiogram revealed EF of 50-55% with mild aortic regurgitation, mild mitral regurgitation, [id number] tricuspid regurgitation, mild to moderate pulmonary hypertension. We have been asked to see the patient in consultation for his of breath. Patient complains of cough for 2-3 days as well as having vomiting which was bloody and blood in her nose. She said the vomiting came on unexpectedly. She denies having any abdominal pain, no black stools. Nausea and vomiting have resolved now. She states she is coughing a lot. She's been taking all of her cardiac medications as directed. She states in general she has been very short of breath for the past 6 months. EKG reveals sinus mechanism with no signs of acute ischemia. Chest xray cardiomegaly and chronic changes without acute pulmonary process. Laboratory data: Coronavirus PCR detected. WBC 7.5. Hemoglobin 14.4. Platelet count 143. Sodium 137. Potassium 4.5. BUN 27. Creatinine 0.846. Magnesium 2. Troponin negative 1. Current home cardiac medications include atenolol 25 mg daily, atorvastatin 40 mg daily, eliquis 5 mg twice daily, Zetia 10 mg at bedtime, Imdur 60 mg daily, Effient 10 mg daily Cardiac catheterization history: July 2021 revealed calcified coronary arteries. Significant disease in the obtuse marginal branch one, mild to moderate disease in the LAD and right coronary artery with no significant in- stent restenosis. Subsequently underwent stenting of the first obtuse marginal branch. 11/09/2021 Patient remains hospitalized on 6N. Patient is positive for Covid 19. Patients hemoglobin remains stable today at 12.7. General surgery is following. Awaiting further input regarding EGD. She denies chest pain or pressure. Patients blood pressure elevated this morning. She just received her morning medications t saloni. PHYSICAL EXAM: Thorough physical examination not completed secondary to Covid 19 infection ASSESSMENT: Acute GI bleed Acute shortness of breath secondary to Covid 19 Coronary artery disease with previous PCI to LAD and first obtuse marginal branch Hypertension Hyperlipidemia History of PE, on anticoagulation with Eliquis PLAN: Eliquis and Effient remain on hold. Resume when okay with general surgery/GI Continue additional cardiac medications Further recommendations pending patient course Nurse practitioner note has been reviewed by physician. Signing provider agrees with the documented findings, assessment, and plan of care. Objective - Vital Signs Vital signs: Vital Signs Temp 98.2 F 11/09/21 07:00 Pulse 80 11/09/21 07:00 Resp 20 11/09/21 07:00 BP 180/97 11/09/21 07:00 Pulse Ox 98 11/09/21 07:00 Intake & Output 11/08/21 11/09/21 11/09/21 18:59 06:59 18:59 Intake Total 472 Balance 472 Intake: Oral 472 Other: Voiding Method Bedside Commode # Voids 3 1 1 - Labs CBC & Chem 7: 11/09/21 06:06 11/09/21 06:06 Labs: Abnormal Lab Results - Last 24 Hours (Table) 11/08/21 11/08/21 11/09/21 Range/Units 13:23 13:23 06:06 WBC 3.16 L (4.50-10.00) X 10*3/uL MCV 102.7 H 98.5 H (80.0-100.0) fL MCHC 29.8 L 31.4 L (31.0-37.0) g/dL Plt Count 140 L (150-450) k/uL Lymphocytes # 0.5 L 0.62 L (1.0-4.8) k/uL Eosinophils # 0 L (0.04-0.35) X 10*3/uL Est GFR (CKD-EPI)NonAf (60.0-200.0) Glucose (70-110) mg/dL Calcium (8.7-10.3) mg/dL C-Reactive Protein 1.1 H (<1.0) mg/dL Total Protein (6.2-8.2) g/dL Albumin (3.8-4.9) g/dL 11/09/21 Range/Units 06:06 WBC (4.50-10.00) X 10*3/uL MCV (80.0-100.0) fL MCHC (31.0-37.0) g/dL Plt Count (150-450) k/uL Lymphocytes # (1.0-4.8) k/uL Eosinophils # (0.04-0.35) X 10*3/uL Est GFR (CKD-EPI)NonAf 56.7 L (60.0-200.0) Glucose 118 H (70-110) mg/dL Calcium 8.4 L (8.7-10.3) mg/dL C-Reactive Protein 1.90 H (<1.0) mg/dL Total Protein 5.6 L (6.2-8.2) g/dL Albumin 3.6 L (3.8-4.9) g/dL
--- NOTE | 2021-11-09 13:40 | P.PN ---
Subjective Progress Note Date: 11/09/21 CHIEF COMPLAINT: Upper GI bleed HISTORY OF PRESENT ILLNESS: Patient had a single episode of hematemesis. Patient did have a nosebleed supposedly after she had vomited. Per nursing staff patient has had no further hematemesis or nosebleeds. She does have a significant cough and is being treated for occult blood. Prior history of 2 PEs and coronary disease with stent. Apparently patient was on Eliquis and Effient at home. These medications have been held. Patient seen by vascular surgery in regards to possible IVC filter. At this time they have no plans to proceed with IVC filter. Afebrile. She is on 2 L of oxygen standing at 98%. WBC is 3.16 hemoglobin 13.7 down to 12.7 platelets 143 PHYSICAL EXAM: VITAL SIGNS: Reviewed. GENERAL: Well-developed in no acute distress. HEENT: No sclera icterus. Extraocular movements grossly intact. Moist buccal mucosa. Head is atraumatic, normocephalic. ABDOMEN: Soft. Nondistended. Nontender. NEUROLOGIC: Alert and oriented. Cranial nerves II through XII grossly intact. ASSESSMENT: 1. Upper GI bleed with hematemesis 2. History of pulmonary embolism 2 had been on Eliquis 3. COVID-19 pneumonia PLAN: -Possible EGD tomorrow if cleared by pulmonary service -Continue to hold Eliquis -Continue supportive care -Continue to monitor hemoglobin -Continue to monitor for any signs or symptoms of bleeding -Continue PPI Physician Teacher Home [employer] note has been reviewed by physician. Signing provider agrees with the documented findings, assessment, and plan of care. Objective - Vital Signs Vital signs: Vital Signs Temp 98.2 F 11/09/21 07:00 Pulse 80 11/09/21 07:00 Resp 20 11/09/21 07:00 BP 180/97 11/09/21 07:00 Pulse Ox 98 11/09/21 07:00 Intake & Output 11/08/21 11/09/21 11/09/21 18:59 06:59 18:59 Intake Total 472 Balance 472 Intake: Oral 472 Other: Voiding Method Bedside Commode # Voids 3 1 1 - Labs CBC & Chem 7: 11/09/21 06:06 11/09/21 06:06 Labs: Abnormal Lab Results - Last 24 Hours (Table) 11/08/21 11/08/21 11/09/21 Range/Units 13:23 13:23 06:06 WBC 3.16 L (4.50-10.00) X 10*3/uL MCV 102.7 H 98.5 H (80.0-100.0) fL MCHC 29.8 L 31.4 L (31.0-37.0) g/dL Plt Count 140 L (150-450) k/uL Lymphocytes # 0.5 L 0.62 L (1.0-4.8) k/uL Eosinophils # 0 L (0.04-0.35) X 10*3/uL Est GFR (CKD-EPI)NonAf (60.0-200.0) Glucose (70-110) mg/dL Calcium (8.7-10.3) mg/dL C-Reactive Protein 1.1 H (<1.0) mg/dL Total Protein (6.2-8.2) g/dL Albumin (3.8-4.9) g/dL 11/09/21 Range/Units 06:06 WBC (4.50-10.00) X 10*3/uL MCV (80.0-100.0) fL MCHC (31.0-37.0) g/dL Plt Count (150-450) k/uL Lymphocytes # (1.0-4.8) k/uL Eosinophils # (0.04-0.35) X 10*3/uL Est GFR (CKD-EPI)NonAf 56.7 L (60.0-200.0) Glucose 118 H (70-110) mg/dL Calcium 8.4 L (8.7-10.3) mg/dL C-Reactive Protein 1.90 H (<1.0) mg/dL Total Protein 5.6 L (6.2-8.2) g/dL Albumin 3.6 L (3.8-4.9) g/dL
[2021-11-09] MEDS: REMDESIVIR 100 MG in SODIUM CHLORIDE 0.9% 250 ML IVPB SCH (14:26)
[2021-11-09] MEDS ORDERED: PEG 3350-NA SULF,BICARB,CL/KCL 4,000 ML BOTTLE PO ONE (15:10)
--- NOTE | 2021-11-09 15:34 | P.PN ---
Subjective Progress Note Date: 11/09/21 Principal diagnosis: COVID-19 infection, GI bleeding This is a 89-year-old white female patient with past medical history of chronic bronchial asthma, unspecified, coronary artery disease with previous stenting, chronic CHF, 2 previous episodes of pulmonary embolism, hyperlipidemia, IBS, nonsmoker who presented to the emergency department on 11/07/2021 for evaluation of vomiting up blood, patient is on Eliquis and Plavix, she denies any prior history of GI bleeding, she also reports a nosebleed. No cough, no fever, but she did feel fatigued. No syncopal episodes, no chest pain, no lightheadedness or dizziness, no abdominal pain. No globin in the emergency department was 14.4, hematocrit was 46.5, white blood cell, 7.5, patient has not required blood transfusion, hemodynamically she is stable. APTT was 27.9, B1 is 27 creatinine 0.84. Patient is part of the screening practice was swabbed for COVID-19 and was found to be positive, however she denies any significant pulmonary symptoms, she is vaccinated she is unsure what vaccine she has received, but she states she got 2 shots back in the spring of 2020, has not received a booster because she developed pleuritic chest discomfort after her second COVID-19 vaccination injection, she does have mild congestive cough, but no shortness of breath. Chest x-ray showed cardiomegaly and chronic changes without acute pulmonary process. Currently on 2 L of oxygen her pulse ox is 98%, she has been afebrile. On 11/09/2021 patient seen in follow-up on medical surgical floor, she is breathing comfortably, denies any acute respiratory distress, she is currently on room air, her pulse ox is 93%, does have a mildly congestive cough, and other than that no pulmonary symptoms. Her Eliquis has remained on hold, she has not had recurrence of hematemesis since admission, vital signs have been stable, blood pressure has been stable, no tachycardia, no complaints of shortness of breath or chest pain, no fever or chills, follow-up chest x-ray was obtained today showing new to patchy opacities in the periphery of the right lung consistent with COVID-19 infection which is now apparent. Patient was started on Remdesivir yesterday, today is day 2 of treatment, she continues on Decadron 6 mg daily, she is on inhaled Ventolin, she is on Zosyn, however she had 2 negative Procalcitonin levels of 0.06, and 0.05 and as such her Zosyn can be discontinued. Abdomen is soft, no abdominal pain, no vomiting, no diarrhea, today's lab 7 reviewed, her white blood cell count is 3.16, hemoglobin 12.7, platelet count is 143, d-dimer 0.31, electrolytes and renal profile were unremarkable, LFTs were unremarkable. Vascular surgery was consulted for possibility of IVC filter placement however there is no plans for IVC filter unless the patient rebleeds and her anticoagulation has to be placed on hold. Surgical services are following, and patient is being scheduled for EGD tomorrow. Objective - Vital Signs Vital signs: Vital Signs Temp 97.9 F 11/09/21 13:57 Pulse 43 L 11/09/21 13:57 Resp 18 11/09/21 13:57 BP 159/77 11/09/21 13:57 Pulse Ox 93 L 11/09/21 13:57 Intake & Output 11/08/21 11/09/21 11/09/21 18:59 06:59 18:59 Intake Total 472 1612 Balance 472 1612 Intake: Intake, IV Titration 1390 Amount Piperacillin-Tazobactam 3 100 .375 gm In Sodium Chloride 0.9% 100 ml @ 25 mls/hr IVPB Q8HR [facility] Rx# :[id number] Remdesivir 100 mg In 250 Sodium Chloride 0.9% 250 ml @ 250 mls/hr IVPB DAILY@1400 [facility] Rx#: [id number] Sodium Chloride 0.9% 1, 1040 000 ml @ 130 mls/hr IV . [id number] [facility] Rx#:[id number] Oral 472 222 Other: Voiding Method Bedside Commode # Voids 3 1 1 - Exam GENERAL EXAM: Alert, very pleasant, 89-year-old white female, on 2 L of oxygen a pulse ox of 98% comfortable in no apparent distress. HEAD: Normocephalic/atraumatic. EYES: Normal reaction of pupils, equal size. Conjunctiva pink, sclera white. NOSE: Clear with pink turbinates. THROAT: No erythema or exudates. NECK: No masses, no JVD, no thyroid enlargement, no adenopathy. CHEST: No chest wall deformity. Symmetrical expansion. LUNGS: Equal air entry with no crackles, wheeze, rhonchi or dullness. CVS: Regular rate and rhythm, normal S1 and S2, no gallops, no murmurs, no rubs ABDOMEN: Soft, nontender. No hepatosplenomegaly, normal bowel sounds, no guarding or rigidity. EXTREMITIES: No clubbing, no edema, no cyanosis, 2+ pulses and upper and lower extremities. MUSCULOSKELETAL: Muscle strength and tone normal. SPINE: No scoliosis or deformity SKIN: No rashes CENTRAL NERVOUS SYSTEM: Alert and oriented -3. No focal deficits, tone is normal in all 4 extremities. PSYCHIATRIC: Alert and oriented -3. Appropriate affect. Intact judgment and insight. - Labs CBC & Chem 7: 11/09/21 06:06 11/09/21 06:06 Labs: Abnormal Lab Results - Last 24 Hours (Table) 11/09/21 11/09/21 Range/Units 06:06 06:06 WBC 3.16 L (4.50-10.00) X 10*3/uL MCV 98.5 H (80.0-97.0) fL MCHC 31.4 L (32.0-37.0) g/dL Lymphocytes # 0.62 L (0.90-5.00) X 10*3/uL Eosinophils # 0 L (0.04-0.35) X 10*3/uL Est GFR (CKD-EPI)NonAf 56.7 L (60.0-200.0) Glucose 118 H (70-110) mg/dL Calcium 8.4 L (8.7-10.3) mg/dL C-Reactive Protein 1.90 H (0.00-0.80) mg/dL Total Protein 5.6 L (6.2-8.2) g/dL Albumin 3.6 L (3.8-4.9) g/dL Assessment and Plan Plan: Assessment: #1. Acute COVID-19 infection, without acute pneumonia on the chest x-ray, patient is currently on 2 L of oxygen, however this was an incidental finding 1 the patient was swabbed for COVID-19 as part of the routine screening practices. Patient does report 2 or 3 days worth of increased fatigue, cough but no fever. Follow-up chest x-ray on 11/09/2021 showing new patchy opacities in the right lung periphery consistent with COVID-19 pneumonia, patient was started on Remdesivir on 11/08/2021 #2. Hematemesis, acute GI bleeding, on Eliquis and Effient, and both have been placed on hold #3. Prior history of pulmonary embolism 2 in the past #4. Hypertension #5. Hyperlipidemia #6. Coronary artery disease with previous PCI and stenting #7. Mild to moderate pulmonary hypertension, mild MR, mild aortic regurgitation and mild to moderate tricuspid regurgitation Plan: Patient continues on Remdesivir, today is day 2 of treatment No worsening dyspnea Today's chest x-ray showing new patchy opacities No fever or chills Continue Decadron Patient has had no recurrence of bleeding Eliquis has been placed on hold Vascular surgery consultation was noted No plans for IVC filter at this time Patient is clear from pulmonary perspective for EGD tomorrow We'll continue to follow her clinical course I performed a history & physical examination of the patient and discussed their management with my nurse practitioner, Kanwal Larson. I reviewed the nurse practitioner's note and agree with the documented findings and plan of care. Lung sounds are positive for dim breath sounds throughout the lung ford. The findings and the impression was discussed with the patient. I attest to the documentation by the nurse practitioner. Time with Patient: Less than 30
--- NOTE | 2021-11-09 18:56 | P.PN ---
Subjective Progress Note Date: 11/09/21 History of Present Illness H&P Date: 11/08/21 Chief Complaint: Acute GI bleed, acute shortness of breath with hypoxia History of present illness: This is a 89-year-old pleasant female patient of Dr. Meyers with a past medical history significant for coronary artery disease with stenting to the first OM and July 2021, asthma, heart failure, hyperlipidemia, pulmonary embolism, brain tumor with mild memory impairment, depression, and IBS. Patient presented to the emergency room complaining of vomiting blood. Patient stated that she had approximately half a cup of bright red blood. Later on she began to have a nosebleed. Patient denies any cough. Patient denies nausea and did not have any repeat vomiting episodes. She denies any dizziness or lightheadedness. Denies any change to her bowel movement. No dark tarry stools. She is currently on blood thinners. At this time patient was assessed on 6 and found to be short of breath with conversation and activity. She is in moderate distress. Patient states that the shortness of breath has been happening quite frequently. States that any activity causes shortness of breath. Patient denies any chest pain, fevers, or cough. Patient has 2+ pedal edema to bilateral lower extremities with multiple abrasions from scratching noted. Patient is alert and answering questions appropriately. Patient has no other complaints or concerns at this time. W BC 7.5, hemoglobin 14.4, potassium 4.5, BUN 27, creatinine 0.84, COVID- 19 PCR positive. Patient is afebrile, respirations are 32 with labored breathing, blood pressure 174/93, heart rate 85, pulse ox 95% on 2 L. Chest x- ray was ordered. We will repeat hemoglobin at 2 PM. 11/09: Patient has severe hearing loss, was noted to have incontinence all over the place, patient is sitting in the commode, despite her sitting on it, this occurs quite often according to nurse, with urine all over the floor. Patient has a hearing aid does not work, there is no epistaxis hemoptysis now, or melena hematochezia, patient will be started on urine continence program, and is currently on the Ashley, for which he was started on November 08., egd to be scheduled for egd tomorrow by surgery for hematemesis, eliquis and effient is on hold, prior EP in past Review Of Systems: Constitutional: No fever, no chills, no night sweats. No weight change. No weakness, fatigue or lethargy. No daytime sleepiness. EENT: No headache. No blurred vision or double vision, no loss of vision. No loss of Hearing, no ringing in the ears, no dizziness. No nasal drainage or congestion. No epistaxis. No sore throat. Lungs: Reports shortness of breath, no cough, no sputum production. No wheezing. Cardiovascular: No chest pain, reports lower extremity edema. No palpitations. No paroxysmal nocturnal dyspnea. No orthopnea. No lightheadedness or dizziness. No syncopal episodes. Abdominal: Reports hematemesis, no abdominal discomfort. No nausea, vomiting. no diarrhea. No constipation. No bloody or tarry stools. no loss of appetite. Genitourinary: No dysuria, increased frequency, urgency. No urinary retention. Musculoskeletal: No myalgias. No muscle weakness, no gait dysfunction, no frequent falls. No back pain. No neck pain. Integumentary: No wounds, reports lesions lateral lower extremities. No rash or pruritus. No unusual bruising. No change in hair or nails. Neurologic: No aphasia. No facial droop. No change in mentation. No head injury. No headache. No paralysis. No paresthesia. Psychiatric: Reports depression. Reports anxiety. No mood swings. Endocrine: No abnormal blood sugars. No weight change. No excessive sweating or thirst. Physical examination General Appearance: Alert, cooperative, moderate distress with activity and conversation, this is a 89-year-old pleasant female appears stated age. Neck HEENT: Supple, no lymphadenopathy, no thyroid enlargement, no carotid bruits. Lungs: Clear to auscultation without crackles or wheezes no rhonchi, no deformity. Chest Wall: Chest wall normal expansion with deep inspiration no tenderness and no deformity was found on exam, no costochondral pain or discomfort. Heart: Regular rate and rhythm, S1, S2 normal, no murmur, rub or gallop. Back: Symmetric, no curvature, ROM normal, no CVA tenderness. Abdomen: Soft, non-tender, no rebound or rigidity, no hepatosplenomegaly. Extremities: 2+ pedal edema Extremities normal, atraumatic, no cyanosis. Pulses: 2+ and symmetric. Skin: Skin color, texture, tugor normal, no rashes multiple lesions to bilateral lower extremities. Neurologic: Alert oriented x3 cranial nerves II through XII intact, no motor deficit, no abnormal balance or gait Assessment and plan 1. Acute GI bleed hematemesis. Consult surgery for EGD for 11/10/21,follow labs in the a.m., Protonix 40 mg daily, Zofran 4 mg every 8 hours as needed 2. Acute shortness of breath with COVID-19 with hypoxia. Chest x-ray ordered, consult cardiology, Zosyn IV piggyback, Lasix 40 mg IV daily, consult pulmon ology, vitamin C, vitamin D3 and zinc added we will hold off on Lovenox due to GI bleed. Decadron 6 mg IV push daily 3. Arthrosclerosis heart disease status post PCI to LAD and most recently first OM on 08/25/2021. Patient is on effient and aspirin which we will hold at this time. 4. Hypertension. Continue atenolol 25 mg, that he 10 mg by mouth at bedtime Imdur 60 mg by mouth daily 5. Congestive heart failure. Lasix 40 mg 6. Hyperlipidemia. Atorvastatin 40 mg by mouth daily 7. GERD. Protonix 40 mg 8. Asthma. singular 10 mg by mouth daily, 9. Cardiomyopathy, ejection fraction 50-55%. 10. Depression. Prozac, Xanax as needed 11. Pulmonary embolism. We will hold eliquis 12. IBS with diarrhea, stable. 13. History of brain tumor with mild memory impairment, stable. 14. DVT prophylaxis. Sequential compression stockings 15. GI prophylaxis. Protonix CODE STATUS: Full code Patient will be admitted for a minimum 2 nights Current Medications Acetaminophen/Butalbital/Caffeine (Butalb/Apap/Caff 50-325-40mg Tab) 1 each PO Q6H PRN PRN Reason: Migraine Headache Albuterol Sulfate (Albuterol Hfa Inhaler) 1 puff INHALATION RT-QID PRN PRN Reason: Shortness Of Breath Or Wheezing Albuterol Sulfate (Albuterol Hfa Inhaler) 1 puff INHALATION RT-QID [facility] Last Admin: 11/09/21 11:14 Dose: 1 puff Documented by: Alprazolam (Alprazolam 0.25 Mg Tab) 0.25 mg PO BID PRN PRN Reason: Anxiety Ascorbic Acid (Ascorbic Acid 500 Mg Tab) 1,000 mg PO DAILY [facility] Last Admin: 11/09/21 08:32 Dose: 1,000 mg Documented by: Aspirin (Aspirin 81 Mg) 81 mg PO DAILY [facility] Last Admin: 11/09/21 08:32 Dose: 81 mg Documented by: Atenolol (Atenolol 25 Mg Tab) 25 mg PO DAILY [facility] Last Admin: 11/09/21 08:32 Dose: 25 mg Documented by: Atorvastatin Calcium (Atorvastatin 40 Mg Tab) 40 mg PO DAILY [facility] Last Admin: 11/09/21 08:32 Dose: 40 mg Documented by: Cholecalciferol (Cholecalciferol 125 Mcg (5000 Iu) Tablet) 125 mcg PO DAILY [facility] Last Admin: 11/09/21 08:32 Dose: 125 mcg Documented by: Dexamethasone Sodium Phosphate (Dexamethasone Sod Phosphate 10 Mg/Ml 1 Ml Vial) 6 mg IVP DAILY [facility] Last Admin: 11/09/21 08:32 Dose: 6 mg Documented by: Ezetimibe (Ezetimibe 10 Mg Tab) 10 mg PO HS [facility] Last Admin: 11/08/21 21:06 Dose: 10 mg Documented by: Fluoxetine HCl (Fluoxetine Hcl 10 Mg Cap) 10 mg PO DAILY [facility] Last Admin: 11/09/21 08:32 Dose: 10 mg Documented by: Fluoxetine HCl (Fluoxetine Hcl 20 Mg Cap) 20 mg PO DAILY [facility] Last Admin: 11/09/21 08:33 Dose: 20 mg Documented by: Furosemide (Furosemide 10 Mg/Ml 4 Ml Vial) 40 mg IV DAILY [facility] Last Admin: 11/09/21 08:31 Dose: 40 mg Documented by: Sodium Chloride (Saline 0.9%) 1,000 mls @ 130 mls/hr IV .Q7H42M [facility] Last Admin: 11/09/21 08:33 Dose: 130 mls/hr Documented by: Piperacillin Sod/Tazobactam (Sod 3.375 gm/ Sodium Chloride) 100 mls @ 25 mls/hr IVPB Q8HR [facility] Last Admin: 11/09/21 08:44 Dose: 25 mls/hr Documented by: Remdesivir 100 mg/ Sodium (Chloride) 250 mls @ 250 mls/hr IVPB DAILY@1400 [facility] Stop: 11/12/21 14:59 Isosorbide Mononitrate (Isosorbide Mononitrate Er 60 Mg Tab.Er.24h) 60 mg PO DAILY [facility] Last Admin: 11/09/21 08:33 Dose: 60 mg Documented by: Lorazepam (Lorazepam 2 Mg/Ml Inj) 0.5 mg IV Q6HR PRN PRN Reason: Anxiety Montelukast Sodium (Montelukast 10 Mg Tab) 10 mg PO DAILY [facility] Last Admin: 11/09/21 08:32 Dose: 10 mg Documented by: Naloxone HCl (Naloxone 0.4 Mg/Ml 1 Ml Vial) 0.2 mg IV Q2M PRN PRN Reason: Opioid Reversal Nitroglycerin (Nitroglycerin Sl Tabs 0.4 Mg Tab) 0.4 mg SUBLINGUAL Q5M PRN PRN Reason: Chest Pain Ondansetron HCl (Ondansetron 4 Mg/2 Ml Vial) 4 mg IVP Q8HR PRN PRN Reason: Nausea And Vomiting Pantoprazole Sodium (Pantoprazole 40 Mg/10 Ml Vial) 40 mg IV DAILY [facility] Last Admin: 11/09/21 08:31 Dose: 40 mg Documented by: Tramadol HCl (Tramadol 50 Mg Tab) 50 mg PO BID PRN PRN Reason: Pain Laboratory Results - Last 24 Hours 11/08/21 11/08/21 11/08/21 13:23 13:23 13:23 WBC 5.2 RBC 4.48 Hgb 13.7 Hct 46.0 MCV 102.7 H MCH 30.6 MCHC 29.8 L RDW 13.1 Plt Count 140 L MPV 7.7 Immature Gran % (Auto) Absolute Nucleated RBC Neutrophils % 81 Lymphocytes % 9 Monocytes % 5 Eosinophils % 2 Basophils % 1 Immature Gran # Neutrophils # 4.2 Lymphocytes # 0.5 L Monocytes # 0.3 Eosinophils # 0.1 Basophils # 0.0 NRBC/100 WBC Diff Hypochromasia Moderate Macrocytosis Slight D-Dimer 0.28 Sodium Potassium Chloride Carbon Dioxide Anion Gap BUN Creatinine Est GFR (CKD-EPI)AfAm Est GFR (CKD-EPI)NonAf BUN/Creatinine Ratio Glucose Calcium Ferritin 64.7 Total Bilirubin AST ALT Alkaline Phosphatase Lactate Dehydrogenase 589 C-Reactive Protein 1.1 H Total Protein Albumin Globulin Albumin/Globulin Ratio Procalcitonin 01/09/22 01/10/22 01/10/22 13:23 06:06 06:06 WBC 3.16 L RBC 4.10 Hgb 12.7 Hct 40.4 MCV 98.5 H MCH 31.0 MCHC 31.4 L RDW 12.8 Plt Count 143 MPV 11.1 Immature Gran % (Auto) 0.6 Absolute Nucleated RBC 0 Neutrophils % 67.2 Lymphocytes % 19.6 Monocytes % 12.3 Eosinophils % 0 Basophils % 0.3 Immature Gran # 0.02 Neutrophils # 2.12 Lymphocytes # 0.62 L Monocytes # 0.39 Eosinophils # 0 L Basophils # 0.01 NRBC/100 WBC Diff 0 Hypochromasia Macrocytosis D-Dimer Sodium Potassium Chloride Carbon Dioxide Anion Gap BUN Creatinine Est GFR (CKD-EPI)AfAm Est GFR (CKD-EPI)NonAf BUN/Creatinine Ratio Glucose Calcium Ferritin Total Bilirubin AST ALT Alkaline Phosphatase Lactate Dehydrogenase C-Reactive Protein Total Protein Albumin Globulin Albumin/Globulin Ratio Procalcitonin 0.06 0.05 11/09/21 11/09/21 06:06 06:06 WBC RBC Hgb Hct MCV MCH MCHC RDW Plt Count MPV Immature Gran % (Auto) Absolute Nucleated RBC Neutrophils % Lymphocytes % Monocytes % Eosinophils % Basophils % Immature Gran # Neutrophils # Lymphocytes # Monocytes # Eosinophils # Basophils # NRBC/100 WBC Diff Hypochromasia Macrocytosis D-Dimer 0.31 Sodium 139 Potassium 4.3 Chloride 103 Carbon Dioxide 23.7 Anion Gap 12.30 BUN 18.0 Creatinine 0.9 Est GFR (CKD-EPI)AfAm 65.7 Est GFR (CKD-EPI)NonAf 56.7 L BUN/Creatinine Ratio 20.00 Glucose 118 H Calcium 8.4 L Ferritin Total Bilirubin 0.30 AST 20 ALT 17 Alkaline Phosphatase 91 Lactate Dehydrogenase 182 C-Reactive Protein 1.90 H Total Protein 5.6 L Albumin 3.6 L Globulin 2.0 Albumin/Globulin Ratio 1.80 Procalcitonin Vital Signs Temp 98.2 F 11/09/21 07:00 Pulse 80 11/09/21 07:00 Resp 20 11/09/21 07:00 BP 180/97 11/09/21 07:00 Pulse Ox 98 11/09/21 07:00 Intake & Output 11/08/21 11/09/21 11/09/21 18:59 06:59 18:59 Intake Total 472 Balance 472 Intake: Oral 472 Other: Voiding Method Bedside Commode # Voids 3 1 1 Objective - Vital Signs Vital signs: Vital Signs Temp 98.2 F 11/09/21 07:00 Pulse 80 11/09/21 07:00 Resp 20 11/09/21 07:00 BP 180/97 11/09/21 07:00 Pulse Ox 98 11/09/21 07:00 Intake & Output 11/08/21 11/09/21 11/09/21 18:59 06:59 18:59 Intake Total 472 Balance 472 Intake: Oral 472 Other: Voiding Method Bedside Commode # Voids 3 1 1 - Labs CBC & Chem 7: 11/09/21 06:06 11/09/21 06:06 Labs: Abnormal Lab Results - Last 24 Hours (Table) 11/08/21 11/08/21 11/09/21 Range/Units 13:23 13:23 06:06 WBC 3.16 L (4.50-10.00) X 10*3/uL MCV 102.7 H 98.5 H (80.0-100.0) fL MCHC 29.8 L 31.4 L (31.0-37.0) g/dL Plt Count 140 L (150-450) k/uL Lymphocytes # 0.5 L 0.62 L (1.0-4.8) k/uL Eosinophils # 0 L (0.04-0.35) X 10*3/uL Est GFR (CKD-EPI)NonAf (60.0-200.0) Glucose (70-110) mg/dL Calcium (8.7-10.3) mg/dL C-Reactive Protein 1.1 H (<1.0) mg/dL Total Protein (6.2-8.2) g/dL Albumin (3.8-4.9) g/dL 11/09/21 Range/Units 06:06 WBC (4.50-10.00) X 10*3/uL MCV (80.0-100.0) fL MCHC (31.0-37.0) g/dL Plt Count (150-450) k/uL Lymphocytes # (1.0-4.8) k/uL Eosinophils # (0.04-0.35) X 10*3/uL Est GFR (CKD-EPI)NonAf 56.7 L (60.0-200.0) Glucose 118 H (70-110) mg/dL Calcium 8.4 L (8.7-10.3) mg/dL C-Reactive Protein 1.90 H (<1.0) mg/dL Total Protein 5.6 L (6.2-8.2) g/dL Albumin 3.6 L (3.8-4.9) g/dL
[2021-11-09] MEDS: EZETIMIBE 10 MG TAB PO SCH (21:04)
[2021-11-10] MEDS: PIPERACILLIN-TAZOBACTAM 3.375 GM in SODIUM CHLORIDE 0.9% 100 ML IVPB SCH ×3 (00:48→16:32)
[2021-11-10] MEDS: SODIUM CHLORIDE 0.9% 1,000 ML IV SCH ×3 (03:38→15:27)
[2021-11-10 07:27] LABS: HCT 46.3 % (34.0-46.0); HGB 14.1 gm/dL (11.4-16.0); Hypochromasia Moderate; MCHC 30.4 g/dL (31.0-37.0); MCV 101.9 fL (80.0-100.0); Mean Platelet Volume 8.5; Platelet Count 149 k/uL (150-450); RBC 4.54 m/uL (3.80-5.40); RDW 12.7 % (11.5-15.5); WBC 6.6 k/uL (3.8-10.6)
[2021-11-10 07:35] LABS: African American GFR (CKD) 60 (>60 ml/min/1.73 sqM); Anion Gap 6 mmol/L; Blood Urea Nitrogen 22 mg/dL (7-17); Calcium 8.4 mg/dL (8.4-10.2); Carbon Dioxide 30 mmol/L (22-30); Chloride 102 mmol/L (98-107); Glucose 102 mg/dL (74-99); Non-African American GFR(CKD) 52 (>60 ml/min/1.73 sqM); Potassium 3.9 mmol/L (3.5-5.1); Sodium 138 mmol/L (137-145)
[2021-11-10] MEDS: ALBUTEROL HFA INHALER INHALATION SCH ×3 (09:07→17:15)
[2021-11-10] MEDS: LACTATED RINGERS 1,000 ML IV SCH (09:17)
[2021-11-10] MEDS: MONTELUKAST 10 MG TAB PO SCH (09:24)
[2021-11-10] MEDS: ASCORBIC ACID 500 MG TAB PO SCH (09:24)
[2021-11-10] MEDS: CHOLECALCIFEROL 125 MCG (5000 IU) TABLET PO SCH (09:24)
[2021-11-10] MEDS: ASPIRIN 81 MG PO SCH (09:24)
[2021-11-10] MEDS: FUROSEMIDE 10 MG/ML 4 ML VIAL IV SCH (09:24)
[2021-11-10] MEDS: atenoloL 25 MG TAB PO SCH (09:24)
[2021-11-10] MEDS: FLUoxetine HCL 20 MG CAP PO SCH (09:24)
[2021-11-10] MEDS: ISOSORBIDE MONONITRATE ER 60 MG TAB.ER.24H PO SCH (09:24)
[2021-11-10] MEDS: FLUoxetine HCL 10 MG CAP PO SCH (09:24)
[2021-11-10] MEDS: ATORVASTATIN 40 MG TAB PO SCH (09:24)
[2021-11-10] MEDS: PANTOPRAZOLE 40 MG/10 ML VIAL IV SCH (09:25)
[2021-11-10] MEDS: DEXAMETHASONE SOD PHOSPHATE 10 MG/ML 1 ML VIAL IVP SCH (09:25)
--- NOTE | 2021-11-10 10:00 | P.PN ---
Subjective Progress Note Date: 11/10/21 History of present illness: This is a 89-year-old pleasant female patient of Dr. Meyers with a past medical history significant for coronary artery disease with stenting to the first OM and July 2021, asthma, heart failure, hyperlipidemia, pulmonary embolism, brain tumor with mild memory impairment, depression, and IBS. Patient presented to the emergency room complaining of vomiting blood. Patient stated that she had approximately half a cup of bright red blood. Later on she began to have a nosebleed. Patient denies any cough. Patient denies nausea and did not have any repeat vomiting episodes. She denies any dizziness or lightheadedness. Denies any change to her bowel movement. No dark tarry stools. She is currently on blood thinners. At this time patient was assessed on and found to be short of breath with conversation and activity. She is in moderate distress. Patient states that the shortness of breath has been happening quite frequently. States that any activity causes shortness of breath. Patient denies any chest pain, fevers, or cough. Patient has 2+ pedal edema to bilateral lower extremities with multiple abrasions from scratching noted. Patient is alert and answering questions appropriately. Patient has no other complaints or concerns at this time. W BC 7.5, hemoglobin 14.4, potassium 4.5, BUN 27, creatinine 0.84, COVID- 19 PCR positive. Patient is afebrile, respirations are 32 with labored breathing, blood pressure 174/93, heart rate 85, pulse ox 95% on 2 L. Chest x- ray was ordered. We will repeat hemoglobin at 2 PM. 11/09: Patient has severe hearing loss, was noted to have incontinence all over the place, patient is sitting in the commode, despite her sitting on it, this occurs quite often according to nurse, with urine all over the floor. Patient has a hearing aid does not work, there is no epistaxis hemoptysis now, or melena hematochezia, patient will be started on urine continence program, and is currently on the Ashley, for which he was started on November 08., egd to be scheduled for egd tomorrow by surgery for hematemesis, eliquis and effient is on hold, prior EP in past 11/10: Patient remains in isolation for COVID, currently on Remdesivir. A is complaining of a little cough. No more rectal bleeding/blackness or blood in stools. She's been afebrile, heart rate 70, blood pressure 138/76, pulse ox 99% on 2 L nasal cannula. Hemoglobin is 14.1, fluid, 149. She is scheduled for EGD today with Dr. Aviles. Review Of Systems: Constitutional: No fever, no chills, no night sweats. No weight change. No weakness, fatigue or lethargy. No daytime sleepiness. EENT: No headache. No blurred vision or double vision, no loss of vision. No loss of Hearing, no ringing in the ears, no dizziness. No nasal drainage or congestion. No epistaxis. No sore throat. Lungs: Reports shortness of breath, no cough, no sputum production. No wheezing. Cardiovascular: No chest pain, reports lower extremity edema. No palpitations. No paroxysmal nocturnal dyspnea. No orthopnea. No lightheadedness or dizziness. No syncopal episodes. Abdominal: Reports hematemesis, no abdominal discomfort. No nausea, vomiting. no diarrhea. No constipation. No bloody or tarry stools. no loss of appetite. Genitourinary: No dysuria, increased frequency, urgency. No urinary retention. Musculoskeletal: No myalgias. No muscle weakness, no gait dysfunction, no frequent falls. No back pain. No neck pain. Integumentary: No wounds, reports lesions lateral lower extremities. No rash or pruritus. No unusual bruising. No change in hair or nails. Neurologic: No aphasia. No facial droop. No change in mentation. No head injury. No headache. No paralysis. No paresthesia. Psychiatric: Reports depression. Reports anxiety. No mood swings. Endocrine: No abnormal blood sugars. No weight change. No excessive sweating or thirst. Physical examination General Appearance: Alert, cooperative, moderate distress with activity and conversation, this is a 89-year-old pleasant female appears stated age.She appears to be comfortable and in no acute distress. Neck HEENT: Supple, no lymphadenopathy, no thyroid enlargement, no carotid br uits. Lungs: Clear to auscultation without crackles or wheezes no rhonchi, no deformity. Chest Wall: Chest wall normal expansion with deep inspiration no tenderness and no deformity was found on exam, no costochondral pain or discomfort. Heart: Regular rate and rhythm, S1, S2 normal, no murmur, rub or gallop. Back: Symmetric, no curvature, ROM normal, no CVA tenderness. Abdomen: Soft, non-tender, no rebound or rigidity, no hepatosplenomegaly. Extremities: 2+ pedal edema Extremities normal, atraumatic, no cyanosis. Pulses: 2+ and symmetric. Skin: Skin color, texture, tugor normal, no rashes multiple lesions to bilateral lower extremities. Neurologic: Alert oriented x3 cranial nerves II through XII intact, no motor deficit, no abnormal balance or gait Assessment and plan 1. Acute GI bleed hematemesis. Consult surgery for EGD for 11/10/21, continue Protonix 40 mg daily, Zofran 4 mg every 8 hours as needed 2. Acute shortness of breath with COVID-19 with hypoxia. Chest x-ray ordered, consult cardiology, Zosyn IV piggyback, Lasix 40 mg IV daily, consult pulm onology, vitamin C, vitamin D3 and zinc added we will hold off on Lovenox due to GI bleed. Decadron 6 mg IV push daily 3. Arthrosclerosis heart disease status post PCI to LAD and most recently first OM on 08/25/2021. Patient is on effient and aspirin which we will hold at this time. 4. Hypertension. Continue atenolol 25 mg, that he 10 mg by mouth at bedtime Imdur 60 mg by mouth daily 5. Congestive heart failure. Lasix 40 mg 6. Hyperlipidemia. Atorvastatin 40 mg by mouth daily 7. GERD. Protonix 40 mg 8. Asthma. singular 10 mg by mouth daily, 9. Cardiomyopathy, ejection fraction 50-55%. 10. Depression. Prozac, Xanax as needed 11. Pulmonary embolism. We will hold eliquis 12. IBS with diarrhea, stable. 13. History of brain tumor with mild memory impairment, stable. 14. DVT prophylaxis. Sequential compression stockings 15. GI prophylaxis. Protonix CODE STATUS: Full code Impression and plan of care have been directed as dictated by the signing physician. Patience Jones nurse practitioner acting as scribe for signing physician. Objective - Vital Signs Vital signs: Vital Signs Temp 98.0 F 11/10/21 07:00 Pulse 70 11/10/21 07:00 Resp 18 11/10/21 07:00 BP 138/76 11/10/21 07:00 Pulse Ox 99 11/10/21 09:08 Intake & Output 11/09/21 11/10/21 11/10/21 18:59 06:59 18:59 Intake Total 1952 0 Output Total 1200 850 Balance 752 0 -850 Intake: Intake, IV Titration 1390 Amount Piperacillin-Tazobactam 3 100 .375 gm In Sodium Chloride 0.9% 100 ml @ 25 mls/hr IVPB Q8HR [facility] Rx# :[id number] Remdesivir 100 mg In 250 Sodium Chloride 0.9% 250 ml @ 250 mls/hr IVPB DAILY@1400 [facility] Rx#: [id number] Sodium Chloride 0.9% 1, 1040 000 ml @ 130 mls/hr IV . Q7H42M [facility] Rx#:[id number] Oral 562 0 Output: Urine 1200 850 Other: Voiding Method External Catheter # Voids 1 2 - Labs CBC & Chem 7: 11/10/21 06:44 11/10/21 06:44 Labs: Abnormal Lab Results - Last 24 Hours (Table) 11/09/21 11/10/21 11/10/21 Range/Units 06:06 06:44 06:44 Hct 46.3 H (34.0-46.0) % MCV 101.9 H (80.0-100.0) fL MCHC 30.4 L (31.0-37.0) g/dL Plt Count 149 L (150-450) k/uL BUN 22 H (7-17) mg/dL Est GFR (CKD-EPI)NonAf 56.7 L (60.0-200.0) Glucose 118 H 102 H (70-110) mg/dL Calcium 8.4 L (8.7-10.3) mg/dL C-Reactive Protein 1.90 H (0.00-0.80) mg/dL Total Protein 5.6 L (6.2-8.2) g/dL Albumin 3.6 L (3.8-4.9) g/dL
[2021-11-10] MEDS ORDERED: PROPOFOL 10 MG/ML 20 ML VIAL IV ONE (13:16)
[2021-11-10] MEDS ORDERED: IV FLUID CONTINUATION 1,000 ML IV ONE (13:21)
--- NOTE | 2021-11-10 13:26 | P.PN ---
Subjective Progress Note Date: 11/10/21 This is a 89-year-old white female patient with past medical history of chronic bronchial asthma, unspecified, coronary artery disease with previous stenting, chronic CHF, 2 previous episodes of pulmonary embolism, hyperlipidemia, IBS, nonsmoker who presented to the emergency department on 11/07/2021 for evaluation of vomiting up blood, patient is on Eliquis and Plavix, she denies any prior history of GI bleeding, she also reports a nosebleed. No cough, no fever, but she did feel fatigued. No syncopal episodes, no chest pain, no lightheadedness or dizziness, no abdominal pain. No globin in the emergency department was 14.4, hematocrit was 46.5, white blood cell, 7.5, patient has not required blood transfusion, hemodynamically she is stable. APTT was 27.9, B1 is 27 creatinine 0.84. Patient is part of the screening practice was swabbed for COVID-19 and was found to be positive, however she denies any significant pulmonary symptoms, she is vaccinated she is unsure what vaccine she has received, but she states she got 2 shots back in the spring of 2020, has not received a booster because she developed pleuritic chest discomfort after her second COVID-19 vaccination injection, she does have mild congestive cough, but no shortness of breath. Chest x-ray showed cardiomegaly and chronic changes without acute pulmonary process. Currently on 2 L of oxygen her pulse ox is 98%, she has been afebrile. On 11/09/2021 patient seen in follow-up on medical surgical floor, she is breathing comfortably, denies any acute respiratory distress, she is currently on room air, her pulse ox is 93%, does have a mildly congestive cough, and other than that no pulmonary symptoms. Her Eliquis has remained on hold, she has not had recurrence of hematemesis since admission, vital signs have been stable, blood pressure has been stable, no tachycardia, no complaints of shortness of breath or chest pain, no fever or chills, follow-up chest x-ray was obtained today showing new to patchy opacities in the periphery of the right lung consistent with COVID-19 infection which is now apparent. Patient was started on Remdesivir yesterday, today is day 2 of treatment, she continues on Decadron 6 mg daily, she is on inhaled Ventolin, she is on Zosyn, however she had 2 negative Procalcitonin levels of 0.06, and 0.05 and as such her Zosyn can be discontinued. Abdomen is soft, no abdominal pain, no vomiting, no diarrhea, today's lab 7 reviewed, her white blood cell count is 3.16, hemoglobin 12.7, p latelet count is 143, d-dimer 0.31, electrolytes and renal profile were unremarkable, LFTs were unremarkable. Vascular surgery was consulted for possibility of IVC filter placement however there is no plans for IVC filter unless the patient rebleeds and her anticoagulation has to be placed on hold. Surgical services are following, and patient is being scheduled for EGD tomorrow. The patient is seen today 11/10/2021 in follow-up on the regular medical floor. She is currently sitting up at the bedside commode. She is having bowel movements though no blood reported. No worsening shortness of breath, cough or congestion. Maintaining O2 saturations up to 100% on 2 L/m per nasal cannula. She's been afebrile. Hemodynamically stable. The plan is for EGD this morning. Her Eliquis remains on hold. She is continued on Decadron, vitamin supplements, antibiotics in the form of Zosyn. This is day #3 of Remdesivir. White count 6.6. Hemoglobin 14.1. Platelets 149. Sodium 138. Potassium 3.9. Creatinine 0.97. Objective - Vital Signs Vital signs: Vital Signs Temp 98.0 F 11/10/21 07:00 Pulse 70 11/10/21 07:00 Resp 18 11/10/21 07:00 BP 138/76 11/10/21 07:00 Pulse Ox 99 11/10/21 09:08 Intake & Output 11/09/21 11/10/21 11/10/21 18:59 06:59 18:59 Intake Total 1952 0 Output Total 1200 850 Balance 752 0 -850 Intake: Intake, IV Titration 1390 Amount Piperacillin-Tazobactam 3 100 .375 gm In Sodium Chloride 0.9% 100 ml @ 25 mls/hr IVPB Q8HR [facility] Rx# :[id number] Remdesivir 100 mg In 250 Sodium Chloride 0.9% 250 ml @ 250 mls/hr IVPB DAILY@1400 [facility] Rx#: [id number] Sodium Chloride 0.9% 1, 1040 000 ml @ 130 mls/hr IV . Q7H42M [facility] Rx#:[id number] Oral 562 0 Output: Urine 1200 850 Other: Voiding Method External Catheter # Voids 1 2 - Exam GENERAL EXAM: Alert, very pleasant, 89-year-old female patient, on 2 L of oxygen a pulse ox of 100% comfortable in no apparent distress. HEAD: Normocephalic/atraumatic. EYES: Normal reaction of pupils, equal size. Conjunctiva pink, sclera white. NOSE: Clear with pink turbinates. THROAT: No erythema or exudates. NECK: No masses, no JVD, no thyroid enlargement, no adenopathy. CHEST: No chest wall deformity. Symmetrical expansion. LUNGS: Equal air entry with few rhonchi in the right lung. CVS: Regular rate and rhythm, normal S1 and S2, no gallops, no murmurs, no rubs ABDOMEN: Soft, nontender. No hepatosplenomegaly, normal bowel sounds, no guarding or rigidity. EXTREMITIES: No clubbing, no edema, no cyanosis, 2+ pulses and upper and lower extremities. MUSCULOSKELETAL: Muscle strength and tone normal. SPINE: No scoliosis or deformity SKIN: No rashes CENTRAL NERVOUS SYSTEM: No focal deficits, tone is normal in all 4 extremities. PSYCHIATRIC: Alert and oriented -3. Appropriate affect. Intact judgment and insight. - Labs CBC & Chem 7: 11/10/21 06:44 11/10/21 06:44 Labs: Abnormal Lab Results - Last 24 Hours (Table) 11/10/21 11/10/21 Range/Units 06:44 06:44 Hct 46.3 H (34.0-46.0) % MCV 101.9 H (80.0-100.0) fL MCHC 30.4 L (31.0-37.0) g/dL Plt Count 149 L (150-450) k/uL BUN 22 H (7-17) mg/dL Glucose 102 H (74-99) mg/dL Assessment and Plan Assessment: 1 Acute COVID-19 infection, without acute pneumonia on the chest x-ray, patient is currently on 2 L of oxygen, however this was an incidental finding 1 the patient was swabbed for COVID-19 as part of the routine screening practices. Patient does report 2 or 3 days worth of increased fatigue, cough but no fever. Follow-up chest x-ray on 11/09/2021 showing new patchy opacities in the right lung periphery consistent with COVID-19 pneumonia, patient was started on Remdesivir on 11/08/2021 2 Hematemesis, acute GI bleeding, on Eliquis and Effient, and both have been placed on hold. EGD planned for today 11/10/2021 3 Prior history of pulmonary embolism 2 in the past 4 Hypertension 5 Hyperlipidemia 6 Coronary artery disease with previous PCI and stenting 7 Mild to moderate pulmonary hypertension, mild MR, mild aortic regurgitation and mild to moderate tricuspid regurgitation Plan: The patient was seen and evaluated Maintaining O2 saturations up to 100% on 2 L Titrate down the FiO2 as tolerated Day #3 of Remdesivir Continue Decadron, vitamin supplements Eliquis remains on hold for EGD today I, the cosigning physician, performed a history & physical examination of the patient. Lungs sounds with few rhonchi in the right lung. Maintaining good O2 saturations in the 90s on 2 L/m per nasal cannula. I discussed the assessment and plan of care with my nurse practitioner, Sherin Bonner. I attest to the above note as dictated by her.
--- NOTE | 2021-11-10 13:35 | P.PCN ---
Date of Procedure: 11/10/21 Procedure(s) Performed: Preoperative Dx: Upper GI bleed Postoperative Dx: Gastritis, hiatal hernia Procedure: EGD with Bx Anesthesia: Sedation Endoscopist: Dr. Aviles Specimens: Antrum Endoscopic Procedure: The patient was on the endoscopy table in the left decubitus position. The Olympus gastroscope was inserted into the oropharynx and passed under direct visualization to the region of the third portion of the duodenum. From that point the scope was slowly withdrawn inspecting all surfaces carefully. There were no neoplastic inflammatory or polypoid lesions throughout the duodenum. The pylorus was widely patent. The stomach was carefully inspected. There was some slight deformity at the prepyloric region without ulceration. This may have been on the basis of previous ulcer disease. There was gastritis present in a biopsy took place of the antrum. A biopsy of the antrum took place to rule out H. pylori. Retroflexion revealed a small to moderate-sized hiatal hernia without significant inflammatory changes. The esophagus was then carefully examined. There were no neoplastic inflammatory or polypoid lesions throughout the visualized esophagus. The patient was then taken to the recovery room in stable condition per anesthesia guidelines. Recommendations: Source of bleeding likely related to the gastritis and hiatal hernia. Resume diet. Continue antiacids.
--- NOTE | 2021-11-10 13:56 | P.PN ---
Subjective Progress Note Date: 11/10/21 HISTORY OF PRESENT ILLNESS: This is a 89-year-old female with a past medical history significant for coronary artery disease with previous PCI to LAD, hypertension, hyperlipidemia, and PE on Eliquis. Patient follows in the office with Dr. Ayala. She had a recent hospitalization in July 2021 at which time she was treated for acute chest pain secondary to coronary artery disease status post stent of the first obtuse marginal branch, echocardiogram revealed EF of 50-55% with mild aortic regurgitation, mild mitral regurgitation, [id number] tricuspid regurgitation, mild to moderate pulmonary hypertension. We have been asked to see the patient in consultation for his of breath. Patient complains of cough for 2-3 days as well as having vomiting which was bloody and blood in her nose. She said the vomiting came on unexpectedly. She denies having any abdominal pain, no black stools. Nausea and vomiting have resolved now. She states she is coughing a lot. She's been taking all of her cardiac medications as directed. She states in general she has been very short of breath for the past 6 months. EKG reveals sinus mechanism with no signs of acute ischemia. Chest xray cardiomegaly and chronic changes without acute pulmonary process. Laboratory data: Coronavirus PCR detected. WBC 7.5. Hemoglobin 14.4. Platelet count 143. Sodium 137. Potassium 4.5. BUN 27. Creatinine 0.846. Magnesium 2. Troponin negative 1. Current home cardiac medications include atenolol 25 mg daily, atorvastatin 40 mg daily, eliquis 5 mg twice daily, Zetia 10 mg at bedtime, Imdur 60 mg daily, Effient 10 mg daily Cardiac catheterization history: July 2021 revealed calcified coronary arteries. Significant disease in the obtuse marginal branch one, mild to moderate disease in the LAD and right coronary artery with no significant in- stent restenosis. Subsequently underwent stenting of the first obtuse marginal branch. 11/09/2021 Patient remains hospitalized on 6N. Patient is positive for Covid 19. Patients hemoglobin remains stable today at 12.7. General surgery is following. Awaiting further input regarding EGD. She denies chest pain or pressure. Patients blood pressure elevated this morning. She just received her morning medications t saloni. 11/10/2021 Patient underwent EGD today revealing gastritis and hiatal hernia. Patient's Eliquis and Effient remain on hold. Patient's hemoglobin 14.1 today. No further bleeding. PHYSICAL EXAM: Thorough physical examination not completed secondary to Covid 19 infection ASSESSMENT: Acute GI bleed Covid 19 Acute shortness of breath secondary to Covid 19 Coronary artery disease with previous PCI to LAD and first obtuse marginal branch Hypertension Hyperlipidemia History of PE, on anticoagulation with Eliquis PLAN: Eliquis and Effient remain on hold. Resume when okay with general surgery/GI Continue additional cardiac medications No further inpatient recommendations from a cardiac standpoint We will sign off. Please reconsult if needed. Nurse practitioner note has been reviewed by physician. Signing provider agrees with the documented findings, assessment, and plan of care. Objective - Vital Signs Vital signs: Vital Signs Temp 98.0 F 11/10/21 07:00 Pulse 70 11/10/21 07:00 Resp 18 11/10/21 07:00 BP 138/76 11/10/21 07:00 Pulse Ox 99 11/10/21 09:08 Intake & Output 11/09/21 11/10/21 11/10/21 18:59 06:59 18:59 Intake Total 1952 0 50 Output Total 1200 850 Balance 752 0 -800 Intake: IV 50 Intake, IV Titration 1390 Amount Piperacillin-Tazobactam 3 100 .375 gm In Sodium Chloride 0.9% 100 ml @ 25 mls/hr IVPB Q8HR [facility] Rx# :[id number] Remdesivir 100 mg In 250 Sodium Chloride 0.9% 250 ml @ 250 mls/hr IVPB DAILY@1400 [facility] Rx#: [id number] Sodium Chloride 0.9% 1, 1040 000 ml @ 130 mls/hr IV . Q7H42M [facility] Rx#:[id number] Oral 562 0 Output: Urine 1200 850 Other: Voiding Method External Catheter # Voids 1 2 - Labs CBC & Chem 7: 11/10/21 06:44 11/10/21 06:44 Labs: Abnormal Lab Results - Last 24 Hours (Table) 11/10/21 11/10/21 Range/Units 06:44 06:44 Hct 46.3 H (34.0-46.0) % MCV 101.9 H (80.0-100.0) fL MCHC 30.4 L (31.0-37.0) g/dL Plt Count 149 L (150-450) k/uL BUN 22 H (7-17) mg/dL Glucose 102 H (74-99) mg/dL
[2021-11-10] MEDS: REMDESIVIR 100 MG in SODIUM CHLORIDE 0.9% 250 ML IVPB SCH (15:25)
--- NOTE | 2021-11-10 15:26 | P.PN ---
Subjective Progress Note Date: 11/10/21 The patient is seen and examined lying in bed. She is a follow-up for upper GI bleed on anticoagulation for history of 2 prior pulmonary embolism. Patient has not had any further nausea vomiting or hematemesis. She is scheduled to undergo an upper endoscopy this afternoon. Coagulation is currently on hold. A myoglobin improved today to 14.1 Objective - Vital Signs Vital signs: Vital Signs Temp 98.0 F 11/10/21 07:00 Pulse 70 11/10/21 07:00 Resp 18 11/10/21 07:00 BP 138/76 11/10/21 07:00 Pulse Ox 99 11/10/21 09:08 Intake & Output 11/09/21 11/10/21 11/10/21 18:59 06:59 18:59 Intake Total 1952 0 Output Total 1200 850 Balance 752 0 -850 Intake: Intake, IV Titration 1390 Amount Piperacillin-Tazobactam 3 100 .375 gm In Sodium Chloride 0.9% 100 ml @ 25 mls/hr IVPB Q8HR [facility] Rx# :[id number] Remdesivir 100 mg In 250 Sodium Chloride 0.9% 250 ml @ 250 mls/hr IVPB DAILY@1400 [facility] Rx#: [id number] Sodium Chloride 0.9% 1, 1040 000 ml @ 130 mls/hr IV . Q7H42M [facility] Rx#:[id number] Oral 562 0 Output: Urine 1200 850 Other: Voiding Method External Catheter # Voids 1 2 - Exam General appearance: The patient is alert, oriented, in no acute distress. HET: Head is normocephalic and atraumatic. . Neck: Supple without lymphadenopathy. Trachea midline. Heart: S1 S2. Regular rate and rhythm. Lungs: Equal air entry. No crackles or wheezes are heard. Abdomen: Soft, nontender, nondistended. Extremities: Normal skin color and turgor. Neurological: No focal deficits. Alert and oriented 3. - Labs CBC & Chem 7: 11/10/21 06:44 11/10/21 06:44 Labs: Abnormal Lab Results - Last 24 Hours (Table) 11/10/21 11/10/21 Range/Units 06:44 06:44 Hct 46.3 H (34.0-46.0) % MCV 101.9 H (80.0-100.0) fL MCHC 30.4 L (31.0-37.0) g/dL Plt Count 149 L (150-450) k/uL BUN 22 H (7-17) mg/dL Glucose 102 H (74-99) mg/dL Assessment and Plan Assessment: 1. History of pulmonary embolism on Eliquis, currently on hold 2. Upper GI bleed 3. Epistaxis 4. Coronary artery disease on Effient, currently on hold 5. COVID-19 pnemonia Plan: 1. Continue symptomatic and supportive care 2. No plans at this time to place IVC filter 3. May resume anticoagulation if no active GI bleed Vascular surgery will be on standby. If further needed please do not hesitate to contact us. The impression and plan of care has been dictated as directed. Dr. Barnard I performed a history and examination of this patient, discussed the same with the dictator. I agree with the dictator's note ,documented as a scribe. Any additional findings or plans will be noted.
[2021-11-10] MEDS: EZETIMIBE 10 MG TAB PO SCH (21:17)
[2021-11-11] MEDS: PIPERACILLIN-TAZOBACTAM 3.375 GM in SODIUM CHLORIDE 0.9% 100 ML IVPB SCH ×3 (01:07→16:56)
[2021-11-11] MEDS: SODIUM CHLORIDE 0.9% 1,000 ML IV SCH ×3 (01:07→16:59)
[2021-11-11] MEDS: ALBUTEROL HFA INHALER INHALATION SCH ×5 (05:53→20:47)
[2021-11-11] MEDS: SENNOSIDES-DOCUSATE SODIUM 1 EACH TAB PO SCH (10:21)
[2021-11-11] MEDS: FUROSEMIDE 10 MG/ML 4 ML VIAL IV SCH (10:22)
[2021-11-11] MEDS: PANTOPRAZOLE 40 MG/10 ML VIAL IV SCH (10:22)
[2021-11-11] MEDS: DEXAMETHASONE SOD PHOSPHATE 10 MG/ML 1 ML VIAL IVP SCH (10:22)
[2021-11-11] MEDS: atenoloL 25 MG TAB PO SCH (10:23)
[2021-11-11] MEDS: ASCORBIC ACID 500 MG TAB PO SCH (10:23)
[2021-11-11] MEDS: FLUoxetine HCL 10 MG CAP PO SCH (10:23)
[2021-11-11] MEDS: CHOLECALCIFEROL 125 MCG (5000 IU) TABLET PO SCH (10:23)
[2021-11-11] MEDS: MONTELUKAST 10 MG TAB PO SCH (10:23)
[2021-11-11] MEDS: ATORVASTATIN 40 MG TAB PO SCH (10:23)
[2021-11-11] MEDS: FLUoxetine HCL 20 MG CAP PO SCH (10:23)
[2021-11-11] MEDS: ASPIRIN 81 MG PO SCH (10:23)
[2021-11-11] MEDS: ISOSORBIDE MONONITRATE ER 60 MG TAB.ER.24H PO SCH (10:24)
[2021-11-11] MEDS: LACTATED RINGERS 1,000 ML IV SCH (10:24)
--- NOTE | 2021-11-11 12:15 | P.PN ---
Subjective Progress Note Date: 11/11/21 Principal diagnosis: Upper GI bleed Excision doing well today. No further bleeding. Tolerating regular diet. Objective - Vital Signs Vital signs: Vital Signs Temp 98.0 F 11/11/21 08:00 Pulse 78 11/11/21 08:00 Resp 16 11/11/21 08:00 BP 113/72 11/11/21 08:00 Pulse Ox 94 L 11/11/21 08:00 Intake & Output 11/10/21 11/11/21 11/11/21 18:59 06:59 18:59 Intake Total 50 118 Output Total 1890 Balance -1840 118 Intake: IV 50 Oral 118 Output: Urine 1890 Other: Voiding Method External Catheter # Bowel Movements 1 1 - Exam Abdomen: Soft, nontender, nondistended - Labs CBC & Chem 7: 11/10/21 06:44 11/10/21 06:44 Assessment and Plan (1) UGIB (upper gastrointestinal bleed) Narrative/Plan: Patient doing well today. Gastritis and hiatal hernia seen on endoscopy yesterday. May resume anticoagulation. Diet as tolerated. We'll sign off. Please call if rebleeding identified. Current Visit: Yes Status: Acute Code(s): K92.2 - GASTROINTESTINAL HEMORRHAGE, UNSPECIFIED SNOMED Code(s): 67239763
--- NOTE | 2021-11-11 12:54 | CDI ---
Documentation Clarification Form Date: 11/11/2021 12:32:54 PM From: Ana Ballesteros CCS, CCDS Admit Date: 11/10/2021 09:45:00 AM Patient Name: Kaci Garcia Visit Number: [id number] Discharge Date: ATTENTION: The Clinical Documentation Specialists (CDI) and [facility] Coding Staff appreciate your assistance in clarifying documentation. Please respond to the clarification below the line at the bottom and electronically sign. The CDI & [facility] Coding staff will review the response and follow-up if needed. Please note: Queries are made part of the Legal Health Record. If you have any questions, please contact the author of this message via ITS. Dr. Rose Mustafa: Chronic CHF is documented in the 11/08 Pulmonary Consult and subsequent Pulmonary Progress Notes on 11/09 & 11/10 in the patient's history without further specificity. Heart Failure is documented throughout the record in the patient's history in the 11/07 ED Note, the 11/08 Surgery Consult, the 11/08 History & Physical, the 11/08 Cardiology Consult, the 11/09 Vascular Surgery Consult and in subsequent Progress Notes on 11/09 & 11/10 without further specificity. Additional information regarding the Type & Acuity of CHF is requested. History/Risk Factors per the 11/08 H/P: CAD with coronary stents, CHF, Asthma, Hyperlipidemia, Hypertension, PE, Brain tumor with mild memory impairment, IBS and Depression. Clinical Indicators: Presented to the ED on 11/07 with GI Bleed, Nosebleed, nausea & vomiting blood on multiple anticoagulant medications. Admit with Gastritis, Coagulopathy, Upper GI Bleed, Nausea & Vomiting. 11/07 VS: T 97.8, P 75, R 18, BP 154/88, PO 97 RA, BMI: 26.6 11/07 LAB: Hgb 14.4, Hct 46.5, Pl Ct 143, Lymph 0.9; Cl 109, CO2 21, BUN 27, glucose 103. 11/08 COVID positive BNP not done. 11/08 CXR: Cardiomegaly and chronic changes without acute pulmonary process. 11/09 CXR: Cardiomegaly and chronic changes with 2 patchy opacities in the periphery of the right lung consistent with COVID 19 infection now present. Most recent ECHO: 08/26/2021: Left ventricular systolic function is low normal w/EF 50-55%. Right ventricle is mild-moderately enlarged, Mild aortic regurgitation, Mild MR, Mild-moderate TR, Mild-moderate Pulmonary Hypertension. Treatment 11/08: IV Zofran 4 mg x1, IV PPI 40 mg x1, IV Na Cl 500 mls @ 999 mls/hr q31M, Nitro ls q5M/prn, po Ultram, Tenormin, Lipitor, Pepcid, Prozac, Imdur, Singulair, Aspirin; IV Lasix 40 mg Daily, IV Zosyn q8H, IV Decadron, INH Ventolin QID/prn, IV Remdesivir (scheduled 5 doses). Cardiology was consulted on 11/08 for SOB. Impression: Acute GI Bleed. Acute SOB secondary to COVID 19. CAD with previous PCI to LAD & 1st obtuse marginal branch. In your professional opinion, can you please clarify the Acuity and Type of CHF if known? [ ] Acute Diastolic Heart Failure [ ] Chronic Diastolic Heart Failure [ ] Acute on Chronic Diastolic Heart Failure [ ] Heart Failure is ruled out this admission [ ] Other, please specify [ ] Unable to determine (Template Last Revised: December 2020) 11/16 Query response documented in the 11/13 Discharge Summary: Chronic Diastolic Heart Failure. (CDS: CHRISTIANO) SOTO
--- NOTE | 2021-11-11 13:13 | P.PN ---
Subjective Progress Note Date: 11/11/21 This is a 89-year-old white female patient with past medical history of chronic bronchial asthma, unspecified, coronary artery disease with previous stenting, chronic CHF, 2 previous episodes of pulmonary embolism, hyperlipidemia, IBS, nonsmoker who presented to the emergency department on 11/07/2021 for evaluation of vomiting up blood, patient is on Eliquis and Plavix, she denies any prior history of GI bleeding, she also reports a nosebleed. No cough, no fever, but she did feel fatigued. No syncopal episodes, no chest pain, no lightheadedness or dizziness, no abdominal pain. No globin in the emergency department was 14.4, hematocrit was 46.5, white blood cell, 7.5, patient has not required blood transfusion, hemodynamically she is stable. APTT was 27.9, B1 is 27 creatinine 0.84. Patient is part of the screening practice was swabbed for COVID-19 and was found to be positive, however she denies any significant pulmonary symptoms, she is vaccinated she is unsure what vaccine she has received, but she states she got 2 shots back in the spring of 2020, has not received a booster because she developed pleuritic chest discomfort after her second COVID-19 vaccination injection, she does have mild congestive cough, but no shortness of breath. Chest x-ray showed cardiomegaly and chronic changes without acute pulmonary process. Currently on 2 L of oxygen her pulse ox is 98%, she has been afebrile. On 11/09/2021 patient seen in follow-up on medical surgical floor, she is breathing comfortably, denies any acute respiratory distress, she is currently on room air, her pulse ox is 93%, does have a mildly congestive cough, and other than that no pulmonary symptoms. Her Eliquis has remained on hold, she has not had recurrence of hematemesis since admission, vital signs have been stable, blood pressure has been stable, no tachycardia, no complaints of shortness of breath or chest pain, no fever or chills, follow-up chest x-ray was obtained today showing new to patchy opacities in the periphery of the right lung consistent with COVID-19 infection which is now apparent. Patient was started on Remdesivir yesterday, today is day 2 of treatment, she continues on Decadron 6 mg daily, she is on inhaled Ventolin, she is on Zosyn, however she had 2 negative Procalcitonin levels of 0.06, and 0.05 and as such her Zosyn can be discontinued. Abdomen is soft, no abdominal pain, no vomiting, no diarrhea, today's lab 7 reviewed, her white blood cell count is 3.16, hemoglobin 12.7, p latelet count is 143, d-dimer 0.31, electrolytes and renal profile were unremarkable, LFTs were unremarkable. Vascular surgery was consulted for possibility of IVC filter placement however there is no plans for IVC filter unless the patient rebleeds and her anticoagulation has to be placed on hold. Surgical services are following, and patient is being scheduled for EGD tomorrow. The patient is seen today 11/10/2021 in follow-up on the regular medical floor. She is currently sitting up at the bedside commode. She is having bowel movements though no blood reported. No worsening shortness of breath, cough or congestion. Maintaining O2 saturations up to 100% on 2 L/m per nasal cannula. She's been afebrile. Hemodynamically stable. The plan is for EGD this morning. Her Eliquis remains on hold. She is continued on Decadron, vitamin supplements, antibiotics in the form of Zosyn. This is day #3 of Remdesivir. White count 6.6. Hemoglobin 14.1. Platelets 149. Sodium 138. Potassium 3.9. Creatinine 0.97. The patient is seen today 11/11/2021 in follow-up on the regular medical floor. She is resting comfortably in bed. Awake and alert in no acute distress. No further had hematemesis. She did undergo EGD yesterday no active bleeding noted. Suspected resource of bleeding was related to gastritis and hiatal hernia. Her diet has been resumed. No pulmonary complaints. She is maintaining O2 saturations in the 90s on 2 L/m per nasal cannula. Afebrile. Hemodynamically stable. She remains on Zosyn. Continued on Remdesivir, day #4. Continued on Decadron, vitamin supplements. Remains on IV diuretics. Objective - Vital Signs Vital signs: Vital Signs Temp 98.0 F 11/11/21 08:00 Pulse 78 11/11/21 08:00 Resp 16 11/11/21 08:00 BP 113/72 11/11/21 08:00 Pulse Ox 94 L 11/11/21 08:00 Intake & Output 11/10/21 11/11/21 11/11/21 18:59 06:59 18:59 Intake Total 50 118 Output Total 1890 Balance -1840 118 Intake: IV 50 Oral 118 Output: Urine 1890 Other: Voiding Method External Catheter # Bowel Movements 1 1 - Exam GENERAL EXAM: Alert, very pleasant, 89-year-old female patient, on 2 L of oxygen a pulse ox of 94% comfortable in no apparent distress. HEAD: Normocephalic/atraumatic. EYES: Normal reaction of pupils, equal size. Conjunctiva pink, sclera white. NOSE: Clear with pink turbinates. THROAT: No erythema or exudates. NECK: No masses, no JVD, no thyroid enlargement, no adenopathy. CHEST: No chest wall deformity. Symmetrical expansion. LUNGS: Equal air entry with few rhonchi in the right lung. CVS: Regular rate and rhythm, normal S1 and S2, no gallops, no murmurs, no rubs ABDOMEN: Soft, nontender. No hepatosplenomegaly, normal bowel sounds, no guarding or rigidity. EXTREMITIES: No clubbing, no edema, no cyanosis, 2+ pulses and upper and lower extremities. MUSCULOSKELETAL: Muscle strength and tone normal. SPINE: No scoliosis or deformity SKIN: No rashes CENTRAL NERVOUS SYSTEM: No focal deficits, tone is normal in all 4 extremities. PSYCHIATRIC: Alert and oriented -3. Appropriate affect. Intact judgment and insight. - Labs CBC & Chem 7: 11/10/21 06:44 11/10/21 06:44 Assessment and Plan Assessment: 1 Acute COVID-19 infection, without acute pneumonia on the chest x-ray, patient is currently on 2 L of oxygen, however this was an incidental finding 1 the patient was swabbed for COVID-19 as part of the routine screening practices. Patient does report 2 or 3 days worth of increased fatigue, cough but no fever. Follow-up chest x-ray on 11/09/2021 showing new patchy opacities in the right lung periphery consistent with COVID-19 pneumonia, patient was started on Remdesivir on 11/08/2021 2 Hematemesis, acute GI bleeding, on Eliquis and Effient, and both have been placed on hold. 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 Lungs sounds with few rhonchi in the right lung. Maintaining good O2 saturations in the 90s on 2 L/m per nasal cannula. I discussed the assessment and plan of care with my nurse practitioner, Sherin Bonner. I attest to the above note as dictated by her.
--- NOTE | 2021-11-11 14:22 | P.PN ---
Subjective Progress Note Date: 11/11/21 History of present illness: This is a 89-year-old pleasant female patient of Dr. Meyers with a past medical history significant for coronary artery disease with stenting to the first OM and July 2021, asthma, heart failure, hyperlipidemia, pulmonary embolism, brain tumor with mild memory impairment, depression, and IBS. Patient presented to the emergency room complaining of vomiting blood. Patient stated that she had approximately half a cup of bright red blood. Later on she began to have a nosebleed. Patient denies any cough. Patient denies nausea and did not have any repeat vomiting episodes. She denies any dizziness or lightheadedness. Denies any change to her bowel movement. No dark tarry stools. She is currently on blood thinners. At this time patient was assessed on and found to be short of breath with conversation and activity. She is in moderate distress. Patient states that the shortness of breath has been happening quite frequently. States that any activity causes shortness of breath. Patient denies any chest pain, fevers, or cough. Patient has 2+ pedal edema to bilateral lower extremities with multiple abrasions from scratching noted. Patient is alert and answering questions appropriately. Patient has no other complaints or concerns at this time. W BC 7.5, hemoglobin 14.4, potassium 4.5, BUN 27, creatinine 0.84, COVID- 19 PCR positive. Patient is afebrile, respirations are 32 with labored breathing, blood pressure 174/93, heart rate 85, pulse ox 95% on 2 L. Chest x- ray was ordered. We will repeat hemoglobin at 2 PM. 11/09: Patient has severe hearing loss, was noted to have incontinence all over the place, patient is sitting in the commode, despite her sitting on it, this occurs quite often according to nurse, with urine all over the floor. Patient has a hearing aid does not work, there is no epistaxis hemoptysis now, or melena hematochezia, patient will be started on urine continence program, and is currently on the [place], for which he was started on November 08., egd to be scheduled for egd tomorrow by surgery for hematemesis, eliquis and effient is on hold, prior EP in past 11/10: Patient remains in isolation for COVID, currently on Remdesivir. A is complaining of a little cough. No more rectal bleeding/blackness or blood in stools. She's been afebrile, heart rate 70, blood pressure 138/76, pulse ox 99% on 2 L nasal cannula. Hemoglobin is 14.1, fluid, 149. She is scheduled for EGD today with Dr. Aviles. 11/11: EGD revealed gastritis and hiatal hernia. Dr. Aviles has cleared the patient to resume anticoagulation which is in the form of eliquis and Effient. We will thus discontinue aspirin. Dr. Aviles is signed off the case. Pathology report is pending. Patient is continued on Remdesivir, Decadron, vitamin supplements and IV diuretics. Consults with PT and OT added with plan for discharge tomorrow. Patient is complaining of left lower quadrant pain and Senokot-S added Review Of Systems: Constitutional: No fever, no chills, no night sweats. No weight change. No weakness, fatigue or lethargy. No daytime sleepiness. EENT: No headache. No blurred vision or double vision, no loss of vision. No loss of Hearing, no ringing in the ears, no dizziness. No nasal drainage or congestion. No epistaxis. No sore throat. Lungs: Reports shortness of breath, no cough, no sputum production. No wheezing. Cardiovascular: No chest pain, reports lower extremity edema. No palpitations. No paroxysmal nocturnal dyspnea. No orthopnea. No lightheadedness or dizziness. No syncopal episodes. Abdominal: Reports hematemesis, no abdominal discomfort. No nausea, vomiting. no diarrhea. No constipation. No bloody or tarry stools. no loss of appetite. Genitourinary: No dysuria, increased frequency, urgency. No urinary retention. Musculoskeletal: No myalgias. No muscle weakness, no gait dysfunction, no frequent falls. No back pain. No neck pain. Integumentary: No wounds, reports lesions lateral lower extremities. No rash or pruritus. No unusual bruising. No change in hair or nails. Neurologic: No aphasia. No facial droop. No change in mentation. No head injury. No headache. No paralysis. No paresthesia. Psychiatric: Reports depression. Reports anxiety. No mood swings. Endocrine: No abnormal blood sugars. No weight change. No excessive sweating or thirst. Physical examination General Appearance: Alert, cooperative, moderate distress with activity and conversation, this is a 89-year-old pleasant female appears stated age.She appears to be comfortable and in no acute distress. Neck HEENT: Supple, no lymphadenopathy, no thyroid enlargement, no carotid bruits. Lungs: few rhonchi, no deformity. Chest Wall: Chest wall normal expansion with deep inspiration no tenderness and no deformity was found on exam, no costochondral pain or discomfort. Heart: Regular rate and rhythm, S1, S2 normal, no murmur, rub or gallop. Back: Symmetric, no curvature, ROM normal, no CVA tenderness. Abdomen: Soft, non-tender, no rebound or rigidity, no hepatosplenomegaly. Extremities: 2+ pedal edema Extremities normal, atraumatic, no cyanosis. Pulses: 2+ and symmetric. Skin: Skin color, texture, tugor normal, no rashes multiple lesions to bilateral lower extremities. Neurologic: Alert oriented x3 cranial nerves II through XII intact, no motor deficit, no abnormal balance or gait Assessment and plan 1. Acute GI bleed hematemesis area to gastritis. Consult surgery s/p EGD for 11/10/21, continue Protonix 40 mg daily, Zofran 4 mg every 8 hours as needed 2. Acute shortness of breath with COVID-19 with hypoxia. Continue Zosyn IV piggyback, Lasix 40 mg IV daily, consult pulmonology, vitamin C, vitamin D3 and zinc added we will hold off on Lovenox due to GI bleed. Decadron 6 mg IV push daily 3. Arthrosclerosis heart disease status post PCI to LAD and most recently first OM on 08/25/2021. Effient will be resumed and hold aspirin. 4. Hypertension. Continue atenolol 25 mg, that he 10 mg by mouth at bedtime Imdur 60 mg by mouth daily 5. Congestive heart failure. Lasix 40 mg 6. Hyperlipidemia. Atorvastatin 40 mg by mouth daily 7. GERD. Protonix 40 mg 8. Asthma. singular 10 mg by mouth daily, 9. Cardiomyopathy, ejection fraction 50-55%. 10. Depression. Prozac, Xanax as needed 11. Pulmonary embolism. Resume eliquis 12. IBS with diarrhea, stable. 13. History of brain tumor with mild memory impairment, stable. 14. DVT prophylaxis. Eliquis 15. GI prophylaxis. Protonix CODE STATUS: Full code DISCHARGE PLAN Home or subacute rehab Impression and plan of care have been directed as dictated by the signing physician. Patience Jones nurse practitioner acting as scribe for signing physician. Objective - Vital Signs Vital signs: Vital Signs Temp 98.0 F 11/11/21 08:00 Pulse 78 11/11/21 08:00 Resp 16 11/11/21 08:00 BP 113/72 11/11/21 08:00 Pulse Ox 94 L 11/11/21 08:00 Intake & Output 11/10/21 11/11/21 11/11/21 18:59 06:59 18:59 Intake Total 50 118 Output Total 1890 Balance -1840 118 Intake: IV 50 Oral 118 Output: Urine 1890 Other: Voiding Method External Catheter # Bowel Movements 1 1 - Labs CBC & Chem 7: 11/10/21 06:44 11/10/21 06:44
[2021-11-11] MEDS: REMDESIVIR 100 MG in SODIUM CHLORIDE 0.9% 250 ML IVPB SCH (15:35)
[2021-11-11] MEDS: PRASUGREL 10 MG TAB PO SCH (15:35)
[2021-11-11] MEDS: EZETIMIBE 10 MG TAB PO SCH (21:06)
[2021-11-11] MEDS: APIXABAN 5 MG TAB PO SCH (21:06)
[2021-11-12] MEDS: PIPERACILLIN-TAZOBACTAM 3.375 GM in SODIUM CHLORIDE 0.9% 100 ML IVPB SCH ×3 (01:08→16:55)
[2021-11-12] MEDS: SODIUM CHLORIDE 0.9% 1,000 ML IV SCH ×3 (02:13→16:57)
[2021-11-12] MEDS: ALBUTEROL HFA INHALER INHALATION SCH ×4 (08:25→21:05)
[2021-11-12] MEDS: PANTOPRAZOLE 40 MG/10 ML VIAL IV SCH (08:47)
[2021-11-12] MEDS: DEXAMETHASONE SOD PHOSPHATE 10 MG/ML 1 ML VIAL IVP SCH (08:47)
[2021-11-12] MEDS: SENNOSIDES-DOCUSATE SODIUM 1 EACH TAB PO SCH (08:48)
[2021-11-12] MEDS: MONTELUKAST 10 MG TAB PO SCH (08:48)
[2021-11-12] MEDS: FUROSEMIDE 10 MG/ML 4 ML VIAL IV SCH (08:48)
[2021-11-12] MEDS: APIXABAN 5 MG TAB PO SCH ×2 (08:48→20:23)
[2021-11-12] MEDS: atenoloL 25 MG TAB PO SCH (08:48)
[2021-11-12] MEDS: FLUoxetine HCL 10 MG CAP PO SCH (08:49)
[2021-11-12] MEDS: ISOSORBIDE MONONITRATE ER 60 MG TAB.ER.24H PO SCH (08:49)
[2021-11-12] MEDS: ASCORBIC ACID 500 MG TAB PO SCH (08:49)
[2021-11-12] MEDS: ATORVASTATIN 40 MG TAB PO SCH (08:49)
[2021-11-12] MEDS: PRASUGREL 10 MG TAB PO SCH (08:49)
[2021-11-12] MEDS: FLUoxetine HCL 20 MG CAP PO SCH (09:40)
[2021-11-12] MEDS: NITROGLYCERIN SL TABS 0.4 MG TAB SUBLINGUAL PRN ×2 (10:36→10:43)
[2021-11-12] MEDS: SIMETHICONE 80 MG CHEWABLE PO SCH ×2 (10:39→20:23)
[2021-11-12] MEDS: LACTATED RINGERS 1,000 ML IV SCH (10:42)
[2021-11-12] MEDS: REMDESIVIR 100 MG in SODIUM CHLORIDE 0.9% 250 ML IVPB SCH (15:37)
[2021-11-12] MEDS: EZETIMIBE 10 MG TAB PO SCH (20:23)
[2021-11-13] MEDS: PIPERACILLIN-TAZOBACTAM 3.375 GM in SODIUM CHLORIDE 0.9% 100 ML IVPB SCH ×2 (01:26→08:22)
[2021-11-13] MEDS: SODIUM CHLORIDE 0.9% 1,000 ML IV SCH ×2 (01:27→08:26)
[2021-11-13 01:50] VITALS: RESP 16
[2021-11-13 08:01] VITALS: BP 153/77; PULSE 60; TEMP 98.4
[2021-11-13] MEDS: SENNOSIDES-DOCUSATE SODIUM 1 EACH TAB PO SCH (08:22)
[2021-11-13] MEDS: DEXAMETHASONE SOD PHOSPHATE 10 MG/ML 1 ML VIAL IVP SCH (08:23)
[2021-11-13] MEDS: PANTOPRAZOLE 40 MG/10 ML VIAL IV SCH (08:23)
[2021-11-13] MEDS: FLUoxetine HCL 10 MG CAP PO SCH (08:23)
[2021-11-13] MEDS: FUROSEMIDE 10 MG/ML 4 ML VIAL IV SCH (08:23)
[2021-11-13] MEDS: APIXABAN 5 MG TAB PO SCH (08:24)
[2021-11-13] MEDS: ISOSORBIDE MONONITRATE ER 60 MG TAB.ER.24H PO SCH (08:24)
[2021-11-13] MEDS: atenoloL 25 MG TAB PO SCH (08:24)
[2021-11-13] MEDS: CHOLECALCIFEROL 125 MCG (5000 IU) TABLET PO SCH (08:24)
[2021-11-13] MEDS: FLUoxetine HCL 20 MG CAP PO SCH (08:24)
[2021-11-13] MEDS: PRASUGREL 10 MG TAB PO SCH (08:24)
[2021-11-13] MEDS: ASCORBIC ACID 500 MG TAB PO SCH (08:24)
[2021-11-13] MEDS: MONTELUKAST 10 MG TAB PO SCH (08:24)
[2021-11-13] MEDS: SIMETHICONE 80 MG CHEWABLE PO SCH (08:25)
[2021-11-13] MEDS: ATORVASTATIN 40 MG TAB PO SCH (08:25)
[2021-11-13] MEDS: LACTATED RINGERS 1,000 ML IV SCH (08:25)
--- NOTE | 2021-11-13 09:28 | P.DS ---
Providers Date of admission: 11/10/21 09:45 Expected date of discharge: 11/13/21 Attending physician: Carlos A Meyers Consults: 11/08/21 06:03 Consult Physician Routine Consulting Provider: Yevgeniy Aviles Consult Reason/Comments: gib Do you want consulting provider notified?: Yes 11/08/21 08:49 Consult Physician Routine Consulting Provider: Yevgeniy Aviles Consult Reason/Comments: GIB Do you want consulting provider notified?: Yes 11/08/21 11:54 Consult Physician Routine Consulting Provider: Jerry Dorantes Consult Reason/Comments: Covid +, SOB Do you want consulting provider notified?: Yes 11/08/21 16:31 Consult Physician Routine Consulting Provider: Jennifer Hicks Consult Reason/Comments: IVC filter placement Do you want consulting provider notified?: Yes Primary care physician: [facility] Course: History of present illness: This is a 89-year-old pleasant female patient of Dr. Meyers with a past medical history significant for coronary artery disease with stenting to the first and July 2021, asthma, heart failure, hyperlipidemia, pulmonary embolism, brain tumor with mild memory impairment, depression, and IBS. Patient presented to the emergency room complaining of vomiting blood. Patient stated that she had approximately half a cup of bright red blood. Later on she began to have a nosebleed. Patient denies any cough. Patient denies nausea and did not have any repeat vomiting episodes. She denies any dizziness or lightheadedness. Denies any change to her bowel movement. No dark tarry sto ols. She is currently on blood thinners. At this time patient was assessed on and found to be short of breath with conversation and activity. She is in moderate distress. Patient states th at the shortness of breath has been happening quite frequently. States that any activity causes shortness of breath. Patient denies any chest pain, fevers, or cough. Patient has 2+ pedal edema to bilateral lower extremities with multiple abrasions from scratching noted. Patient is alert and answering questions appropriately. Patient has no other complaints or concerns at this time. W BC 7.5, hemoglobin 14.4, potassium 4.5, BUN 27, creatinine 0.84, COVID-19 PCR positive. Patient is afebrile, respirations are 32 with labored breathing, blood pressure 174/93, heart rate 85, pulse ox 95% on 2 L. Chest x-ray was ordered. We will repeat hemoglobin at 2 PM. 11/09: Patient has severe hearing loss, was noted to have incontinence all over the place, patient is sitting in the commode, despite her sitting on it, this occurs quite often according to nurse, with urine all over the floor. Patient has a hearing aid does not work, there is no epistaxis hemoptysis now, or melena hematochezia, patient will be started on urine continence program, and is currently on the [place], for which he was started on November 08., egd to be scheduled for egd tomorrow by surgery for hematemesis, eliquis and effient is on hold, prior EP in past 11/10: Patient remains in isolation for COVID, currently on Remdesivir. A is complaining of a little cough. No more rectal bleeding/blackness or blood in st ools. She's been afebrile, heart rate 70, blood pressure 138/76, pulse ox 99% on 2 L nasal cannula. Hemoglobin is 14.1, fluid, 149. She is scheduled for EGD today with Dr. Aviles. 11/11: EGD revealed gastritis and hiatal hernia. Dr. Aviles has cleared the patient to resume anticoagulation which is in the form of eliquis and Effient. We will thus discontinue aspirin. Dr. Aviles is signed off the case. Pathology report is pending. Patient is continued on Remdesivir, Decadron, vitamin supplements and IV diuretics. Consults with PT and OT added with plan for discharge tomorrow. Patient is complaining of left lower quadrant pain and Senokot-S added 11/12: Patient was complaining of chest pain for 10 minutes. Nursing states that she choked on pill today and vomited following this. Maalox added as well as patient was provided Protonix and Zofran. Gastric biopsy revealed mild chronic gastritis. H. pylori not identified. Repeat blood work ordered for tomorrow 11/13: Patient was resumed back on eliquis and Brilinta. No further episodes of bleeding. She denies chest pain. Repeat hemoglobin is 15.4. BUN 38 and creatinine 1.25. Blood sugar 140. AST 39. Patient was seen by vascular surgery as pulmonary put in a consult regarding possible need for IVC filter. General surgery did not have plans for IVC filter. Pulse ox is 95% on room air, afebrile, heart rate 60, blood pressure 153/77. Patient is continued on eliquis, dexamethasone, vitamin supplements, Zosyn. Zosyn will be transitioned to Augmentin and patient will be discharged today in stable condition. DISCHARGE DIAGNOSES 1. Acute GI bleed hematemesis area to gastritis. 2. Acute shortness of breath with COVID-19 with hypoxia without acute respiratory failure. 3. Arthrosclerosis heart disease status post PCI to LAD and most recently first OM on 08/25/2021. 4. Hypertension. 5. Chronic diastolic heart failure. 6. Hyperlipidemia. 7. GERD. 8. Asthma, mild intermittent 9. History of brain tumor with mild memory impairment, stable. 10. Recurrent Depression. 11. Pulmonary embolism. 12. IBS with diarrhea, stable. DISCHARGE PLAN Home Greater than 35 minutes was utilized and coordinating patient's discharge. Impression and plan of care have been directed as dictated by the signing physician. Patience Jones nurse practitioner acting as scribe for signing physician. Patient Condition at Discharge: Good Plan - Discharge Summary Discharge Rx Participant: Yes New Discharge Prescriptions: New Sennosides-Docusate Sodium [Senokot-S] 2 each PO DAILY tab Albuterol Inhaler [Ventolin Hfa Inhaler] 1 puff INHALATION RT-QID #18 gm Cholecalciferol [Vitamin D3 (125 Mcg = 5000 Iu)] 125 mcg PO DAILY tablet Furosemide [Lasix] 40 mg PO DAILY #30 tablet Azithromycin [Zithromax Tri-Brice (3 tabs)] 500 mg PO DAILY 3 Days #3 tab Simethicone Chew [Mylicon Chew] 160 mg PO TID tab Ascorbic Acid [Vitamin C] 1,000 mg PO DAILY tab Dexamethasone [Decadron] 6 mg PO DAILY #5 tablet Potassium Chloride [Potassium Chloride ER] 10 meq PO DAILY #30 tab Pantoprazole [Protonix] 40 mg PO DAILY #30 tab Continue Ezetimibe [Zetia] 10 mg PO HS atenoloL 25 mg PO DAILY Montelukast [Singulair] 10 mg PO DAILY Apixaban [Eliquis] 5 mg PO BID ALPRAZolam [Xanax] 0.25 mg PO BID PRN PRN Reason: Anxiety traMADol HCL [Ultram] 50 mg PO BID PRN PRN Reason: Pain FLUoxetine HCL [PROzac] 20 mg PO DAILY Atorvastatin [Lipitor] 40 mg PO DAILY #30 tablet Butalb/APAP/Caff 50-325-40Mg [Fioricet 50-325-40] 1 - 2 tab PO Q6H PRN PRN Reason: Migraine Headache FLUoxetine HCL [PROzac] 10 mg PO DAILY Nitroglycerin Sl Tabs [Nitrostat] 0.4 mg SL Q5M PRN PRN Reason: Chest Pain Isosorbide Mononitrate ER [Imdur] 60 mg PO DAILY #30 tablet Prasugrel [Effient] 10 mg PO DAILY Discontinued Famotidine [Pepcid] 20 mg PO DAILY tab Discharge Medication List Ezetimibe [Zetia] 10 mg PO HS 08/02/17 [History] Montelukast [Singulair] 10 mg PO DAILY 08/02/17 [History] atenoloL 25 mg PO DAILY 08/02/17 [History] ALPRAZolam [Xanax] 0.25 mg PO BID PRN 01/08/19 [History] Apixaban [Eliquis] 5 mg PO BID 01/08/19 [History] traMADol HCL [Ultram] 50 mg PO BID PRN 01/08/19 [History] Butalb/APAP/Caff 50-325-40Mg [Fioricet 50-325-40] 1 - 2 tab PO Q6H PRN 08/25/21 [History] FLUoxetine HCL [PROzac] 10 mg PO DAILY 08/25/21 [History] FLUoxetine HCL [PROzac] 20 mg PO DAILY 08/25/21 [History] Nitroglycerin Sl Tabs [Nitrostat] 0.4 mg SL Q5M PRN 08/25/21 [History] Atorvastatin [Lipitor] 40 mg PO DAILY #30 tablet 08/28/21 [Rx] Isosorbide Mononitrate ER [Imdur] 60 mg PO DAILY #30 tablet 08/28/21 [Rx] Prasugrel [Effient] 10 mg PO DAILY 11/08/21 [History] Albuterol Inhaler [Ventolin Hfa Inhaler] 1 puff INHALATION RT-QID #18 gm 11/13/21 [Rx] Ascorbic Acid [Vitamin C] 1,000 mg PO DAILY tab 11/13/21 [Rx] Azithromycin [Zithromax Tri-Brice (3 tabs)] 500 mg PO DAILY 3 Days #3 tab 11/13/21 [Rx] Cholecalciferol [Vitamin D3 (125 Mcg = 5000 Iu)] 125 mcg PO DAILY tablet 11/13/21 [Rx] Dexamethasone [Decadron] 6 mg PO DAILY #5 tablet 11/13/21 [Rx] Furosemide [Lasix] 40 mg PO DAILY #30 tablet 11/13/21 [Rx] Pantoprazole [Protonix] 40 mg PO DAILY #30 tab 11/13/21 [Rx] Potassium Chloride [Potassium Chloride ER] 10 meq PO DAILY #30 tab 11/13/21 [Rx] Sennosides-Docusate Sodium [Senokot-S] 2 each PO DAILY tab 11/13/21 [Rx] Simethicone Chew [Mylicon Chew] 160 mg PO TID tab 11/13/21 [Rx] Follow up Appointment(s)/Referral(s): Gina Ayala MD [STAFF PHYSICIAN] - 1 Week Carlos A Meyers MD [Primary Care Provider] - 1 Week Yevgeniy Aviles MD [Medical Doctor] - 1 Week Patient Instructions/Handouts: Fall Prevention for Older Adults (GEN), Staple Care (DC) Activity/Diet/Wound Care/Special Instructions: RESUME ELIQUIS AND EFFIENT WHEN OKAY WITH GENERAL SURGERY. ASPIRIN MAY BE DISCONTINUED AT THAT TIME Discharge Disposition: HOME WITH HOME HEALTH SERVICES
[2021-11-13] MEDS: ALBUTEROL HFA INHALER INHALATION SCH ×2 (11:47→12:25)
[2021-11-13 12:15] LABS: Basophils % (A) 0 %; Eosinophils % (A) 0 %; HCT 50.8 % (34.0-46.0); HGB 15.4 gm/dL (11.4-16.0); Hypochromasia Slight; Lymphocytes # (A) 0.7 k/uL (1.0-4.8); Lymphocytes % (A) 8 %; MCH 30.9 pg (25.0-35.0); MCHC 30.3 g/dL (31.0-37.0); MCV 102.1 fL (80.0-100.0); Macrocytosis Slight; Mean Platelet Volume 8.8; Monocytes # (A) 0.4 k/uL (0-1.0); Monocytes % (A) 4 %; Neutrophils # (A) 7.9 k/uL (1.3-7.7); Neutrophils % (A) 87 %; Platelet Count 156 k/uL (150-450); RBC 4.98 m/uL (3.80-5.40); WBC 9.1 k/uL (3.8-10.6)
[2021-11-13 12:28] LABS: ALT 29 U/L (4-34); AST 39 U/L (14-36); African American GFR (CKD) 44 (>60 ml/min/1.73 sqM); Albumin 3.7 g/dL (3.5-5.0); Albumin/Globulin Ratio 1.3; Alkaline Phosphatase 73 U/L (38-126); Anion Gap 15 mmol/L; Blood Urea Nitrogen 48 mg/dL (7-17); C Reactive Protein 0.8 mg/dL (<1.0); Calcium 8.5 mg/dL (8.4-10.2); Carbon Dioxide 23 mmol/L (22-30); Chloride 99 mmol/L (98-107); Globulin 2.8 g/dL; Glucose 140 mg/dL (74-99); Non-African American GFR(CKD) 38 (>60 ml/min/1.73 sqM); Potassium 3.3 mmol/L (3.5-5.1); Sodium 137 mmol/L (137-145); Total Bilirubin 0.9 mg/dL (0.2-1.3); Total Protein 6.5 g/dL (6.3-8.2)
--- NOTE | 2021-11-13 12:31 | P.PN ---
Subjective Progress Note Date: 11/12/21 History of present illness: This is a 89-year-old pleasant female patient of Dr. Meyers with a past medical history significant for coronary artery disease with stenting to the first OM and July 2021, asthma, heart failure, hyperlipidemia, pulmonary embolism, brain tumor with mild memory impairment, depression, and IBS. Patient presented to the emergency room complaining of vomiting blood. Patient stated that she had approximately half a cup of bright red blood. Later on she began to have a nosebleed. Patient denies any cough. Patient denies nausea and did not have any repeat vomiting episodes. She denies any dizziness or lightheadedness. Denies any change to her bowel movement. No dark tarry stools. She is currently on blood thinners. At this time patient was assessed on and found to be short of breath with conversation and activity. She is in moderate distress. Patient states that the shortness of breath has been happening quite frequently. States that any activity causes shortness of breath. Patient denies any chest pain, fevers, or cough. Patient has 2+ pedal edema to bilateral lower extremities with multiple abrasions from scratching noted. Patient is alert and answering questions appropriately. Patient has no other complaints or concerns at this time. W BC 7.5, hemoglobin 14.4, potassium 4.5, BUN 27, creatinine 0.84, COVID- 19 PCR positive. Patient is afebrile, respirations are 32 with labored breathing, blood pressure 174/93, heart rate 85, pulse ox 95% on 2 L. Chest x- ray was ordered. We will repeat hemoglobin at 2 PM. 11/09: Patient has severe hearing loss, was noted to have incontinence all over the place, patient is sitting in the commode, despite her sitting on it, this occurs quite often according to nurse, with urine all over the floor. Patient has a hearing aid does not work, there is no epistaxis hemoptysis now, or melena hematochezia, patient will be started on urine continence program, and is currently on the Ashley, for which he was started on November 08., egd to be scheduled for egd tomorrow by surgery for hematemesis, eliquis and effient is on hold, prior EP in past 11/10: Patient remains in isolation for COVID, currently on Remdesivir. A is complaining of a little cough. No more rectal bleeding/blackness or blood in stools. She's been afebrile, heart rate 70, blood pressure 138/76, pulse ox 99% on 2 L nasal cannula. Hemoglobin is 14.1, fluid, 149. She is scheduled for EGD today with Dr. Aviles. 11/11: EGD revealed gastritis and hiatal hernia. Dr. Aviles has cleared the patient to resume anticoagulation which is in the form of eliquis and Effient. We will thus discontinue aspirin. Dr. Aviles is signed off the case. Pathology report is pending. Patient is continued on Remdesivir, Decadron, vitamin supplements and IV diuretics. Consults with PT and OT added with plan for discharge tomorrow. Patient is complaining of left lower quadrant pain and Senokot-S added 11/12: Patient was complaining of chest pain for 10 minutes. Nursing states that she choked on pill today and vomited following this. Maalox added as well as patient was provided Protonix and Zofran. Gastric biopsy revealed mild chronic gastritis. H. pylori not identified. Repeat blood work ordered for tomorrow Review Of Systems: Constitutional: No fever, no chills, no night sweats. No weight change. No weakness, fatigue or lethargy. No daytime sleepiness. EENT: No headache. No blurred vision or double vision, no loss of vision. No loss of Hearing, no ringing in the ears, no dizziness. No nasal drainage or congestion. No epistaxis. No sore throat. Lungs: Reports shortness of breath, no cough, no sputum production. No wheezing. Cardiovascular: Reports chest pain, reports lower extremity edema. No palpitations. No paroxysmal nocturnal dyspnea. No orthopnea. No lightheadedness or dizziness. No syncopal episodes. Abdominal: Denies hematemesis, no abdominal discomfort. No nausea, vomiting. no diarrhea. No constipation. No bloody or tarry stools. no loss of appetite. Genitourinary: No dysuria, increased frequency, urgency. No urinary retention. Musculoskeletal: No myalgias. No muscle weakness, no gait dysfunction, no frequent falls. No back pain. No neck pain. Integumentary: No wounds, reports lesions lateral lower extremities. No rash or pruritus. No unusual bruising. No change in hair or nails. Neurologic: No aphasia. No facial droop. No change in mentation. No head injury. No headache. No paralysis. No paresthesia. Psychiatric: Reports depression. Reports anxiety. No mood swings. Endocrine: No abnormal blood sugars. No weight change. No excessive sweating or thirst. Physical examination General Appearance: Alert, cooperative, moderate distress with activity and conversation, this is a 89-year-old pleasant female appears stated age.She appears to be comfortable and in no acute distress. Neck HEENT: Supple, no lymphadenopathy, no thyroid enlargement, no carotid br uits. Lungs: few rhonchi, no deformity. Chest Wall: Chest wall normal expansion with deep inspiration no tenderness and no deformity was found on exam, no costochondral pain or discomfort. Heart: Regular rate and rhythm, S1, S2 normal, no murmur, rub or gallop. Back: Symmetric, no curvature, ROM normal, no CVA tenderness. Abdomen: Soft, non-tender, no rebound or rigidity, no hepatosplenomegaly. Extremities: 2+ pedal edema Extremities normal, atraumatic, no cyanosis. Pulses: 2+ and symmetric. Skin: Skin color, texture, tugor normal, no rashes multiple lesions to bilateral lower extremities. Neurologic: Alert oriented x3 cranial nerves II through XII intact, no motor deficit, no abnormal balance or gait Assessment and plan 1. Acute GI bleed hematemesis area to gastritis. Consult surgery s/p EGD for 11/10/21, continue Protonix 40 mg daily, Zofran 4 mg every 8 hours as needed 2. Acute shortness of breath with COVID-19 with hypoxia. Continue Zosyn IV piggyback, Lasix 40 mg IV daily, consult pulmonology, vitamin C, vitamin D3 and zinc added we will hold off on Lovenox due to GI bleed. Decadron 6 mg IV push daily 3. Arthrosclerosis heart disease status post PCI to LAD and most recently first OM on 08/25/2021. Effient will be resumed and hold aspirin. 4. Hypertension. Continue atenolol 25 mg, that he 10 mg by mouth at bedtime Imdur 60 mg by mouth daily 5. Congestive heart failure. Lasix 40 mg 6. Hyperlipidemia. Atorvastatin 40 mg by mouth daily 7. GERD. Protonix 40 mg 8. Asthma. singular 10 mg by mouth daily, 9. Cardiomyopathy, ejection fraction 50-55%. 10. Depression. Prozac, Xanax as needed 11. Pulmonary embolism. Resume eliquis 12. IBS with diarrhea, stable. 13. History of brain tumor with mild memory impairment, stable. 14. DVT prophylaxis. Eliquis 15. GI prophylaxis. Protonix CODE STATUS: Full code DISCHARGE PLAN Home or subacute rehab Impression and plan of care have been directed as dictated by the signing physician. Patience Jones nurse practitioner acting as scribe for signing physician. Objective - Vital Signs Vital signs: Vital Signs Temp 98.4 F 11/12/21 08:00 Pulse 66 11/12/21 08:00 Resp 16 11/12/21 08:00 BP 155/91 11/12/21 08:00 Pulse Ox 96 11/12/21 08:00 Intake & Output 11/11/21 11/12/21 11/12/21 18:59 06:59 18:59 Intake Total 709 118 Balance 709 118 Intake: Oral 709 118 Other: Voiding Method External Catheter # Voids 3 # Bowel Movements 1 - Labs CBC & Chem 7: 11/13/21 11:33 11/13/21 11:33
[2021-11-13] MEDS ORDERED: POTASSIUM CHLORIDE ER 20 MEQ TAB.ER PO STA (13:27)
== END 2021-11-13 14:35 | disposition home or self-care (01) | DRG 377 ==
LOC: EC 22:17 → 5NMEDONC 11-08 04:12 → 6NMEDSUR 11-08 06:43 → OBSVTOIN 11-10 09:45
PROVIDERS: ADMIT Internal Medicine Geriatric Medicine; ATTEND Internal Medicine Geriatric Medicine
PROC: XW033E5 Introduction of Remdesivir Anti-infective into Peripheral Vein, Percutaneous Approach, New Technology Group 5 (ICD-10-PCS; principal; 2021-11-08)
PROC: 0DB78ZX Excision of Stomach, Pylorus, Via Natural or Artificial Opening Endoscopic, Diagnostic (ICD-10-PCS; 2021-11-10)
DX: K29.51 Unspecified chronic gastritis with bleeding (principal); U07.1 COVID-19; J12.82 Pneumonia due to coronavirus disease 2019; I42.9 Cardiomyopathy, unspecified; D68.9 Coagulation defect, unspecified; I50.32 Chronic diastolic (congestive) heart failure; F33.9 Major depressive disorder, recurrent, unspecified; I27.20 Pulmonary hypertension, unspecified; I11.0 Hypertensive heart disease with heart failure; J45.20 Mild intermittent asthma, uncomplicated; R32 Unspecified urinary incontinence; E78.5 Hyperlipidemia, unspecified; R09.02 Hypoxemia; K58.0 Irritable bowel syndrome with diarrhea; K21.9 Gastro-esophageal reflux disease without esophagitis; H91.90 Unspecified hearing loss, unspecified ear; I08.3 Combined rheumatic disorders of mitral, aortic and tricuspid valves; K44.9 Diaphragmatic hernia without obstruction or gangrene; R04.0 Epistaxis; I25.10 Atherosclerotic heart disease of native coronary artery without angina pectoris; Z79.01 Long term (current) use of anticoagulants; Z79.02 Long term (current) use of antithrombotics/antiplatelets; Z79.899 Other long term (current) drug therapy; Z86.711 Personal history of pulmonary embolism; Z95.5 Presence of coronary angioplasty implant and graft; Z90.49 Acquired absence of other specified parts of digestive tract; Z87.19 Personal history of other diseases of the digestive system; Z86.69 Personal history of other diseases of the nervous system and sense organs; Z90.89 Acquired absence of other organs; Z98.890 Other specified postprocedural states; Z88.5 Allergy status to narcotic agent; Z88.2 Allergy status to sulfonamides; Z88.1 Allergy status to other antibiotic agents; Z91.02 Food additives allergy status; Z82.49 Family history of ischemic heart disease and other diseases of the circulatory system; Z83.2 Family history of diseases of the blood and blood-forming organs and certain disorders involving the immune mechanism; Z82.3 Family history of stroke; Z80.9 Family history of malignant neoplasm, unspecified; Z83.3 Family history of diabetes mellitus
CPT/HCPCS: 36415; 43239; 71045; 80048; 80053; 82728; 83605; 83615; 83735; 84145; 84484; 85025; 85027; 85379; 85730; 86140; 86850; 86870; 86880; 86900; 86901; 87635; 88305; 93005; 94640; 96374; 96375; 99285